=== PATIENT | female | born 1985 | race Caucasian/White ===

== ENCOUNTER 2018-01-22 21:20 | Emergency (ER) | payer MEDICAID, SELFPAY ==
[2018-01-22 21:22] VITALS: BP 156/99; PULSE 63; RESP 16; TEMP 35.9; O2SAT 100; BMI 44.7
--- NOTE | 2018-01-22 21:44 | EKG12_ITS ---
Test Reason : DIZZY Blood Pressure : / mmHG Vent. Rate : 060 BPM Atrial Rate : 060 BPM P-R Int : 124 ms QRS Dur : 090 ms QT Int : 440 ms P-R-T Axes : 047 053 040 degrees QTc Int : 440 ms Normal sinus rhythm with sinus arrhythmia Normal ECG Confirmed by KALE STOVER, KAYLA ([id number]), video tape editor RICH SADLER ([id number] on 01/24/2018 3:31:22 PM Referred By: DAYO Confirmed By:KAYLA HENLEY MD
[2018-01-22 22:05] VITALS: BP 125/73; BP 128/63; BP 129/68; PULSE 58; PULSE 59; PULSE 67
[2018-01-22] MEDS: 0.9% Normal Saline 1,000 ML 1000 ML IV (22:05)
[2018-01-22 22:29] LABS: Absolute Lymphocyte Count 2.49 X10^3/ul (0.83-4.51); Absolute Neutrophil Count 5.9 X10^3/uL (2.0-7.7); Basophil# 0.02 X10^3/uL; Basophil% 0.2 % (0-1); Eosinophil# 0.24 X10^3/uL; Eosinophils% 2.6 % (0-5); Hematocrit 36.2 % (37-47); Hemoglobin 12.2 g/dl (12.0-15.0); Lymphocyte # 2.49 X10^3/ul (4.0); Lymphocyte % 26.9 % (19-41); Mean Corp Hgb Conc 33.7 g/gl (32-36); Mean Corpuscular Hgb 27.1 pg (27.0-32.0); Mean Corpuscular Volume 80.4 fL (81-99); Mean Platelet Vol. 11.5 fl (6.2-12.0); Monocyte# 0.55 X10^3/uL; Monocyte% 5.9 % (0-10); Neutrophil # 5.93 X10^3/uL (2.7-7.7); Neutrophil % 64.2 % (47-70); Platelet Count 327 K/mm3 (150-450); RBC Distribution Width SD 43.3 fl (35.1-43.9); White Blood Count 9.3 K/mm3 (4.4-11.0)
[2018-01-22 22:30] LABS: POSITIVE COUNT NO; POSITIVE DIFFERENTIAL NO; POSITIVE MORPHOLOGY NO
[2018-01-22 22:43] LABS: Anion Gap 9 (5-15); BUN 10 mg/dL (7-18); BUN/Creat Ratio 13.8 RATIO (10-20); Calcium,Total 8.6 mg/dL (8.5-10.1); Chloride 105 mmol/L (98-107); Creatinine, Serum 0.72 mg/dL (0.55-1.02); EST Glomerular Filtration Rate 99 mL/min (>60); Est Glom Filt Rate - Afr Amer 120 mL/min (>60); Estimated Creatinine Clearance 113.16 ml/min; Glucose 88 mg/dL (74-106); Potassium 3.6 mmol/L (3.5-5.1); Sodium Level 139 mmol/L (136-145)
[2018-01-22 22:48] LABS: Pregnancy, Serum, hCG Quali. NEGATIVE Negative (0-9 Nonpreg)
--- NOTE | 2018-01-22 23:03 | ED.VISSUMM ---
- ER Visit Summary Date of Service: 01/22/18 Chief Complaint: Lightheaded History of Present Illness: The patient is a [address] Mueller. She reports that she has been lightheaded over the past 3 days. This is worsened with standing. She has not passed out. She does report that time she feels off balance. She denies any vertigo or double vision. She questions whether this may be due to the Zoloft and Julebar that she began January 02. Patient reports that she has been nauseated vomited twice a day. There is been no blood or emesis. She states that this is not unusual following her gastric bypass in July 2017. Review of systems: General: No fever, chills, cold sweats. Cardiovascular: No chest pain, palpitations. Respiratory: No cough, shortness of breath, dyspnea on exertion. Gastrointestinal: No abdominal pain, diarrhea, melena, or hematochezia. Genitourinary: No dysuria, frequency, hematuria. Skin: No rash. Neuro: No headache, numbness, weakness. Physical Examination: Vitals: Stable. Afebrile. General: Well-nourished and well-developed. Head: Normocephalic atraumatic. Neck: Supple, no lymphadenopathy. No JVD. Nontender. Cardiovascular: Regular rate and rhythm. No murmurs. Respiratory: No respiratory distress. Clear to auscultation bilaterally. Abdominal: Soft, nontender, nondistended, normal bowel sounds. No guarding, rebound, or peritoneal signs. Back: Nontender. Extremities: Nontender, no edema. Skin: Normal color, no rash. Neurologic: Alert and oriented ?3. Cranial nerves II through XII are intact. Normal strength and sensation. Psych: Normal affect. Test Results: EKG is sinus tach at 101 with no acute changes. CBC is normal. Chem-7 is normal. test is negative. Emergency Department Course and Treatment: Patient had negative orthostatic vital signs. She is given a liter of normal saline is resting comfortably. Treatment Plan: Patient be discharged instructions to push fluids. Follow-up with Dr. Mueller in 1-2 days if not improving. Return to the emergency department for any worsening symptoms. Disposition: To home in improved and stable condition. Impression: 1. Lightheadedness, uncertain cause. This note was generated with Dragon dictation software. It may contain incorrect words, spelling, and punctuation that were not noted in review of the chart prior to signing ED Disposition - Plan for ED Patient: Disposition: Home or Assisted Living Chief Complaint: Dizziness Instructions: ED Near Syncope Unkn Referrals: Viraj Mueller MD [Primary Care Provider] - 1-2 Days if not improving
[2018-01-22 23:17] VITALS: BP 128/64; PULSE 59; RESP 22; O2SAT 100
== END 2018-01-22 23:18 | disposition home or self-care (01) ==
LOC: ED 21:54
PROVIDERS: Emergency Provider Emergency Medicine; Family Provider Family Medicine; PCP Family Medicine
DX: R42 Dizziness and giddiness (principal); G43.909 Migraine, unspecified, not intractable, without status migrainosus
CPT/HCPCS: 80048; 84703; 85025; 93005; 96360; 99285; J7030

== ENCOUNTER 2018-03-06 13:49 | Emergency (ER) | payer MEDICAID, SELFPAY ==
--- NOTE | 2018-03-06 13:49 | DT_ITS ---
This patient was seen during an EMR downtime March 06, 2018 - March 13, 2018. This patient may have a combination of paper and electronic documentation or all paper documentation. All documentation is viewable within the e-chart portion of [facility] for each patient visit.
== END 2018-03-06 17:47 | disposition home or self-care (01) ==
LOC: ED 03-08 13:55
PROVIDERS: Emergency Provider Emergency Medicine; Family Provider Family Medicine; PCP Family Medicine
DX: S29.012A Strain of muscle and tendon of back wall of thorax, initial encounter (principal); X50.1XXA Overexertion from prolonged static or awkward postures, initial encounter; Y93.9 Activity, unspecified; Y92.9 Unspecified place or not applicable; M62.838 Other muscle spasm; Z98.84 Bariatric surgery status
CPT/HCPCS: 99283

== ENCOUNTER 2018-05-02 18:08 | Emergency (ER) | payer MEDICAID, SELFPAY ==
[2018-05-02 18:09] VITALS: BP 159/109; PULSE 98; RESP 14; TEMP 36.1; O2SAT 98; BMI 43.2
--- NOTE | 2018-05-02 18:37 | ED.DCSUM_ITS ---
- ER Visit Summary Date of Service: 05/02/18 Chief Complaint: Joint pain History of Present Illness: The patient is a 32 F by a 2 week history of intermittent. Denies any nausea, vomiting, diarrhea or fever. No rashes. States does improve with Tylenol. She is also felt somewhat tired. She denies chest pain or shortness of breath. She denies melena. No dysuria. No prior history. She does have a history of anxiety and a prior gastric bypass. Physical Examination: Well-appearing young female. Vital signs are stable and afebrile. H EENT exam unremarkable. Neck nontender no lymphadenopathy. Lungs clear to auscultation bilaterally. Heart regular rhythm no murmur. Abdomen soft nontender normal bowel sounds no peritoneal signs. She is moving all 4 extremities. They are neurovascularly intact. Normal range of motion. 5 out of 5 carcass splitter strength. Dorsi plantar flexion intact. Skin normal no rashes. Back exam normal nontender. Neurologically she is awake and alert with no focal motor deficits. Test Results: CBC normal. Electrolytes normal. Emergency Department Course and Treatment: Complaining of of myalgias and arthralgias. Screening labs to be obtained. Treatment Plan: Repeat exam patient is doing well. Will be discharged to home with follow-up with primary care physician for further evaluation. Disposition: discharge Impression: Acute myalgias and arthralgias of uncertain etiology This note was generated with [employer] dictation software. It may contain incorrect words, spelling, and punctuation that were not noted in review of the chart prior to signing ED Disposition - Plan for ED Patient: Chief Complaint: General Illness Referrals: Viraj Mueller MD [Primary Care Provider] -
[2018-05-02 18:50] LABS: Absolute Lymphocyte Count 2.59 X10^3/ul (0.83-4.51); Absolute Neutrophil Count 4.5 X10^3/uL (2.0-7.7); Basophil# 0.04 X10^3/uL; Basophil% 0.5 % (0-1); Eosinophil# 0.64 X10^3/uL; Eosinophils% 7.7 % (0-5); Hematocrit 38.3 % (37-47); Hemoglobin 12.9 g/dl (12.0-15.0); Lymphocyte # 2.59 X10^3/ul (4.0); Lymphocyte % 31.3 % (19-41); Mean Corp Hgb Conc 33.7 g/gl (32-36); Mean Corpuscular Hgb 27.5 pg (27.0-32.0); Mean Corpuscular Volume 81.7 fL (81-99); Mean Platelet Vol. 10.8 fl (6.2-12.0); Monocyte# 0.48 X10^3/uL; Monocyte% 5.8 % (0-10); Neutrophil # 4.51 X10^3/uL (2.7-7.7); Neutrophil % 54.5 % (47-70); POSITIVE COUNT NO; POSITIVE DIFFERENTIAL NO; POSITIVE MORPHOLOGY NO; Platelet Count 274 K/mm3 (150-450); RBC Distribution Width SD 44.7 fl (35.1-43.9); Red Blood Count 4.69 M/mm3 (4.2-5.4); White Blood Count 8.3 K/mm3 (4.4-11.0)
[2018-05-02 19:03] LABS: Anion Gap 6 (5-15); BUN 8 mg/dL (7-18); BUN/Creat Ratio 10.3 RATIO (10-20); Chloride 107 mmol/L (98-107); Creatinine, Serum 0.77 mg/dL (0.55-1.02); EST Glomerular Filtration Rate 91 mL/min (>60); Est Glom Filt Rate - Afr Amer 111 mL/min (>60); Estimated Creatinine Clearance 105.81 ml/min; Glucose 91 mg/dL (74-106); Potassium 3.8 mmol/L (3.5-5.1); Sodium Level 141 mmol/L (136-145)
[2018-05-02 21:56] VITALS: BP 142/98; PULSE 87; RESP 18; O2SAT 95
--- NOTE | 2018-05-02 23:41 | ED.DEP ---
ED Disposition - Plan for ED Patient: Disposition: Home or Assisted Living Chief Complaint: General Illness Instructions: ED Muscle Aching Referrals: Viraj Mueller MD [Primary Care Provider] - 1 Week if not improving Additional Instructions: Call follow-up your primary care physician. All labs were normal tonight.
[2018-05-02 23:49] VITALS: BP 138/76; PULSE 64; RESP 17; O2SAT 95
== END 2018-05-02 23:50 | disposition home or self-care (01) ==
PROVIDERS: Emergency Provider Emergency Medicine; Family Provider Family Medicine; PCP Family Medicine
DX: M25.50 Pain in unspecified joint (principal); M79.1 Myalgia; F41.9 Anxiety disorder, unspecified
CPT/HCPCS: 80048; 85025; 99283

== ENCOUNTER 2018-08-28 19:01 | Emergency (ER) | payer MEDICAID, SELFPAY ==
[2018-08-28 19:02] VITALS: BP 157/79; PULSE 83; RESP 16; TEMP 36.4; O2SAT 98; BMI 44.0
--- NOTE | 2018-08-28 19:54 | RAD_ITS ---
STUDY: X-RAY - RIGHT FOOT CLINICAL: Female, 33 years old. Trauma TECHNIQUE: 3 view(s) of the foot. COMPARISON: None. FINDINGS: Normal talus, calcaneus, and tarsal bones. Normal visualized subtalar, calcaneocuboid, tarsal and tarsometatarsal articulations. There is spurring of the talonavicular joint Normal metatarsi. Normal metatarsophalangeal joint of the great toe. Normal tibial and fibular sesamoid bones. Normal interphalangeal joint of the great toe. Normal phalanges of the great toe. Normal second through fifth metatarsophalangeal joints. Normal interphalangeal joints and phalanges of the lesser toes. The soft tissue structures are unremarkable. RAD/Foot min 3 Views IMPRESSION: Degenerative changes. No evidence for acute fracture Electronically Signed: Viraj Talbot MD at 21:07 EST , Service support ,
--- NOTE | 2018-08-28 20:17 | ED.VISSUMM ---
- ER Visit Summary Date of Service: 08/28/18 Chief Complaint: Right foot injury History of Present Illness: The patient is a 33 F who is otherwise healthy presents with right foot injury. Patient states that she was walking outside in the grass on Tuesday. States he was wet and she slipped. She thought that she sprained her foot. She states she was having some pain over the weekend. She has been using crutches. Today, she is letting her dog out and she fell again. She was concerned because she does have prior fracture in her foot. She has had some increasing pain. She did not strike her head. She denies loss of consciousness. She has taken some anti-inflammatories. Physical Examination: Examination is relatively unremarkable. Pulses are normal. Skin is intact. She does have some tenderness over the dorsum of the foot in the midfoot. There is no ecchymosis. She has no tenderness to the ankle. There is no tenderness at the head of the fifth metatarsal. She has no proximal fibular pain. Test Results: [] Emergency Department Course and Treatment: Plain films are obtained of the foot. There is no evidence of acute fracture or dislocation. Pulses are normal. Patient was counseled that she likely has a sprain. Marin wrap is applied. She will continue crutches and anti-inflammatories. She will be discharged home. Treatment Plan: [] Disposition: [] Impression: Right foot sprain This note was generated with [employer] dictation software. It may contain incorrect words, spelling, and punctuation that were not noted in review of the chart prior to signing ED Disposition - Plan for ED Patient: Chief Complaint: Lower Extremity Injury Instructions: ED Sprain Foot Prescriptions: Naproxen [Naprosyn] 500 mg PO BID PRN #20 tab Referrals: Viraj Mueller MD [Primary Care Provider] -
[2018-08-28] MEDS: HYDROcodone Bitartrate/Apap 5/325 Tablet PO (21:08)
[2018-08-28 21:12] VITALS: BP 144/78; PULSE 81; RESP 19; O2SAT 95
--- OUTSIDE RECORDS SUMMARY | 2018-10-10 17:05 | XMS RPT_ITS ---
:1985 Author Organization OHIP Care Team Providers Name Role Phone GINA BLANCO Referring Unavailable GINA BLANCO Attending Unavailable GINA BLANCO Referring Unavailable JULISA CELAYA Attending Unavailable JULISA CELAYA Attending Unavailable JULISA CELAYA Attending Unavailable JULISA CELAYA Referring Unavailable Allison Wall Attending Unavailable Hernán Celaya Referring Unavailable Hernán Celaya Primary Care Unavailable Hernán Celaya Primary Care Unavailable Joshua Zuletauel Attending Unavailable Yecenia Suazo Attending Unavailable Yecenia Suazo Referring Unavailable Hernán Celaya Primary Care Unavailable Allison Wall Attending Unavailable Hernán Celaya Referring Unavailable Hernán Celaya Primary Care Unavailable Hernán Celaya Primary Care Unavailable Hernán Faust Attending Unavailable Hernán Celaya Primary Care Unavailable Brodie Aguilera Attending Unavailable PROBLEMS PROBLEMS DATE TYPE CONDITION / CODE ATTENDING STATUS SOURCE 05/12/2018 Active Myalgia / NA Active [facility] M79.1(ICD-10) [facility] Main [place] Repository 03/30/2018 Active Unknown / JULISA CELAYA Active [facility] UNK(Unknown) R [facility] [place] Rep[facility] 03/31/2018 Unknown M54.6 - Pain in Yecenia Suazo Active [place] thoracic spine / [facility] M54.6(ICD-10) Hospital Repository 01/03/2018 Unknown N93.9 - Abnormal Marcanthony, Active [place] uterine [facility] / Repository N93.9(ICD-10) 07/29/2017 Active Morbid (severe) NA Active [facility] obesity due to [facility] Main excess calories / [place] E66.01(ICD-10) Repository 09/30/2017 Active Other specified NA Active [facility] postprocedural Clinic Main states / [place] Z98.890(ICD-10) Repository 09/30/2017 Active Dietary counseling NA Active [facility] and surveillance / [facility] Z71.3(ICD-10) [place] Repository PROCEDURES PROCEDURES No Procedure Records FoundRESULTS RESULTS EMERGENCY DEPARTMENT Observed: 08/28/2018 Status: F Source: [place] SUMMARY 11:12 PM [facility] [place] REPOSITORY [facility] Medical Records Department [address] [place] [address] Emergency Department Summary 08/28/182016 MR#: [id number] Acct: [id number] Name: KATHERINE ESTRADA Rep #: [id number] : 1985 33 From: Brodie Aguilera MD PCP: Hernán Celaya MD Status: DEP ER - ER Visit Summary Date of Service: 08/28/18 Chief Complaint: Right foot injury History of Present Illness: The patient is a 33 F who is otherwise healthy presents with right foot injury. Patient states that she was walking outside in the grass on Tuesday. States he was wet and she slipped. She thought that she sprained her foot. She states she was having some pain over the weekend. She has been using crutches. Today, she is letting her dog out and she fell again. She was concerned because she does have prior fracture in her foot. She has had some increasing pain. She did not strike her head. She denies loss of consciousness. She has taken some anti-inflammatories. Physical Examination: Examination is relatively unremarkable. Pulses are normal. Skin is intact. She does have some tenderness over the dorsum of the foot in the midfoot. There is no ecchymosis. She has no tenderness to the ankle. There is no tenderness at the head of the fifth metatarsal. She has no proximal fibular pain. Test Results: [] Emergency Department Course and Treatment: Plain films are obtained of the foot. There is no evidence of acute fracture or dislocation. Pulses are normal. Patient was counseled that she likely has a sprain. Marin wrap is applied. She will continue crutches and anti-inflammatories. She will be discharged home. Treatment Plan: [] Disposition: [] Impression: Right foot sprain This note was generated with Angle dictation software. It may contain incorrect words, spelling, and punctuation that were not noted in review of the chart prior to signing ED Disposition - Plan for ED Patient: Chief Complaint: Lower Extremity Injury Instructions: ED Sprain Foot Prescriptions: Naproxen [Naprosyn] 500 mg PO BID PRN #20 tab Referrals: Hernán Celaya MD [Primary Care Provider] - What to do if you have Problems For any increased pain, shortness of breath, bleeding, nausea or vomiting, chest pain, or any unexpected problems, contact your Primary Care Provider. Call [facility] ([phone]) or report to the closest Emergency Room. Call 911 if necessary. 08/28/18 7222 <Electronically signed by Brodie Aguilera MD> Date Brodie Aguilera MD Cosigner Signature (If Indicated): Date CC: Hernán Celaya MD FOOT MIN 3 VIEWS Observed: 08/28/2018 Status: F Source: [place] 7:42 PM [facility] REPOSITORY [facility] Imaging Services [address] [place] [address] Foot min 3 Views MR#: [id number] Acct: [id number] Name: KATHERINE ESTRADA Rep #: [id number] : 1985 F 33 From: Hernán Talbot MD PCP: Hernán Celaya MD Status: REG ER Study: Foot min 3 Views Date of Exam: 08/28/18 Exam# [id number] Ordering Dr: Brodie Aguilera MD STUDY: X-RAY - RIGHT FOOT CLINICAL: Female, 33 years old. Trauma TECHNIQUE: 3 view(s) of the foot. COMPARISON: None. FINDINGS: Normal talus, calcaneus, and tarsal bones. Normal visualized subtalar, calcaneocuboid, tarsal and tarsometatarsal articulations. There is spurring of the talonavicular joint Normal metatarsi. Normal metatarsophalangeal joint of the great toe. Normal tibial and fibular sesamoid bones. Normal interphalangeal joint of the great toe. Normal phalanges of the great toe. Normal second through fifth metatarsophalangeal joints. Normal interphalangeal joints and phalanges of the lesser toes. The soft tissue structures are unremarkable. RAD/Foot min 3 Views IMPRESSION: Degenerative changes. 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 Estrada, Please call the office for a message from the doctor. The office has tried to reach you a few times, no voicemail set up. Please do not hesitate to contact me with any questions. Sincerely, Marivel Padilla RN [place] Triage (Electronically signed to expedite processing) CK Collected: 05/12/2018 Status: F Source: [facility] 4:39 PM [facility] [place] REPOSITORY TYPE CODE TESTS RESULT OUT OF RANGE REFERENCE UNITS LAB CK 42-196 U/L CK 65 Result Comment: Please note the updated, gender-specific reference range for this test (effective 09/16/2016). Performed By: #### CK, WSR, LMERLY, ANAIFS #### [facility] [address] [address] SED RATE WESTERGREN Collected: 05/12/2018 Status: F Source: [place] 4:39 PM [facility] REPOSITORY TYPE CODE TESTS RESULT OUT OF REFERENCE UNITS RANGE LAB WSR 0-20 mm/hr Sed Rate High Westergren 24 Performed By: #### CK, WSR, LMERLY, ANAIFS #### [facility] [address] [place] [address] LYME EARLY <=30 Collected: 05/12/2018 Status: F Source: [facility] 4:39 PM [facility] REPOSITORY TYPE CODE TESTS RESULT OUT OF REFERENCE UNITS RANGE LAB LYMGMX Negative Lyme Negative IgG/IgM AB Result Comment: Absence of detectable Borrelia burgdorferi antibodies. A negative result does not exclude the possibility of Borrelia burgdorferi infection. If early Lyme disease is suspected, a second sample should be collected and tested two to four weeks later. Performed By: #### CK, WSR, LMERLY, ANAIFS #### [facility] [address] [place] [address] CLIFF BY IFA Collected: 05/12/2018 Status: F Source: [place] 4:39 PM [facility] REPOSITORY TYPE CODE TESTS RESULT OUT OF REFERENCE UNITS RANGE LAB ANASC Negative CLIFF Negative Result Comment: Normal range : negative at <1:80 serum dilution. Approximately 6% of patients with connective tissue diseases with low positive EIA values are negative by IFA. Recommend follow-up with specific antinuclear antibodies if clinically indicated. LAB MATILDA Negative Negative CLIFF Titer Result Comment: Normal range : negative at <1:80 serum dilution. LAB ANAP CLIFF Not applicable Pattern for negative result. Performed By: #### CK, HOLLI, JOSH, ANAIFS #### [facility] [address] [place], [place] [address] PROGRESS Observed: 05/10/2018 Status: COMPLETED Source: [place] 3:54 PM [facility] REPOSITORY HNO ID: [id number] Author: Julisa Celaya Service: (none) Author Type: Physician Type: Progress Notes Filed: 05/14/2018 8:15 AM Note Text: Pt went to ER , got up to void and got sweaty. 3 am. Banks weak. .lost track of time - an hour. Checked clock again and it was 4 am. Went to ER and bloodwork normal. ER Dr Speculated about LYme disease. Migraines , sore muscles. Joints ache. Depression. She admits to this being worse. PHYSICAL EXAMINATION BP 120/54 (BP Site: Left Arm, BP Position: Sitting) Pulse 79 Resp 12 Wt 128.7 kg (283 lb 12.8 oz) BMI 42.76 kg/m? General: Alert and oriented, no distress, pleasant and cooperative. Heart: Regular, normal S1 and S2, no murmurs, rubs, or gallops Lungs: Clear to auscultation bilaterally Abdomen: Benign Extremities: Feet/ankles without edema, posterior tibial pulses full and symmetrical No rash. No joint swelling. NO adenopathy Assessment/Plan: (M79.1) Myalgia (primary encounter diagnosis) Comment: Likely fibromyalgia. Plan: CK CREATINE KINASE, SED RATE WESTERGREN, CLIFF BY IFA SCREEN, LYME AB EARLY <=30 DAY SYMPTOMS Check but doubt Lyme Signed Prescriptions Disp Refills amitriptyline (ELAVIL) 10 mg tablet 30 tablet 1 Sig: Take 1 tablet by mouth daily at bedtime. RTO: few wks assess response Julisa Celaya MD CNOV Observed: 05/10/2018 Status: COMPLETED Source: [place] 3:40 PM [facility] REPOSITORY Office Visit (FPWADS) NATALIEKATHERINE Suresh ([id number]) 1985 F Date Time Provider Department 05/10/18 3:40 PM JULISA CELAYA During your visit today, we recorded the following information about you: Pulse Respiration Blood pressure Weight 79/minute 12/minute 120/54 128.7 kg Julisa Celaya MD 05/14/2018 8:15 AM Signed Pt went to ER , got up to void and got sweaty. 3 am. Banks weak. .lost track of time - an hour. Checked clock again and it was 4 am. Went to ER and bloodwork normal. ER Dr Speculated about LYme disease. Migraines , sore muscles. Joints ache. Depression. She admits to this being worse. PHYSICAL EXAMINATION BP 120/54 (BP Site: Left Arm, BP Position: Sitting) Pulse 79 Resp 12 Wt 128.7 kg (283 lb 12.8 oz) BMI 42.76 kg/m? General: Alert and oriented, no distress, pleasant and cooperative. Heart: Regular, normal S1 and S2, no murmurs, rubs, or gallops Lungs: Clear to auscultation bilaterally Abdomen: Benign Extremities: Feet/ankles without edema, posterior tibial pulses full and symmetrical No rash. No joint swelling. NO adenopathy Assessment/Plan: (M79.1) Myalgia (primary encounter diagnosis) Comment: Likely fibromyalgia. Plan: CK CREATINE KINASE, SED RATE WESTERGREN, CLIFF BY IFA SCREEN, LYME AB EARLY <=30 DAY SYMPTOMS Check but doubt Lyme Signed Prescriptions Disp Refills amitriptyline (ELAVIL) 10 mg tablet 30 tablet 1 Sig: Take 1 tablet by mouth daily at bedtime. RTO: few wks assess response Julisa Celaya MD Referring Provider: SELF [200] Allergies As of Date: 05/10/2018 Noted Allergy Reaction ALMOND 08/11/2016 10 - Anaphylaxis AUGMENTIN (AMOXICILLIN-POT CLAVUL*11/29/2014 8 - GI Upset Comments: Tolerates penicillin. Likely reaction to clavulanate MORPHINE 08/14/2015 12 - Shortness of Breath WALNUT 08/03/2016 10 - Anaphylaxis Date Reviewed: 03/30/2018 Reviewed by: Joselin Renae Ma - Fully Assessed Reason for Visit: Follow Up [171] Cmt: ED visit- questioning if she has fibromyalgia Reason For Visit History Recorded Primary Visit Diagnosis:Myalgia [M79.1] Order(s):CK CREATINE KINASE [SQCK] Order #: [id number] FUTURE SED RATE WESTERGREN [SQWSR] Order #: [id number] FUTURE CLIFF BY IFA SCREEN [SQANAIFS] Order #: [id number] FUTURE LYME AB EARLY <=30 DAY SYMPTOMS [SQLMERLY] Order #: [id number] FUTURE amitriptyline (ELAVIL) 10 mg tabletTake 1 tablet by mouth daily at bedtime.Disp: 30 tabletRfl: 1 Prescriptions as of 05/10/2018 Sig: AMITRIPTYLINE 10 MG TABLET Take 1 tablet by mouth daily * CETIRIZINE 10 MG TABLET Take 1 tablet by mouth once d* CYCLOBENZAPRINE 10 MG TABLET Take 1 tablet by mouth every * DESOGESTREL 0.15 MG-ETHINYL E* Take 1 tablet by mouth once d* PANTOPRAZOLE 40 MG TABLET,DEL* Take 1 tablet by mouth once d* EPINEPHRINE 0.3 MG/0.3 ML INJ* Inject 0.3 mL intramuscularly* FLUTICASONE 50 MCG/ACTUATION * Use 2 Sprays in each nostril * SERTRALINE 25 MG TABLET Take 1 tablet by mouth once d* MICONAZOLE NITRATE 2 % TOPICA* Apply 1 application to affect* CHLORHEXIDINE GLUCONATE 4 % T* Apply 1 application to affect* Patient not taking: Reported on 01/05/2018 CLINDAMYCIN 1 % TOPICAL GEL Apply 1 application to affect* Patient not taking: Reported on 01/05/2018 Problem List As Of Date 05/10/2018 Noted Resolved CELLULITIS NOS [L03.90, L02.91] INVALID FOR* Sprain of foot [S93.699A] INVALID FOR* Obesity, morbid, BMI 50 or higher (HCC) [E66.01]INVALID FOR* Morbid obesity (HCC) [E66.01] INVALID FOR* More... Pre-op testing [Z01.818] INVALID FOR*07/29/2017 More... Tree nut allergy [Z91.018] INVALID FOR* Seasonal allergic rhinitis due to pollen [J30.1]INVALID FOR* Prescriptions ordered this encounter Disp Refills Start End AMITRIPTYLINE 10 MG TABLET 30 t* 1 05/10/2018 Route: ORAL Sig: Take 1 tablet by mouth daily at bedtime. Encounter Status:Closed by HERNÁN CELAYA MD on 05/14/18 EMERGENCY DEPARTMENT Observed: 05/03/2018 Status: F Source: [place] SUMMARY 12:41 AM [facility] REPOSITORY [facility] Medical Records Department [address] [place] [address] Emergency Department Summary 05/02/18 1835 MR#: [id number] Acct: [id number] Name: KATHERINE ESTRADA Rep #: [id number] : 1985 32 From: Hernán Faust MD PCP: Hernán Celaya MD Status: DEP ER - ER Visit Summary Date of Service: 05/02/18 Chief Complaint: Joint pain History of Present Illness: The patient is a 32 F by a 2 week history of intermittent. Denies any nausea, vomiting, diarrhea or fever. No rashes. States does improve with Tylenol. She is also felt somewhat tired. She denies chest pain or shortness of breath. She denies melena. No dysuria. No prior history. She does have a history of anxiety and a prior gastric bypass. Physical Examination: Well-appearing young female. Vital signs are stable and afebrile. H EENT exam unremarkable. Neck nontender no lymphadenopathy. Lungs clear to auscultation bilaterally. Heart regular rhythm no murmur. Abdomen soft nontender normal bowel sounds no peritoneal signs. She is moving all 4 extremities. They are neurovascularly intact. Normal range of motion. 5 out of 5 field account director strength. Dorsi plantar flexion intact. Skin normal no rashes. Back exam normal nontender. Neurologically she is awake and alert with no focal motor deficits. Test Results: CBC normal. Electrolytes normal. Emergency Department Course and Treatment: Complaining of of myalgias and arthralgias. Screening labs to be obtained. Treatment Plan: Repeat exam patient is doing well. Will be discharged to home with follow-up with primary care physician for further evaluation. Disposition: discharge Impression: Acute myalgias and arthralgias of uncertain etiology This note was generated with Angle dictation software. It may contain incorrect words, spelling, and punctuation that were not noted in review of the chart prior to signing ED Disposition - Plan for ED Patient: Chief Complaint: General Illness Referrals: Hernán Celaya MD [Primary Care Provider] - What to do if you have Problems For any increased pain, shortness of breath, bleeding, nausea or vomiting, chest pain, or any unexpected problems, contact your Primary Care Provider. Call [facility] ([phone]) or report to the closest Emergency Room. Call 911 if necessary. 05/03/18 0041 <Electronically signed by Hernán Faust MD> Date Hernán Faust MD Cosigner Signature (If Indicated): Date CC: Hernán Celaya MD DISCHARGE INSTRUCTION Observed: 05/03/2018 Status: F Source: [place] 12:41 AM [facility] REPOSITORY [facility] Medical Records Department [address] [place] [address] Discharge Instruction 05/02/18 2341 MR#: [id number] Acct: [id number] Name: KATHERINE ESTRADA Rep #: [id number] : 1985 32 From: Hernán Faust MD PCP: Hernán Celaya MD Status: [facility] ER ED Disposition - Plan for ED Patient: Disposition: Home or Assisted Living Chief Complaint: General Illness Instructions: ED Muscle Aching Referrals: Hernán Celaya MD [Primary Care Provider] - 1 Week if not improving Additional Instructions: Call follow-up your primary care physician. All labs were normal tonight. What to do if you have Problems For any increased pain, shortness of breath, bleeding, nausea or vomiting, chest pain, or any unexpected problems, contact your Primary Care Provider. Call [facility] ([phone]) or report to the closest Emergency Room. Call 911 if necessary. 05/03/18 0041 <Electronically signed by Hernán Faust MD> Date Hernán Faust MD Cosigner Signature (If Indicated): Date CC: Hernán Celaya MD CBC W/DIFF, AUTOMATED Collected: 05/02/2018 Status: F Source: [place] 6:44 PM [facility] REPOSITORY TYPE CODE TESTS RESULT OUT OF RANGE REFERENCE UNITS LAB L100.1000 4.4-11.0 K/mm3 Normal WBC 8.3 LAB L100.1200 4.2-5.4 M/mm3 Normal RBC 4.69 LAB L100.1300 12.0-15.0 g/dl Normal HGB 12.9 LAB L100.1400 37-47 % Normal HCT 38.3 LAB L100.1500 81-99 fL Normal MCV 81.7 LAB L100.1600 27.0-32.0 pg Normal MCH 27.5 LAB L100.1700 32-36 g/gl Normal MCHC 33.7 LAB L100.1810 11.6-14.6 % High RDW CV 15.0 LAB L100.1820 35.1-43.9 fl High RDW SD 44.7 LAB L100.1900 150-450 K/mm3 Normal PLT 274 LAB L100.2000 6.2-12.0 fl Normal MPV 10.8 LAB L100.2100 47-70 % Normal NEUT% 54.5 LAB L100.2200 19-41 % Normal LY% 31.3 LAB L100.2300 0-10 % Normal MONO% 5.8 LAB L100.2400 0-5 % High EO% 7.7 LAB L100.2500 0-1 % Normal BASO% 0.5 LAB L100.2550 0.0-0.9 % Normal IM GRAN % 0.200 Result Comment: IG% - Immature Granulocytes (promyelocytes, myelocytes and metamyelocytes) > 1% indicates that a LEFT SHIFT is Present. LAB L100.2620 2.0-7.7 X10 3/uL Normal Absolute Neut 4.5 LAB L100.2720 0.83-4.51 X10 3/ul Normal Absolute Lymph 2.59 Performed By: #### L100.0100 #### [facility] [address] [place], [place], [id number] BASIC METABOLIC Collected: 05/02/2018 Status: F Source: [place] PROFILE (BMP) 6:44 PM [facility] REPOSITORY TYPE CODE TESTS RESULT OUT OF RANGE REFERENCE UNITS LAB L501.0100 74-106 mg/dL Normal GLU 91 Result Comment: Please note revised GLUCOSE reference range effective 2017. LAB L501.1000 7-18 mg/dL Normal BUN 8 LAB L501.1100 0.55-1.02 mg/dL Normal CREAT,SERUM 0.77 Result Comment: The validity of the calculated GFR AND GFRAA in patients over 70 years has not been determined. Clinical correlation is essential. LAB L501.1110 >60 mL/min Normal EST GFR 91 Result Comment: Non- GFR Calc LAB L501.1115 >60 mL/min Normal EST GFR - AA 111 Result Comment: GFR Calc LAB L501.1255 ml/min Normal Estimated CRCL 105.81 LAB L501.1300 10-20 RATIO BUN/CRE Normal 10.3 LAB L501.2200 8.5-10 mg/dL .1 CA Normal 9.0 LAB L501.5300 136-14 mmol/L 5 NA Normal 141 LAB L501.5600 3.5-5. mmol/L 1 K Normal 3.8 LAB L501.5900 98-107 mmol/L CL Normal 107 LAB L501.6100 21.0-3 mmol/L 2.0 CO2 Normal 28.0 LAB L501.6200 5-15 GAP Normal 6 Performed By: #### L500.2500 #### [facility] [address] [facility] [place], [address] PROGRESS Observed: 03/30/2018 Status: COMPLETED Source: [place] 11:31 AM [facility] REPOSITORY HNO ID: [id number] Author: Julisa Celaya Service: (none) Author Type: Physician Type: Progress Notes Filed: 03/31/2018 11:39 AM Note Text: Chief Complaint Patient presents with: Follow Up: ED visit for back pain Allergies Dizziness HPI Katherine Estrada is a 32 year old female who presents here today for follow-up of ER visit about 2 1/2 wks ago. Back spasms . 6/4 L upper back. Persists. Given Rx for Percocet and Flexeril. Improved significantly, Still has spasm and swelling in the back at times with radiation down the L arm. She does recall overdoing it with some gardening ACTIVE PROBLEM LIST Cellulitis and Abscess of Unspecified Site Sprain of Foot Obesity, Morbid, Bmi 50 Or Higher (Hcc) Morbid Obesity (Hcc) Tree Nut Allergy Gastric bypass surgery, has los about 90 lb so far. Allergies Flonase and Claritin. Past medical history, appointments, medications, allergies reviewed. Previous Medical History PAST MEDICAL HISTORY Diagnosis Date - Allergic rhinitis, cause unspecified - Cholelithiasis Previous Surgical History PAST SURGICAL HISTORY Procedure Laterality Date - LAPAROSCOPIC CHOLEYCYSTECTOMY 12/26/11 - PAST SURGICAL HISTORY OF 1988 right eye - PAST SURGICAL HISTORY OF right hand Family History FAMILY HISTORY Problem Relation Age of Onset - Alcohol/Drug Maternal Uncle - Allergies Mother - Allergies Maternal Aunt - Allergies Sister bees - Alzheimer's Disease Paternal Grandfather - Arthritis Paternal Grandfather - Arthritis Daughter - Asthma Mother - Blood Disease - Blood Disease Father hiv - Cancer Father prostrate - Colon Cancer Father - Coronary Artery Disease Mother - Coronary Artery Disease Maternal Grandmother - Coronary Artery Disease Maternal Grandfather - Coronary Artery Disease Paternal Grandmother - Coronary Artery Disease Paternal Grandfather - Coronary Artery Disease Maternal Aunt - Coronary Artery Disease Maternal Uncle - Diabetes Mother - Diabetes Paternal Grandfather - Diabetes Maternal Aunt - Diabetes Maternal Uncle - Emphysema Paternal Aunt great aunt - Headache Mother - Headache Father - Headache Sister - Headache Brother - Hypertension Mother - Hypertension Father - Hypertension Maternal Grandfather - Hypertension Maternal Aunt - Hypertension Maternal Uncle - Lipids Mother - Prostate Cancer Father - Seizures Maternal Uncle - Seizures Maternal Grandmother - Seizures Maternal Aunt - Stroke Maternal Aunt - Thyroid Mother Patient Allergies ALLERGIES Allergen Reactions - Dulce Anaphylaxis - Augmentin [Amoxicil* GI Upset Tolerates penicillin. Likely reaction to clavulanate - Morphine Shortness of Breath - [place] Anaphylaxis Current Medications Current Outpatient Prescriptions on File Prior to Visit: Desogestrel-Ethinyl Estradiol (JULEBER) 0.15-0.03 mg per tablet Take 1 tablet by mouth once daily. pantoprazole DR (PROTONIX) 40 mg tablet Take 1 tablet by mouth once daily. EPINEPHrine (EPIPEN) 0.3 mg/0.3 mL auto-injector Inject 0.3 mL intramuscularly as needed. fluticasone (FLONASE) 50 mcg/actuation nasal spray Use 2 Sprays in each nostril once daily. sertraline (ZOLOFT) 25 mg tablet Take 1 tablet by mouth once daily. loratadine (CLARITIN) 5 mg/5 mL syrup Take 10 mL by mouth once daily. Miconazole Nitrate (LOTRIMIN AF) 2 % spray Apply 1 application to affected area as needed. chlorhexidine (HIBICLENS) 4 % external liquid Apply 1 application to affected area four times a week. (Patient not taking: Reported on 01/05/2018 ) clindamycin (CLEOCIN-T) 1 % gel Apply 1 application to affected area twice daily. (Patient not taking: Reported on 01/05/2018 ) No current facility-administered medications on file prior to visit. 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 Sister has one child. ROS: General: Feels well, no weight changes, fever, chills. HEENT: No sinus congestion, earache, sore throat. Cardiac: No chest pain, palpitations, shortness of breath Resp: No cough, wheeze. GI: No reflux symptoms, food intolerance, bowel changes. : No urinary frequency, dysuria. MS: No pain or joint complaints. PHYSICAL EXAMINATION BP 118/62 (BP Site: Left Arm, BP Position: Sitting) Pulse 82 Resp 12 Wt 131.1 kg (289 lb) BMI 43.55 kg/m? General: Alert and oriented, no distress, pleasant and cooperative. Heart: Regular, normal S1 and S2, no murmurs, rubs, or gallops Lungs: Clear to auscultation bilaterally Abdomen: Benign Extremities: Feet/ankles without edema, posterior tibial pulses full and symmetrical Health Maintenance List DTAP,TDAP,TD(1 - Tdap) due on 2004 HPV EVERY 5 YEARS due on 2015 PAP EVERY 5 YEARS due on 01/08/2020 INFLUENZA Completed Data reviewed Assessment/Plan: (M54.9) Upper back pain on left side (primary encounter diagnosis) Comment: muscular/ rhomboid spasm? Plan: cyclobenzaprine (FLEXERIL) 10 mg tablet, CONSULT TO PHYSICAL THERAPY Ok PRN muscle relaxer for now (J30.1) Seasonal allergic rhinitis due to pollen Comment: Plan: cetirizine (ZYRTEC) 10 mg tablet Continue (E66.01) Obesity, morbid, BMI 50 or higher ([facility]) Comment: she's had surgery with dramatic wt loss. Plan: routine bariatric f/u in August. Signed Prescriptions Disp Refills cetirizine (ZYRTEC) 10 mg tablet 30 tablet 2 Sig: Take 1 tablet by mouth once daily. cyclobenzaprine (FLEXERIL) 10 mg tablet 21 tablet 0 Sig: Take 1 tablet by mouth every 8 hours as needed. LUCI: No RTO: if not settling down/ if therapy ineffective. Julisa Celaya MD CNOV Observed: 03/30/2018 Status: COMPLETED Source: [place] 11:20 AM [facility] REPOSITORY Office Visit ([facility]) KATHERINE ESTRADA ([id number]) 1985 F Date Time Provider Department 03/30/18 11:20 AM JULISA CELAYA During your visit today, we recorded the following information about you: Pulse Respiration Blood pressure Weight 82/minute 12/minute 118/62 131.1 kg Julisa Celaya MD 03/31/2018 11:39 AM Signed Chief Complaint Patient presents with: Follow Up: ED visit for back pain Allergies Dizziness HPI Katherine Estrada is a 32 year old female who presents here today for follow-up of ER visit about 2 1/2 wks ago. Back spasms . 6/4 L upper back. Persists. Given Rx for Percocet and Flexeril. Improved significantly, Still has spasm and swelling in the back at times with radiation down the L arm. She does recall overdoing it with some gardening ACTIVE PROBLEM LIST Cellulitis and Abscess of Unspecified Site Sprain of Foot Obesity, Morbid, Bmi 50 Or Higher (Hcc) Morbid Obesity (Hcc) Tree Nut Allergy Gastric bypass surgery, has los about 90 lb so far. Allergies Flonase and Claritin. Past medical history, appointments, medications, allergies reviewed. Previous Medical History PAST MEDICAL HISTORY Diagnosis Date - Allergic rhinitis, cause unspecified - Cholelithiasis Previous Surgical History PAST SURGICAL HISTORY Procedure Laterality Date - LAPAROSCOPIC CHOLEYCYSTECTOMY 12/26/11 - PAST SURGICAL HISTORY OF 1987 right eye - PAST SURGICAL HISTORY OF right hand Family History FAMILY HISTORY Problem Relation Age of Onset - Alcohol/Drug Maternal Uncle - Allergies Mother - Allergies Maternal Aunt - Allergies Sister bees - Alzheimer's Disease Paternal Grandfather - Arthritis Paternal Grandfather - Arthritis Daughter - Asthma Mother - Blood Disease - Blood Disease Father hiv - Cancer Father prostrate - Colon Cancer Father - Coronary Artery Disease Mother - Coronary Artery Disease Maternal Grandmother - Coronary Artery Disease Maternal Grandfather - Coronary Artery Disease Paternal Grandmother - Coronary Artery Disease Paternal Grandfather - Coronary Artery Disease Maternal Aunt - Coronary Artery Disease Maternal Uncle - Diabetes Mother - Diabetes Paternal Grandfather - Diabetes Maternal Aunt - Diabetes Maternal Uncle - Emphysema Paternal Aunt great aunt - Headache Mother - Headache Father - Headache Sister - Headache Brother - Hypertension Mother - Hypertension Father - Hypertension Maternal Grandfather - Hypertension Maternal Aunt - Hypertension Maternal Uncle - Lipids Mother - Prostate Cancer Father - Seizures Maternal Uncle - Seizures Maternal Grandmother - Seizures Maternal Aunt - Stroke Maternal Aunt - Thyroid Mother Patient Allergies ALLERGIES Allergen Reactions - Dulce Anaphylaxis - Augmentin [Amoxicil* GI Upset Tolerates penicillin. Likely reaction to clavulanate - Morphine Shortness of Breath - [place] Anaphylaxis Current Medications Current Outpatient Prescriptions on File Prior to Visit: Desogestrel-Ethinyl Estradiol (JULEBER) 0.15-0.03 mg per tablet Take 1 tablet by mouth once daily. pantoprazole DR (PROTONIX) 40 mg tablet Take 1 tablet by mouth once daily. EPINEPHrine (EPIPEN) 0.3 mg/0.3 mL auto-injector Inject 0.3 mL intramuscularly as needed. fluticasone (FLONASE) 50 mcg/actuation nasal spray Use 2 Sprays in each nostril once daily. sertraline (ZOLOFT) 25 mg tablet Take 1 tablet by mouth once daily. loratadine (CLARITIN) 5 mg/5 mL syrup Take 10 mL by mouth once daily. Miconazole Nitrate (LOTRIMIN AF) 2 % spray Apply 1 application to affected area as needed. chlorhexidine (HIBICLENS) 4 % external liquid Apply 1 application to affected area four times a week. (Patient not taking: Reported on 01/05/2018 ) clindamycin (CLEOCIN-T) 1 % gel Apply 1 application to affected area twice daily. (Patient not taking: Reported on 01/05/2018 ) No current facility-administered medications on file prior to visit. 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 Sister has one child. ROS: General: Feels well, no weight changes, fever, chills. HEENT: No sinus congestion, earache, sore throat. Cardiac: No chest pain, palpitations, shortness of breath Resp: No cough, wheeze. GI: No reflux symptoms, food intolerance, bowel changes. : No urinary frequency, dysuria. MS: No pain or joint complaints. PHYSICAL EXAMINATION BP 118/62 (BP Site: Left Arm, BP Position: Sitting) Pulse 82 Resp 12 Wt 131.1 kg (289 lb) BMI 43.55 kg/m? General: Alert and oriented, no distress, pleasant and cooperative. Heart: Regular, normal S1 and S2, no murmurs, rubs, or gallops Lungs: Clear to auscultation bilaterally Abdomen: Benign Extremities: Feet/ankles without edema, posterior tibial pulses full and symmetrical Health Maintenance List DTAP,TDAP,TD(1 - Tdap) due on 2004 HPV EVERY 5 YEARS due on 2015 PAP EVERY 5 YEARS due on 01/08/2020 INFLUENZA Completed Data reviewed Assessment/Plan: (M54.9) Upper back pain on left side (primary encounter diagnosis) Comment: muscular/ rhomboid spasm? Plan: cyclobenzaprine (FLEXERIL) 10 mg tablet, CONSULT TO PHYSICAL THERAPY Ok PRN muscle relaxer for now (J30.1) Seasonal allergic rhinitis due to pollen Comment: Plan: cetirizine (ZYRTEC) 10 mg tablet Continue (E66.01) Obesity, morbid, BMI 50 or higher (HCC) Comment: she's had surgery with dramatic wt loss. Plan: routine bariatric f/u in August. Signed Prescriptions Disp Refills cetirizine (ZYRTEC) 10 mg tablet 30 tablet 2 Sig: Take 1 tablet by mouth once daily. cyclobenzaprine (FLEXERIL) 10 mg tablet 21 tablet 0 Sig: Take 1 tablet by mouth every 8 hours as needed. LUCI: No RTO: if not settling down/ if therapy ineffective. Julisa Celaya MD Referring Provider: SELF [[id number]] Allergies As of Date: 03/30/2018 Noted Allergy Reaction ALMOND 08/11/2016 10 - Anaphylaxis AUGMENTIN (AMOXICILLIN-POT CLAVUL*11/29/2014 8 - GI Upset Comments: Tolerates penicillin. Likely reaction to clavulanate MORPHINE 08/14/2015 12 - Shortness of Breath WALNUT 08/03/2016 10 - Anaphylaxis Date Reviewed: 03/30/2018 Reviewed by: Joselin Renae Ma - Fully Assessed Reason for Visit: Follow Up [171] Cmt: ED visit for back pain Allergies [4] Dizziness [36] Primary Visit Diagnosis:Upper back pain on left side [M54.9] Other Visit Diagnoses:Seasonal allergic rhinitis due to pollen [J30.1] Obesity, morbid, BMI 50 or higher (HCC) [E66.01] Order(s):cetirizine (ZYRTEC) 10 mg tabletTake 1 tablet by mouth once daily.Disp: 30 tabletRfl: 2 cyclobenzaprine (FLEXERIL) 10 mg tabletTake 1 tablet by mouth every 8 hours as needed.Disp: 21 tabletRfl: 0 CONSULT TO PHYSICAL THERAPY [9066] Order #: [id number]: 1 Prescriptions as of 03/30/2018 Sig: CYCLOBENZAPRINE 10 MG TABLET Take 1 tablet by mouth every * DESOGESTREL 0.15 MG-ETHINYL E* Take 1 tablet by mouth once d* PANTOPRAZOLE 40 MG TABLET,DEL* Take 1 tablet by mouth once d* EPINEPHRINE 0.3 MG/0.3 ML INJ* Inject 0.3 mL intramuscularly* FLUTICASONE 50 MCG/ACTUATION * Use 2 Sprays in each nostril * SERTRALINE 25 MG TABLET Take 1 tablet by mouth once d* CETIRIZINE 10 MG TABLET Take 1 tablet by mouth once d* MICONAZOLE NITRATE 2 % TOPICA* Apply 1 application to affect* CHLORHEXIDINE GLUCONATE 4 % T* Apply 1 application to affect* Patient not taking: Reported on 01/05/2018 CLINDAMYCIN 1 % TOPICAL GEL Apply 1 application to affect* Patient not taking: Reported on 01/05/2018 Problem List As Of Date 03/30/2018 Noted Resolved CELLULITIS NOS [L03.90, L02.91] INVALID FOR* Sprain of foot [S93.609A] INVALID FOR* Obesity, morbid, BMI 50 or higher (HCC) [E66.01]INVALID FOR* Morbid obesity (HCC) [E66.01] INVALID FOR* More... Pre-op testing [Z01.818] INVALID FOR*07/29/2017 More... Tree nut allergy [Z91.018] INVALID FOR* Seasonal allergic rhinitis due to pollen [J30.1]INVALID FOR* Prescriptions ordered this encounter Disp Refills Start End CETIRIZINE 10 MG TABLET 30 t* 2 03/30/2018 Route: ORAL Sig: Take 1 tablet by mouth once daily. CYCLOBENZAPRINE 10 MG TABLET 21 t* 0 03/30/2018 Route: ORAL Sig: Take 1 tablet by mouth every 8 hours as needed. Medications Discontinued During This Encounter loratadine (CLARITIN) 5 mg/5 mL syrup 120 * 0 07/25/2017 03/30/2018 Route: ORAL Sig: Take 10 mL by mouth once daily. Disc: Reason for discontinue is not on file. cyclobenzaprine (FLEXERIL) 10 mg tab* 03/30/2018 Class: Historical Med Route: ORAL Sig: Take 10 mg by mouth every 8 hours as needed. Disc: Reason for discontinue is not on file. Encounter Status:Closed by HERNÁN CELAYA MD on 03/31/18 DOWNTIME REPORT Observed: 03/22/2018 Status: F Source: [place] 1:17 PM [facility] REPOSITORY [facility] Medical Records Department [address] [place] [address] Downtime Report MR#: [id number] Acct: [id number] Name: KATHERINE ESTRADA Rep #: [id number] : 1985 32 From: Rafi Sadler MD PCP: Hernán Celaya MD Status: DEP ER This patient was seen during an EMR downtime March 06, 2018 - March 13, 2018. This patient may have a combination of paper and electronic documentation or all paper documentation. All documentation is viewable within the e-chart portion of [employer] for each patient visit. 12 LEAD ELECTROCARDIOGRAM Observed: 01/24/2018 Status: F Source: [place] 3:31 PM [facility] Cardiovascular Services [address] [place] [address] 12 Lead EKG 01/22/187 MR#: [id number] Acct: [id number] Name: KATHERINE ESTRADA Rep #: [id number] : 1985 32 From: Sanjiv Latif MD Attending Dr: Status: DEP ER Ordering Dr: Bruno Zuleta MD Date: 01/22/18 Location: ED Sex: F C Admitted: Test Reason : DIZZY Blood Pressure : / mmHG Vent. Rate : 060 BPM Atrial Rate : 060 BPM P-R Int : 124 ms QRS Dur : 090 ms QT Int : 440 ms P-R-T Axes : 047 053 040 degrees QTc Int : 440 ms Normal sinus rhythm with sinus arrhythmia Normal ECG Confirmed by SANJIV LATIF MD ([id number]), brands editor RICH SADLER ([id number]) on 01/24/2018 3:31:22 PM Referred By: SL Confirmed By:SANJIV LATIF MD 01/24/18 1531 Date Sanjiv Latif MD CC: Hernán Cleaya MD; Bruno Zuleta MD Signed EMERGENCY DEPARTMENT Observed: 01/23/2018 Status: F Source: [place] SUMMARY 12:16 AM [facility] REPOSITORY [facility] Medical Records Department [address] [place] [address] Emergency Department Summary 01/22/18 2303 MR#: [id number] Acct: [id number] Name: KATHERINE ESTRADA Rep #: [id number] : 1985 32 From: Bruno Zuleta MD PCP: Hernán Celaya MD Status: DEP ER - ER Visit Summary Date of Service: 01/22/18 Chief Complaint: Lightheaded History of Present Illness: The patient is a [address] Celaya. She reports that she has been lightheaded over the past 3 days. This is worsened with standing. She has not passed out. She does report that time she feels off balance. She denies any vertigo or double vision. She questions whether this may be due to the Zoloft and Julebar that she began January 02. Patient reports that she has been nauseated vomited twice a day. There is been no blood or emesis. She states that this is not unusual following her gastric bypass in July 2017. Review of systems: General: No fever, chills, cold sweats. Cardiovascular: No chest pain, palpitations. Respiratory: No cough, shortness of breath, dyspnea on exertion. Gastrointestinal: No abdominal pain, diarrhea, melena, or hematochezia. Genitourinary: No dysuria, frequency, hematuria. Skin: No rash. Neuro: No headache, numbness, weakness. Physical Examination: Vitals: Stable. Afebrile. General: Well-nourished and well-developed. Head: Normocephalic atraumatic. Neck: Supple, no lymphadenopathy. No JVD. Nontender. Cardiovascular: Regular rate and rhythm. No murmurs. Respiratory: No respiratory distress. Clear to auscultation bilaterally. Abdominal: Soft, nontender, nondistended, normal bowel sounds. No guarding, rebound, or peritoneal signs. Back: Nontender. Extremities: Nontender, no edema. Skin: Normal color, no rash. Neurologic: Alert and oriented 3. Cranial nerves II through XII are intact. Normal strength and sensation. Psych: Normal affect. Test Results: EKG is sinus tach at 101 with no acute changes. CBC is normal. Chem-7 is normal. test is negative. Emergency Department Course and Treatment: Patient had negative orthostatic vital signs. She is given a liter of normal saline is resting comfortably. Treatment Plan: Patient be discharged instructions to push fluids. Follow-up with Dr. Celaya in 1-2 days if not improving. Return to the emergency department for any worsening symptoms. Disposition: To home in improved and stable condition. Impression: 1. Lightheadedness, uncertain cause. This note was generated with [employer] software. It may contain incorrect words, spelling, and punctuation that were not noted in review of the chart prior to signing ED Disposition - Plan for ED Patient: Disposition: Home or Assisted Living Chief Complaint: Dizziness Instructions: ED Near Syncope Unkn Referrals: Hernán Celaya MD [Primary Care Provider] - 1-2 Days if not improving What to do if you have Problems For any increased pain, shortness of breath, bleeding, nausea or vomiting, chest pain, or any unexpected problems, contact your Primary Care Provider. Call [facility] ([phone]) or report to the closest Emergency Room. Call 911 if necessary. 01/23/18 0016 <Electronically signed by Bruno Zuleta MD> Date Bruno Zuleta MD Cosigner Signature (If Indicated): Date CC: Hernán Celaya MD CBC W/DIFF, AUTOMATED Collected: 01/22/2018 Status: F Source: [place] 10:00 PM [facility] REPOSITORY TYPE CODE TESTS RESULT OUT OF RANGE REFERENCE UNITS LAB L100.1000 4.4-11.0 K/mm3 Normal WBC 9.3 LAB L100.1200 4.2-5.4 M/mm3 Normal RBC 4.50 LAB L100.1300 12.0-15.0 g/dl Normal HGB 12.2 LAB L100.1400 37-47 % Low HCT 36.2 LAB L100.1500 81-99 fL Low MCV 80.4 LAB L100.1600 27.0-32.0 pg Normal MCH 27.1 LAB L100.1700 32-36 g/gl Normal MCHC 33.7 LAB L100.1810 11.6-14.6 % High RDW CV 15.0 LAB L100.1820 35.1-43.9 fl Normal RDW SD 43.3 LAB L100.1900 150-450 K/mm3 Normal PLT 327 LAB L100.2000 6.2-12.0 fl Normal MPV 11.5 LAB L100.2100 47-70 % Normal NEUT% 64.2 LAB L100.2200 19-41 % Normal LY% 26.9 LAB L100.2300 0-10 % Normal MONO% 5.9 LAB L100.2400 0-5 % Normal EO% 2.6 LAB L100.2500 0-1 % Normal BASO% 0.2 LAB L100.2550 0.0-0.9 % Normal IM GRAN % 0.200 Result Comment: IG% - Immature Granulocytes (promyelocytes, myelocytes and metamyelocytes) > 1% indicates that a LEFT SHIFT is Present. LAB L100.2620 2.0-7.7 X10 3/uL Normal Absolute Neut 5.9 LAB L100.2720 0.83-4.51 X10 3/ul Normal Absolute Lymph 2.49 Performed By: #### L100.0100 #### [facility] [address] [place], [place], [address] BASIC METABOLIC Collected: 01/22/2018 Status: F Source: [place] PROFILE ([facility]) 10:00 PM [facility] REPOSITORY TYPE CODE TESTS RESULT OUT OF RANGE REFERENCE UNITS LAB L501.0100 74-106 mg/dL Normal GLU 88 Result Comment: Please note revised GLUCOSE reference range effective 2017. LAB L501.1000 7-18 mg/dL Normal BUN 10 LAB L501.1100 0.55-1.02 mg/dL Normal CREAT,SERUM 0.72 Result Comment: The validity of the calculated GFR AND GFRAA in patients over 70 years has not been determined. Clinical correlation is essential. LAB L501.1110 >60 mL/min Normal EST GFR 99 Result Comment: Non- GFR Calc LAB L501.1115 >60 mL/min Normal EST GFR - AA 120 Result Comment: GFR Calc LAB L501.1255 ml/min Normal Estimated CRCL 113.16 LAB L501.1300 10-20 RATIO BUN/CRE Normal 13.8 LAB L501.2200 8.5-10 mg/dL .1 CA Normal 8.6 LAB L501.5300 136-14 mmol/L 5 NA Normal 139 LAB L501.5600 3.5-5. mmol/L 1 K Normal 3.6 LAB L501.5900 98-107 mmol/L CL Normal 105 LAB L501.6100 21.0-3 mmol/L 2.0 CO2 Normal 25.0 LAB L501.6200 5-15 GAP Normal 9 Performed By: #### L500.2500 #### [facility] [address] [place], [address] ,SERUM,HCG QUALI. Collected: Status: F Source: [place] 01/22/2018 10:00 PM [facility] REPOSITORY TYPE CODE TESTS RESULT OUT OF REFERENCE UNITS RANGE LAB L700.7000 0-9 Nonpreg Negative Normal HCGSQUAL NEGATIVE LAB L700.6700 =>Qualitative mIU/mL Normal HCG Qual < 1 triggr Performed By: #### L700.6800 #### [facility] [address] [place], [address] PROGRESS Observed: 01/05/2018 Status: COMPLETED Source: [place] 3:15 PM [facility] REPOSITORY HNO ID: [id number] Author: Julisa Celaya Service: (none) Author Type: Physician Type: Progress Notes Filed: 01/06/2018 12:33 PM Note Text: Chief Complaint Patient presents with: Follow Up: medication refill Sleep Problem HPI Katherine Estrada is a 32 year old female who presents here today for follow-up of morbid obesity. . She has continued to lose weight, seen by Dr Sam Seen by [employer] who proscribed Jelber desogestrel Really here because her mom is depressed and incapacitated after back surgery. Katherine's her caregiver. Past medical history, appointments, medications, allergies reviewed. Previous Medical History PAST MEDICAL HISTORY Diagnosis Date - Allergic rhinitis, cause unspecified - Cholelithiasis Previous Surgical History PAST SURGICAL HISTORY Procedure Laterality Date - LAPAROSCOPIC CHOLEYCYSTECTOMY 12/26/11 - PAST SURGICAL HISTORY OF 1988 right eye - PAST SURGICAL HISTORY OF right hand Family History FAMILY HISTORY Problem Relation Age of Onset - Alcohol/Drug Maternal Uncle - Allergies Mother - Allergies Maternal Aunt - Allergies Sister bees - Alzheimer's Disease Paternal Grandfather - Arthritis Paternal Grandfather - Arthritis Daughter - Asthma Mother - Blood Disease - Blood Disease Father hiv - Cancer Father prostrate - Colon Cancer Father - Coronary Artery Disease Mother - Coronary Artery Disease Maternal Grandmother - Coronary Artery Disease Maternal Grandfather - Coronary Artery Disease Paternal Grandmother - Coronary Artery Disease Paternal Grandfather - Coronary Artery Disease Maternal Aunt - Coronary Artery Disease Maternal Uncle - Diabetes Mother - Diabetes Paternal Grandfather - Diabetes Maternal Aunt - Diabetes Maternal Uncle - Emphysema Paternal Aunt great aunt - Headache Mother - Headache Father - Headache Sister - Headache Brother - Hypertension Mother - Hypertension Father - Hypertension Maternal Grandfather - Hypertension Maternal Aunt - Hypertension Maternal Uncle - Lipids Mother - Prostate Cancer Father - Seizures Maternal Uncle - Seizures Maternal Grandmother - Seizures Maternal Aunt - Stroke Maternal Aunt - Thyroid Mother Patient Allergies ALLERGIES Allergen Reactions - Dulce Anaphylaxis - Augmentin [Amoxicil* GI Upset Tolerates penicillin. Likely reaction to clavulanate - Morphine Shortness of Breath - [place] Anaphylaxis Current Medications Current Outpatient Prescriptions on File Prior to Visit: pantoprazole DR (PROTONIX) 40 mg tablet Take 40 mg by mouth once daily. loratadine (CLARITIN) 5 mg/5 mL syrup Take 10 mL by mouth once daily. fluticasone (FLONASE) 50 mcg/actuation nasal spray Use 2 Sprays in each nostril once daily. EPINEPHrine 0.3 mg/0.3 mL auto-injector Inject 0.3 Each intramuscularly as needed. pantoprazole DR (PROTONIX) 40 mg tablet Take 1 tablet by mouth once daily. HYDROcodone-Acetaminophen (HYCET) 7.5-325 mg/15 mL oral liquid Take 5-10 mL by mouth every 6 hours as needed for Pain. (Patient not taking: Reported on 01/05/2018 ) Miconazole Nitrate (LOTRIMIN AF) 2 % spra Apply 1 application to affected area as needed. chlorhexidine (HIBICLENS) 4 % external liquid Apply 1 application to affected area four times a week. (Patient not taking: Reported on 01/05/2018 ) clindamycin (CLEOCIN-T) 1 % gel Apply 1 application to affected area twice daily. (Patient not taking: Reported on 01/05/2018 ) No current facility-administered medications on file prior to visit. 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 Sister has one child. ROS: General: Feels well, no weight changes, fever, chills. HEENT: No sinus congestion, earache, sore throat. Cardiac: No chest pain, palpitations, shortness of breath Resp: No cough, wheeze. GI: No reflux symptoms, food intolerance, bowel changes. : No urinary frequency, dysuria. MS: No pain or joint complaints. PHYSICAL EXAMINATION There were no vitals taken for this visit. General: Alert and oriented, no distress, pleasant and cooperative. Heart: Regular, normal S1 and S2, no murmurs, rubs, or gallops Lungs: Clear to auscultation bilaterally Abdomen: Benign Extremities: Feet/ankles without edema, posterior tibial pulses full and symmetrical Health Maintenance List HPV EVERY 5 YEARS due on 2015 PAP EVERY 5 YEARS due on 01/08/2020 TETANUS due on 12/02/2024 INFLUENZA Completed Data reviewed Assessment/Plan: (E66.01) Obesity, morbid, BMI 50 or higher ([facility]) (primary encounter diagnosis) Comment: weight loss ongoing due to s/p bariatric surgery Plan: continue current plan (F43.23) Adjustment disorder with mixed anxiety and depressed mood Comment: due to duress with caring for her mother Plan: see order sertraline (ZOLOFT) 25 mg tablet (K21.9) Gastroesophageal reflux disease, esophagitis presence not specified Comment: on preventive Rx . Plan: pantoprazole DR (PROTONIX) 40 mg tablet (N92.6) Menstrual abnormality Comment: Plan: Desogestrel-Ethinyl Estradiol (JULEBER) 0.15-0.03 mg per tablet Recent Rx. 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 LUCI: No EPINEPHrine (EPIPEN) 0.3 mg/0.3 mL auto-injector 2 Each 1 Sig: Inject 0.3 mL intramuscularly as needed. LUCI: No fluticasone (FLONASE) 50 mcg/actuation nasal spray 1 Bottle 11 Sig: Use 2 Sprays in each nostril once daily. LUCI: No sertraline (ZOLOFT) 25 mg tablet 30 tablet 2 Sig: Take 1 tablet by mouth once daily. RTO: Julisa Celaya MD CNOV Observed: 01/05/2018 Status: COMPLETED Source: [place] 3:00 PM [facility] REPOSITORY Office Visit (FPWADS) KATHERINE ESTRADA ([id number]) 1985 F Date Time Provider Department 01/05/18 3:00 PM JULISA CELAYA FPSTANDS During your visit today, we recorded the following information about you: Pulse Respiration Blood pressure Weight 62/minute 16/minute 115/54 137.3 kg Julisa Celaya MD 01/06/2018 12:33 PM Signed Chief Complaint Patient presents with: Follow Up: medication refill Sleep Problem HPI Katherine Estrada is a 32 year old female who presents here today for follow-up of morbid obesity. . She has continued to lose weight, seen by Dr Sam Seen by [employer] who proscribed Jelber desogestrel Really here because her mom is depressed and incapacitated after back surgery. Katherine's her caregiver. Past medical history, appointments, medications, allergies reviewed. Previous Medical History PAST MEDICAL HISTORY Diagnosis Date - Allergic rhinitis, cause unspecified - Cholelithiasis Previous Surgical History PAST SURGICAL HISTORY Procedure Laterality Date - LAPAROSCOPIC CHOLEYCYSTECTOMY 12/26/11 - PAST SURGICAL HISTORY OF 1988 right eye - PAST SURGICAL HISTORY OF right hand Family History FAMILY HISTORY Problem Relation Age of Onset - Alcohol/Drug Maternal Uncle - Allergies Mother - Allergies Maternal Aunt - Allergies Sister bees - Alzheimer's Disease Paternal Grandfather - Arthritis Paternal Grandfather - Arthritis Daughter - Asthma Mother - Blood Disease - Blood Disease Father hiv - Cancer Father prostrate - Colon Cancer Father - Coronary Artery Disease Mother - Coronary Artery Disease Maternal Grandmother - Coronary Artery Disease Maternal Grandfather - Coronary Artery Disease Paternal Grandmother - Coronary Artery Disease Paternal Grandfather - Coronary Artery Disease Maternal Aunt - Coronary Artery Disease Maternal Uncle - Diabetes Mother - Diabetes Paternal Grandfather - Diabetes Maternal Aunt - Diabetes Maternal Uncle - Emphysema Paternal Aunt great aunt - Headache Mother - Headache Father - Headache Sister - Headache Brother - Hypertension Mother - Hypertension Father - Hypertension Maternal Grandfather - Hypertension Maternal Aunt - Hypertension Maternal Uncle - Lipids Mother - Prostate Cancer Father - Seizures Maternal Uncle - Seizures Maternal Grandmother - Seizures Maternal Aunt - Stroke Maternal Aunt - Thyroid Mother Patient Allergies ALLERGIES Allergen Reactions - Dulce Anaphylaxis - Augmentin [Amoxicil* GI Upset Tolerates penicillin. Likely reaction to clavulanate - Morphine Shortness of Breath - [place] Anaphylaxis Current Medications Current Outpatient Prescriptions on File Prior to Visit: pantoprazole DR (PROTONIX) 40 mg tablet Take 40 mg by mouth once daily. loratadine (CLARITIN) 5 mg/5 mL syrup Take 10 mL by mouth once daily. fluticasone (FLONASE) 50 mcg/actuation nasal spray Use 2 Sprays in each nostril once daily. EPINEPHrine 0.3 mg/0.3 mL auto-injector Inject 0.3 Each intramuscularly as needed. pantoprazole DR (PROTONIX) 40 mg tablet Take 1 tablet by mouth once daily. HYDROcodone-Acetaminophen (HYCET) 7.5-325 mg/15 mL oral liquid Take 5-10 mL by mouth every 6 hours as needed for Pain. (Patient not taking: Reported on 01/05/2018 ) Miconazole Nitrate (LOTRIMIN AF) 2 % spra Apply 1 application to affected area as needed. chlorhexidine (HIBICLENS) 4 % external liquid Apply 1 application to affected area four times a week. (Patient not taking: Reported on 01/05/2018 ) clindamycin (CLEOCIN-T) 1 % gel Apply 1 application to affected area twice daily. (Patient not taking: Reported on 01/05/2018 ) No current facility-administered medications on file prior to visit. 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 Sister has one child. ROS: General: Feels well, no weight changes, fever, chills. HEENT: No sinus congestion, earache, sore throat. Cardiac: No chest pain, palpitations, shortness of breath Resp: No cough, wheeze. GI: No reflux symptoms, food intolerance, bowel changes. : No urinary frequency, dysuria. MS: No pain or joint complaints. PHYSICAL EXAMINATION There were no vitals taken for this visit. General: Alert and oriented, no distress, pleasant and cooperative. Heart: Regular, normal S1 and S2, no murmurs, rubs, or gallops Lungs: Clear to auscultation bilaterally Abdomen: Benign Extremities: Feet/ankles without edema, posterior tibial pulses full and symmetrical Health Maintenance List HPV EVERY 5 YEARS due on 2015 PAP EVERY 5 YEARS due on 01/08/2020 TETANUS due on 12/02/2024 INFLUENZA Completed Data reviewed Assessment/Plan: (E66.01) Obesity, morbid, BMI 50 or higher ([facility]) (primary encounter diagnosis) Comment: weight loss ongoing due to s/p bariatric surgery Plan: continue current plan (F43.23) Adjustment disorder with mixed anxiety and depressed mood Comment: due to duress with caring for her mother Plan: see order sertraline (ZOLOFT) 25 mg tablet (K21.9) Gastroesophageal reflux disease, esophagitis presence not specified Comment: on preventive Rx . Plan: pantoprazole DR (PROTONIX) 40 mg tablet (N92.6) Menstrual abnormality Comment: Plan: Desogestrel-Ethinyl Estradiol (JULEBER) 0.15-0.03 mg per tablet Recent Rx. 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 LUCI: No EPINEPHrine (EPIPEN) 0.3 mg/0.3 mL auto-injector 2 Each 1 Sig: Inject 0.3 mL intramuscularly as needed. LUCI: No fluticasone (FLONASE) 50 mcg/actuation nasal spray 1 Bottle 11 Sig: Use 2 Sprays in each nostril once daily. LUCI: No sertraline (ZOLOFT) 25 mg tablet 30 tablet 2 Sig: Take 1 tablet by mouth once daily. RTO: Julisa Celaya MD Referring Provider: SELF [200] Allergies As of Date: 01/05/2018 Noted Allergy Reaction ALMOND 08/11/2016 10 - Anaphylaxis AUGMENTIN (AMOXICILLIN-POT CLAVUL*11/29/2014 8 - GI Upset Comments: Tolerates penicillin. Likely reaction to clavulanate MORPHINE 08/14/2015 12 - Shortness of Breath WALNUT 08/03/2016 10 - Anaphylaxis Date Reviewed: 01/05/2018 Reviewed by: Joselin Renae Ma - Fully Assessed Reason for Visit: Follow Up [171] Cmt: medication refill Sleep Problem [100] Primary Visit Diagnosis:Obesity, morbid, BMI 50 or higher ([facility]) [E66.01] Other Visit Diagnoses:Adjustment disorder with mixed anxiety and depressed mood [F43.23] Gastroesophageal reflux disease, esophagitis presence not specified [K21.9] Menstrual abnormality [N92.6] Seasonal allergic rhinitis due to pollen [J30.1] Tree nut allergy [Z91.018] Order(s):pantoprazole DR (PROTONIX) 40 mg tabletTake 1 tablet by mouth once daily.Disp: 30 tabletRfl: 5 EPINEPHrine (EPIPEN) 0.3 mg/0.3 mL auto-injectorInject 0.3 mL intramuscularly as needed.Disp: 2 EachRfl: 1 fluticasone (FLONASE) 50 mcg/actuation nasal sprayUse 2 Sprays in each nostril once daily.Disp: 1 BottleRfl: 11 sertraline (ZOLOFT) 25 mg tabletTake 1 tablet by mouth once daily.Disp: 30 tabletRfl: 2 Prescriptions as of 01/05/2018 Sig: DESOGESTREL 0.15 MG-ETHINYL E* Take 1 tablet by mouth once d* PANTOPRAZOLE 40 MG TABLET,DEL* Take 1 tablet by mouth once d* EPINEPHRINE 0.3 MG/0.3 ML INJ* Inject 0.3 mL intramuscularly* FLUTICASONE 50 MCG/ACTUATION * Use 2 Sprays in each nostril * LORATADINE 5 MG/5 ML ORAL KP* Take 10 mL by mouth once melva* SERTRALINE 25 MG TABLET Take 1 tablet by mouth once d* MICONAZOLE NITRATE 2 % TOPICA* Apply 1 application to affect* CHLORHEXIDINE GLUCONATE 4 % T* Apply 1 application to affect* Patient not taking: Reported on 01/05/2018 CLINDAMYCIN 1 % TOPICAL GEL Apply 1 application to affect* Patient not taking: Reported on 01/05/2018 Medication notes this encounter MICONAZOLE NITRATE 2 % TOPICAL SPRAY >> Joselin Renae Ma 01/05/2018 3:14 PM >> JOSELIN RENAE MA Dang Jan 05, 2018 3:14 PM Not taking Problem List As Of Date 01/05/2018 Noted Resolved CELLULITIS NOS [L03.90, L02.91] INVALID FOR* Sprain of foot [S93.609A] INVALID FOR* Obesity, morbid, BMI 50 or higher (HCC) [E66.01]INVALID FOR* Morbid obesity (HCC) [E66.01] INVALID FOR* More... Pre-op testing [Z01.818] INVALID FOR*07/29/2017 More... Prescriptions ordered this encounter Disp Refills Start End PANTOPRAZOLE 40 MG TABLET,DELAYED RE* 30 t* 5 01/05/2018 Route: ORAL Sig: Take 1 tablet by mouth once daily. EPINEPHRINE 0.3 MG/0.3 ML INJECTION,* 2 Ea* 1 01/05/2018 Route: INTRAMUSCULA Sig: Inject 0.3 mL intramuscularly as needed. FLUTICASONE 50 MCG/ACTUATION NASAL S* 1 Kamran* 11 01/05/2018 Route: EACH NOSTRIL Sig: Use 2 Sprays in each nostril once daily. SERTRALINE 25 MG TABLET 30 t* 2 01/05/2018 Route: ORAL Sig: Take 1 tablet by mouth once daily. Medications Discontinued During This Encounter HYDROcodone-Acetaminophen (HYCET) 7.* 300 * 0 07/30/2017 01/05/2018 Class: Print RX Route: ORAL Sig: Take 5-10 mL by mouth every 6 hours as needed for Pain. Patient not taking: Reported on 01/05/2018 Disc: Reason for discontinue is not on file. pantoprazole DR (PROTONIX) 40 mg tab* 30 t* 5 08/05/2017 01/05/2018 Route: ORAL Sig: Take 1 tablet by mouth once daily. Disc: Duplicate Entry pantoprazole DR (PROTONIX) 40 mg tab* 07/30/2017 01/05/2018 Class: Historical Med Route: ORAL Sig: Take 40 mg by mouth once daily. Disc: Reason for discontinue is not on file. EPINEPHrine 0.3 mg/0.3 mL auto-injec* 07/24/2016 01/05/2018 Class: Historical Med Route: INTRAMUSCULAR Sig: Inject 0.3 Each intramuscularly as needed. Disc: Reason for discontinue is not on file. fluticasone (FLONASE) 50 mcg/actuati* 1 Kamran* 11 01/11/2017 01/05/2018 Route: EACH NOSTRIL Sig: Use 2 Sprays in each nostril once daily. Disc: Reason for discontinue is not on file. Encounter Status:Closed by HERNÁN CELAYA MD on 01/06/[address] IN WAITER/WAITRESS OFFICE VISIT Observed: 01/02/2018 Status: F Source: M[place]NICA REPORT 9:33 PM [facility] 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 Is patient in pain?: No Allergies amoxicillin trihydrate [From Augmentin] Adverse Reaction (Verified 01/02/18 16:35) Vomiting potassium clavulanate [From Augmentin] Adverse Reaction (Verified 01/02/18 16:35) Vomiting NUTS Allergy (Uncoded 07/04/17 14:23) Other Medications Epinephrine [Epi Pen] 0.3 mg IM X1 PRN #1 syringe 07/24/16 [Rx Confirmed 01/02/18] biotin 5 mg capsule 5 mg PO QDAY 01/02/18 [History Confirmed 01/02/18] cholecalciferol (vitamin D3) 5,000 unit capsule 5,000 unit PO ONCE 01/02/18 [History Confirmed 01/02/18] desogestrel 0.15 mg-ethinyl estradiol 0.03 mg tablet 1 tab PO QDAY #28 tab 01/02/18 [Rx Confirmed 01/02/18] ferrous sulfate 325 mg (65 mg iron) tablet 325 mg PO TID tab 01/02/18 [History Confirmed 01/02/18] fluticasone 50 mcg/actuation nasal spray,suspension 2 spray INTRANASAL QDAY 01/02/18 [History Confirmed 01/02/18] mecobalamin (vitamin B12) 5,000 mcg disintegrating tablet mcg PO 01/02/18 [History Confirmed 01/02/18] multivitamin tablet 1 tab PO QAM 01/02/18 [History Confirmed 01/02/18] Is last menstrual period known: Yes Last Menstral Period: 12/30/17 Post menopausal: No Patient : No : No PFSH Medical History Abnormal thyroid blood test (Acute) Depression (Acute) Surgical History Gastric bypass status for obesity (Resolved) S/P cholecystectomy (Resolved) S/P eye surgery (Resolved) S/P tonsillectomy (Resolved) mole removed (Resolved) Family History Mother Diabetes Father Hypertension Grandmother Heart disease Grandfather Heart disease Social History Smoking Status: Never smoker alcohol intake: current alcohol intake frequency: holidays/special occasions only substance use type: does not use caffeine: No what type of physical activity do you participate in: walking frequency: 3-4 times per week seatbelt use: always do you feel safe at home: Yes additional social history: Single- Patient is currently unemployed HPI Heavy periods since gastric bypass: Details: KATHERINE ESTRADA is a 32 year old who presents for AUB since gastric bypass in july. She has had irregular very heavy, severe dysmenorrhea. She is having very heavy bleeding and significant dysmenorrhea, used to take naproxen but she isn't supposed to take it. she has been taking hydrocodone for pain control with some relief. Female Reproductive History Last Menstral Period: 12/30/17 Pregancy History 0 Elective abortions Hx Para Spontaneous abortions ROS Const Constitutional: Reports weight loss; denies poor appetite, headache(s), fever(s), increased appetite, weight gain or fatigue : Reports as per HPI; denies urinary urgency, vaginal discharge, urinary frequency, vaginal itching, vaginal odor, vaginal dryness, urinary incontinence, urinary hesitancy, difficulty urinating, painful urination or nipple discharge Skin Skin/Breast: Denies hair loss, change in hair, dry skin, breast pain, breast skin changes, breast lump or nipple discharge Exam Const General: cooperative, healthy appearing, comfortable, no acute distress, well developed Nutritional Appearance: average body habitus Orientation: alert [facility] Head: normal to inspection, normocephalic Ears: hearing grossly normal bilaterally, external ears normal Nose: external nose normal, nares normal Face and sinus: normal facial exam Neck Neck: normal visual inspection, trachea midline, no lymphadenopathy Thyroid: thyroid normal Assessment AND Plan Problems 1. Abnormal uterine bleeding N93.9 apri Plan discussed may be due to rapid weight loss, recommend ocp and check tsh Orders Orders: Medications New: Discontinued: naproxen Discontinued Reason: Order [id number] mg PO BID PRN Dahiana Blackburn pleted cyclobenzaprine Discontinued Reason: Or10 mg PO TID PRN Muscle Spasm Dahiana Blackburn norm Completed Coding Level of Care Code Off vis,est,level 4 Diagnoses Abnormal uterine bleeding N93.9 01/02/182132 <Electronically signed by Allison Wall MD> Date Allison Wall MD Cosigner Signature: Date (if applicable) CC: PROGRESS Observed: 09/30/2017 Status: COMPLETED Source: [place] 10:21 AM [facility] REPOSITORY HNO ID: [id number] Author: Niraj Marte MD Service: (none) Author Type: Resident Type: Progress Notes Filed: 09/30/2017 1:03 PM Note Text: Name: Katherine Estrada Index Surgery Date of Surgery: 07/28/2017 Surgeon: Gina Blanco MD Surgical Procedure: Lap RYGB Pre-surgical weight: 169.6 kg (374 lb) Override Index Surgery Information? No Other Bariatric Surgeries None Visit: 2 months Today's Visit: Wt 145.3 kg (320 lb 6.4 oz) BMI 48.28 kg/m2 BMI 48.28 kg/(m2) Last Visit: Wt: 163.9 kg (361 lb 6.4 oz) BMI: 54.95 kg/(m2) Total weight loss: 24.3 kg (53 lb 9.6 oz) Tyler weight: 75.3 kg (165 lb 15.1 oz) Excess weight: 94.4 kg (208 lb 0.9 oz) % of excess body weight lost: 24.3 kg (53 lb 9.6 oz) (25.76% of excess weight loss) COMPLICATIONS SINCE LAST VISIT?: NONE DIET INTAKE: tolerates Phase V diet DAILY SUPPLEMENTS: Calcium: trialing new calcium supplement today Multivitamin AND Minerals: 1 per day Iron Supplement: 27 - 28 mg Vitamin B12: No Vitamin D3: 2000 IU Other: Biotin 5000 mcg daily EXERCISE: walks 30 min/day 3 times/ week Are you attending any Support Groups? No attendance Current Outpatient Prescriptions: pantoprazole DR (PROTONIX) 40 mg tablet Take 40 mg by mouth once daily. pantoprazole DR (PROTONIX) 40 mg tablet Take 1 tablet by mouth once daily. HYDROcodone-Acetaminophen (HYCET) 7.5-325 mg/15 mL oral liquid Take 5-10 mL by mouth every 6 hours as needed for Pain. loratadine (CLARITIN) 5 mg/5 mL syrup Take 10 mL by mouth once daily. Miconazole Nitrate (LOTRIMIN AF) 2 % spra Apply 1 application to affected area as needed. chlorhexidine (HIBICLENS) 4 % external liquid Apply 1 application to affected area four times a week. clindamycin (CLEOCIN-T) 1 % gel Apply 1 application to affected area twice daily. fluticasone (FLONASE) 50 mcg/actuation nasal spray Use 2 Sprays in each nostril once daily. EPINEPHrine 0.3 mg/0.3 mL auto-injector Inject 0.3 Each intramuscularly as needed. No current facility-administered medications for this visit. REVIEW OF SYSTEMS: denies nausea, vomiting, dumping syndrome and abdominal pain, constipation, diarrhea, melena, hematochezia PHYSICAL EXAM: Deferred, no abdominal issues Assessment A/P: Normal post-OP course Patient Active Problem List Morbid obesity (HCC) Obesity, morbid, BMI 50 or higher (HCC) DISPOSITION: Return 1 year to Post-op follow up/ individual office visit EDUCATION: Pt encouraged to continue with positive lifestyle changes and daily/vitamin intake REFERRALS: N/A LABS: Today: none In 12 months: CBC W DIFF, CMP and Vitamin B12 Niraj Marte MD CNOV Observed: 09/30/2017 Status: COMPLETED Source: [place] 10:15 AM [facility] REPOSITORY Office Visit (BMI) KATHERINE ESTRADA ([id number]) 1985 F Date Time Provider Department 09/30/17 10:15 AM GINA BLANCO During your visit today, we recorded the following information about you: Temperature Pulse Blood pressure Weight 96.2 degrees 52/minute 132/86 145.3 kg Height Last Period 1.735 m 09/19/17 Niraj Marte MD, 09/30/2017 1:03 PM Signed Name: Katherine Estrada Index Surgery Date of Surgery: 07/28/2017 Surgeon: Gina lBanco MD Surgical Procedure: Lap RYGB Pre-surgical weight: 169.6 kg (374 lb) Override Index Surgery Information? No Other Bariatric Surgeries None Visit: 2 months Today's Visit: Wt 145.3 kg (320 lb 6.4 oz) BMI 48.28 kg/m2 BMI 48.28 kg/(m2) Last Visit: Wt: 163.9 kg (361 lb 6.4 oz) BMI: 54.95 kg/(m2) Total weight loss: 24.3 kg (53 lb 9.6 oz) Tyler weight: 75.3 kg (165 lb 15.1 oz) Excess weight: 94.4 kg (208 lb 0.9 oz) % of excess body weight lost: 24.3 kg (53 lb 9.6 oz) (25.76% of excess weight loss) COMPLICATIONS SINCE LAST VISIT?: NONE DIET INTAKE: tolerates Phase V diet DAILY SUPPLEMENTS: Calcium: trialing new calcium supplement today Multivitamin ANDamp; Minerals: 1 per day Iron Supplement: 27 - 28 mg Vitamin B12: No Vitamin D3: 2000 IU Other: Biotin 5000 mcg daily EXERCISE: walks 30 min/day 3 times/ week Are you attending any Support Groups? No attendance Current Outpatient Prescriptions: pantoprazole DR (PROTONIX) 40 mg tablet Take 40 mg by mouth once daily. pantoprazole DR (PROTONIX) 40 mg tablet Take 1 tablet by mouth once daily. HYDROcodone-Acetaminophen (HYCET) 7.5-325 mg/15 mL oral liquid Take 5-10 mL by mouth every 6 hours as needed for Pain. loratadine (CLARITIN) 5 mg/5 mL syrup Take 10 mL by mouth once daily. Miconazole Nitrate (LOTRIMIN AF) 2 % spra Apply 1 application to affected area as needed. chlorhexidine (HIBICLENS) 4 % external liquid Apply 1 application to affected area four times a week. clindamycin (CLEOCIN-T) 1 % gel Apply 1 application to affected area twice daily. fluticasone (FLONASE) 50 mcg/actuation nasal spray Use 2 Sprays in each nostril once daily. EPINEPHrine 0.3 mg/0.3 mL auto-injector Inject 0.3 Each intramuscularly as needed. No current facility-administered medications for this visit. REVIEW OF SYSTEMS: denies nausea, vomiting, dumping syndrome and abdominal pain, constipation, diarrhea, melena, hematochezia PHYSICAL EXAM: Deferred, no abdominal issues Assessment A/P: Normal post-OP course Patient Active Problem List Morbid obesity (HCC) Obesity, morbid, BMI 50 or higher (HCC) DISPOSITION: Return 1 year to Post-op follow up/ individual office visit EDUCATION: Pt encouraged to continue with positive lifestyle changes and daily/vitamin intake REFERRALS: N/A LABS: Today: none In 12 months: CBC W DIFF, CMP and Vitamin B12 MD Bassem Kaminski LPN 09/30/2017 10:36 AM Signed Body mass index is 48.28 kg/(m2). Referring Provider: GINA BLANCO [[id number]] Allergies As of Date: 09/30/2017 Noted Allergy Reaction ALMOND 08/11/2016 10 - Anaphylaxis AUGMENTIN (AMOXICILLIN-POT CLAVUL*11/29/2014 8 - GI Upset Comments: Tolerates penicillin. Likely reaction to clavulanate MORPHINE 08/14/2015 12 - Shortness of Breath WALNUT 08/03/2016 10 - Anaphylaxis Date Reviewed: 09/30/2017 Reviewed by: Bassem Elder LPN - Fully Assessed Reason for Visit: Established Patient [175] Visit Diagnosis:Gastric bypass status for obesity [Z98.84] Prescriptions as of 09/30/2017 Sig: PANTOPRAZOLE 40 MG TABLET,DEL* Take 40 mg by mouth once melva* PANTOPRAZOLE 40 MG TABLET,DEL* Take 1 tablet by mouth once d* HYDROCODONE 7.5 MG-ACETAMINOP* Take 5-10 mL by mouth every 6* LORATADINE 5 MG/5 ML ORAL KP* Take 10 mL by mouth once melva* MICONAZOLE NITRATE 2 % TOPICA* Apply 1 application to affect* CHLORHEXIDINE GLUCONATE 4 % T* Apply 1 application to affect* CLINDAMYCIN 1 % TOPICAL GEL Apply 1 application to affect* FLUTICASONE 50 MCG/ACTUATION * Use 2 Sprays in each nostril * EPINEPHRINE 0.3 MG/0.3 ML INJ* Inject 0.3 Each intramuscular* Problem List As Of Date 09/30/2017 Noted Resolved CELLULITIS NOS [L03.90, L02.91] INVALID FOR* Sprain of foot [S93.159W] INVALID FOR* Obesity, morbid, BMI 50 or higher (HCC) [E66.01]INVALID FOR* Morbid obesity (HCC) [E66.01] INVALID FOR* More... Pre-op testing [Z01.818] INVALID FOR*07/29/2017 More... Visit Notes: >> Bassem Elder CARLOS TueSep 30, 2017 10:36 AM Status: Signed Body mass index is 48.28 kg/(m2). 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 No 0 on a scale of 0 to 10 PROGRESS: Nutrition Intervention (date of last encounter 05/17/2017): 1. Practice these: * Eat in this order protein first, vegetable and fruit second and whole grain carbohydrates last. * Separate eating and drinking by 30 minutes * Chew your food 20-30x per bite * Meals should last 30 minutes. 2. Fluids: 64 oz per day minimum No carbonation, no caffeine, no calories, no alcohol. Water, sugar free drink mix, decaf coffee and tea 3. Exercise: 150-250 minutes cardio/aerobic activity/week and 10-20 minutes strength/resistance training 2x per week 4. Vitamin/minerals: (2) children's chewable Multivitamin complete (morning) OR (2) adult Centrum Chewable complete multivitamin, Iron supplement 18mg (morning), Vit B12 1000 mcg sublingual pill or liquid (morning), and calcium citrate w/Vit D 600 mg at lunch and 600 mg at dinner. Additional 2000 IU Vit D3 daily. 5. Protein: 72 to 98 g per day. Lean meats, fish, low fat dairy - cottage cheese, Belarusian yogurt, light yogurt, cheese, ricotta cheese, nuts, peanut butter, beans/legumes. Eat protein first at all meals. 6. Protein shakes: < 200 calories, < 30 g carbohydrates and > 15 g protein 7. Start the full liquid diet 2 weeks prior to surgery. No solid food. 64 oz per day fluid - 4-5 shakes per day 8. Advance your diet as tolerated after surgery. Clear liquid (in hospital only); Full liquids (protein shakes limited to 1/4c per meal, 1c fluids between meals), pureed (baby food texture); soft (easily cuts with fork); regular CHANGES IN TREATMENT: Patient met goal(s): Yes for post op diet progression Actions to implement interventions: see assessment CLINICAL IMPRESSIONS: good REVISIONS IN DIAGNOSIS: Diagnosis: has not changed. Allergies: Dulce; Augmentin [Amoxicillin-Pot Clavulanate]; Morphine; [place] Medications: Current Outpatient Prescriptions: pantoprazole DR (PROTONIX) 40 mg tablet Take 40 mg by mouth once daily. Disp: Rfl: pantoprazole DR (PROTONIX) 40 mg tablet Take 1 tablet by mouth once daily. Disp: 30 tablet Rfl: 5 HYDROcodone-Acetaminophen (HYCET) 7.5-325 mg/15 mL oral liquid Take 5-10 mL by mouth every 6 hours as needed for Pain. Disp: 300 mL Rfl: 0 loratadine (CLARITIN) 5 mg/5 mL syrup Take 10 mL by mouth once daily. Disp: 120 mL Rfl: 0 Miconazole Nitrate (LOTRIMIN AF) 2 % spra Apply 1 application to affected area as needed. Disp: Rfl: chlorhexidine (HIBICLENS) 4 % external liquid Apply 1 application to affected area four times a week. Disp: 500 mL Rfl: 2 clindamycin (CLEOCIN-T) 1 % gel Apply 1 application to affected area twice daily. Disp: 100 g Rfl: 1 fluticasone (FLONASE) 50 mcg/actuation nasal spray Use 2 Sprays in each nostril once daily. Disp: 1 Bottle Rfl: 11 EPINEPHrine 0.3 mg/0.3 mL auto-injector Inject 0.3 Each intramuscularly as needed. Disp: Rfl: No current facility-administered medications for this visit. (currently taking) Anthropometrics: Height: Last 1 Encounter Ht Readings: Date: Ht: 08/05/2017 172.7 cm (5' 8) Current weight: Last 1 Encounter Wt Readings: Date: Wt: 08/05/2017 163.9 kg (361 lb 6.4 oz) Body mass index is 47.99 kg/(m2). Resting Metabolic Rate: 2398 Malnutrition Screening: Significant unintentional weight loss? No Eating less than 75% of usual intake for more than 2 weeks? No Nutritional status: no malnutrition identified Educational materials provided: none this visit READINESS TO LEARN Cognitive ability: Alert and oriented Motivation to learn: Eager Interested Family support: Unable to assess - Family not present Instruction provided to: Patient Patient learns best by: Multiple Methods Factors affecting learning: None Physical limitations affecting learning: None Likelihood of Adherence: High Patient presents 2 months post op RYGB; Patient lost 61# since initial nutrition assessment (383 lb) and 61# since last nutrition visit (379 lb), accounting for a loss of 25% of excess body weight (239 lb)- on track for rate of weight loss this point post op. Dietary recall reveals 2 main meals plus 2 snacks. Protein intake is on low end of goal- she is progressing towards 70 grams- she is able to tolerate 2 ounces at a time- intolerant to beef and chicken, is able to do ham/pork, seafood, yogurt, milk. Fluid intake is adequate- includes diluted juice, milk (2%), water, iced tea. Exercise is low; she will go outside when it is warmer for 30 minutes. Patient adherent with vitamin/mineral supplements except for calcium citrate which causes GI upset- she is consuming at least 2 servings of dairy daily. Labs reveal n/a- no recent labs available to evaluate. Recommended Protein intake (1.2-1.5 g protein/kg IBW): 78- 98 grams Nutrition Diagnosis: Overweight Obesity, related to; decreased energy needs, as evidenced by BMI above normative standard for age and gender. Nutrition Intervention 09/30/2017: Modify type and amount of food eaten at meals and snacks 1. Chew food 20-30 times per bite, making meals last 30 minutes and stop drinking within 30 minutes before a meal, during meals and 30 minutes after meals 2. Vitamin/minerals: (2) children's chewable Multivitamin complete (morning) OR (2) Centrum Complete Chewables, Iron supplement 18 mg (morning), Vit B12 1000 mcg sublingual pill or liquid (morning), and calcium citrate w/Vit D 600 mg at lunch and 600 mg at dinner. Additional 2000 IU Vit D3 daily. 3. Eating protein first at every meal with a goal of 79-89 grams per day 4. 64oz of calorie-free, caffeine-free, no carbonation, no alcohol containing beverages 5. Physical activity-continue Cardio 150-250 minutes/week and strength/resistance training 2x per week for 10-20 minutes/session Nutrition Monitoring AND Evaluation: BMI<40 Criteria: weight check Need for Follow up: 6 months post op Referred/Supervised by: Francis/Sofy Consult Billing Type: Re-assess/15 minutes, 2 increment(s), 30 minutes Signed by: Sonya Manriquez, MS,RD,LD Primary Visit Diagnosis:H/O gastric bypass [Z98.890] Other Visit Diagnoses:Dietary counseling and surveillance [Z71.3] Morbid obesity (HCC) [E66.01] During your visit today, we recorded the following information about you: Weight Height 144.5 kg 1.735 m Allergies As of Date: 09/30/2017 Noted Allergy Reaction ALMOND 08/11/2016 10 - Anaphylaxis AUGMENTIN (AMOXICILLIN-POT CLAVUL*11/29/2014 8 - GI Upset Comments: Tolerates penicillin. Likely reaction to clavulanate MORPHINE 08/14/2015 12 - Shortness of Breath WALNUT 08/03/2016 10 - Anaphylaxis Date Reviewed: 09/30/2017 Reviewed by: Sonya Yadav (Letitia) Tahira - Fully Assessed Prescriptions as of 09/30/2017 Sig: PANTOPRAZOLE 40 MG TABLET,DEL* Take 40 mg by mouth once melva* PANTOPRAZOLE 40 MG TABLET,DEL* Take 1 tablet by mouth once d* HYDROCODONE 7.5 MG-ACETAMINOP* Take 5-10 mL by mouth every 6* LORATADINE 5 MG/5 ML ORAL KP* Take 10 mL by mouth once melva* MICONAZOLE NITRATE 2 % TOPICA* Apply 1 application to affect* CHLORHEXIDINE GLUCONATE 4 % T* Apply 1 application to affect* CLINDAMYCIN 1 % TOPICAL GEL Apply 1 application to affect* FLUTICASONE 50 MCG/ACTUATION * Use 2 Sprays in each nostril * EPINEPHRINE 0.3 MG/0.3 ML INJ* Inject 0.3 Each intramuscular* Encounter Status:Closed by SONYA MANRIQUEZ RD on 09/30/17 PROGRESS Observed: 09/30/2017 Status: COMPLETED Source: [place] 7:46 AM [facility] [place] REPOSITORY O ID: [id number] Author: Sonya Yadav (Letitia) Tahira Service: (none) Author Type: Registered Dietitian Type: Progress Notes Filed: 09/30/2017 9:12 AM Note Text: Nutritional Therapy: Re-Assessment PAIN: Is the patient having any pain that is interfering with oral / enteral intake? No 0 on a scale of 0 to 10 PROGRESS: Nutrition Intervention (date of last encounter 05/17/2017): 1. Practice these: * Eat in this order protein first, vegetable and fruit second and whole grain carbohydrates last. * Separate eating and drinking by 30 minutes * Chew your food 20-30x per bite * Meals should last 30 minutes. 2. Fluids: 64 oz per day minimum No carbonation, no caffeine, no calories, no alcohol. Water, sugar free drink mix, decaf coffee and tea 3. Exercise: 150-250 minutes cardio/aerobic activity/week and 10-20 minutes strength/resistance training 2x per week 4. Vitamin/minerals: (2) children's chewable Multivitamin complete (morning) OR (2) adult Centrum Chewable complete multivitamin, Iron supplement 18mg (morning), Vit B12 1000 mcg sublingual pill or liquid (morning), and calcium citrate w/Vit D 600 mg at lunch and 600 mg at dinner. Additional 2000 IU Vit D3 daily. 5. Protein: 72 to 98 g per day. Lean meats, fish, low fat dairy - cottage cheese, [place]ian yogurt, light yogurt, cheese, ricotta cheese, nuts, peanut butter, beans/legumes. Eat protein first at all meals. 6. Protein shakes: < 200 calories, < 30 g carbohydrates and > 15 g protein 7. Start the full liquid diet 2 weeks prior to surgery. No solid food. 64 oz per day fluid - 4-5 shakes per day 8. Advance your diet as tolerated after surgery. Clear liquid (in hospital only); Full liquids (protein shakes limited to 1/4c per meal, 1c fluids between meals), pureed (baby food texture); soft (easily cuts with fork); regular CHANGES IN TREATMENT: Patient met goal(s): Yes for post op diet progression Actions to implement interventions: see assessment CLINICAL IMPRESSIONS: good REVISIONS IN DIAGNOSIS: Diagnosis: has not changed. Allergies: Dulce; Augmentin [Amoxicillin-Pot Clavulanate]; Morphine; [place] Medications: Current Outpatient Prescriptions: pantoprazole DR (PROTONIX) 40 mg tablet Take 40 mg by mouth once daily. Disp: Rfl: pantoprazole DR (PROTONIX) 40 mg tablet Take 1 tablet by mouth once daily. Disp: 30 tablet Rfl: 5 HYDROcodone-Acetaminophen (HYCET) 7.5-325 mg/15 mL oral liquid Take 5-10 mL by mouth every 6 hours as needed for Pain. Disp: 300 mL Rfl: 0 loratadine (CLARITIN) 5 mg/5 mL syrup Take 10 mL by mouth once daily. Disp: 120 mL Rfl: 0 Miconazole Nitrate (LOTRIMIN AF) 2 % spra Apply 1 application to affected area as needed. Disp: Rfl: chlorhexidine (HIBICLENS) 4 % external liquid Apply 1 application to affected area four times a week. Disp: 500 mL Rfl: 2 clindamycin (CLEOCIN-T) 1 % gel Apply 1 application to affected area twice daily. Disp: 100 g Rfl: 1 fluticasone (FLONASE) 50 mcg/actuation nasal spray Use 2 Sprays in each nostril once daily. Disp: 1 Bottle Rfl: 11 EPINEPHrine 0.3 mg/0.3 mL auto-injector Inject 0.3 Each intramuscularly as needed. Disp: Rfl: No current facility-administered medications for this visit. (currently taking) Anthropometrics: Height: Last 1 Encounter Ht Readings: Date: Ht: 08/05/2017 172.7 cm (5' 8) Current weight: Last 1 Encounter Wt Readings: Date: Wt: 08/05/2017 163.9 kg (361 lb 6.4 oz) Body mass index is 47.99 kg/(m2). Resting Metabolic Rate: 2398 Malnutrition Screening: Significant unintentional weight loss? No Eating less than 75% of usual intake for more than 2 weeks? No Nutritional status: no malnutrition identified Educational materials provided: none this visit READINESS TO LEARN Cognitive ability: Alert and oriented Motivation to learn: Eager Interested Family support: Unable to assess - Family not present Instruction provided to: Patient Patient learns best by: Multiple Methods Factors affecting learning: None Physical limitations affecting learning: None Likelihood of Adherence: High Patient presents 2 months post op RYGB; Patient lost 61# since initial nutrition assessment (383 lb) and 61# since last nutrition visit (379 lb), accounting for a loss of 25% of excess body weight (239 lb)- on track for rate of weight loss this point post op. Dietary recall reveals 2 main meals plus 2 snacks. Protein intake is on low end of goal- she is progressing towards 70 grams- she is able to tolerate 2 ounces at a time- intolerant to beef and chicken, is able to do ham/pork, seafood, yogurt, milk. Fluid intake is adequate- includes diluted juice, milk (2%), water, iced tea. Exercise is low; she will go outside when it is warmer for 30 minutes. Patient adherent with vitamin/mineral supplements except for calcium citrate which causes GI upset- she is consuming at least 2 servings of dairy daily. Labs reveal n/a- no recent labs available to evaluate. Recommended Protein intake (1.2-1.5 g protein/kg IBW): 78- 98 grams Nutrition Diagnosis: Overweight Obesity, related to; decreased energy needs, as evidenced by BMI above normative standard for age and gender. Nutrition Intervention 09/30/2017: Modify type and amount of food eaten at meals and snacks 1. Chew food 20-30 times per bite, making meals last 30 minutes and stop drinking within 30 minutes before a meal, during meals and 30 minutes after meals 2. Vitamin/minerals: (2) children's chewable Multivitamin complete (morning) OR (2) Centrum Complete Chewables, Iron supplement 18 mg (morning), Vit B12 1000 mcg sublingual pill or liquid (morning), and calcium citrate w/Vit D 600 mg at lunch and 600 mg at dinner. Additional 2000 IU Vit D3 daily. 3. Eating protein first at every meal with a goal of 79-89 grams per day 4. 64oz of calorie-free, caffeine-free, no carbonation, no alcohol containing beverages 5. Physical activity-continue Cardio 150-250 minutes/week and strength/resistance training 2x per week for 10-20 minutes/session Nutrition Monitoring AND Evaluation: BMI<40 Criteria: weight check Need for Follow up: 6 months post op Referred/Supervised by: Francis/Sofy Consult Billing Type: Re-assess/15 minutes, 2 increment(s), 30 minutes Signed by: Sonya Manriquez, MS,RD,LD ALLERGIES ALLERGIES DATE TYPE / CODE NAME / CODE REACTION SEVERITY SOURCE Drug amoxicillin Vomiting Unknown [place] 8 Allergy/634452131( trihydrate/F0000 [facility]) 71335(RXNORM) Hospital Repository Drug potassium Vomiting Unknown [place] 8 Allergy/944511926( clavulanate/F000 [facility]) 168741(RXNORM) Hospital Repository Miscellaneous NUTS Other Unknown [place] Allergy/714909138( [facility] SNOMED CT) Hospital Repository DRUG ALMOND ANAPHYLAXIS [place] INGREDI/725709087( [facility] Main SNOMED [facility]) [place] Repository DRUG WALNUT ANAPHYLAXIS [place] [facility] INGREDI/481327833( [facility] Main SNOMED CT) [place] Rep[facility] DRUG MORPHINE SHORTNESS OF [place] 5 INGREDI/753117484( [facility] Main SNOMED CT) [place] Rep[facility] DRUG/903153580(SNO AMOXICILLIN-POT GI UPSET [place] [address]) CLAVULANATE [facility] Repository ENCOUNTERS ENCOUNTERS ADMIT/DISCHARGE ACCOUNT ADMITTING ENCOUNTER LOCATION SOURCE NUMBER CLASS 08/28/2018/08/28/20 [id number] Emergency [address] ing:ED Repository 05/12/2018/05/12/20 [id number] Ambulatory [address] Repository 05/10/2018/05/16/20 [id number] Ambulatory [address] Repository 05/02/2018/05/02/20 [id number] Emergency [address] ing:ED Repository 03/30/2018/04/03/20 [id number] Ambulatory [address] Repository 03/06/2018/06/04 [id number] Emergency [place] [facility] ing:ED Repository 03/06/2018/03/06/20 [id number] Ambulatory BMSBuilding:B [place] 18 [facility] Repository 01/22/2018/01/23/20 [id number] Emergency [place] [facility] ing:ED Repository 01/05/2018/01/07/20 [id number] Ambulatory [address] Repository 01/02/2018/01/03/20 [id number] Ambulatory BMSBuilding:B [place] 18 [facility] Repository 09/30/2017/09/30/20 [id number] Ambulatory [address] Repository 09/30/2017/09/30/20 [id number] Ambulatory [address] Repository PAYERS PAYERS ENCOUNTER GUARANTOR PAYER SUBSCRIBER SOURCE 08/28/2018 KATHERINE D Primary KATHERINE D [place] [id number] [facility] CenterPolicy [facility]: Repository [id number]: 330 [id number] [phone] () Date:[id number] [address]FI: 08/28/2018 Secondary NOT GIVENUNK [place] Insurance:SELF PAY [facility] Number: Effective Repository Date:2018-08-28 05/02/2018 KATHERINE D Primary KATHERINE D [place] [id number] Insurance:[facility] [id number] PLANPolicy Number: Repository [id number]: 330 [id number] [phone] (HP) Date:1794-90-08PW [address] [place] [address]UR: 05/02/2018 Secondary NOT GIVENUNK [place] Insurance:SELF PAY [facility] Number: Effective Repository Date:2018-05-02 03/06/2018 KATHERINE D Primary KATHERINE D [place] [id number] Insurance:[place] MCCLUREDOB: [facility] [id number] PLANPolicy Number: Repository [id number]: (330 [id number] [phone] (HP) Date:6983-11-19BS [address] [place] [address] 20268EY: 03/06/2018 Secondary NOT GIVENUNK [place] Insurance:SELF PAY [facility] Number: Effective Repository Date:2018-03-06 03/06/2018 KATHERINE D Primary KATHERINE D [place] [id number] Insurance:[place] MCCLUREDOB: [facility] [id number], [place] PLANPolicy Number: Repository [id number]: 330 [id number] [phone] (HP) Date:5501-09-29JH [address] [place] [address] 28149GX: 03/06/2018 Secondary NOT GIVENUNK [place] Insurance:SELF PAY [facility] Number: Effective Repository Date:2018-03-16 01/22/2018 KATHERINE D Primary KATHERINE D [place] [id number] Insurance:[place] MCCLUREDOB: [facility] [id number], [place] PLANPolicy Number: Repository [id number]: (330 [id number] [phone] (HP) Date:9438-32-20FW [address] [place] [address] 72776EM: 01/22/2018 Secondary NOT GIVENUNK [place] Insurance:SELF PAY [facility] Number: Effective Repository Date:2018-01-22 01/02/2018 KATHERINE D Primary KATHERINE D [place] [id number] Insurance:[place] MCCLUREDOB: [facility] [id number], [place] PLANPolicy Number: Repository [id number]: (330 [id number] [phone] () Date:0962-85-65FZ [address] [address]OS: 01/02/2018 Secondary NOT GIVENUNK [place] Insurance:SELF PAY [facility] Number: Effective Repository Date:2018-01-02
== END 2018-08-28 21:13 | disposition home or self-care (01) ==
PROVIDERS: Emergency Provider Emergency Medicine; Family Provider Family Medicine; PCP Family Medicine
DX: S93.601A Unspecified sprain of right foot, initial encounter (principal); W01.0XXA Fall on same level from slipping, tripping and stumbling without subsequent striking against object, initial encounter; Y93.01 Activity, walking, marching and hiking; Y92.007 Garden or yard of unspecified non-institutional (private) residence as the place of occurrence of the external cause; M79.7 Fibromyalgia; Z79.899 Other long term (current) drug therapy
CPT/HCPCS: 73630; 99282

== ENCOUNTER 2018-10-24 09:54 | Emergency (ER) | payer MEDICAID, SELFPAY ==
[2018-10-24 09:54] VITALS: BP 151/66; PULSE 77; RESP 16; TEMP 36.7; O2SAT 97; BMI 44.1
--- NOTE | 2018-10-24 10:41 | ED.DCSUM_ITS ---
- ER Visit Summary Date of Service: 10/24/18 Chief Complaint: Eye pain History of Present Illness: The patient is a 33 F with right eye pain that started this morning when she woke up. She has a foreign body sensation. Denies any trauma or foreign body exposure. She does not use contact lenses. She does use glasses. Denies any history of trauma. Denies fever or recent infection. Denies any history of rash. Denies immune compromise. Physical Examination: Afebrile and vital signs unremarkable. Extraocular structures are normal. Neck check and movement is normal. Nipples round and reactive, consensual. No foreign bodies visualized. Lids everted. Test Results: None Emergency Department Course and Treatment: Tetracaine and fluorescein were applied. I did visualize a foreign body around 6:00. Slit lamp was used. There are many linear abrasions to the area. No foreign bodies were visualized. Cornea otherwise unremarkable. Exam otherwise unremarkable. Treatment Plan: Patient treated with erythromycin ointment. Referred to ophthalmology for follow-up. Her tetanus is up-to-date. Disposition: Discharge Impression: 1. Right eye corneal abrasion This note was generated with [employer] dictation software. It may contain incorrect words, spelling, and punctuation that were not noted in review of the chart prior to signing ED Disposition - Plan for ED Patient: Chief Complaint: Eye Problem Referrals: Viraj Mueller MD [Primary Care Provider] -
--- NOTE | 2018-10-24 10:41 | ED.DEP ---
ED Disposition - Plan for ED Patient: Chief Complaint: Eye Problem Instructions: ED Eye Injury Corneal Abrasion Referrals: Rinku Angulo MD [STAFF PHYSICIAN] -
[2018-10-24] MEDS: Erythromycin Base 1 OPTH.TUBE 1 APPLIC RIGHT EYE (11:05)
[2018-10-24] MEDS: Tetracaine 0.5% Ophthalmic Bottle 1 DRP RIGHT EYE (11:07)
[2018-10-24] MEDS: Fluorescein 1 MG STRIP 1 STRIP RIGHT EYE (11:07)
--- OUTSIDE RECORDS SUMMARY | 2018-12-26 13:05 | XMS RPT_ITS ---
:1985 Author Organization OHIP Care Team Providers Name Role Phone JULISA CELAYA Attending Unavailable JULISA CELAYA Attending Unavailable JULISA CELAYA Attending Unavailable JULISA CELAYA Referring Unavailable Hernán Celaya Primary Care Unavailable Fareed Rivas Attending Unavailable Hernán Celaya Primary Care Unavailable Bruno Zuleta Attending Unavailable Allison Wall Attending Unavailable Hernán Celaya Referring Unavailable Hernán Celaya Primary Care Unavailable Hernán Celaya Primary Care Unavailable Brodie Aguilera Attending Unavailable Hernán Celaya Primary Care Unavailable Hernán Faust Attending Unavailable Yecenia Suazo Attending Unavailable Yecenia Suazo Referring Unavailable Hernán Celaya Primary Care Unavailable Allison Wall Attending Unavailable Hernán Celaya Referring Unavailable Hernán Celaya Primary Care Unavailable PROBLEMS PROBLEMS DATE TYPE CONDITION / CODE ATTENDING STATUS SOURCE 05/12/2018 Active Myalgia / NA Active [facility] M79.1(ICD-10) Main [place] Repository 03/30/2018 Active Unknown / JULISA CELAYA Active [facility] UNK(Unknown) R Main [place] Repository 03/31/2018 Unknown M54.6 - Pain in Yecenia Suazo Active [place] thoracic spine / Community M54.6(ICD-10) Hospital Repository 01/03/2018 Unknown N93.9 - Abnormal Marcanthony, Active [place] uterine and [facility] vaginal bleeding, Hospital unspecified / Repository N93.9(ICD-10) PROCEDURES PROCEDURES No Procedure Records FoundRESULTS RESULTS EMERGENCY DEPARTMENT Observed: 10/24/2018 Status: F Source: [place] SUMMARY 4:14 PM [facility] Medical Records Department [address] [place] [address] Emergency Department Summary 10/24/18 1039 MR#: [id number] Acct: [id number] Name: KATHERINE ESTRADA Rep #: [id number] : 1985 33 From: Fareed Rivas MD PCP: Hernán Celaya MD Status: DEP ER - ER Visit Summary Date of Service: 10/24/18 Chief Complaint: Eye pain History of Present Illness: The patient is a 33 F with right eye pain that started this morning when she woke up. She has a foreign body sensation. Denies any trauma or foreign body exposure. She does not use contact lenses. She does use glasses. Denies any history of trauma. Denies fever or recent infection. Denies any history of rash. Denies immune compromise. Physical Examination: Afebrile and vital signs unremarkable. Extraocular structures are normal. Neck check and movement is normal. Nipples round and reactive, consensual. No foreign bodies visualized. Lids everted. Test Results: None Emergency Department Course and Treatment: Tetracaine and fluorescein were applied. I did visualize a foreign body around 6:00. Slit lamp was used. There are many linear abrasions to the area. No foreign bodies were visualized. Cornea otherwise unremarkable. Exam otherwise unremarkable. Treatment Plan: Patient treated with erythromycin ointment. Referred to ophthalmology for follow-up. Her tetanus is up-to-date. Disposition: Discharge Impression: 1. Right eye corneal abrasion This note was generated with Sourcebits dictation software. It may contain incorrect words, spelling, and punctuation that were not noted in review of the chart prior to signing ED Disposition - Plan for ED Patient: Chief Complaint: Eye Problem Referrals: Hernán Celaya MD [Primary Care Provider] - What to do if you have Problems For any increased pain, shortness of breath, bleeding, nausea or vomiting, chest pain, or any unexpected problems, contact your Primary Care Provider. Call [facility] ([phone]) or report to the closest Emergency Room. Call 911 if necessary. 10/24/181613 <Electronically signed by Fareed Rivas MD> Date Fareed Rivas MD Cosigner Signature (If Indicated): Date CC: Hernán Celaya MD DISCHARGE INSTRUCTION Observed: 10/24/2018 Status: F Source: [place] 4:14 PM [facility] Medical Records Department [address] [place] [address] Discharge Instruction 10/24/18 1041 MR#: [id number] Acct: [id number] Name: KATHERINE ESTRADA Rep #: [id number] : 1985 33 From: Fareed Rivas MD PCP: Hernán Celaya MD Status: [facility] ER ED Disposition - Plan for ED Patient: Chief Complaint: Eye Problem Instructions: ED Eye Injury Corneal Abrasion Referrals: Rinku Angulo MD [STAFF PHYSICIAN] - What to do if you have Problems For any increased pain, shortness of breath, bleeding, nausea or vomiting, chest pain, or any unexpected problems, contact your Primary Care Provider. Call [facility] ([phone]) or report to the closest Emergency Room. Call 911 if necessary. 10/24/18 1614 <Electronically signed by Fareed Rivas MD> Date Fareed Rivas MD Cosigner Signature (If Indicated): Date CC: Hernán Celaya MD EMERGENCY DEPARTMENT Observed: 08/28/2018 Status: F Source: [place] SUMMARY 11:12 PM [facility] Medical Records Department [address] [place] [address] Emergency Department Summary 08/28/182016 MR#: [id number] Acct: [id number] Name: KATHERINE ESTRADA Rep #: [id number] : 1985 33 From: Brodie Aguilera MD [...] foot sprain This note was generated with Sourcebits dictation software. It may contain incorrect words, [...] problems, contact your Primary Care Provider. Call [facility] ([phone]) or report to the closest Emergency Room. Call 911 if necessary. 08/28/18 2312 <Electronically signed by Brodie Aguilera MD> Date Brodie Aguilera MD Cosigner Signature (If Indicated): Date CC: Hernán Celaya MD FOOT MIN 3 VIEWS Observed: 08/28/2018 Status: F Source: [place] 7:42 PM [facility] Imaging Services [address] [place] [address] Foot min 3 Views MR#: [id number] Acct: [id number] Name: ESTRADAKATHERINE Rep #: [id number] : 1985 F 33 From: Hernán Talbot MD PCP: Hernán Celaya MD Status: REG ER Study: Foot min 3 Views Date of Exam: 08/28/18 Exam# [id number] Ordering Dr: Brodie Aguilera MD STUDY: X-RAY [...] CC: Hernán Celaya MD; Brodie Aguilera MD In Home Aide: Signed CNCO Observed: 05/18/2018 Status: COMPLETED Source: [place] 12:00 AM [facility] REPOSITORY Letter Text Julisa Celaya MD [address], [address] [place] [address] Katherine Estrada May 18, 2018 Katherine Estrada [address] [facility] A [facility] [address] Dear Ms. Estrada, Please call the office for a message from the doctor. The office has tried to reach you a few times, no voicemail set up. Please do not hesitate to contact me with any questions. Sincerely, TIMMY Castaneda Triage (Electronically signed to expedite processing) CK Collected: 05/12/2018 Status: F Source: [facility] 4:39 PM MAIN CAMPUS REPOSITORY TYPE CODE TESTS RESULT OUT OF RANGE REFERENCE UNITS LAB CK 42-196 U/L CK 65 Result Comment: Please note the updated, gender-specific reference range for this test (effective 09/16/2016). Performed By: #### CK, WSR, LMERLY, ANAIFS #### [facility] [employer] [address] [id number] SED RATE WESTERGREN Collected: 05/12/2018 Status: F Source: [place] 4:39 PM [facility] REPOSITORY TYPE CODE TESTS RESULT OUT OF REFERENCE UNITS RANGE LAB WSR 0-20 mm/hr Sed Rate High Westergren 24 Performed By: #### CK, WSR, LMERLY, ANAIFS #### [facility] [employer] [address] [address] LYME EARLY <=30 Collected: 05/12/2018 Status: F Source: [facility] 4:39 PM [facility] REPOSITORY TYPE CODE TESTS RESULT OUT OF REFERENCE UNITS RANGE LAB LYMGMX Negative Lyme Negative IgG/IgM AB Result Comment: Absence of detectable Borrelia burgdorferi antibodies. A negative result does not exclude the possibility of Borrelia burgdorferi infection. If early Lyme disease is suspected, a second sample should be collected and tested two to four weeks later. Performed By: #### CK, WSR, LMERAZAEL, ANAIFS #### [facility] [employer] [address] [address] CLIFF BY IFA Collected: 05/12/2018 Status: F Source: [place] 4:39 PM [facility] REPOSITORY TYPE CODE TESTS RESULT OUT [...] for negative result. Performed By: #### CK, WSR, LMERLY, ANAIFS #### [facility] [employer] [address] [address] PROGRESS Observed: 05/10/2018 Status: COMPLETED Source: [place] 3:54 PM [facility] REPOSITORY HNO ID: [id number] Author: Julisa Celaya Service: (none) Author Type: Physician Type: Progress Notes Filed: 05/14/2018 8:15 AM Note Text: Pt went to ER , got up to void and got sweaty. 3 am. [place] weak. .lost track of time - an [...] MD CNOV Observed: 05/10/2018 Status: COMPLETED Source: [place] 3:40 PM [facility] REPOSITORY Office Visit (FPWADS) KATHERINE ESTRADA ([id number]) 1985 F Date Time Provider Department 05/10/18 3:40 PM JULISA CELAYA During your visit today, we recorded the following information about you: Pulse Respiration Blood pressure Weight 79/minute 12/minute 120/54 128.7 kg Julisa Celaya MD 05/14/2018 8:15 AM Signed Pt went to ER , got up to void and got sweaty. 3 am. [place] weak. .lost track of time - an [...] [M79.1] Order(s):CK CREATINE KINASE [SQCK] Order #: [id number] FUTURE SED RATE WESTERGREN [SQWSR] Order #: [id number] FUTURE CLIFF BY IFA SCREEN [SQANAIFS] Order #: [id number] FUTURE LYME AB EARLY <=30 DAY SYMPTOMS [SQLMERLY] Order #: [id number] FUTURE amitriptyline (ELAVIL) 10 mg tabletTake 1 [...] EMERGENCY DEPARTMENT Observed: 05/03/2018 Status: F Source: [place] SUMMARY 12:41 AM [facility] Medical Records Department [address] [place] [address] Emergency Department Summary 05/02/18 1835 MR#: [id number] Acct: [id number] Name: KATHERINE ESTRADA Rep #: [id number] : 1985 32 From: Hernán Faust MD [...] range of motion. 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 Dorsi plantar flexion intact. Skin normal [...] uncertain etiology This note was generated with Sourcebits dictation software. It may contain incorrect words, [...] your Primary Care Provider. Call [facility] ([phone]) or report to the closest Emergency Room. Call 911 if necessary. 05/03/1840 <Electronically signed by Hernán Faust MD> Date Hernán Faust MD Cosigner Signature (If Indicated): Date CC: Hernán Celaya MD DISCHARGE INSTRUCTION Observed: 05/03/2018 Status: F Source: [place] 12:41 AM [facility] Medical Records Department [address] [place] [address] Discharge Instruction 05/02/18 2341 MR#: [id number] Acct: [id number] Name: KATHERINE ESTRADA Suresh Rep #: [id number] : 1985 32 From: Hernán Faust MD PCP: Hernán Celaya MD Status: [facility] ER ED Disposition - Plan for ED [...] your Primary Care Provider. Call [facility] ([phone]) or report to the closest Emergency Room. Call 911 if necessary. 05/03/1840 <Electronically signed by Hernán Faust MD> Date Hernán Faust MD Cosigner Signature (If Indicated): Date CC: Hernán Celaya MD CBC W/DIFF, AUTOMATED Collected: 05/02/2018 Status: F Source: [place] 6:44 PM [facility] TYPE CODE TESTS RESULT OUT OF [...] Lymph 2.59 Performed By: #### L100.0100 #### [facility] [place], [place], [id number] BASIC METABOLIC Collected: 05/02/2018 Status: F Source: [place] PROFILE ([facility]) 6:44 PM [facility] TYPE CODE TESTS RESULT OUT OF [...] Normal 6 Performed By: #### L500.2500 #### [facility] [address] [place], [place] [address], [address] PROGRESS Observed: 03/30/2018 Status: COMPLETED Source: [place] 11:31 AM CLINIC MAIN CAMPUS REPOSITORY HNO ID: [id number] Author: Julisa Celaya Service: (none) Author Type: [...] Mother Patient Allergies ALLERGIES Allergen Reactions - Oliver Anaphylaxis - Augmentin [Amoxicil* GI Upset Tolerates penicillin. 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[employer] Social History Main [...] 21 tabletRfl: 0 CONSULT TO PHYSICAL THERAPY [5017] Order #: [id number]: 1 Prescriptions as of 03/30/2018 Sig: CYCLOBENZAPRINE [...] DOWNTIME REPORT Observed: 03/22/2018 Status: F Source: [place] 1:17 PM [facility] Medical Records Department [address] [place] [address] Downtime Report MR#: [id number] Acct: [id number] Name: KATHERINE ESTRADA Rep #: [id number] : 1985 32 From: Rafi Sadler MD PCP: Hernán Celaya MD Status: DEP ER This patient was seen during an EMR downtime March 06, 2018 - March 13, 2018. This patient may have a combination of paper and electronic documentation or all paper documentation. All documentation is viewable within the e-chart portion of [employer] for each patient visit. 12 LEAD ELECTROCARDIOGRAM Observed: 01/24/2018 Status: F Source: [place] 3:31 PM [facility] Cardiovascular Services [address] [place] [address] 12 Lead EKG 01/22/18 2147 MR#: [id number] Acct: [id number] Name: KATHERINE ESTRADA Rep #: [id number] : 1985 32 From: Sanjiv Latif MD [...] ECG Confirmed by SANJIV LATIF MD ([id number]), design editor RICH SADLER ([id number]) on 01/24/2018 3:31:22 PM Referred By: SL Confirmed By:SANJIV LATIF MD 01/24/18 1531 Date Sanjiv Latif MD CC: Hernán Celaya MD; Bruno Zuleta MD Signed EMERGENCY DEPARTMENT Observed: 01/23/2018 Status: F Source: [place] SUMMARY 12:16 AM [facility] Medical Records Department [address] [place] [address] Emergency Department Summary 01/22/18 2303 MR#: [id number] Acct: [id number] Name: KATHERINE ESTRADA Rep #: [id number] : 1985 32 From: Bruno Zuleta MD [...] uncertain cause. This note was generated with Sourcebits dictation software. It may contain incorrect words, [...] your Primary Care Provider. Call [facility] ([phone]) or report to the closest Emergency Room. Call 911 if necessary. 01/23/18 0016 <Electronically signed by Bruno Zuleta MD> Date Bruno Zuleta MD Cosigner Signature (If Indicated): Date CC: Hernán Celaya MD CBC W/DIFF, AUTOMATED Collected: 01/22/2018 Status: F Source: [place] 10:00 PM [facility] TYPE CODE TESTS RESULT OUT OF [...] Lymph 2.49 Performed By: #### L100.0100 #### [facility] [address] [place], [place], [id number] BASIC METABOLIC Collected: 01/22/2018 Status: F Source: [place] PROFILE (BMP) 10:00 PM [facility] TYPE CODE TESTS RESULT OUT OF [...] Normal 9 Performed By: #### L500.2500 #### [facility] [address] [place], [address] ,SERUM,HCG QUALI. Collected: Status: F Source: [place] 01/22/2018 10:00 PM [facility] TYPE CODE TESTS RESULT OUT OF REFERENCE UNITS RANGE LAB L700.7000 0-9 Nonpreg Negative Normal HCGSQUAL NEGATIVE LAB L700.6700 =>Qualitative mIU/mL Normal HCG Qual < 1 triggr Performed By: #### L700.6800 #### [facility] [address] [place], [address] PROGRESS Observed: 01/05/2018 Status: COMPLETED Source: [place] 3:15 PM [facility] [place] REPOSITORY HNO ID: [id number] Author: Julisa Celaya Service: (none) Author Type: Physician Type: Progress Notes Filed: 01/06/2018 12:33 PM Note Text: Chief Complaint Patient presents with: Follow Up: medication refill Sleep Problem HPI Katherine Estrada is a 32 year old female who presents here today for follow-up of morbid obesity. . She has continued to lose weight, seen by Dr Sam Seen by RAILROAD AUDITOR who proscribed Jelber desogestrel Really here because [...] Mother Patient Allergies ALLERGIES Allergen Reactions - Oliver Anaphylaxis - Augmentin [Amoxicil* GI Upset Tolerates penicillin. 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[employer] Social History Main [...] (E66.01) Obesity, morbid, BMI 50 or higher ([facility]) (primary encounter diagnosis) Comment: weight [...] MD CNOV Observed: 01/05/2018 Status: COMPLETED Source: [place] 3:00 PM [facility] REPOSITORY Office Visit (FPWADS) KATHERINE ESTRADA ([id number]) 1985 F Date Time Provider Department 01/05/18 3:00 PM JULISA CELAYA FPWADS During your visit today, we recorded the following information about you: Pulse Respiration Blood pressure Weight 62/minute 16/minute 115/54 137.3 kg Juilsa Celaya MD 01/06/2018 12:33 PM Signed Chief Complaint Patient presents with: Follow Up: medication refill Sleep Problem HPI Katherine Estrada is a 32 year old female who presents here today for follow-up of morbid obesity. . She has continued to lose weight, seen by Dr Sam Seen by RAILROAD AUDITOR who proscribed Jelber desogestrel Really here because [...] Mother Patient Allergies ALLERGIES Allergen Reactions - Oliver Anaphylaxis - Augmentin [Amoxicil* GI Upset Tolerates penicillin. 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 OFFICE VISIT Observed: 01/02/2018 Status: F Source: [place] REPORT 9:33 PM [facility] [address] [place] [address] OFFICE VISIT Date of Service: 01/02/18 MR#: [id number] Acct: [id number] Name: KATHERINE ESTRADA Rep #: [id number] : 1985 Provider: Allison Wall MD Age/Sex: 32/F Location: [facility] Status: Signed Intake Vital Signs01/02/18 Body Mass Index (BMI) 57.6 Intake Visit Reasons: Heavy periods since gastric bypass 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 Required: No Is patient in pain?: No [...] menopausal: No Patient : No : [facility] Abnormal thyroid blood test (Acute) [...] Nutritional Appearance: average body habitus Orientation: alert HENMT Head: normal to inspection, normocephalic Ears: hearing [...] Medications New: Discontinued: naproxen Discontinued Reason: Order Zxu501 mg PO BID PRN Dahiana Blackburn pleted cyclobenzaprine Discontinued Reason: Or10 mg PO TID PRN Muscle Spasm Dahiana Blackburn norm Completed Coding Level of Care Code Off vis,est,level 4 Diagnoses Abnormal uterine bleeding N93.9 01/02/183 <Electronically signed by Allison Wall MD> Date Allison Wall MD Cosigner Signature: Date (if applicable) CC: ALLERGIES ALLERGIES DATE TYPE / CODE NAME / CODE REACTION SEVERITY SOURCE Drug amoxicillin Vomiting Unknown [place] 8 Allergy/857063869( trihydrate/F0000 [facility] SNOMED CT) 26617(RXNORM) Hospital Repository Drug potassium Vomiting Unknown [place] 8 Allergy/220566246( clavulanate/F000 Community SNOMED CT) 069813(RXNORM) Hospital Repository Miscellaneous NUTS Other Unknown [place] 8 Allergy/737877030( [facility] SNOMED CT) Hospital Repository DRUG ALMOND ANAPHYLAXIS [place] 6 INGREDI/356888844( Clinic Main SNOMED CT) [place] Repository DRUG WALNUT ANAPHYLAXIS [place] 6 INGREDI/667842508( Clinic Main SNOMED CT) [place] Repository DRUG MORPHINE SHORTNESS OF [place] 5 INGREDI/169081262( Clinic Main SNOMED CT) [place] Repository DRUG/194039259(SNO AMOXICILLIN-POT GI UPSET [place] [address]) CLAVULANATE [facility] Repository ENCOUNTERS ENCOUNTERS ADMIT/DISCHARGE ACCOUNT ADMITTING ENCOUNTER LOCATION SOURCE NUMBER CLASS 10/24/2018/10/24/19 [id number] Emergency Mónica [place] [facility] ing:ED Repository 08/28/2018/08/28/20 [id number] Emergency [place] [facility] ing:ED Repository 05/12/2018/05/12/20 [id number] Ambulatory [address] Repository 05/10/2018/05/16/20 [id number] Ambulatory [address] Repository 05/02/2018/05/02/20 [id number] Emergency [place]ónica [place] [facility] ing:ED Repository 03/30/2018/04/03/20 [id number] Ambulatory [address] Repository 03/06/2018/03/06/20 [id number] Emergency Mónica [place] [facility] ing:ED Repository 03/06/2018/03/06/20 [id number] Ambulatory BMSBuilding:B [place] 18 [place] Repository 01/22/2018/01/23/20 [id number] Emergency Mónica [place] [facility] ing:ED Repository 01/05/2018/01/07/20 [id number] Ambulatory [address] Repository 01/02/2018/01/03/20 [id number] Ambulatory BMSBuilding:B [place] 18 [place] Repository PAYERS PAYERS ENCOUNTER GUARANTOR PAYER SUBSCRIBER SOURCE 10/24/2018 KATHERINE D Primary KATHERINE D [place] [id number] Insurance:BUCKEYE MCCLUREDOB: [facility] [id number] Number: Repository [id number]: 330 [id number] [phone] (HP) Date:[id number] [address] [place] [address] 22070ZL: 10/24/2018 Secondary NOT GIVENUNK [place] Insurance:SELF PAY [facility] Number: Effective Repository Date:2018-10-24 08/28/2018 KATHERINE D Primary KATHERINE D [place] [id number] N Insurance:BUCKEYE MCCLUREDOB: [facility] [id number] [facility] Hospital[facility] Number: Repository [id number]: 330 [id number] [phone] (HP) Date:[id number] [address] [place] [address] 36770CB: 08/28/2018 Secondary NOT GIVENUNK [place] Insurance:SELF PAY [facility] Number: Effective Repository Date:2018-08-28 05/02/2018 KATHERINE D Primary KATHERINE D [place] [id number] Insurance:BUCKEYE MCCLUREDOB: [facility] [id number] [facility] [place] Number: Repository [address]Ndq: 330 [id number] [phone] (HP) Date:2417-09-51NJ [address] [place] [address] [place] [id number]: 05/02/2018 Secondary NOT GIVENUNK [place] Insurance:SELF PAY [facility] Number: Effective Repository Date:2018-05-02 03/06/2018 KATHERINE D Primary KATHERINE D [place] [id number] Insurance:BUCKEYE MCCLUREDOB: [facility] [id number] PLANPolicy Number: Repository [id number]: 330 [id number] (HP) Date:[id number] [address] [place], [place] [address] [id number]: 03/06/2018 Secondary NOT GIVENUNK [place] Insurance:SELF PAY [facility] Number: Effective Repository Date:2018-03-06 03/06/2018 KATHERINE D Primary KATHERINE D [place] [id number] Insurance:BUCKEYE MCCLUREDOB: [facility] [id number] PLANPolicy Number: Repository [id number]: 330 [id number] [phone] (HP) Date:[id number] [address] [place] [id number]: 03/06/2018 Secondary NOT GIVENUNK [place] Insurance:SELF PAY [facility] Number: Effective Repository Date:2018-03-16 01/22/2018 KATHERINE D Primary KATHERINE D [place] [id number] [address] Insurance:BUCKEYE ADRIANLUREDOB: [id number] Number: Repository [id number]: 330 [id number] (HP) Date:[id number] [address] [place] [address]EX: 01/22/2018 Secondary NOT GIVENUNK [place] Insurance:SELF PAY [facility] Number: Effective Repository Date:2018-01-22 01/02/2018 KATHERINE D Primary KATHERINE D [place] [id number] [address] Insurance:BUCKEYE ADRIANLUREDOB: [facility] [id number], [place] PLANPolic Number: Repository [id number]: 330 [id number] [phone] (HP) Date:[id number] [address] [facility][note 3]0RONI BLUE [id number]: 01/02/2018 Secondary NOT GIVENUNK [place] Insurance:SELF PAY [facility]: Effective Repository Date:2018-01-02
== END 2018-10-24 12:00 | disposition home or self-care (01) ==
LOC: ED 10:23
PROVIDERS: Emergency Provider Emergency Medicine; Family Provider Family Medicine; PCP Family Medicine
DX: S05.01XA Injury of conjunctiva and corneal abrasion without foreign body, right eye, initial encounter (principal); X58.XXXA Exposure to other specified factors, initial encounter; Y93.9 Activity, unspecified; Y92.9 Unspecified place or not applicable
CPT/HCPCS: 99284

== ENCOUNTER → 2019-03-20 13:04 | Outpatient (CLI) | payer MEDICAID, SELFPAY ==
[2019-03-20 11:20] VITALS: BMI 44.1
[2019-03-28 10:42] LABS: HPV APTIMA, High Risk Negative
== END ==
PROVIDERS: Referring Provider Nurse Practitioner Women's Health; Visit Provider Nurse Practitioner Women's Health
DX: Z12.4 Encounter for screening for malignant neoplasm of cervix (principal)
CPT/HCPCS: 87624; 88175; G0145

== ENCOUNTER 2022-04-15 15:39 | Emergency (ER) | payer MEDICAID, SELFPAY ==
[2022-04-15 15:41] VITALS: BP 151/91; PULSE 84; RESP 15; TEMP 35.9; O2SAT 99; BMI 42.8
--- NOTE | 2022-04-15 15:56 | EX.ED.DYSGE1 ---
HPI <SISI Cabezas - Last Filed: 04/15/22 16:25> History of Present Illness Chief Complaint: Lower Extremity Injury Narrative Narrative: 36-year-old female with no significant past medical history presents with 4-day history of right aching calf pain. Today the pain felt worse and she felt like her foot was tingling and painful. No injury. No back pain or radicular pain, no weakness. No swelling or skin changes noted. No history of DVT/PE or risk factors for PFSH <SISI Cabezas - Last Filed: 04/15/22 16:25> [facility] Medical History (Updated 04/15/22 @ 16:22 by SISI Cabezas) Abnormal thyroid blood test Bilateral headaches Depression Environmental allergies Fibromyalgia Hidradenitis suppurativa Home Medications sertraline 25 mg tablet 25 mg PO DAILY 05/02/18 [History Last Taken Unknown] cetirizine 10 mg capsule (Zyrtec) 10 mg PO DAILY 12/05/18 [History Last Taken Unknown] fluticasone propionate 50 mcg/actuation nasal spray,suspension (Flonase Allergy Relief) 2 spray intranasal DAILY 12/05/18 [History Last Taken Unknown] apixaban 5 mg (74 tabs) tablets in a dose pack 5 mg PO BID #74 tabs 04/15/22 [Rx Last Taken Unknown] Allergy/AdvReac Type Severity Reaction Status Date / Time amoxicillin trihydrate AdvReac Vomiting Verified 04/15/22 15:41 [From Augmentin] potassium clavulanate AdvReac Vomiting Verified 04/15/22 15:41 [From Augmentin] NUTS Allergy Other Uncoded 04/15/22 15:41 Family History Mother Diabetes Father Hypertension Grandmother Heart disease Grandfather Heart disease Surgical History Gastric bypass status for obesity mole removed S/P cholecystectomy S/P eye surgery S/P tonsillectomy Social History (Updated 05/29/19 @ 13:[address] Gabby Mckeon, [place]) Smoking Status: Never smoker alcohol intake: current alcohol intake frequency: holidays/special occasions only substance use type: does not use caffeine: No what type of physical activity do you participate in: walking frequency: 3-4 times per week seatbelt use: always do you feel safe at home: Yes additional social history: Single- Patient is currently unemployed ROS <SISI Cbaezas - Last Filed: 04/15/22 16:25> ROS ED ROS Narrative Constitutional: Negative for fever, chills, malaise. Eyes: Negative for visual change. ENT: Negative for sore throat, ear pain, rhinorrhea. CVS: Negative for palpitations, chest pain, syncope. Respiratory: Negative for shortness of breath, cough, orthopnea. GI: Negative for abdominal pain, nausea, vomiting, diarrhea, constipation, melena, hematochezia. : Negative for dysuria, hematuria or frequency. Neuro: Negative for headache, motor/sensory dysfunction. Skin: Negative for rash, abscess, or wound. Musc: Negative for joint pain, swelling, trauma. Heme: Negative for easy bruising, bleeding, lymphadenopathy. EXAM <SISI Cabezas - Last Filed: 04/15/22 16:25> Physical Exam Const Vital Signs: 04/15/22 15:41 Temperature 96.7 F L Temperature Source Temporal Pulse Rate 84 Respiratory Rate 15 Blood Pressure 151/91 H Blood Pressure Mean 111 Pulse Ox 99 Oxygen Delivery Method Room Air <Dr. Surjit Faust MD - Last Filed: 04/15/22 16:07> Physical Exam Const Vital Signs: 04/15/22 15:41 Temperature 96.7 F L Temperature Source Temporal Pulse Rate 84 Respiratory Rate 15 Blood Pressure 151/91 H Blood Pressure Mean 111 Pulse Ox 99 Oxygen Delivery Method Room Air MDM <SISI Cabezas - Last Filed: 04/15/22 16:25> [facility] Narrative Medical decision making narrative: PA: Patient has atraumatic right calf pain. No chest pain or shortness of breath. She appears well nontoxic. Vital signs unremarkable. Heart regular. Lungs clear. There is no appreciable lower extremity edema although it is hard to tell with her body habitus. She does have right calf tenderness, no palpable cords, no overlying skin changes. Distal pulses intact. US is positive for DVT below the knee. Basic labs we checked with plan to start her on Eliquis with first dose given here. Patient will follow up with her primary care doctor and was discharged in stable condition. Diagnoses 1. Right leg pain 2. Right leg DVT I have personally performed a face to face assessment of the patient and have reviewed the GUSTABO Note. I performed a substantive portion of the visit including all aspects of the following. My arango findings include: History is [36-year-old female with several day history of atraumatic right calf pain. No chest pain or shortness of breath. She has never had a DVT or PE. There are several people in her family to get some. She has had no recent travel, surgery, hospitalization or immobilization. She denies any other complaints.] Exam is [36-year-old female no acute distress. Vital signs stable afebrile. Pulse ox 9 9% on room air. Patient is in no distress. H EENT exam is unremarkable. Neck nontender no JVD. Lungs are clear. Heart regular rhythm. Abdomen soft nontender. Moving all 4 extremities. Right calf has tenderness. And appreciate any cord or edema. Legs look to be of equal size. She has a normal DP pulse in her right foot. Normal dorsi and plantar flexion. There is no deformity of the calf. There is no abnormality of the Achilles tendon. She has full flexion-extension at the right hip, right knee, right ankle and foot. The lower extremity exam is normal other than mild tenderness to her right calf.] Medical Decision Making [patient with atraumatic right calf pain. Ultrasound being obtained to rule out possible DVT.] Other additions or changes: [None] <Dr. Surjit Faust MD - Last Filed: 04/15/22 16:07> [facility] Narrative Medical decision making narrative: I have personally performed a face to face assessment of the patient and have reviewed the GUSTABO Note. I performed a substantive portion of the visit including all aspects of the following. My arango findings include: History is [36-year-old female with several day history of atraumatic right calf pain. No chest pain or shortness of breath. She has never had a DVT or PE. There are several people in her family to get some. She has had no recent travel, surgery, hospitalization or immobilization. She denies any other complaints.] Exam is [36-year-old female no acute distress. Vital signs stable afebrile. Pulse ox 9 9% on room air. Patient is in no distress. H EENT exam is unremarkable. Neck nontender no JVD. Lungs are clear. Heart regular rhythm. Abdomen soft nontender. Moving all 4 extremities. Right calf has tenderness. And appreciate any cord or edema. Legs look to be of equal size. She has a normal DP pulse in her right foot. Normal dorsi and plantar flexion. There is no deformity of the calf. There is no abnormality of the Achilles tendon. She has full flexion-extension at the right hip, right knee, right ankle and foot. The lower extremity exam is normal other than mild tenderness to her right calf.] Medical Decision Making [patient with atraumatic right calf pain. Ultrasound being obtained to rule out possible DVT.] Other additions or changes: [None] Discharge Plan Triage Chief Complaint: Lower Extremity Injury ED Midlevel Provider: Joselin Valencia ED Provider: Surjit Faust Dx/Rx/DC Orders Clinical Impression: DVT (deep venous thrombosis) Instructions: DVT Dc Prescriptions: New apixaban 5 mg (74 tabs) tablets,dose pack 5 mg PO BID Qty: 74 0RF Rx Instructions: starter pack for DVT. 10 mg p.o. twice daily for 7 days, then 5 mg twice daily No Action Zyrtec 10 mg capsule 10 mg PO DAILY fluticasone propionate [Flonase Allergy Relief] 50 mcg/actuation spray,suspension 2 spray INTRANASAL DAILY sertraline 25 MG tablet 25 mg PO DAILY Primary Care Provider: Jordan Guevara Referrals: Jordan Guevara MD [Primary Care Provider] - Activity Restrictions/Additional Instructions: The ultrasound showed you have a blood clot in veins in your right calf. This is treated with a medication called a blood thinner. It is called Eliquis. You take it twice a day morning and evening. This puts you at higher risk of bleeding. If you notice any blood when coughing, vomiting, or black or bloody bowel movements you need to come to the emergency room. Please follow-up with your primary care doctor next week. Disposition Disposition: Home, Self Care
--- NOTE | 2022-04-15 15:57 | VDLE_ITS ---
Reason For Study: pain RIGHT GSV is normal. CFV is compressible, spontaneous, phasic, competent and demonstrates normal augmentation. FV is compressible, spontaneous, phasic, competent and demonstrates normal augmentation. POP V is compressible, spontaneous, phasic, competent and demonstrates normal augmentation. T/P Trunk is compressible. PTV, Peroneal V, and Soleus V are dilated and noncompressible. Procedure This is a venous duplex using B-mode, color flow and spectral Doppler. Exam performed portable in ED. The exam was abbreviated due to the COVID 19 protocol. The exam was diagnostic. A preliminary report was called and/or faxed to Joselin Valencia. VL/Venous Duplex US, Unilateral Interpretation Summary Acute deep venous thrombosis right posterior tibial, peroneal, and soleus veins . Patent and compressible right great saphenous vein Abbreviated COVID-19 protocol utilized Ordering Physician: Joselin Valencia Performed By: Gustabo Salas RVT
[2022-04-15 16:44] LABS: Absolute Lymphocyte Count 1.76 X10^3/uL (0.83-4.51); Absolute Neutrophil Count 5.3 X10^3/uL (2.0-7.7); Basophil# 0.02 X10^3/uL; Basophil% 0.3 % (0-1); Eosinophil# 0.17 X10^3/uL; Eosinophils% 2.2 % (0-5); Hematocrit 23.9 % (37-47); Hemoglobin 6.4 g/dL (12.0-15.0); Lymphocyte # 1.76 X10^3/ul (0.83-4.51); Lymphocyte % 22.6 % (19-41); Mean Corp Hgb Conc 26.8 g/dL (32-36); Mean Corpuscular Hgb 17.3 pg (27.0-32.0); Mean Corpuscular Volume 64.6 fL (81-99); Monocyte# 0.54 X10^3/uL; Monocyte% 6.9 % (0-10); NRBC Flagged by Analyzer 0 % (0-5); Neutrophil # 5.27 X10^3/uL (2.7-7.7); Neutrophil % 67.6 % (47-70); POSITIVE MORPHOLOGY YES; Platelet Count 445 K/mm3 (150-450); RBC Distribution Width CV 21.1 % (11.6-14.6); RBC Distribution Width SD 47.5 fl (35.1-43.9); White Blood Count 7.8 K/mm3 (4.4-11.0)
[2022-04-15 16:45] LABS: Differential Indicated SCAN CRITERIA MET
[2022-04-15 16:57] LABS: Anion Gap 5 (5-15); BUN 11 mg/dL (7-18); BUN/Creat Ratio 15.9 RATIO (10-20); Calcium,Total 8.7 mg/dL (8.5-10.1); Chloride 106 mmol/L (98-107); Creatinine, Serum 0.69 mg/dL (0.55-1.02); EST Glomerular Filtration Rate 102 mL/min (>60); Est Glom Filt Rate - Afr Amer 123 mL/min (>60); Glucose 111 mg/dL (74-106); Potassium 4.2 mmol/L (3.5-5.1); Sodium Level 137 mmol/L (136-145)
[2022-04-15 17:05] LABS: Anisocytosis 2+; Hypochromasia 2+; Microcytosis 2+; Platelet Estimate SLT INC (ADEQ); Red Cell Morphology N CHROM NORMAL (NORM C&C); Target Cells RARE
[2022-04-15] MEDS: APIXABAN 5 MG TABLET 10 MG PO (17:13)
== END 2022-04-15 17:16 | disposition home or self-care (01) ==
PROVIDERS: Physician Assistant; Emergency Provider Emergency Medicine; PCP Internal Medicine; Visit Provider Emergency Medicine
DX: I82.441 Acute embolism and thrombosis of right tibial vein (principal); I82.451 Acute embolism and thrombosis of right peroneal vein; I82.461 Acute embolism and thrombosis of right calf muscular vein; M79.7 Fibromyalgia; F32.A Depression, unspecified; Z79.899 Other long term (current) drug therapy; Z83.2 Family history of diseases of the blood and blood-forming organs and certain disorders involving the immune mechanism
CPT/HCPCS: 80048; 85025; 93971; 99284; A4216

== ENCOUNTER → 2022-04-20 | Outpatient (CLI) | payer MEDICAID, SELFPAY ==
[2022-04-20 15:49] LABS: Hemoglobin 6.9 g/dL (12.0-15.0); Mean Corp Hgb Conc 26.5 g/dL (32-36); Mean Corpuscular Hgb 17.5 pg (27.0-32.0); Mean Platelet Vol. 8.7 fl (6.2-12.0); POSITIVE MORPHOLOGY YES; Platelet Count 447 K/mm3 (150-450); RBC Distribution Width CV 21.5 % (11.6-14.6); RBC Distribution Width SD 49.8 fl (35.1-43.9); Red Blood Count 3.94 M/mm3 (4.2-5.4)
[2022-04-20 16:16] LABS: Scan Indicated on CBC? Y/N YES- FLAGS NOTED
[2022-04-20 16:19] LABS: White Blood Count 6.2 K/mm3 (4.4-11.0)
== END | disposition home or self-care (01) ==
LOC: LAB 15:29
PROVIDERS: PCP Internal Medicine; Referring Provider Nurse Practitioner; Visit Provider Nurse Practitioner
DX: D64.9 Anemia, unspecified (principal)
CPT/HCPCS: 36415; 85027

== ENCOUNTER → 2022-04-22 | Outpatient (CLI) | payer MEDICAID, SELFPAY ==
[2022-04-22 09:20] VITALS: BP 126/70; PULSE 67; RESP 16; TEMP 35.7; O2SAT 100
[2022-04-22] MEDS: 0.9% NaCl Peripheral Flush Adult/Peds IV (09:30)
[2022-04-22 09:47] VITALS: BP 114/42; PULSE 63; RESP 16; TEMP 35.9; O2SAT 100
[2022-04-22 10:47] VITALS: BP 116/56; PULSE 61; RESP 16; TEMP 36.2; O2SAT 100
[2022-04-22 11:33] VITALS: BP 104/45; PULSE 62; RESP 16; TEMP 36.2
[2022-04-22 11:48] VITALS: BP 117/41; PULSE 69; RESP 16; TEMP 36.2; O2SAT 100
[2022-04-22 13:35] VITALS: BP 116/50; PULSE 68; RESP 16; TEMP 36.2; O2SAT 100
== END | disposition home or self-care (01) ==
LOC: MEDOUTP 08:57
PROVIDERS: PCP Internal Medicine; Referring Provider Nurse Practitioner; Visit Provider Nurse Practitioner
DX: D64.9 Anemia, unspecified (principal)
CPT/HCPCS: 36415; 36430; 86850; 86900; 86901; 86920; 86922; J7040; P9016; A4216

== ENCOUNTER 2024-01-06 14:46 | Emergency (ER) | payer MEDICAID, SELFPAY ==
[2024-01-06 14:47] VITALS: BP 117/69; PULSE 62; RESP 14; TEMP 36.6; O2SAT 98; BMI 48.6
--- NOTE | 2024-01-06 15:03 | EDS_ITS ---
HPI HPI - Fall History of Present Illness Chief Complaint: Fall Informant: patient Occured/Mechanism Occurred: Today (JPTA) Mechanism/Context: Yes same level fall and Yes trip Narrative: walking on uneven sidewalk, tripped over lip on concrete unexpectedly, falling to right ankle and right wrist, injuring both Usually ambulates: Without assistance Pain/Injury Pain Location: upper extremity and lower extremity Quality of Pain: Aching Current Severity: Severe (ankle) Maximum Severity: Severe Worsened by: moving, WBing Relieved by: rest and remaining still Associated Symptoms Associated Symptoms: Positive for Parasthesias (R foot/toes); Negative for Weakness, Loss of function, Inability to ambulate (initially able to WB RLE, but not now due to pain) or Loss of consciousness Narrative Narrative: Patient states she tripped on an uneven sidewalk, and when she fell unexpectedly she had near syncope although she had no prodromal symptoms. She states that she was getting up she was in severe pain and vomited once. She has no headache. No changes in her vision. She injured her right wrist and her right ankle. No recent illness. She does not feel nauseated anymore. Pain is not severe now that she is resting and not moving her ankle which is where the majority of her pain is. Pain in right wrist is at the radial aspect. She does not think he fell with outstretched hand. She is [id number]. She has history of blood clots she was on apixaban but states she no longer takes that. [facility] Medical History (Updated 01/06/24 @ 15:[address] Daniel Nelson MD) Abnormal thyroid blood test Bilateral headaches Depression Environmental allergies Fibromyalgia Hidradenitis suppurativa Home Medications sertraline 25 mg tablet 25 mg PO DAILY 05/02/18 [History Last Taken Unknown] cetirizine 10 mg capsule (Zyrtec) 10 mg PO DAILY 12/05/18 [History Last Taken Unknown] fluticasone propionate 50 mcg/actuation nasal spray,suspension (Flonase Allergy Relief) 2 spray intranasal DAILY 12/05/18 [History Last Taken Unknown] apixaban 5 mg (74 tabs) tablets in a dose pack 5 mg PO BID #74 tabs 01/06/24 [Rx Last Taken Unknown] Allergy/AdvReac Type Severity Reaction Status Date / Time nut - unspecified Allergy NEEDS Verified 01/06/24 14:48 FOLLOW-UP amoxicillin trihydrate AdvReac Vomiting Verified 01/06/24 14:48 [From Augmentin] potassium clavulanate AdvReac Vomiting Verified 01/06/24 14:48 [From Augmentin] Family History Mother Diabetes Father Hypertension Grandmother Heart disease Grandfather Heart disease Surgical History Gastric bypass status for obesity mole removed S/P cholecystectomy S/P eye surgery S/P tonsillectomy Social History Smoking Status: Never smoker alcohol intake: current alcohol intake frequency: holidays/special occasions only substance use type: does not use caffeine: No what type of physical activity do you participate in: walking frequency: 3-4 times per week seatbelt use: always do you feel safe at home: Yes additional social history: Single- Patient is currently unemployed [facility] ED Constitutional Constitutional ED: Denies chills or fever(s) Eyes Eyes: Denies change in vision Musculoskeletal Musculoskeletal: Reports extremity pain; Denies neck pain Integumentary Reports Abrasions; Denies rash or wounds Neurologic Neurologic: Denies paresthesias or weakness EXAM Physical Exam Const Vital Signs: 01/06/24 14:47 01/06/24 15:24 Temperature 98 F Temperature Source Temporal Pulse Rate 62 Respiratory Rate 14 Respiratory Effort Normal Respiratory Depth Normal Respiratory Pattern Normal Blood Pressure 117/69 Blood Pressure Mean 85 Pulse Ox 98 Oxygen Delivery Method Room Air Room Air Positive well nourished, well developed and obese General Appearance ED: well developed and NAD Nutritional Appearance: obese HEENT Reports normocephalic HEENT Narrative: No CSF otorhinorrhea. No raccoon eyes. No Singh sign. atraumatic Eyes PERRL and EOMs intact bilaterally Eyes Narrative: Amblyopia, patient states this is baseline for her. Neck full ROM and supple General: Negative for tenderness Resp normal respiratory effort, no retractions and clear to auscultation bilaterally Cardio regular rate, regular rhythm and no murmurs Rate: Negative for bradycardia or tachycardic Back/Spine normal ROM and normal to inspection Cervical Spine: Negative for cervical spine tenderness Thoracic Spine / Upper Back: Negative for thoracic spinal tenderness Lumbar Spine / Lower Back: Negative for lumbar spinal tenderness Extremity Extremity Narrative: Limited range of motion in right wrist and right ankle. The right ankle is very tender to lateral malleolus, nontender at the medial malleolus no deformities. There are some swelling laterally. This is somewhat limited by her obesity. There is no foot tenderness but she has decreased sensation. Can move all the toes and those are nontender. No tenderness in the tibia or fibula proximal to the lateral malleolus, nontender knee and fibular head. There is an abrasion anterior right knee with no bony tenderness or limited range of motion. With regards of the right wrist, there is some mild tenderness at the distal radius but not at the snuffbox and there is no pain with axial loading of the thumb. Nontender at the distal ulna and the rest of the carpus. She can supinate and pronate without any discomfort. The rest of her extremity exam is benign with full range of motion and no other areas of tenderness. Neuro oriented x3, no focal motor deficits and no sensory deficits noted [place] Coma Scale: document GCS findings Spontaneous Obeys Commands Oriented 15 Sensorium / Orientation: alert Psych mental status grossly normal and thought process normal Skin Skin Narrative: Abrasion right knee otherwise no signs of trauma Rashes: no rashes MDM MDM MDM Narrative Medical decision making narrative: Three-view x-rays of the right wrist negative for fracture my interpretation, radiology in agreement. 4 views of the right ankle on my interpretation shows a distal fibular fracture. Radiology in agreement. No other fractures and no dislocations. It appears nondisplaced. Patient was placed in an orthotic boot, and given crutches. She was also given an Ultram and ibuprofen for her pain here. Given the fact that she is going in a boot, this will increase her chances for DVT in the right lower extremity. We discussed this, she has not been on apixaban for over a year. Basically she states that there were couple family members with blood clots and she was having tingling in her feet so she went and had an ultrasound done in the ER which showed DVTs that she was on a blood thinner but never followed up to get hypercoagulable workup or any other testing done. She is willing to go back on the medication which I recommend in this case and then she can follow-up later. I recommend following up with medicine and orthopedics, she states when she was on the blood thinner at 1 point she was also iron deficient and her blood counts were low and she needed a blood transfusion so she may need to get repeat periodic H&H measurements. Radiography Diagnostic Testing: Clinical Impression(s) from Imaging Studies Ankle X-Ray 01/06/24 15:05 IMPRESSION: Nondisplaced fracture of the lateral malleolus. Soft tissue swelling. Electronically Signed: Hair Laird MD at 15:26 EDT , Wrist X-Ray 01/06/24 15:05 IMPRESSION: Normal x-ray examination of the wrist. Electronically Signed: Hair Laird MD at 15:27 EDT , Discharge Plan Triage Chief Complaint: Fall ED Provider: Daniel Nelson Dx/Rx/DC Orders Clinical Impression: Fall from slip, trip, or stumble, Closed traumatic nondisplaced fracture of distal end of right fibula, Contusion of right wrist Instructions: Crutches Weight Bearing Dc, ED Ankle Fracture, Distal Fibula Prescriptions: Continued Zyrtec 10 mg capsule 10 mg PO DAILY fluticasone propionate [Flonase Allergy Relief] 50 mcg/actuation spray,suspension 2 spray INTRANASAL DAILY sertraline 25 MG tablet 25 mg PO DAILY apixaban 5 mg (74 tabs) tablets,dose pack 5 mg PO BID Qty: 74 0RF Rx Instructions: starter pack for DVT. 10 mg p.o. twice daily for 7 days, then 5 mg twice daily Primary Care Provider: Jordan Guevara Referrals: Thanh Holland MD [Med Staff - Active Staff] - 1-2 Weeks Jordan Guevara MD [Primary Care Provider] - 1-2 Weeks
--- NOTE | 2024-01-06 15:05 | RAD_ITS ---
STUDY: X-RAY - RIGHT WRIST REASON FOR EXAM: Female, 38 years old. Injury TECHNIQUE: 3 view(s) of the wrist were obtained. COMPARISON: None. FINDINGS: Normal visualized distal radius and ulna. Normal radiocarpal articulation. Normal distal radioulnar articulation. Normal carpal bones. Normal carpal articulations. Normal carpometacarpal articulation of the thumb. Normal second through fifth carpometacarpal articulations. Normal visualized metacarpal bones. The soft tissue structures are unremarkable. RAD/Wrist min 3 Views IMPRESSION: Normal x-ray examination of the wrist. Electronically Signed: Hair Laird MD at 15:27 EDT ,
--- NOTE | 2024-01-06 15:05 | RAD_ITS ---
STUDY: X-RAY - RIGHT ANKLE REASON FOR EXAM: Female, 38 years old. Injury TECHNIQUE: 3 view(s) of the ankle. COMPARISON: None. FINDINGS: Normal visualized distal tibia and fibula. Nondisplaced transverse fracture of the lateral malleolus. Normal tibiotalar articulation and ankle mortise. Normal visualized talus and calcaneus. The visualized subtalar, talonavicular, calcaneocuboid and tarsal articulations are normal. Soft tissue swelling. RAD/Ankle min 3 Views IMPRESSION: Nondisplaced fracture of the lateral malleolus. Soft tissue swelling. Electronically Signed: Hair Laird MD at 15:26 EDT ,
[2024-01-06] MEDS: Ibuprofen 600 MG Tablet PO (15:18)
[2024-01-06] MEDS: traMADol 50 MG Tablet PO (15:18)
[2024-01-06 16:19] VITALS: BP 138/79; PULSE 74; RESP 15; TEMP 36.4; O2SAT 97
== END 2024-01-06 16:20 | disposition home or self-care (01) ==
PROVIDERS: Emergency Provider Emergency Medicine; PCP Internal Medicine; Visit Provider Emergency Medicine
DX: S82.831A Other fracture of upper and lower end of right fibula, initial encounter for closed fracture (principal); S60.211A Contusion of right wrist, initial encounter; E66.9 Obesity, unspecified; W19.XXXA Unspecified fall, initial encounter
CPT/HCPCS: 73110; 73610; 99285

== ENCOUNTER 2024-07-28 11:46 | Emergency (ER) | payer MEDICAID, SELFPAY ==
[2024-07-28 11:47] VITALS: BP 135/78; PULSE 77; RESP 16; TEMP 37.2; O2SAT 98
--- NOTE | 2024-07-28 11:58 | EDS_ITS ---
HPI <KAMILAH Banerjee - Last Filed: 07/28/24 12:09> History of Present Illness Chief Complaint: Upper Extremity Injury Narrative Narrative: Patient is a 39-year-old female with no significant medical history presents to the [facility] after sustaining a cat bite to the left hand. Patient states she was trying to catch this injured cat for a month. Patient was wearing gloves, she grabbed the cat and the cat turned and bit the left hand. Patient states she noted some redness today and is here for evaluation. [facility] <KAMILAH Banerjee - Last Filed: 07/28/24 12:09> [facility] Medical History (Updated 07/28/24 @ 12:07 by KAMILAH Banerjee) Hidradenitis suppurativa Fibromyalgia Bilateral headaches Environmental allergies Abnormal thyroid blood test Depression Home Medications ?Medication ?Instructions ?Recorded ?Last Taken ?Type cetirizine 10 mg capsule (Zyrtec) 10 mg PO DAILY 12/05/18 Unknown History fluticasone propionate 50 2 spray intranasal DAILY 12/05/18 Unknown History mcg/actuation nasal spray,suspension (Flonase Allergy Relief) escitalopram oxalate 10 mg tablet 10 mg PO DAILY 01/10/24 Unknown History (Lexapro) pantoprazole 20 mg tablet,delayed 20 mg PO DAILY 01/10/24 Unknown History release warfarin 2 mg tablet 2 mg PO QDAY 01/10/24 Unknown History amoxicillin 875 mg-potassium 1 tab PO BID #20 tabs 07/28/24 Unknown Rx clavulanate 125 mg tablet ondansetron 4 mg disintegrating 4 mg PO Q8H PRN PRN Nausea #20 tabs 07/28/24 Unk nown Rx tablet Allergy/AdvReac Type Severity Reaction Status Date / Time lavender (Lavandula Allergy Other Verified 07/28/24 11:47 angustifolia) nut - unspecified Allergy NEEDS Verified 07/28/24 11:47 FOLLOW-UP amoxicillin trihydrate (From AdvReac Vomiting Verified 07/28/24 11:47 Augmentin) potassium clavulanate (From AdvReac Vomiting Verified 07/28/24 11:47 Augmentin) Family History Mother Diabetes Father Hypertension Grandmother Heart disease Grandfather Heart disease Surgical History mole removed S/P tonsillectomy S/P cholecystectomy S/P eye surgery Gastric bypass status for obesity Social History Smoking Status: Never smoker alcohol intake: current alcohol intake frequency: holidays/special occasions only substance use type: does not use caffeine: No what type of physical activity do you participate in: walking frequency: 3-4 times per week seatbelt use: always do you feel safe at home: Yes additional social history: Single- Patient is currently unemployed ROS <KAMILAH Banerjee - Last Filed: 07/28/24 12:09> ROS ED ROS Narrative Constitutional: Negative for fever, chills, weight loss, weakness Eyes: Negative for vision loss, vision change, double vision ENT: Negative for any sore throat, ear pain, congestion Cardiovascular: Negative for any chest pain, tightness, palpitations Respiratory: Negative for any cough, sputum production, hemoptysis, dyspnea, dyspnea on exertion, orthopnea Gastrointestinal: Negative for any abdominal pain, nausea, vomiting, diarrhea, constipation, blood in stool, blood in vomit : Negative for any urinary frequency, dysuria, retention, blood in urine Muscle skeletal: Negative for any neck pain, back pain. Positive left hand pain, left hand redness Neurological: Negative for any headache, syncope, dizziness Skin: Negative for any rashes, itching, abrasions, lacerations Psychiatric: Negative for any depression, anxiety, stress, suicidal ideation, homicidal ideation Hematologic: Negative for any excessive bruising, easy bleeding EXAM <KAMILAH Banerjee - Last Filed: 07/28/24 12:09> Physical Exam Narrative Exam Narrative: Vital signs reviewed. Extremities: No peripheral edema, no signs of gross trauma or deformity. Active full range of motion of all extremities. Patient has full range of motion of the left hand, able to flex and extend. The redness is on the dorsal aspect of the hand to the distal metacarpal, full range of motion. 2 puncture wounds noted. There is no drainage. There is no abscess formation. No neurological focal deficits. Neuro: Cranial nerves II through XII intact, no focal neurological deficits. Skin: Clean dry and intact with no rash, purpura, petechiae, vesicles or pustules. Backs/flank: No CVA tenderness, no midline spinal tenderness, no deformity. Psych: Normal mood and affect. No SI, HI or acute psychosis. Const Vital Signs: 07/28/24 11:47 Temperature 98.9 F Temperature Source Oral Pulse Rate 77 Respiratory Rate 16 Blood Pressure 135/78 H Blood Pressure Mean 97 Pulse Ox 98 Oxygen Delivery Method Room Air Positive well nourished and well developed General Appearance ED: well developed [facility] <KAMILAH Banerjee - Last Filed: 07/28/24 12:09> [facility] Treatment and Re-Evaluation Narrative: Differential diagnosis includes however is not limited to: Cat bite, cellulitis, foreign body, abscess formation Patient appears generally well, vital signs are stable, patient is nontoxic- appearing. Presenting to the emergency department with pain to the left hand after being bit by a cat. There is some cellulitis around the area however this is not substantial. There is no evidence of any fluctuation or abscess formation. No signs or symptoms of deep tissue infection. Patient looks generally well. Patient has full range of motion of the hands and fingers. No evidence of any tendon synovitis. Patient replaced on Augmentin as well as Zofran secondary to the reaction to Augmentin is vomiting. Patient will continue to ice, elevate, she was given strict return precaution to return for any worsening redness, fever chills nausea or vomiting. Happy with the plan of care, will follow-up outpatient. <Dr. Surjit Faust MD - Last Filed: 07/28/24 12:09> [facility] Narrative Medical decision making narrative: I have personally performed a face to face assessment of the patient and have reviewed the GUSTAB[facility] Note. I performed a substantive portion of the visit including all aspects of the following. My arango findings include: History is 39-year-old female was begets on her leftt hand by a feral cat that lives on her porch. This occurred yesterday. Today she has mild redness and tenderness. No fever. She is able to open close her hand. She is not diabetic. Exam is [well-appearing 39-year-old female. Vital signs stable afebrile. HEENT exam normal. Lungs clear. Heart regular rate and rhythm. Abdomen soft. Right hand there is mild swelling and redness early cellulitis to the dorsum of her leftt hand between her thumb and index finger on the webspace. There is no flexor or extensor tenosynovitis. She can fully open and close her hand and make a fist without any difficulty. She has normal radial pulse. There is no pain or swelling into her forearm. There is no lymphangitic streaking. There is no axillary lymphadenopathy.] Medical Decision Making [patient does not need labs or imaging. She has an early infection. She was told that this can get badly infected quickly. If she gets to the point where it is a lot more swollen and red. She develops a fever. Streaks or is unable to open close her hand which are signs of tenosynovitis she needs to return immediately. She understands that. She be placed on Augmentin 875 twice daily for 10 days and given a first dose here in the ER. Tylenol Motrin for pain. Ice and elevate.] Other additions or changes: [None] Discharge Plan Triage Chief Complaint: Upper Extremity Injury ED Midlevel Provider: Oscar Aguirre ED Provider: Surjit Faust Dx/Rx/DC Orders Clinical Impression: Cat bite, Cellulitis Instructions: ED Cat Bite, ED Cellulitis Prescriptions: New ondansetron 4 mg tablet,disintegrating 4 mg PO Q8H PRN PRN (Reason: Nausea) Qty: 20 0RF amoxicillin-pot clavulanate 875-125 mg tablet 1 tab PO BID Qty: 20 0RF No Action Zyrtec 10 mg capsule 10 mg PO DAILY fluticasone propionate [Flonase Allergy Relief] 50 mcg/actuation spray,suspension 2 spray INTRANASAL DAILY warfarin 2 mg tablet 2 mg PO QDAY escitalopram oxalate [Lexapro] 10 mg tablet 10 mg PO DAILY pantoprazole 20 mg tablet,delayed release (DR/EC) 20 mg PO DAILY Primary Care Provider: Jordan Guevara Referrals: Jordan Guevara MD [Primary Care Provider] - Activity Restrictions/Additional Instructions: Please return for any worsening redness, streaking, difficulty moving her hand. Print Language: Malaysian Disposition Disposition: Home, Self Care
--- OUTSIDE RECORDS SUMMARY | 2024-07-28 12:15 | XMS RPT_ITS | CCD ---
Author Organization [facility] Care Team Providers Care Program Production Specialist Name Role Phone VAISHALI DARLIN Ginger Unavailable Unavailable Ismael STOVER, Jordan Krueger Primary Care Provider Ismael STOVER, Jordan Krueger Primary Care Provider Deandre Terry MD Unavailable Ismael STOVER, Jordan Krueger Primary Care Provider [phone] Deandre Terry MD Unavailable Deandre Terry MD Unavailable Ismael STOVER, Jordan Krueger Primary Care Provider ELLEN GARZA Referring Unavailable GUEVARA, NADYA Primary Care Unavailable GREG, NAZ M Referring Unavailable GUEVARA, NADYA Primary Care Unavailable GREG, NAZ M Referring Unavailable GUEVARA, NADYA Primary Care Unavailable GREG, NAZ M Referring Unavailable GUEVARA, NADYA Primary Care Unavailable GUEVARA, NADYA Primary Care Unavailable GUEVARA, NADYA Primary Care Unavailable GUEVARA, NADYA Referring Unavailable GUEVARA, NADYA Primary Care Unavailable GUEVARA, NADYA Primary Care Unavailable GUEVARA, NADYA Referring Unavailable GUEVARA, NADYA Primary Care Unavailable ELLEN GARZA Attending Unavailable GUEVARA, NADYA Primary Care Unavailable GUEVARA, NADYA Primary Care Unavailable GUEVARA, NADYA Primary Care Unavailable GUEVARA, NADYA Referring Unavailable GREG, NAZ M Referring Unavailable GUEVARA, NADYA Primary Care Unavailable Allergies Allergy Classification Reported Allergen(s) Allergy Type Date of Onset Reaction(s) Facility (20 sources) almond allergenic extract; Translations: [ALMOND] Drug Allergy 6 Anaphylaxis [facility] Repository (20 sources) morphine; Translations: [MORPHINE] Drug Allergy 5 Shortness of Breath [facility] Repository (20 sources) AMOXICILLIN-POT CLAVULANATE; Translations: [AMOXICILLIN-PO T CLAVULANATE] Propensity to adverse reactions to drug (disorder) 5 GI Upset [facility] Repository (20 sources) WALNUT; Translations: [WALNUT] Propensity to adverse reactions to drug (disorder) 6 Anaphylaxis [facility] Repository Medications Current Medications Medication Drug Class(es) Dates Sig (Normalized) Sig (Original) cetirizine hydrochloride 10 mg oral tablet (20 sources) Histamine-1 Receptor Antagonist Start: 02-20-2020 End: 05-08-2024 take 1 tablet by mouth once daily cetirizine (ZYRTEC) 10 mg tablet Indications: Seasonal allergic rhinitis due to pollen Take 1 tablet by mouth once daily. 30 tablet 05/09/2024 Active Comment on above: Take 1 tablet by tracie once daily. cholecalciferol 1.25 mg oral capsule (20 sources) Vitamin D Start: 01-13-2024 cholecalciferol, Vitamin D3, (VITAMIN D3) 1,250 mcg (50,000 unit) cap capsule Take one capsule by mouth twice a week for four weeks, then once a week 8 capsule 11 01/13/2024 Active Start: 01-11-2024 End: 01-13-2024 take 2 capsules by mouth once daily Cholecalciferol, Vitamin D3, 50 mcg (2,000 unit) cap Indications: Vitamin D deficiency Take 2 capsules by mouth once daily. 0 01/11/2024 01/13/2024 Discontinued (Clinical Decision) Start: 05-22-2019 End: 01-11-2024 take 3 capsules by mouth once daily Cholecalciferol, Vitamin D3, 2,000 unit cap Indications: Vitamin D deficiency Take 3 capsules by mouth once daily. 05/22/2019 01/11/2024 Discontinued (Adjust Sig - Block E-Cancel) Comment on above: Take 3 capsules by m outh once daily. Take 2 capsules by m outh once daily. Take one capsule by mouth twice a week for four weeks, then once a week escitalopram 20 mg oral tablet (20 sources) Serotonin Reuptake Inhibitor Start: 2 End: 4 take 1 tablet by mouth once daily escitalopram oxalate (LEXAPRO) 20 mg tablet Indications: Adjustment disorder with mixed anxiety and depressed mood Take 1 tablet by mouth once daily. 30 tablet 05/09/2024 Active Start: 06-17-2020 End: 09-03-2020 take 1 tablet by mouth once daily escitalopram oxalate (LEXAPRO) 20 mg tablet Indications: Adjustment disorder with mixed anxiety and depressed mood Take 1 tablet by mouth once daily. 30 tablet 1 06/17/2020 09/03/2020 Discontinued Comment on above: Take 1 tablet by tracie th once daily. ferrous sulfate 325 mg oral tablet (20 sources) Start: 2 take 1 tablet by mouth once daily ferrous sulfate 325 mg (65 mg iron) tablet Take 1 tablet by mouth once daily. 09/07/2022 Active Comment on above: Take 1 tablet by tracie th once daily. fluticasone propionate 0.05 mg/actuat metered dose nasal spray (20 sources) Corticosteroid Start: 0 End: 4 take 2 spray(s) nasal route once daily fluticasone (FLONASE) 50 mcg/actuation nasal spray Indications: Seasonal allergic rhinitis due to pollen Use 2 Sprays in each nostril once daily. 1 Each 05/09/2024 Active Comment on above: Use 2 Sprays in each nostril once daily. multivit no.50/iron comp/folic ( 23-IRON PS-FOLIC ACID ORAL) (20 sources) take 1 tablet by mouth twice daily multivit no.50/iron comp/folic ( 23-IRON PS-FOLIC ACID ORAL) Take 1 tablet by mouth twice daily. Active take 1 tablet by mouth twice maynor ly multivit no.50/iron comp/folic ( 23- IRON PS-FOLIC ACID ORAL) Take 1 tablet by mouth twice daily. 0 Active multivit no.50/i vianney comp/folic ( 23-IRON PS-FOLIC ACID ORAL) Take by mouth once daily. 0 Active Comment on above: Take by mouth once d aily. Take 1 tablet by tracie th twice daily. pantoprazole 40 mg delayed release oral tablet (20 sources) Proton Pump Inhibitor Start: 0 End: 3 take 1 tablet by mouth once daily pantoprazole DR (PROTONIX) 40 mg tablet Indications: GERD without esophagitis Take 1 tablet by mouth once daily. 30 tablet 5 05/11/2023 Active Comment on above: Take 1 tablet by tracie once daily. predniSONE 10 mg oral tablet (1 source) Start: 2 End: 2 predniSONE (DELTASONE) 10 mg tablet Indications: Rash Take 4 tabs daily for 3 days, then 2 tabs daily for 3 days, then 1 tab daily for 3 days with food. 21 tablet 0 04/02/2022 04/11/2022 Active Comment on above: Take 4 tabs daily fo r 3 days, then 2 tabs daily for 3 days, then 1 tab daily for 3 days with food. vitamin b12 1 mg/ml injectable solution (20 sources) Vitamin B12 Start: 4 cyanocobalamin 1,000 mcg injection Start: 05-22-2019 take 2 tablets by [facility] once daily cyanocobalamin, vitamin B-12, 2,000 mcg tab Indications: B12 deficiency Take 2 tablets by mouth once daily. 05/22/2019 Active Comment on above: Take 2 tablets by mo [facility] once daily. Completed/Discontinued Medications Medication Drug Class(es) Dates Sig (Normalized) Sig (Original) amitriptyline hydrochloride 25 mg oral tablet (10 sources) Tricyclic Antidepressant Start: 03-11-2023 End: 01-11-2024 take 1 tablet by mouth once daily at bedtime amitriptyline (ELAVIL) 25 mg tablet Take 1 tablet by mouth daily at bedtime. 30 tablet 1 05/11/2023 01/11/2024 Discontinued (Discontinued by Patient) Start: 09-07-2022 take 1 tablet by tracie once daily at bedtime amitriptyline (ELAVIL) 10 mg tablet Take 1 tablet by mouth daily at bedtime. 30 tablet 1 09/07/2022 Active Comment on above: Take 1 tablet by tracie daily at bedtime. apixaban 5 mg oral tablet (14 sources) Factor Xa Inhibitor Start: 05-11-2022 End: 07-09-2022 take 1 tablet by mouth twice daily apixaban (ELIQUIS) 5 mg tab(s) Indications: Acute deep vein thrombosis (DVT) of proximal vein of right lower extremity (HCC) Take 1 tablet by mouth twice daily. 60 tablet 2 05/11/2022 07/09/2022 Discontinued Start: 04-15-2022 End: 05-11-2022 take 2 tablets by mouth twice daily, then take 1 tablet by mouth twice daily ELIQUIS DVT-PE TREAT 30D START 5 mg (74 tabs) TAKE 2 TABLETS BY MOUTH TWICE DAILY FOR 7 (SEVEN) DAYS, THEN DECREASE ONE TABLET BY MOUTH TWICE DAILY THEREAFTER 0 04/15/2022 05/11/2022 Discontinued Start: 04-15-2022 take 2 tablets by mo uth twice daily, then take 1 tablet by mouth twice daily ELIQUIS DVT-PE TREAT 30D START 5 mg (74 tabs) TAKE 2 TABLETS BY MOUTH TWICE DAILY FOR 7 (SEVEN) DAYS, THEN DECREASE ONE TABLET BY MOUTH TWICE DAILY THEREAFTER 0 04/15/2022 Active Comment on above: TAKE 2 TABLETS BY MO UTH TWICE DAILY FOR 7 (SEVEN) DAYS, THEN DECREASE ONE TABLET BY MOUTH TWICE DAILY THEREAFTER Take 1 tablet by tracie twice daily. chlorhexidine gluconate 40 mg/ml medicated liquid soap (1 source) Start: 04-19-2017 End: 10-31-2020 chlorhexidine (HIBICLENS) 4 % external liquid Apply 1 application to affected area four times a week. 500 mL 2 04/19/2017 10/31/2020 Discontinued [id number] 0.3 ml EPINEPHrine 1 mg/ml auto-injector (20 sources) alpha-Adrenergic Agonist, beta-Adrenergic Agonist, Catecholamine Start: 06-17-2020 End: 05-08-2024 EPINEPHrine (EPIPEN) 0.3 mg/0.3 mL auto-injector Indications: Tree nut allergy Inject 0.3 mL intramuscularly as needed. 2 Each 1 06/17/2020 01/20/2023 Discontinued Comment on above: Inject 0.3 mL intram uscularly as needed. 5 ml iron sucrose 20 mg/ml injection (4 sources) Parenteral Iron Replacement Start: 01-16-2024 End: 01-27-2024 iron sucrose 200 mg injection (VENOFER) iron sucrose iv piggyback 200 mg in NaCl 0.9% 100 mL (VENOFER) (5 sources) Start: 03-15-2024 End: 03-15-2024 iron sucrose iv piggyback 200 mg in NaCl 0.9% 100 mL (VENOFER) Start: 03-09-2024 End: 03-09-2024 iron sucrose iv piggyback 20 0 mg in NaCl 0.9% 100 mL (VENOFER) Start: 03-07-2024 End: 03-07-2024 iron sucrose iv piggyback 20 0 mg in NaCl 0.9% 100 mL (VENOFER) Start: 03-05-2024 End: 03-05-2024 iron sucrose iv piggyback 20 0 mg in NaCl 0.9% 100 mL (VENOFER) Start: 03-01-2024 End: 03-01-2024 iron sucrose iv piggyback 20 0 mg in NaCl 0.9% 100 mL (VENOFER) warfarin sodium 2 mg oral tablet (17 sources) Vitamin K Antagonist Start: 01-09-2024 End: 07-09-2024 take 1 tablet by mouth once daily warfarin (COUMADIN) 2 mg tablet Indications: History of DVT of lower extremity Take 1 tablet by mouth daily as directed. 30 tablet 2 01/09/2024 07/09/2024 Discontinued (Course of therapy completed) Comment on above: Take 1 tablet by mouth daily as directed . Problems Active Problems Problem Classification Problem Date Documented Date Episodic/Chronic Adjustment disorders (20 sources) Adjustment disorder with mixed anxiety and depressed mood; Translations: [Adjustment disorder with mixed anxiety and depressed mood] Onset: 11-22-2018 Chronic Deficiency and other anemia (12 sources) Iron deficiency anemia due to blood loss; Translations: [Iron deficiency anemia secondary to blood loss (chronic)] Chronic Deficiency and other anemia (1 source) Iron deficiency anemia secondary to blood loss (chronic); Translations: [Iron deficiency anemia due to chronic blood loss] Onset: 06-18-2020 Chronic Deficiency and other anemia (2 sources) Anemia; Translations: [Anemia, unspecified] Episodic Esophageal disorders (20 sources) Gastroesophageal reflux disease without esophagitis; Translations: [Gastro-esophageal reflux disease without esophagitis] Onset: 11-22-2018 Chronic Immunizations and screening for infectious disease (1 source) Patient encounter status; Translations: [Encounter for immunization] Episodic Menstrual disorders (20 sources) Dysmenorrhea; Translations: [Dysmenorrhea, unspecified] Onset: 11-22-2018 11-22-2018 Chronic Nutritional deficiencies (20 sources) Vitamin D deficiency; Translations: [Vitamin D deficiency, unspecified] Onset: 05-22-2019 05-22-2019 Chronic Other connective tissue disease (1 source) Chronic pain of right upper limb; Translations: [Pain in right hand] Episodic Other lower respiratory disease (1 source) Cough; Translations: [Cough] 08-27-2020 Episodic Other nutritional; endocrine; and metabolic disorders (1 source) Morbid (severe) obesity due to excess calories; Translations: [Morbid (severe) obesity due to excess calories] Onset: 04-20-2017 Chronic Other nutritional; endocrine; and metabolic disorders (20 sources) Body mass index 40+ - severely obese; Translations: [Morbid (severe) obesity due to excess calories] Onset: 11-23-2019 11-23-2019 Chronic Other skin disorders (1 source) Eruption; Translations: [Rash and other nonspecific skin eruption] Episodic Other upper respiratory disease (20 sources) Allergic rhinitis due to pollen; Translations: [Allergic rhinitis due to pollen] Onset: 03-30-2018 Chronic Residual codes; unclassified (2 sources) FH: Thrombosis; Translations: [Family history of ischemic heart disease and other diseases of the circulatory system] Episodic Past or Other Problems Problem Classification Problem Date Documented Da te Episodic/Chronic Allergic reactions (20 sources) 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; Translations: [Allergy to other foods] Onset: 08-03-2016 01-06-2018 Episodic Conditions associated with dizziness or vertigo (3 sources) Dizziness; Translations: [Dizziness and giddiness] Onset: 01-11-2024 Episodic Deficiency and other anemia (20 sources) Iron deficiency anemia; Translations: [Iron deficiency anemia, unspecified] Onset: 06-18-2020 06-18-2020 Episodic Fracture of lower limb (19 sources) Closed fracture of lateral malleolus; Translations: [Nondisplaced fracture of lateral malleolus of right fibula, subsequent encounter for closed fracture with routine healing] Onset: 01-09-2024 01-09-2024 Episodic Nutritional deficiencies (20 sources) Cobalamin deficiency; Translations: [Deficiency of other specified B group vitamins] Onset: 05-22-2019 Episodic Other gastrointestinal disorders (20 sources) History of bypass of stomach; Translations: [Bariatric surgery status] Onset: 11-22-2018 11-22-2018 Episodic Other nutritional; endocrine; and metabolic disorders (20 sources) Morbid obesity; Translations: [Morbid (severe) obesity due to excess calories] Onset: 04-22-2017 Resolved: 11-23-2019 11-22-2018 Chronic Other skin disorders (20 sources) Hidradenitis suppurativa; Translations: [Hidradenitis suppurativa] Onset: 11-22-2018 11-22-2018 Episodic Phlebitis; thrombophlebitis and thromboembolism (20 sources) Acute deep vein thrombosis of lower limb; Translations: [Acute embolism and thrombosis of unspecified deep veins of right proximal lower extremity] Onset: 05-05-2022 Resolved: 09-08-2022 Episodic Skin and subcutaneous tissue infections (15 sources) Abscess; Translations: [Cellulitis, unspecified] Onset: 07-12-2007 Resolved: 11-22-2018 11-22-2018 Episodic Sprains and strains (15 sources) Sprain of foot; Translations: [Unspecified sprain of unspecified foot, initial encounter] Onset: 04-16-2015 Resolved: 11-22-2018 11-22-2018 Episodic Results Test Name Value Interpretation Reference Range Facility [facility] 07-06-2024 [facility] Telephone (INTMWS) WENDY RG ([id number]) 1985 F Date Time Provider Department 07/06/24 JORDAN GUEVARA INTWS During your visit today, we recorded the following information about you: Gemma Wilson LPN 07/06/2024 9:17 AM Signed Last INR: 1.0 07/05/2024 Current dose of coumadin is: . Last date of dose change: can't tell. Previous INR (date and result): 01/26/24 was 1.0 also Additional Clinical Information or narrative: INR goal is 2-3. Called pt with no answer and unable to leave a voice mail. The mailbox is full Per dispense report pts last refill of warfarin 2mg was 03/21/24 30 tablets for 30 days. [place] GemmaCARLOS 07/09/2024 1:22 PM Signed Called pt again with same response. Ellen Garza APRN.JEANIE 07/09/2024 2:41 PM Signed Warfarin was only preventative during weight bearing restrictions due to ankle fracture. She is no longer taking, standing INR order discontinued Ellen Garza APRN.Mateo Bauer MA 07/09/2024 2:45 PM Signed TC to pt. Mailbox full - will try again later. Allergies As of Date: 07/06/2024 Noted Allergy Reaction ALMOND 08/11/2016 10 - Anaphylaxis AUGMENTIN (AMOXICILLIN-POT CLAVUL*11/29/2014 8 - GI Upset Comments: Tolerates penicillin. Likely reaction to clavulanate MORPHINE 08/14/2015 12 - Shortness of Breath WALNUT 08/03/2016 10 - Anaphylaxis Date Reviewed: 03/15/2024 Reviewed by: Annetta Arora RN - Fully Assessed Reason for Visit: Anticoagulation [8] Prescriptions as of 07/09/2024 - escitalopram oxalate (LEXAPRO) 20 mg tablet Take 1 tablet by mouth once daily. - cetirizine (ZYRTEC) 10 mg tablet Take 1 tablet by mouth once daily. - EPINEPHrine (EPIPEN) 0.3 mg/0.3 mL auto-injector Inject 0.3 mL intramuscularly as needed. - fluticasone (FLONASE) 50 mcg/actuation nasal spray Use 2 Sprays in each nostril once daily. - cholecalciferol, Vitamin D3, (VITAMIN D3) 1,250 mcg (50,000 unit) cap capsule Take one capsule by mouth twice a week for four weeks, then once a week - pantoprazole DR (PROTONIX) 40 mg tablet Take 1 tablet by mouth once daily. - ferrous sulfate 325 mg (65 mg iron) tablet Take 1 tablet by mouth once daily. - multivit no.50/iron comp/folic ( 23-IRON PS-FOLIC ACID ORAL) Take 1 tablet by mouth twice daily. - cyanocobalamin, vitamin B-12, 2,000 mcg tab Take 2 tablets by mouth once daily. 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] 08/03/2016 Seasonal allergic rhinitis due to pollen [J30.1]03/30/2018 Dysmenorrhea [N94.6] 11/22/2018 Gastroesophageal reflux disease without esophag*11/22/2018 Hidradenitis suppurativa [L73.2] 11/22/2018 S/P gastric bypass [Z98.84] 11/22/2018 Adjustment disorder with mixed anxiety and depr*11/22/2018 B12 deficiency [E53.8] 05/22/2019 Vitamin D deficiency [E55.9] 05/22/2019 Obesity, Class III, BMI >= 40 [E66.01] 11/23/2019 Iron deficiency anemia [D50.9] 06/18/2020 Acute deep vein thrombosis (DVT) of proximal ve*05/05/2022 09/08/2022 Closed nondisplaced fracture of lateral malleol*01/09/2024 History of DVT of lower extremity [Z86.718] 01/09/2024 Medications Discontinued During This Encounter Prescriptions - warfarin (COUMADIN) 2 mg tablet (Discontinued) Take 1 tablet by mouth daily as directed. Encounter Status:Closed by GEMMA WILSON on 07/09/24 Normal [facility] PT panel Coag (PPP)on 2023 INR Coag (PPP) [Relative time] 1.0 {INR} Normal 0.9-1.3 [facility] Comment on above: Order Comment: Speci men Type: BLOOD SPECIMENOrdering Facility: [facility] Address: [address] [place], [place] [address] [address] Result Comment: Maddie min K Antagonist (VKA) Therapeutic Range: INR 2 to 3 (Target INR of 2.5) Note: For patients treated with VKA drugs, such as warfarin, the [place] [employer] 2012 Guideline recommends a therapeutic INR range of 2 to 3 (target INR of 2.5). This recommendation includes high-risk patients with antiphospholipid syndrome with previous arterial or venous thromboembolism, current-generation mechanical or bioprosthetic aortic heart valve replacement. Note: Patients with mechanical aortic valve replacement and additional risk factors for thromboembolic events (atrial fibrillation, previous thromboembolism, LV dysfunction, hypercoagulable conditions) or an older generation mechanical AVR (i.e., ball in-Cage) or any mechanical MVR should have a INR therapeutic range of 2.5 to 3.5 (target INR of 3). Tarsha GH, et al. Chest 2012, 141:7S-47S Aileen RA, et al. [facility] 2017, 70: 252-289 Performed By: #### 3 4528-0 ####[facility] [id number] [place] [address] [place] PT Coag (PPP) [Time] 11.0 s Normal 9.7-13.0 [facility] Comment on above: Order Comment: Speci men Type: BLOOD SPECIMENOrdering Facility: [facility] Address: [address] [place] [address] Performed By: #### 3 4528-0 ####[facility] [id number] [place] [address] [place] CNPJunie 03-15-2024 CNPN Telephone (MARIEL) WENDY RG ([id number]) 1985 F Date Time Provider Department 03/15/24 ELLEN GARZA During your visit today, we recorded the following information about you: LakishaBaljeet nascimentoie 03/15/2024 1:19 PM Signed Patient presented to [facility] for final iron infusion and is requesting when she should have labs done after today. Please advise patient Renetta Banuelos Odalis Anaya MD 03/16/2024 8:27 PM Signed 6 to 8 weeks after last infusion Ellen had ordered labs, so I just changed the expected date to 6 weeks from now. Cely Obando LPN 03/17/2024 10:19 AM Signed Phoned patient and mother answered phone, daughter is sleeping. Went over notes below from Dr Anaya with understanding. She will pass along when daughter wakes up. Allergies As of Date: 03/15/2024 Noted Allergy Reaction ALMOND 08/11/2016 10 - Anaphylaxis AUGMENTIN (AMOXICILLIN-POT CLAVUL*11/29/2014 8 - GI Upset Comments: Tolerates penicillin. Likely reaction to clavulanate MORPHINE 08/14/2015 12 - Shortness of Breath WALNUT 08/03/2016 10 - Anaphylaxis Date Reviewed: 03/15/2024 Reviewed by: Annetta Arora, RN - Fully Assessed Reason for Visit: Follow up/Labs [Other] Prescriptions as of 03/17/2024 - cholecalciferol, Vitamin D3, (VITAMIN D3) 1,250 mcg (50,000 unit) cap capsule Take one capsule by mouth twice a week for four weeks, then once a week - warfarin (COUMADIN) 2 mg tablet Take 1 tablet by mouth daily as directed. - escitalopram oxalate (LEXAPRO) 20 mg tablet Take 1 tablet by mouth once daily. - cetirizine (ZYRTEC) 10 mg tablet Take 1 tablet by mouth once daily. - EPINEPHrine (EPIPEN) 0.3 mg/0.3 mL auto-injector Inject 0.3 mL intramuscularly as needed. - fluticasone (FLONASE) 50 mcg/actuation nasal spray Use 2 Sprays in each nostril once daily. - pantoprazole DR (PROTONIX) 40 mg tablet Take 1 tablet by mouth once daily. - ferrous sulfate 325 mg (65 mg iron) tablet Take 1 tablet by mouth once daily. - multivit no.50/iron comp/folic ( 23-IRON PS-FOLIC ACID ORAL) Take 1 tablet by mouth twice daily. - cyanocobalamin, vitamin B-12, 2,000 mcg tab Take 2 tablets by mouth once daily. 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] 08/03/2016 Seasonal allergic rhinitis due to pollen [J30.1]03/30/2018 Dysmenorrhea [N94.6] 11/22/2018 Gastroesophageal reflux disease without esophag*11/22/2018 Hidradenitis suppurativa [L73.2] 11/22/2018 S/P gastric bypass [Z98.84] 11/22/2018 Adjustment disorder with mixed anxiety and depr*11/22/2018 B12 deficiency [E53.8] 05/22/2019 Vitamin D deficiency [E55.9] 05/22/2019 Obesity, Class III, BMI >= 40 [E66.01] 11/23/2019 Iron deficiency anemia [D50.9] 06/18/2020 Acute deep vein thrombosis (DVT) of proximal ve*05/05/2022 09/08/2022 Closed nondisplaced fracture of lateral malleol*01/09/2024 History of DVT of lower extremity [Z86.718] 01/09/2024 Encounter Status:Closed by CELY OBANDO [facility]17/[facility] WENDY RG ([id number]) 1985 F Date Time Provider Department 02/09/24 1:30 PM [place] NURSE KENISHA During your visit today, we recorded the following information about you: Geni Watson LPN 02/09/2024 1:43 PM Signed Patient presented for B12 injection administered in right arm, tolerated well. Geni Watson LPN February 09, 2024 1:39 PM Allergies As of Date: 02/09/2024 Noted Allergy Reaction ALMOND 08/11/2016 10 - Anaphylaxis AUGMENTIN (AMOXICILLIN-POT CLAVUL*11/29/2014 8 - GI Upset Comments: Tolerates penicillin. Likely reaction to clavulanate MORPHINE 08/14/2015 12 - Shortness of Breath WALNUT 08/03/2016 10 - Anaphylaxis Date Reviewed: 01/11/2024 Reviewed by: Violet De La Rosa - Fully Assessed Reason for Visit: B12 Injection [982] Primary Visit Diagnosis:B12 deficiency [E53.8] Prescriptions as of 02/09/2024 - cholecalciferol, Vitamin D3, (VITAMIN D3) 1,250 mcg (50,000 unit) cap capsule Take one capsule by mouth twice a week for four weeks, then once a week - warfarin (COUMADIN) 2 mg tablet Take 1 tablet by mouth daily as directed. - escitalopram oxalate (LEXAPRO) 20 mg tablet Take 1 tablet by mouth once daily. - cetirizine (ZYRTEC) 10 mg tablet Take 1 tablet by mouth once daily. - EPINEPHrine (EPIPEN) 0.3 mg/0.3 mL auto-injector Inject 0.3 mL intramuscularly as needed. - fluticasone (FLONASE) 50 mcg/actuation nasal spray Use 2 Sprays in each nostril once daily. - pantoprazole DR (PROTONIX) 40 mg tablet Take 1 tablet by mouth once daily. - ferrous sulfate 325 mg (65 mg iron) tablet Take 1 tablet by mouth once daily. - multivit no.50/iron comp/folic ( 23-IRON PS-FOLIC ACID ORAL) Take 1 tablet by mouth twice daily. - cyanocobalamin, vitamin B-12, 2,000 mcg tab Take 2 tablets by mouth once daily. 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] 08/03/2016 Seasonal allergic rhinitis due to pollen [J30.1]03/30/2018 Dysmenorrhea [N94.6] 11/22/2018 Gastroesophageal reflux disease without esophag*11/22/2018 Hidradenitis suppurativa [L73.2] 11/22/2018 S/P gastric bypass [Z98.84] 11/22/2018 Adjustment disorder with mixed anxiety and depr*11/22/2018 B12 deficiency [E53.8] 05/22/2019 Vitamin D deficiency [E55.9] 05/22/2019 Obesity, Class III, BMI >= 40 [E66.01] 11/23/2019 Iron deficiency anemia [D50.9] 06/18/2020 Acute deep vein thrombosis (DVT) of proximal ve*05/05/2022 09/08/2022 Closed nondisplaced fracture of lateral malleol*01/09/2024 History of DVT of lower extremity [Z86.718] 01/09/2024 Encounter Status:[facility]LL [facility] Nurse Visit (FAMPWS) WENDY RG ([id number]) 1985 F Date Time Provider Department 02/02/24 1:30 PM [place] NURSE KENISHA During your visit today, we recorded the following information about you: Ladan Newell LPN 02/02/2024 2:21 PM Signed Patient presents for B-12 injection. Denies any problems at this time. Patient instructed on any SE of medication, verbalized understanding and agreed to proceed with treatment. Tolerated injection well. Ladan Newell LPN Allergies As of Date: 02/02/2024 Noted Allergy Reaction ALMOND 08/11/2016 10 - Anaphylaxis AUGMENTIN (AMOXICILLIN-POT CLAVUL*11/29/2014 8 - GI Upset Comments: Tolerates penicillin. Likely reaction to clavulanate MORPHINE 08/14/2015 12 - Shortness of Breath WALNUT 08/03/2016 10 - Anaphylaxis Date Reviewed: 01/11/2024 Reviewed by: iVolet De La Rosa - Fully Assessed Reason for Visit: B-12 Injection [247] Primary Visit Diagnosis:B12 deficiency [E53.8] Prescriptions as of 02/02/2024 - cholecalciferol, Vitamin D3, (VITAMIN D3) 1,250 mcg (50,000 unit) cap capsule Take one capsule by mouth twice a week for four weeks, then once a week - warfarin (COUMADIN) 2 mg tablet Take 1 tablet by mouth daily as directed. - escitalopram oxalate (LEXAPRO) 20 mg tablet Take 1 tablet by mouth once daily. - cetirizine (ZYRTEC) 10 mg tablet Take 1 tablet by mouth once daily. - EPINEPHrine (EPIPEN) 0.3 mg/0.3 mL auto-injector Inject 0.3 mL intramuscularly as needed. - fluticasone (FLONASE) 50 mcg/actuation nasal spray Use 2 Sprays in each nostril once daily. - pantoprazole DR (PROTONIX) 40 mg tablet Take 1 tablet by mouth once daily. - ferrous sulfate 325 mg (65 mg iron) tablet Take 1 tablet by mouth once daily. - multivit no.50/iron comp/folic ( 23-IRON PS-FOLIC ACID ORAL) Take 1 tablet by mouth twice daily. - cyanocobalamin, vitamin B-12, 2,000 mcg tab Take 2 tablets by mouth once daily. 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] 08/03/2016 Seasonal allergic rhinitis due to pollen [J30.1]03/30/2018 Dysmenorrhea [N94.6] 11/22/2018 Gastroesophageal reflux disease without esophag*11/22/2018 Hidradenitis suppurativa [L73.2] 11/22/2018 S/P gastric bypass [Z98.84] 11/22/2018 Adjustment disorder with mixed anxiety and depr*11/22/2018 B12 deficiency [E53.8] 05/22/2019 Vitamin D deficiency [E55.9] 05/22/2019 Obesity, Class III, BMI >= 40 [E66.01] 11/23/2019 Iron deficiency anemia [D50.9] 06/18/2020 Acute deep vein thrombosis (DVT) of proximal ve*05/05/2022 09/08/2022 Closed nondisplaced fracture of lateral malleol*01/09/2024 History of DVT of lower extremity [Z86.718] 01/09/2024 Encounter Status:[facility] NATALIEWENDY Suresh ([id number]) 1985 F Date Time Provider Department 01/27/24 ELLEN GARZA INTMWS During your visit today, we recorded the following information about you: Amee Echavarria LPN 01/27/2024 7:59 AM Signed Last INR: INR 1.0 01/26/2024 Current dose of coumadin is: 4 mg daily. Last date of dose change: 01/17/2024. Previous INR (date and result): 01/17/2024 1.0 Additional Clinical Information or narrative: INR goal = 2 to 3. Ellen Garza APRN.CNP 01/27/2024 12:28 PM Signed Increase Coumadin to 5 mg daily starting today. Recheck INR in one week. It looks like she has 2 mg tablets, does she have enough to take 2.5 tablets daily? Ellen Garza APRN.Mateo Bauer MA 01/27/2024 2:18 PM Signed Left message to call office. 01/27/2024 2:18 PM Mateo Delatorre MA 01/30/2024 1:02 PM Signed Left message with pts mother to have patient return call. Please see TE 01/23 also. Mateo Delatorre MA 02/01/2024 11:28 AM Signed Several messages left with patient's mother to return call for results. Do you have any new instructions since week will be up this Tuesday? Will try again to reach patient. Ellen Garza APRN.JEANIE 02/01/2024 1:15 PM Signed No new instructions Ellen Garza APRN.Mateo Bauer MA 02/01/2024 1:25 PM Signed TC to pt. Straight to voicemail which is not set up. Pt scheduled to come in tomorrow for b12 injections. Checking with [place] nurse to relay instructions at that time. Ladan Newell LPN 02/02/2024 1:27 PM Signed Patient notified of results, verbalizes understanding of instructions. Ladan Newell LPN Allergies As of Date: 01/27/2024 Noted Allergy Reaction ALMOND 08/11/2016 10 - Anaphylaxis AUGMENTIN (AMOXICILLIN-POT CLAVUL*11/29/2014 8 - GI Upset Comments: Tolerates penicillin. Likely reaction to clavulanate MORPHINE 08/14/2015 12 - Shortness of Breath WALNUT 08/03/2016 10 - Anaphylaxis Date Reviewed: 01/11/2024 Reviewed by: Violet De La Rosa - Fully Assessed Reason for Visit: Anticoagulation [8] Prescriptions as of 02/02/2024 - cholecalciferol, Vitamin D3, (VITAMIN D3) 1,250 mcg (50,000 unit) cap capsule Take one capsule by mouth twice a week for four weeks, then once a week - warfarin (COUMADIN) 2 mg tablet Take 1 tablet by mouth daily as directed. - escitalopram oxalate (LEXAPRO) 20 mg tablet Take 1 tablet by mouth once daily. - cetirizine (ZYRTEC) 10 mg tablet Take 1 tablet by mouth once daily. - EPINEPHrine (EPIPEN) 0.3 mg/0.3 mL auto-injector Inject 0.3 mL intramuscularly as needed. - fluticasone (FLONASE) 50 mcg/actuation nasal spray Use 2 Sprays in each nostril once daily. - pantoprazole DR (PROTONIX) 40 mg tablet Take 1 tablet by mouth once daily. - ferrous sulfate 325 mg (65 mg iron) tablet Take 1 tablet by mouth once daily. - multivit no.50/iron comp/folic ( 23-IRON PS-FOLIC ACID ORAL) Take 1 tablet by mouth twice daily. - cyanocobalamin, vitamin B-12, 2,000 mcg tab Take 2 tablets by mouth once daily. 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] 08/03/2016 Seasonal allergic rhinitis due to pollen [J30.1]03/30/2018 Dysmenorrhea [N94.6] 11/22/2018 Gastroesophageal reflux disease without esophag*11/22/2018 Hidradenitis suppurativa [L73.2] 11/22/2018 S/P gastric bypass [Z98.84] 11/22/2018 Adjustment disorder with mixed anxiety and depr*11/22/2018 B12 deficiency [E53.8] 05/22/2019 Vitamin D deficiency [E55.9] 05/22/2019 Obesity, Class III, BMI >= 40 [E66.01] 11/23/2019 Iron deficiency anemia [D50.9] 06/18/2020 Acute deep vein thrombosis (DVT) of proximal ve*05/05/2022 09/08/2022 Closed nondisplaced fracture of lateral malleol*01/09/2024 History of DVT of lower extremity [Z86.718] 01/09/2024 Encounter Status:Closed by LADAN NEWELL on 02/02/24 [facility] 01-26-2024 [facility] Nurse Visit (FAMPWS) WENDY RG ([id number]) 1985 F Date Time Provider Department 01/26/24 2:15 PM [place] NURSE FAMPWS During your visit today, we recorded the following information about you: Ladan Newell LPN 01/26/2024 2:20 PM Signed Patient presents for B-12 injection. Denies any problems at this time. Patient instructed on any SE of medication, verbalized understanding and agreed to proceed with treatment. Tolerated injection well. Ladan Newell LPN Allergies As of Date: 01/26/2024 Noted Allergy Reaction ALMOND 08/11/2016 10 - Anaphylaxis AUGMENTIN (AMOXICILLIN-POT CLAVUL*11/29/2014 8 - GI Upset Comments: Tolerates penicillin. Likely reaction to clavulanate MORPHINE 08/14/2015 12 - Shortness of Breath WALNUT 08/03/2016 10 - Anaphylaxis Date Reviewed: 01/11/2024 Reviewed by: Violet De La Rosa - Fully Assessed Reason for Visit: B-12 Injection [247] Primary Visit Diagnosis:B12 deficiency [E53.8] Prescriptions as of 01/26/2024 - cholecalciferol, Vitamin D3, (VITAMIN D3) 1,250 mcg (50,000 unit) cap capsule Take one capsule by mouth twice a week for four weeks, then once a week - warfarin (COUMADIN) 2 mg tablet Take 1 tablet by mouth daily as directed. - escitalopram oxalate (LEXAPRO) 20 mg tablet Take 1 tablet by mouth once daily. - cetirizine (ZYRTEC) 10 mg tablet Take 1 tablet by mouth once daily. - EPINEPHrine (EPIPEN) 0.3 mg/0.3 mL auto-injector Inject 0.3 mL intramuscularly as needed. - fluticasone (FLONASE) 50 mcg/actuation nasal spray Use 2 Sprays in each nostril once daily. - pantoprazole DR (PROTONIX) 40 mg tablet Take 1 tablet by mouth once daily. - ferrous sulfate 325 mg (65 mg iron) tablet Take 1 tablet by mouth once daily. - multivit no.50/iron comp/folic ( 23-IRON PS-FOLIC ACID ORAL) Take 1 tablet by mouth twice daily. - cyanocobalamin, vitamin B-12, 2,000 mcg tab Take 2 tablets by mouth once daily. 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] 08/03/2016 Seasonal allergic rhinitis due to pollen [J30.1]03/30/2018 Dysmenorrhea [N94.6] 11/22/2018 Gastroesophageal reflux disease without esophag*11/22/2018 Hidradenitis suppurativa [L73.2] 11/22/2018 S/P gastric bypass [Z98.84] 11/22/2018 Adjustment disorder with mixed anxiety and depr*11/22/2018 B12 deficiency [E53.8] 05/22/2019 Vitamin D deficiency [E55.9] 05/22/2019 Obesity, Class III, BMI >= 40 [E66.01] 11/23/2019 Iron deficiency anemia [D50.9] 06/18/2020 Acute deep vein thrombosis (DVT) of proximal ve*05/05/2022 09/08/2022 Closed nondisplaced fracture of lateral malleol*01/09/2024 History of DVT of lower extremity [Z86.718] 01/09/2024 Encounter Status:Closed by LADAN NEWELL on 01/26/24 Normal [facility] PT panel Coag (PPP)on 2023 INR Coag (PPP) [Relative time] 1.0 {INR} Normal 0.9-1.3 [facility] Comment on above: Order Comment: Speci men Type: BLOOD SPECIMENOrdering Facility: [facility] Address: [address] [place] [address] Result Comment: Maddie min K Antagonist (VKA) Therapeutic Range: INR 2 to 3 (Target INR of 2.5) Note: For patients treated with VKA drugs, such as warfarin, the [place] [employer] 2012 Guideline recommends a therapeutic INR range of 2 to 3 (target INR of 2.5). This recommendation includes high-risk patients with antiphospholipid syndrome with previous arterial or venous thromboembolism, current-generation mechanical or bioprosthetic aortic heart valve replacement. Note: Patients with mechanical aortic valve replacement and additional risk factors for thromboembolic events (atrial fibrillation, previous thromboembolism, LV dysfunction, hypercoagulable conditions) or an older generation mechanical AVR (i.e., ball in-Cage) or any mechanical MVR should have a INR therapeutic range of 2.5 to 3.5 (target INR of 3). Tarsha GH, et al. Chest 2012, 141:7S-47S Aileen RA, et al. [facility] 2017, 70: 252-289 Performed By: #### 3 4528-0 ####[facility] [id number] [place] [address] [place] PT Coag (PPP) [Time] 11.0 s Normal 9.7-13.0 [facility] Comment on above: Order Comment: Speci men Type: BLOOD SPECIMENOrdering Facility: [facility] Address: [address] [place] [address] Performed By: #### 3 4528-0 ####[facility] [id number] [address] [place] Efrem 01-24-2024 [facility] Telephone (INTWS) WENDY RG ([id number]) 1985 F Date Time Provider Department 01/24/24 ELLEN GARZA INTWS During your visit today, we recorded the following information about you: Ladan Newell LPN 01/24/2024 8:42 AM Signed Patient scheduled for nurse visit 01/26/24 to receive B-[address] order at this time. Ladan Newell LPN Allergies As of Date: 01/24/2024 Noted Allergy Reaction ALMOND 08/11/2016 10 - Anaphylaxis AUGMENTIN (AMOXICILLIN-POT CLAVUL*11/29/2014 8 - GI Upset Comments: Tolerates penicillin. Likely reaction to clavulanate MORPHINE 08/14/2015 12 - Shortness of Breath WALNUT 08/03/2016 10 - Anaphylaxis Date Reviewed: 01/11/2024 Reviewed by: Violet De La Rosa - Fully Assessed Reason for Visit: Orders [681] Primary Visit Diagnosis:B12 deficiency [E53.8] Order(s):[START ON 01/26/2024] cyanocobalamin 1,000 mcg injectionDisp: Rfl: Prescriptions as of 01/24/2024 - cholecalciferol, Vitamin D3, (VITAMIN D3) 1,250 mcg (50,000 unit) cap capsule Take one capsule by mouth twice a week for four weeks, then once a week - warfarin (COUMADIN) 2 mg tablet Take 1 tablet by mouth daily as directed. - escitalopram oxalate (LEXAPRO) 20 mg tablet Take 1 tablet by mouth once daily. - cetirizine (ZYRTEC) 10 mg tablet Take 1 tablet by mouth once daily. - EPINEPHrine (EPIPEN) 0.3 mg/0.3 mL auto-injector Inject 0.3 mL intramuscularly as needed. - fluticasone (FLONASE) 50 mcg/actuation nasal spray Use 2 Sprays in each nostril once daily. - pantoprazole DR (PROTONIX) 40 mg tablet Take 1 tablet by mouth once daily. - ferrous sulfate 325 mg (65 mg iron) tablet Take 1 tablet by mouth once daily. - multivit no.50/iron comp/folic ( 23-IRON PS-FOLIC ACID ORAL) Take 1 tablet by mouth twice daily. - cyanocobalamin, vitamin B-12, 2,000 mcg tab Take 2 tablets by mouth once daily. 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] 08/03/2016 Seasonal allergic rhinitis due to pollen [J30.1]03/30/2018 Dysmenorrhea [N94.6] 11/22/2018 Gastroesophageal reflux disease without esophag*11/22/2018 Hidradenitis suppurativa [L73.2] 11/22/2018 S/P gastric bypass [Z98.84] 11/22/2018 Adjustment disorder with mixed anxiety and depr*11/22/2018 B12 deficiency [E53.8] 05/22/2019 Vitamin D deficiency [E55.9] 05/22/2019 Obesity, Class III, BMI >= 40 [E66.01] 11/23/2019 Iron deficiency anemia [D50.9] 06/18/2020 Acute deep vein thrombosis (DVT) of proximal ve*05/05/2022 09/08/2022 Closed nondisplaced fracture of lateral malleol*01/09/2024 History of DVT of lower extremity [Z86.718] 01/09/2024 Prescriptions ordered this encounter Disp Refills Start End CYANOCOBALAMIN (VIT B-12) 1,000 MCG/* 01/26/2024 Route: INTRAMUSCULA Encounter Status:Closed by LADAN NEWELL on 01/24/24 [facility] 01-17-2024 CNPN Telephone (INTMWS) WENDY RG ([id number]) 1985 F Date Time Provider Department 01/17/24 JORDAN GUEVARA INTMWS During your visit today, we recorded the following information about you: Mateo Delatorre MA 01/17/2024 1:01 PM Signed Last INR: INR 1.0 01/11/2024 Current dose of coumadin is: 2mg per med list. Coumadin started on 01/09/2024 TC to patient x2 - LM with mother to return call.. Jordan Guevara MD 01/17/2024 2:09 PM Signed Increase Coumadin dose 4 mg daily. INR in 1 week. Courtney Ozuna LPN 01/17/2024 3:47 PM Signed Left message for Patient to call AND speak to nurse. Courtney Johnston LPN, LPN 01/17/2024 4:52 PM Signed Patient notified, verbalized understanding. What is the INR dosing range? Jordan Fontaine LPN, MD 01/18/2024 10:39 PM Signed INR goal = 2 to 3. Marina Carrington, TIMMY 01/23/2024 7:59 PM Signed Spoke with patient. She increased Coumadin dose to 4 mg on 01/20/24. She says she can come in on Tuesday01/25/24 to have INR done. Marina Carrington RN Allergies As of Date: 01/17/2024 Noted Allergy Reaction ALMOND 08/11/2016 10 - Anaphylaxis AUGMENTIN (AMOXICILLIN-POT CLAVUL*11/29/2014 8 - GI Upset Comments: Tolerates penicillin. Likely reaction to clavulanate MORPHINE 08/14/2015 12 - Shortness of Breath WALNUT 08/03/2016 10 - Anaphylaxis Date Reviewed: 01/11/2024 Reviewed by: Violet De La Rosa - Fully Assessed Reason for Visit: Anticoagulation [8] Prescriptions as of 01/23/2024 - cholecalciferol, Vitamin D3, (VITAMIN D3) 1,250 mcg (50,000 unit) cap capsule Take one capsule by mouth twice a week for four weeks, then once a week - warfarin (COUMADIN) 2 mg tablet Take 1 tablet by mouth daily as directed. - escitalopram oxalate (LEXAPRO) 20 mg tablet Take 1 tablet by mouth once daily. - cetirizine (ZYRTEC) 10 mg tablet Take 1 tablet by mouth once daily. - EPINEPHrine (EPIPEN) 0.3 mg/0.3 mL auto-injector Inject 0.3 mL intramuscularly as needed. - fluticasone (FLONASE) 50 mcg/actuation nasal spray Use 2 Sprays in each nostril once daily. - pantoprazole DR (PROTONIX) 40 mg tablet Take 1 tablet by mouth once daily. - ferrous sulfate 325 mg (65 mg iron) tablet Take 1 tablet by mouth once daily. - multivit no.50/iron comp/folic ( 23-IRON PS-FOLIC ACID ORAL) Take 1 tablet by mouth twice daily. - cyanocobalamin, vitamin B-12, 2,000 mcg tab Take 2 tablets by mouth once daily. 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] 08/03/2016 Seasonal allergic rhinitis due to pollen [J30.1]03/30/2018 Dysmenorrhea [N94.6] 11/22/2018 Gastroesophageal reflux disease without esophag*11/22/2018 Hidradenitis suppurativa [L73.2] 11/22/2018 S/P gastric bypass [Z98.84] 11/22/2018 Adjustment disorder with mixed anxiety and depr*11/22/2018 B12 deficiency [E53.8] 05/22/2019 Vitamin D deficiency [E55.9] 05/22/2019 Obesity, Class III, BMI >= 40 [E66.01] 11/23/2019 Iron deficiency anemia [D50.9] 06/18/2020 Acute deep vein thrombosis (DVT) of proximal ve*05/05/2022 09/08/2022 Closed nondisplaced fracture of lateral malleol*01/09/2024 History of DVT of lower extremity [Z86.718] 01/09/2024 Encounter Status:Closed by COURTNEY OZUNA on 01/19/24 [facility] WENDY RG ([id number]) 1985 F Date Time Provider Department 01/13/24 ELLEN GARZA INTMWS During your visit today, we recorded the following information about you: Ellen Garza, JOSE R.GROUT MACHINE OPERATOR 01/13/2024 7:26 AM Signed Please let the patient know her lab results indicated worsening anemia due to iron and B12 deficiencies. She will need to resume iron infusions, see orders. She will also need set up for B12 injections IM once a week for four weeks, then every other week for four weeks, then once a month. Recheck levels in one month. Her Vitamin D was very low, stop the OTC Vitamin D and start high dose twice a week for three months, then once a week for maintenance. She is on Coumadin and INR was 1.0, please initiate anticoagulation encounter Ellen Garza APRN.Mateo Bauer MA 01/13/2024 9:36 AM Signed TC to patient - mother answered and stated that pt was still sleeping and will have her call back once she wakes up. Mateo Delatorre MA 01/17/2024 1:02 PM Signed TC to pt. Spoke with mother again and she advised that she would let Wendy know to call the office for lab results. INR encounter created and routed to PCP. Courtney Ozuna LPN 01/19/2024 1:59 PM Signed Left message to call AND speak to nurse. Courtney Johnston LPN, LPN 01/23/2024 8:28 PM Addendum Patient notified of below results/recommendation , verbalized understanding. B12 injections scheduled for the next 4 weeks. Advised Patient that the office will be calling her tomorrow to schedule iron infusion, if she does not hear from the office by 1 PM Wendy is call in. Patient is currently taking 2mg Coumadin once daily, no missed doses, no new medications. Patient will come in 01/25/2024 to have levels drawn. Courtney Johnston LPN, LPN 01/24/2024 8:32 AM Signed Please contact and schedule Patient for iron infusion. Renetta Draper LPN 01/25/2024 9:24 AM Signed Please adjust orders for [place] for scheduling/authorizati on purposes. Renetta Robles 01/25/2024 10:06 AM Signed Attempted to contact patient but no answer and no voicemail. Should patioent call back, please schedule 5 doses iron sucrose. Renetta Robles 01/30/2024 10:08 AM Signed Left message with patient's mother to have patient call back before 5 PM today. Makenzie Lobo 02/02/2024 3:00 PM Signed Patient was seen at the other building and another PSS called over and we scheduled patient for infusions. Makenzie Husain Allergies As of Date: 01/13/2024 Noted Allergy Reaction ALMOND 08/11/2016 10 - Anaphylaxis AUGMENTIN (AMOXICILLIN-POT CLAVUL*11/29/2014 8 - GI Upset Comments: Tolerates penicillin. Likely reaction to clavulanate MORPHINE 08/14/2015 12 - Shortness of Breath WALNUT 08/03/2016 10 - Anaphylaxis Date Reviewed: 01/11/2024 Reviewed by: Violet De La Rosa - Fully Assessed Primary Visit Diagnosis:Iron deficiency anemia due to chronic blood loss [D50.0] Other Visit Diagnosis:B12 deficiency [E53.8] Order(s):[] iron sucrose 200 mg injection (VENOFER)Disp: Rfl: VITAMIN B12 [SQB12] Order #: [id number] FUTURE IRON AND TIBC [SQIRON] Order #: [id number] FUTURE FERRITIN [SQFERR] Order #: [id number] FUTURE COMPLETE BLOOD COUNT [SQCBC] Order #: [id number] FUTURE cholecalciferol, Vitamin D3, (VITAMIN D3) 1,250 mcg (50,000 unit) cap capsuleTake one capsule by mouth twice a week for four weeks, then once a weekDisp: 8 capsuleRfl: 11 Prescriptions as of 02/02/2024 - cholecalciferol, Vitamin D3, (VITAMIN D3) 1,250 mcg (50,000 unit) cap capsule Take one capsule by mouth twice a week for four weeks, then once a week - warfarin (COUMADIN) 2 mg tablet Take 1 tablet by mouth daily as directed. - escitalopram oxalate (LEXAPRO) 20 mg tablet Take 1 tablet by mouth once daily. - cetirizine (ZYRTEC) 10 mg tablet Take 1 tablet by mouth once daily. - EPINEPHrine (EPIPEN) 0.3 mg/0.3 mL auto-injector Inject 0.3 mL intramuscularly as needed. - fluticasone (FLONASE) 50 mcg/actuation nasal spray Use 2 Sprays in each nostril once daily. - pantoprazole DR (PROTONIX) 40 mg tablet Take 1 tablet by mouth once daily. - ferrous sulfate 325 mg (65 mg iron) tablet Take 1 tablet by mouth once daily. - multivit no.50/iron comp/folic ( 23-IRON PS-FOLIC ACID ORAL) Take 1 tablet by mouth twice daily. - cyanocobalamin, vitamin B-12, 2,000 mcg tab Take 2 tablets by mouth once daily. Facility-Administered Medications as of 02/02/2024 - cyanocobalamin 1,000 mcg injection Problem List As Of Date 01/13/2024 Noted Resolved Cellulitis and abscess of unspecified site [L03*07/12/2007 11/22/2018 Sprain of foot [S93.609A] 04/16/2015 11/22/2018 Obesity, morbid, BMI 50 or higher (HCC) [E66.01]04/22/2017 11/22/2018 Morbid obesity (HCC) [E66.01 (more content not included)... Normal [facility] VITAMIN D 25 HYDROXYon 01-11 25-hydroxyvitamin D3 [Mass/Vol] 10.3 ng/mL Low 31.0 - 80.0 ng/mL [facility] 25(OH)D3 SerPl-mCncon 2023 25-hydroxyvitamin D3 [Mass/Vol] 10.3 ng/mL Low 31.0-80.0 [facility] Comment on above: Order Comment: Speci men Type: BLOOD SPECIMENOrdering Facility: [facility] Address: [address] [place] [address] Result Comment: Clas sification of 25 [place] Vitamin D status: Deficiency/Insufficiency: < or = 30 ng/ml. Sufficiency/Optimal Levels: 31-80 ng/mL Toxicity: > 100 ng/mL. Test performed by chemiluminescent immunoassay. Performed By: #### 1 989-3 ####[facility] LABCLIA [id number] [address] [facility] CBC panel Auto (Bld)on 01-10 Erythrocyte distribution width (RBC) [Ratio] 19.1 % High 11.5 - 15.0 % [facility] Hematocrit (Bld) [Volume fraction] 30.5 % Low 36.0 - 46.0 % [facility] Hemoglobin (Bld) [Mass/Vol] 8.8 g/dL Low 11.5 - 15.5 g/dL [facility] MCH (RBC) [Entitic mass] 20.1 pg Low 26.0 - 34.[address] [facility] MCHC (RBC) [Mass/Vol] 28.9 g/dL Low 30.5 - 36.0 g/dL [facility] MCV (RBC) [Entitic vol] 69.8 fL Low 80.0 - 100.[address] [facility] Nucleated RBC (Bld) [#/Vol] <0.01 k/uL [facility] Platelet mean volume (Bld) [Entitic vol] 9.9 fL 9.0 - 12.[address] [facility] Platelets (Bld) [#/Vol] 587 10*3/uL High 150 - 400 k/uL [facility] RBC (Bld) [#/Vol] 4.37 10*6/uL 3.90 - 5.2 0 m/uL [facility] WBC (Bld) [#/Vol] 6.08 10*3/uL 3.70 - 11. 00 k/uL [facility] Erythrocyte distribution width (RBC) [Ratio] 19.1 % High 11.5-15.0 [facility] Comment on above: Order Comment: Speci men Type: BLOOD SPECIMENOrdering Facility: [facility] Address: [address] [place] [address] Performed By: #### 5 8410-2 ####[facility] LABCLIA [id number] [place] [address] [place] Hematocrit (Bld) [Volume fraction] 30.5 % Low 36.0-46.0 [facility] Comment on above: Order Comment: Speci men Type: BLOOD SPECIMENOrdering Facility: [facility] Address: [address] [place] [address] Performed By: #### 5 8410-2 ####[facility] LABCLIA [id number] [place] [address] [place] Hemoglobin (Bld) [Mass/Vol] 8.8 g/dL Low 11.5-15.5 [facility] Comment on above: Order Comment: Speci men Type: BLOOD SPECIMENOrdering Facility: [facility] Address: [address] [place] [address] Performed By: #### 5 8410-2 ####[facility] LABCLIA [id number] [place] [address] [place] MCH (RBC) [Entitic mass] 20.1 pg Low 26.0-34.0 [facility] Comment on above: Order Comment: Speci men Type: BLOOD SPECIMENOrdering Facility: [facility] Address: [address] [place] [address] Performed By: #### 5 8410-2 ####[facility] LABIA [id number] [place] [address] [place] MCHC (RBC) [Mass/Vol] 28.9 g/dL Low 30.5-36.0 [facility] Comment on above: Order Comment: Speci men Type: BLOOD SPECIMENOrdering Facility: [facility] Address: [address] [place] [address] Performed By: #### 5 8410-2 ####[facility] LABCLIA [id number] [place] [address] [place] MCV (RBC) [Entitic vol] 69.8 fL Low 80.0-100.0 [facility] Comment on above: Order Comment: Speci men Type: BLOOD SPECIMENOrdering Facility: [facility] Address: [address] [place] [address] Performed By: #### 5 8410-2 ####[facility] LABIA [id number] [place] [address] [place] Nucleated RBC (Bld) [#/Vol] 10*3/uL Normal <0.01 [facility] Comment on above: Order Comment: Speci men Type: BLOOD SPECIMENOrdering Facility: [facility] Address: [address] [place] [address] Performed By: #### 5 8410-2 ####[facility] LABIA [id number] [place] [address] [place] Platelet mean volume (Bld) [Entitic vol] 9.9 fL Normal 9.0-12.7 [facility] Comment on above: Order Comment: Speci men Type: BLOOD SPECIMENOrdering Facility: [facility] Address: [address] [place] [address] Performed By: #### 5 8410-2 ####[facility] LABIA [id number] [place] [address] [place] Platelets (Bld) [#/Vol] 587 10*3/uL High 150-400 [facility] Comment on above: Order Comment: Speci men Type: BLOOD SPECIMENOrdering Facility: [facility] Address: [address] [place] [address] Performed By: #### 5 8410-2 ####[facility] LABIA [id number] [place] [address] [place] RBC (Bld) [#/Vol] 4.37 10*6/uL Normal 3.90-5.20 [facility] Comment on above: Order Comment: Speci men Type: BLOOD SPECIMENOrdering Facility: [facility] Address: [address] [place] [address] Performed By: #### 5 8410-2 ####[facility] LABCLIA [id number] [place] [address] [place] WBC (Bld) [#/Vol] 6.08 10*3/uL Normal 3.70-11.00 [facility] Comment on above: Order Comment: Speci men Type: BLOOD SPECIMENOrdering Facility: [facility] Address: [address] [place] [id number] Performed By: #### 5 8410-2 ####[facility] LABCLIA [id number] [place] [address] [facility] CNOVon 01-11-2024 CNOV Office Visit (INTMWS ) WENDY RG ([id number]) 1985 F Date Time Provider Department 01/11/24 12:00 PM ELLEN GARZA INTMWS During your visit today, we recorded the following information about you: Pulse Respiration Blood pressure 73/minute 18/minute 122/70 Ellen Garza, 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 01/12/2024 10:19 AM Signed CC: Patient presents with: ED Follow-up: Broken foot HPI Wendy Blackwelllure is a 38 year old female who presents today for ED follow up for her right lateral malleolus fracture and anticoagulant therapy. She tripped over the curb 01/06/24 and was seen at [facility]. She was diagnosed with the fracture and provided a walking boot and crutches. Because she has a history of DVT's, she was prescribed Eliquis to take as prophylaxis. Her insurance would not cover that so the prescription was changed to Warfarin on 01/09/24. The patient took her first dose 01/10/24. She also saw the orthopedic yesterday at [facility]. She reports being advised to continue using the boot and crutches for the next 2-3 weeks, then changing to kasie wraps for an additional 3 weeks, with full weight bearing capacity. Dizziness without syncope or LOC. This has been occurring with positional changes x 3 weeks. She denies SOB, CP, N/V, vision changes or palpations. She has experienced this in the past when it was related to her iron deficiency anemia. She denies black or bloody stool, hematuria or abnormal bruising or bleeding. She was last seen in hematology 07/2022. During that time she was getting iron infusions and b12 injections. Her LMP was 01/03/24 and she denies any chance of . Review of Systems Constitutional: Positive for activity change. Negative for appetite change, chills and diaphoresis. Respiratory: Negative for cough and shortness of breath. Cardiovascular: Negative for chest pain, palpitations and leg swelling. Gastrointestinal: Negative for abdominal pain, blood in stool and diarrhea. Endocrine: Negative for cold intolerance and heat intolerance. Genitourinary: Negative for difficulty urinating and hematuria. Neurological: Positive for dizziness. Negative for seizures, syncope, weakness, numbness and headaches. Hematological: Negative for adenopathy. Does not bruise/bleed easily. Psychiatric/Behavioral : Negative for agitation, confusion, sleep disturbance and suicidal ideas. PAST MEDICAL HISTORY Diagnosis Date Acute deep vein thrombosis (DVT) of proximal vein of right lower extremity (HCC) 05/05/2022 Adjustment disorder with mixed anxiety and depressed mood 11/22/2018 Allergic rhinitis, cause unspecified Cholelithiasis Closed nondisplaced fracture of lateral malleolus 01/06/2024 Dysmenorrhea 11/22/2018 Dr. Constanza Brizuela. 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 ALLERGIES [place], Augmentin [Amoxicillin-Pot Clavulanate], Morphine, and [place] MEDICATIONS Cholecalciferol, Vitamin D3, 50 mcg (2,000 unit) cap Take 2 capsules by mouth once daily. warfarin (COUMADIN) 2 mg tablet Take 1 tablet by mouth daily as directed. escitalopram oxalate (LEXAPRO) 20 mg tablet Take 1 tablet by mouth once daily. cetirizine (ZYRTEC) 10 mg tablet Take 1 tablet by mouth once daily. EPINEPHrine (EPIPEN) 0.3 mg/0.3 mL auto-injector Inject 0.3 mL intramuscularly as needed. fluticasone (FLONASE) 50 mcg/actuation nasal spray Use 2 Sprays in each nostril once daily. pantoprazole DR (PROTONIX) 40 mg tablet Take 1 tablet by mouth once daily. ferrous sulfate 325 mg (65 mg iron) tablet Take 1 tablet by mouth once daily. multivit no.50/iron comp/folic ( 23-IRON PS-FOLIC ACID ORAL) Take 1 tablet by mouth twice daily. cyanocobalamin, vitamin B-12, 2,000 mcg tab Take 2 tablets by mouth once daily. FAMILY HISTORY Problem Relation Age of Onset Blood Disease Father hiv Cancer Father prostrate Colon Cancer Father Headache Father Hypertension Father Prostate Cancer Father Allergies Mother Asthma Mother Coronary Artery Disease Mother Diabetes Mother Headache Mother Hypertension Mother Lipids Mother Thyroid Mother Alcohol/Drug Maternal Uncle Allergies Maternal Aunt Allergies Sister bees Alzheimer's Disease Paternal Grandfather Arthritis Paternal Grandfather Coronary Artery Disease Paternal Grandfather Diabetes Paternal Grandfather Arthritis Daughter Blood Dise (more content not included)... Normal [facility] Comprehensive metabolic 2000 panelon 01-11-2024 Albumin [Mass/Vol] 4.1 g/dL 3.9 - 4.9 g/dL [facility] ALP [Catalytic activity/Vol] 88 U/L 34 - 123 U/L [facility] ALT [Catalytic activity/Vol] 9 U/L 7 - 38 U/L [facility] Anion gap [Moles/Vol] 9 mmol/L 9 - 18 mmol/L [facility] AST [Catalytic activity/Vol] 15 U/L 13 - 35 U/L [facility] Bilirubin [Mass/Vol] 0.3 mg/dL 0.2 - 1 .3 mg/dL [facility] Calcium [Mass/Vol] 9.1 mg/dL 8.5 - 10. 2 mg/dL [facility] Chloride [Moles/Vol] 101 mmol/L 97 - 10 5 mmol/L [facility] CO2 [Moles/Vol] 27 mmol/L 22 - 30 mmol/L [facility] Creatinine [Mass/Vol] 0.78 mg/dL 0.58 - 0.96 mg/dL [facility] Estimated Glomerular Filtration Rate 100 mL/min/1.73m >=60 mL/min/1.73m [facility] Glucose [Mass/Vol] 88 mg/dL 74 - 99 mg/dL [facility] Potassium [Moles/Vol] 3.8 mmol/L 3.7 - 5.1 mmol/L [facility] Protein [Mass/Vol] 7.3 g/dL 6.3 - 8.0 g/dL [facility] Sodium [Moles/Vol] 137 mmol/L 136 - 144 mmol/L [facility] Urea nitrogen [Mass/Vol] 13 mg/dL 7 - 21 mg/dL [facility] Albumin [Mass/Vol] 4.1 g/dL Normal 3.9-4.9 [facility] Comment on above: Order Comment: Speci men Type: BLOOD SPECIMENOrdering Facility: [facility] Address: [address] [place] [address] Performed By: #### 2 4323-8, 2132-06, 2276-01, 78592-3 ####[facility] LABIA [id number] [place] [address] [place] ALP [Catalytic activity/Vol] 88 U/L Normal 34-123 [facility] Comment on above: Order Comment: Speci men Type: BLOOD SPECIMENOrdering Facility: [facility] Address: [address] [place], [place] [address] Performed By: #### 2 4323-8, 9, 2276-01, 22121-2 ####[facility] LABCLIA [id number] [place] [address] [place] ALT [Catalytic activity/Vol] 9 U/L Normal 7-38 [facility] Comment on above: Order Comment: Speci men Type: BLOOD SPECIMENOrdering Facility: [facility] Address: [address] [facility] [place] [place] [address] Performed By: #### 2 4323-8, 9, 2275-4, 13477-6 ####[facility] LABCLIA [id number] [address] [address] [place] Anion gap [Moles/Vol] 9 mmol/L Normal 9-18 [facility] Comment on above: Order Comment: Speci men Type: BLOOD SPECIMENOrdering Facility: [facility] Address: [address] [place] [address] Performed By: #### 2 4323-8, 9, 2276-01, 34120-2 ####[facility] LABCLIA [id number] [place] [address] [place] AST [Catalytic activity/Vol] 15 U/L Normal 13-35 [facility] Comment on above: Order Comment: Speci men Type: BLOOD SPECIMENOrdering Facility: [facility] Address: [address] [place] [address] Performed By: #### 2 4323-8, 9, 2276-01, 76999-6 ####[facility] LABCLIA [id number] [address] [address] [place] Bilirubin [Mass/Vol] 0.3 mg/dL Normal 0.2-1.3 [facility] Comment on above: Order Comment: Speci men Type: BLOOD SPECIMENOrdering Facility: [facility] Address: [address] [facility] [place] [address] Performed By: #### 2 4323-8, 2131-9, 2276-01, 47867-2 ####[facility] LABCLIA [id number] [address] [address] [place] Calcium [Mass/Vol] 9.1 mg/dL Normal 8.5-10.2 [facility] Comment on above: Order Comment: Speci men Type: BLOOD SPECIMENOrdering Facility: [facility] Address: [address] [place] [address] Performed By: #### 2 4323-8, 9, 2276-01, 31159-8 ####[facility] LABCLIA [id number] [address] [address] [place] Chloride [Moles/Vol] 101 mmol/L Normal 97-105 [facility] Comment on above: Order Comment: Speci men Type: BLOOD SPECIMENOrdering Facility: [facility] Address: [address] [place] [address] Performed By: #### 2 4323-8, 9, 2276-01, 65065-9 ####[facility] LABCLIA [id number] [place] [address] [place] CO2 [Moles/Vol] 27 mmol/L Normal 22-30 [facility] Comment on above: Order Comment: Speci men Type: BLOOD SPECIMENOrdering Facility: [facility] Address: [address] [place] [address] Performed By: #### 2 4323-8, 2132-06, 2276-01, 31280-1 ####[facility] LABCLIA [id number] [address] [address] [place] Creatinine [Mass/Vol] 0.78 mg/dL Normal 0.58-0.96 [facility] Comment on above: Order Comment: Speci men Type: BLOOD SPECIMENOrdering Facility: [facility] Address: [address] [place] [address] Performed By: #### 2 4323-8, 9, 2276-01, 17563-8 ####[facility] LABCLIA [id number] [address] [address] [place] Creatinine and Glomerular filtration rate.predicted panel (S/P/Bld) 100 mL/min/1.73m??? Normal >=60 [facility] Comment on above: Order Comment: Carlymarcelle landin Type: BLOOD SPECIMENOrdering Facility: [facility] Address: [address] [place] [address] Result Comment: Jaymie mated Glomerular Filtration Rate (eGFR) is calculated using the 2020 CKD-EPI creatinine equation. This equation utilizes serum creatinine, sex, and age as parameters. The creatinine assay has traceable calibration to isotope dilution-mass spectrometry. Refer to KDIGO guidelines for clinical interpretation. In patients with unstable renal function, e.g. those with acute kidney injury, the eGFR may not accurately reflect actual GFR. Performed By: #### 2 4323-8, 2131-9, 2275-4, 49523-6 ####[facility] LABIA [id number] [place] [address] [place] Glucose [Mass/Vol] 88 mg/dL Normal 74-99 [facility] Comment on above: Order Comment: Rhea landin Type: BLOOD SPECIMENOrdering Facility: [facility] Address: [address] [place] [address] Result Comment: The [place] Diabetes Association (ADA) provides guidance for cutoff values for fasting glucose and random glucose. The ADA defines fasting as no caloric intake for at least 8 hours. Fasting plasma glucose results between 100 to 125 mg/dL indicate increased risk for diabetes (prediabetes). Fasting plasma glucose results greater than or equal to 126 mg/dL meet the criteria for diagnosis of diabetes. In the absence of unequivocal hyperglycemia, results should be confirmed by repeat testing. In a patient with classic symptoms of hyperglycemia or hyperglycemic crisis, random plasma glucose results greater than or equal to 200 mg/dL meet the criteria for diagnosis of diabetes. Reference: Standards of Medical Care in Diabetes 2016, [place] [employer] Association. Diabetes Care. 2016.39(Suppl 1). Performed By: #### 2 4323-8, 2131-9, 2275-4, 67961-2 ####[facility] LABIA [id number] [address] [address] [place] Potassium [Moles/Vol] 3.8 mmol/L Normal 3.7-5.1 [facility] Comment on above: Order Comment: Speci men Type: BLOOD SPECIMENOrdering Facility: [facility] Address: [address] [place] [address] Performed By: #### 2 4323-8, 9, 2276-01, 01492-3 ####[facility] LABCLIA [id number] [facility] [address] [address] [place] Protein [Mass/Vol] 7.3 g/dL Normal 6.3-8.0 [facility] Comment on above: Order Comment: Speci men Type: BLOOD SPECIMENOrdering Facility: [facility] Address: [address] [place] [address] Performed By: #### 2 4323-8, 9, 2276-01, 04885-2 ####[facility] LABIA [id number] [place] [address] [place] Sodium [Moles/Vol] 137 mmol/L Normal 136-144 [facility] Comment on above: Order Comment: Speci men Type: BLOOD SPECIMENOrdering Facility: [facility] Address: [address] [place] [address] Performed By: #### 2 4323-8, 9, 2276-01, 69856-6 ####[facility] LABIA [id number] [place] [address] [place] Urea nitrogen [Mass/Vol] 13 mg/dL Normal 7-21 [facility] Comment on above: Order Comment: Speci men Type: BLOOD SPECIMENOrdering Facility: [facility] Address: [address] [place] [address] Performed By: #### 2 4323-8, 9, 2276-01, 52367-6 ####[facility] LABCLIA [id number] [address] [address] [place] FERRITINon 01-11-2024 Ferritin [Mass/Vol] 9.9 ng/mL Low 14.7 - 2 05.1 ng/mL [facility] Ferritin SerPl-mCncon 2023 Ferritin [Mass/Vol] 9.9 ng/mL Low 14.7-205.1 [facility] Comment on above: Order Comment: Speci men Type: BLOOD SPECIMENOrdering Facility: [facility] Address: [address] [place] [address] Performed By: #### 2 4323-8, 9, 4, 66057-9 ####[facility] LABCLIA [id number] [address] [address] [place] Iron and Iron binding capaci panelon 01-11-2024 Iron [Mass/Vol] 18 ug/dL Low 41 - 186 ug/dL [facility] Iron binding capacity [Mass/Vol] 375 ug/dL 232 - 386 ug/dL [facility] Iron/TIBC [Molar ratio] 4.8 % Low 15.0 - 57.0 % [facility] Iron [Mass/Vol] 18 ug/dL Low 41-186 [facility] Comment on above: Order Comment: Speci men Type: BLOOD SPECIMENOrdering Facility: [facility] Address: [address] [place] [address] Performed By: #### 2 4323-8, 9, 2276-01, 62386-7 ####[facility] LABCLIA [id number] [place] [address] [place] Iron binding capacity [Mass/Vol] 375 ug/dL Normal 232-386 [facility] Comment on above: Order Comment: Speci men Type: BLOOD SPECIMENOrdering Facility: [facility] Address: [address] [place] [address] Performed By: #### 2 4323-8, 9, 2276-01, 86866-9 ####[facility] LABCLIA [id number] [address] [address] [place] Iron/TIBC [Molar ratio] 4.8 % Low 15.0-57.0 [facility] Comment on above: Order Comment: Rhea landin Type: BLOOD SPECIMENOrdering Facility: [facility] Address: [address] [place] [address] Performed By: #### 2 4323-8, 2132-9, 2276-4, 12334-9 ####[facility] LABCLIA [id number] [place] [address] [place] PT panel Coag (PPP)on 2023 INR Coag (PPP) [Relative time] 1.0 {INR} Normal 0.9-1.3 [facility] Comment on above: Order Comment: Rhea landin Type: BLOOD SPECIMENOrdering Facility: [facility] Address: [address] [place] [address] Result Comment: Maddie min K Antagonist (VKA) Therapeutic Range: INR 2 to 3 (Target INR of 2.5) Note: For patients treated with VKA drugs, such as warfarin, the [place] [employer] 2012 Guideline recommends a therapeutic INR range of 2 to 3 (target INR of 2.5). This recommendation includes high-risk patients with antiphospholipid syndrome with previous arterial or venous thromboembolism, current-generation mechanical or bioprosthetic aortic heart valve replacement. Note: Patients with mechanical aortic valve replacement and additional risk factors for thromboembolic events (atrial fibrillation, previous thromboembolism, LV dysfunction, hypercoagulable conditions) or an older generation mechanical AVR (i.e., ball in-Cage) or any mechanical MVR should have a INR therapeutic range of 2.5 to 3.5 (target INR of 3). Tarsha GH, et al. Chest 2012, 141:7S-47S Aileen RA, et al. [facility] 2017, 70: 252-289 Performed By: #### 3 4528-0 ####[facility] LABIA [id number] [place] [address] [place] PT Coag (PPP) [Time] 10.8 s Normal 9.7-13.0 [facility] Comment on above: Order Comment: Rhea landin Type: BLOOD SPECIMENOrdering Facility: [facility] Address: [address] [place] [address], [place] [address] Performed By: #### 3 4528-0 ####[facility] LABCLIA [id number] [address] [place] [place] VIT[place] B12on 01-11-2024 Cobalamin (Vitamin B12) [Mass/Vol] 160 pg/mL Low 232 - 1,245 pg/mL [facility] Vit B12 SerPl-mCncon 024 Cobalamin (Vitamin B12) [Mass/Vol] 160 pg/mL Low 232-1245 [facility] Comment on above: Order Comment: Speci men Type: BLOOD SPECIMENOrdering Facility: [facility] Address: [facility] [place] [address] Performed By: #### 2 [id number], 2132-9, 2276-4, 46437-8 ####[facility] LABCLIA [id number] [place] [id number] [facility] CNPNon 01-09-2024 CNPN Telephone (INTMWS) WENDY RG ([id number]) 1985 F Date Time Provider Department 01/09/24 JORDAN GUEVARA INTMWS During your visit today, we recorded the following information about you: Mabel Hernandez 01/09/2024 12:53 PM Signed Patient said she went to the ER on Tuesday with a ankle fracture. Was prescribed Eliquis for blood clots, but it is not covered by insurance. Wants to know if something else can be prescribed. Please call her at [phone]. Jordan Guevara MD 01/09/2024 4:00 PM Signed I reviewed ER report. She was prescribed Eliquis because of her history of DVT. She does not have a DVT at this time so this is for prevention. For prevention, we can use warfarin starting at 2 mg daily. She will need to come for frequent monitoring to get this medication in range ( INR 2-3 ) by adjustments in dose. As with any potent blood thinner, there is risk for hemorrhage so watch for s/s of bleeding and avoid situations that increase risk of trauma. If she is okay, I will set up standing labs and send prescription. Gladys Brantley LPN 01/09/2024 5:34 PM Signed patient is ok with medication, warfarin and send to [facility]. Patient is seeing Ellen this Tuesday for ER follow up. please review and advise further for meds and lab orders Gladsy Brantley LPN Allergies As of Date: 01/09/2024 Noted Allergy Reaction ALMOND 08/11/2016 10 - Anaphylaxis AUGMENTIN (AMOXICILLIN-POT CLAVUL*11/29/2014 8 - GI Upset Comments: Tolerates penicillin. Likely reaction to clavulanate MORPHINE 08/14/2015 12 - Shortness of Breath WALNUT 08/03/2016 10 - Anaphylaxis Date Reviewed: 03/11/2023 Reviewed by: Ellen Garcia APRN.GROUT MACHINE OPERATOR - Fully Assessed Reason for Visit: Broken bone; blood clot med prescribed at ER not covered [Other] Primary Visit Diagnosis:Closed nondisplaced fracture of lateral malleolus of right fibula with routine healing, subsequent encounter [S82.64XD] Other Visit Diagnosis:History of DVT of lower extremity [Z86.718] Order(s):PROTHROMBIN TIME [SQPT] Order #: [id number] STANDING warfarin (COUMADIN) 2 mg tabletTake 1 tablet by mouth daily as directed.Disp: 30 tabletRfl: 2 Prescriptions as of 01/09/2024 - warfarin (COUMADIN) 2 mg tablet Take 1 tablet by mouth daily as directed. - escitalopram oxalate (LEXAPRO) 20 mg tablet Take 1 tablet by mouth once daily. - cetirizine (ZYRTEC) 10 mg tablet Take 1 tablet by mouth once daily. - EPINEPHrine (EPIPEN) 0.3 mg/0.3 mL auto-injector Inject 0.3 mL intramuscularly as needed. - amitriptyline (ELAVIL) 25 mg tablet Take 1 tablet by mouth daily at bedtime. - fluticasone (FLONASE) 50 mcg/actuation nasal spray Use 2 Sprays in each nostril once daily. - pantoprazole DR (PROTONIX) 40 mg tablet Take 1 tablet by mouth once daily. - ferrous sulfate 325 mg (65 mg iron) tablet Take 1 tablet by mouth once daily. - multivit no.50/iron comp/folic ( 23-IRON PS-FOLIC ACID ORAL) Take 1 tablet by mouth twice daily. - cyanocobalamin, vitamin B-12, 2,000 mcg tab Take 2 tablets by mouth once daily. - Cholecalciferol, Vitamin D3, 2,000 unit cap Take 3 capsules by mouth once daily. Problem List As Of Date 01/09/2024 Noted Resolved Cellulitis and abscess of unspecified site [L03*07/12/2007 11/22/2018 Sprain of foot [S93.609A] 04/16/2015 11/22/2018 Obesity, morbid, BMI 50 or higher (HCC) [E66.01]04/22/2017 11/22/2018 Morbid obesity (HCC) [E66.01] 07/14/2017 11/23/2019 Pre-op testing [Z01.818] 07/14/2017 07/29/2017 Tree nut allergy [Z91.018] 08/03/2016 Seasonal allergic rhinitis due to pollen [J30.1]03/30/2018 Dysmenorrhea [N94.6] 11/22/2018 Gastroesophageal reflux disease without esophag*11/22/2018 Hidradenitis suppurativa [L73.2] 11/22/2018 S/P gastric bypass [Z98.84] 11/22/2018 Adjustment disorder with mixed anxiety and depr*11/22/2018 B12 deficiency [E53.8] 05/22/2019 Vitamin D deficiency [E55.9] 05/22/2019 Obesity, Class III, BMI >= 40 [E66.01] 11/23/2019 Iron deficiency anemia [D50.9] 06/18/2020 Acute deep vein thrombosis (DVT) of proximal ve*05/05/2022 09/08/2022 Closed nondisplaced fracture of lateral malleol*01/09/2024 History of DVT of lower extremity [Z86.718] 01/09/2024 Prescriptions ordered this encounter Disp Refills Start End WARFARIN 2 MG TABLET 30 t* 2 01/09/2024 Route: ORAL Sig: Take 1 tablet by mouth daily as directed. Encounter Status:Closed by JORDAN GUEVARA on 01/09/24 Normal [facility] CBC W Auto Differential pane l (Bld)on 05-21-2022 Abs Immature Gran <0.10 k/uL [facility] Basophils (Bld) [#/Vol] 0.05 10*3/uL <0.11 k/uL [facility] Basophils/100 WBC (Bld) 0.7 % [facility] Differential cell count method Nom (Bld) Auto [facility] Eosinophils (Bld) [#/Vol] 0.21 10*3/uL <0.46 k/uL [facility] Eosinophils/100 WBC (Bld) 3.1 % [facility] Erythrocyte distribution width (RBC) [Ratio] 25.2 % High 11.5 - 15.0 % [facility] Hematocrit (Bld) [Volume fraction] 30.1 % Low 36.0 - 46.0 % [facility] Hemoglobin (Bld) [Mass/Vol] 8.8 g/dL Low 11.5 - 15.5 g/dL [facility] Immature Gran % 0.3 % [facility] Lymphocytes (Bld) [#/Vol] 2.69 10*3/uL 1.00 - 4.00 k/uL [facility] Lymphocytes/100 WBC (Bld) 39.7 % [facility] MCH (RBC) [Entitic mass] 20.1 pg Low 26.0 - 34.[address] [facility] MCHC (RBC) [Mass/Vol] 29.2 g/dL Low 30.5 - 36.0 g/dL [facility] MCV (RBC) [Entitic vol] 68.7 fL Low 80.0 - 100.[address] [facility] Monocytes (Bld) [#/Vol] 0.43 10*3/uL <0.87 k/uL [facility] Monocytes/100 WBC (Bld) 6.3 % [facility] Neutrophils (Bld) [#/Vol] 3.38 10*3/uL 1.45 - 7.50 k/uL [facility] Neutrophils/100 WBC (Bld) 49.9 % [facility] Nucleated RBC (Bld) [#/Vol] <0.01 k/uL [facility] Nucleated RBC/100 WBC (Bld) [Ratio] 0.0 /[address] [facility] Platelet mean volume (Bld) [Entitic vol] 9.7 fL 9.0 - 12.[address] [facility] Platelets (Bld) [#/Vol] 381 10*3/uL 150 - 400 k/uL [facility] RBC (Bld) [#/Vol] 4.38 10*6/uL 3.90 - 5.2 0 m/uL [facility] WBC (Bld) [#/Vol] 6.78 10*3/uL 3.70 - 11. 00 k/uL [facility] FOLATE SERUMon 05-12-2022 Folate [Mass/Vol] 6.6 ng/mL >4.7 ng/mL [facility] VITAMIN D 25 HYDROXYon 05-12 25-hydroxyvitamin D3 [Mass/Vol] 23.2 ng/mL Low 31.0 - 80.0 ng/mL [facility] Comprehensive metabolic 2000 panelon 05-11-2022 Albumin [Mass/Vol] 4.6 g/dL 3.9 - 4.9 g/dL [facility] ALP [Catalytic activity/Vol] 93 U/L 34 - 123 U/L [facility] ALT [Catalytic activity/Vol] 10 U/L 7 - 38 U/L [facility] Anion gap [Moles/Vol] 12 mmol/L 9 - 18 mmol/L [facility] AST [Catalytic activity/Vol] 15 U/L 13 - 35 U/L [facility] Bilirubin [Mass/Vol] 0.3 mg/dL 0.2 - 1 .3 mg/dL [facility] Calcium [Mass/Vol] 8.9 mg/dL 8.5 - 10. 2 mg/dL [facility] Chloride [Moles/Vol] 101 mmol/L 97 - 10 5 mmol/L [facility] CO2 [Moles/Vol] 22 mmol/L 22 - 30 mmol/L [facility] Creatinine [Mass/Vol] 0.75 mg/dL 0.58 - 0.96 mg/dL [facility] Estimated Glomerular Filtration Rate 106 mL/min/1.73m >=60 mL/min/1.73m [facility] Glucose [Mass/Vol] 109 mg/dL High 74 - 99 mg/dL [facility] Potassium [Moles/Vol] 4.2 mmol/L 3.7 - 5.1 mmol/L [facility] Protein [Mass/Vol] 7.6 g/dL 6.3 - 8.0 g/dL [facility] Sodium [Moles/Vol] 135 mmol/L Low 136 - 144 mmol/L [facility] Urea nitrogen [Mass/Vol] 13 mg/dL 7 - 21 mg/dL [facility] LD LACTATE DEHYDROon 022 LDH [Catalytic activity/Vol] 146 U/L 135 - 214 U/L [facility] RETIC COUNTon 05-11-2022 Reticulocytes (Bld) [#/Vol] 0.07858 10*3/uL 0.018 - 0.100 M/uL [facility] Reticulocytes (Bld) [#/Vol]o n 05-11-2022 Reticulocytes/100 RBC (Bld) 1.1 % 0.4 - 2.0 % [facility] XR Chest PA and Lateralon IMPRESSION: No acute radiographic abnormality. International Recruiter: ASHLI Transcribe Date/Time: Aug 27 2020 3:16P Dictated by : HUY OH MD This examination was interpreted and the report reviewed and electronically signed by: HUY OH MD on Aug 27 2020 3:18PM [facility] DIVISION OF RADIOLOGY * * *Final Report* * * DATE OF EXAM: Aug 27 2020 3:14PM WOX [id number] - XR CHEST 2V FRONTAL/LAT / PROCEDURE REASON: Cough * * * * Physician Interpretation * * * * EXAMINATION: CHEST RADIOGRAPH (2 VIEW FRONTAL & LATERAL) CLINICAL HISTORY: Cough MQ: XC2_6 EXAM DATE/TIME: 08/27/2020 3:14 PM COMPARISON: 04/21/2017 RESULT: Lines, tubes, and devices: None. Lungs and pleura: No consolidation. No lung mass. No pleural effusion. No pneumothorax. Cardiomediastinal silhouette: Normal cardiomediastinal silhouette. Bones and soft tissues: The visualized portions of the bony thorax appear intact. Minimal hypertrophic endplate spurring in the lower thoracic spine. DIVISION OF RADIOLOGY Provider, [facility] Nano Rodriguez - 08/27/2020 * * *Final Report* * * DATE OF EXAM: Aug 27 2020 3:14PM WOX [id number] - XR CHEST 2V FRONTAL/LAT / PROCEDURE REASON: Cough * * * * Physician Interpretation * * * * EXAMINATION: CHEST RADIOGRAPH (2 VIEW FRONTAL & LATERAL) CLINICAL HISTORY: Cough MQ: XC2_6 EXAM DATE/TIME: 08/27/2020 3:14 PM COMPARISON: 04/21/2017 RESULT: Lines, tubes, and devices: None. Lungs and pleura: No consolidation. No lung mass. No pleural effusion. No pneumothorax. Cardiomediastinal silhouette: Normal cardiomediastinal silhouette. Bones and soft tissues: The visualized portions of the bony thorax appear intact. Minimal hypertrophic endplate spurring in the lower thoracic spine. IMPRESSION IMPRESSION: No acute radiographic abnormality. International Recruiter: PSCB Transcribe Date/Time: Aug 27 2020 3:16P Dictated by : HUY OH MD This examination was interpreted and the report reviewed and electronically signed by: HUY OH MD on Aug 27 2020 3:18PM EST [facility] Radiology Study observation (narrative) [facility] XR Chest PA and LateralOrder ed By: Ccf Provider on 08-27-[address] [facility] Vital Signs Date Time Vital Sign Value Performing Clinician Sami paula 03-15-2024 13:00-0400 Body temperature 97.81 [degF] Treatment Wstr Work Phone: [facility] 03-15-2024 13:00-0400 Diastolic blood pressure 73 mm[Hg] Treatment Wstr Work Phone: [facility] 03-15-2024 13:00-0400 Heart rate 79 /min Treatment Wstr Work Phone: [facility] 03-15-2024 13:00-0400 Systolic blood pressure 132 mm[Hg] Treatment Wstr Work Phone: [facility] 03-09-2024 14:44-0400 Body temperature 97.81 [degF] Treatment Wstr Work Phone: [facility] 03-09-2024 14:44-0400 Diastolic blood pressure 68 mm[Hg] Treatment Wstr Work Phone: [facility] 03-09-2024 14:44-0400 Heart rate 81 /min Treatment Wstr Work Phone: [facility] 03-09-2024 14:44-0400 SaO2% (BldA) [Mass fraction] 98 % Treatment Wstr Work Phone: [facility] 03-09-2024 14:44-0400 Systolic blood pressure 100 mm[Hg] Treatment Wstr Work Phone: [facility] 03-07-2024 15:19-0400 Body temperature 97.81 [degF] Treatment Wstr Work Phone: [facility] 03-07-2024 15:19-0400 Diastolic blood pressure 61 mm[Hg] Treatment Wstr Work Phone: [facility] 03-07-2024 15:19-0400 Heart rate 75 /min Treatment Wstr Work Phone: [facility] 03-07-2024 15:19-0400 Respiratory rate 16 /min Treatment Wstr Work Phone: [facility] 03-07-2024 15:19-0400 SaO2% (BldA) [Mass fraction] 99 % Treatment Wstr Work Phone: [facility] 03-07-2024 15:19-0400 Systolic blood pressure 120 mm[Hg] Treatment Wstr Work Phone: [facility] 03-05-2024 15:28-0400 Body temperature 97.2 [degF] Treatment Wstr Work Phone: [facility] 03-05-2024 15:28-0400 Diastolic blood pressure 75 mm[Hg] Treatment Wstr Work Phone: [facility] 03-05-2024 15:28-0400 Heart rate 76 /min Treatment Wstr Work Phone: [facility] 03-05-2024 15:28-0400 SaO2% (BldA) [Mass fraction] 96 % Treatment Wstr Work Phone: [facility] 03-05-2024 15:28-0400 Systolic blood pressure 113 mm[Hg] Treatment Wstr Work Phone: [facility] 03-01-2024 14:00-0400 Body temperature 97.11 [degF] Treatment Wstr Work Phone: [facility] 03-01-2024 14:00-0400 Diastolic blood pressure 69 mm[Hg] Treatment Wstr Work Phone: [facility] 03-01-2024 14:00-0400 Heart rate 84 /min Treatment Wstr Work Phone: [facility] 03-01-2024 14:00-0400 Systolic blood pressure 127 mm[Hg] Treatment Wstr Work Phone: [facility] 01-11-2024 12:00-0400 Diastolic blood pressure 70 mm[Hg] Ellen Greg 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 Work Phone: [facility] 01-11-2024 12:00-0400 Heart rate 73 /min Ellen Greg 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 Work Phone: [facility] 01-11-2024 12:00-0400 Respiratory rate 18 /min Ellen Greg 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 Work Phone: [facility] 01-11-2024 12:00-0400 SaO2% (BldA) [Mass fraction] 99 % Ellen Greg 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 Work Phone: [facility] 01-11-2024 12:00-0400 Systolic blood pressure 122 mm[Hg] Ellen Greg 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 Work Phone: [facility] 09-07-2022 13:13-0500 Body weight 132 kg Ellen Older 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 Work Phone: [facility] 09-07-2022 13:13-0500 Diastolic blood pressure 63 mm[Hg] Ellen Older 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 Work Phone: [facility] 09-07-2022 13:13-0500 Heart rate 80 /min Ellen Older 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 Work Phone: [facility] 09-07-2022 13:13-0500 Respiratory rate 18 /min Ellen Older 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 Work Phone: [facility] 09-07-2022 13:13-0500 Systolic blood pressure 110 mm[Hg] Ellen Older 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 Work Phone: [facility] 07-09-2022 11:59-0400 Body temperature 97.11 [degF] Deandre Terry MD Work Phone: [facility] 07-09-2022 11:59-0400 Body weight 129.5 kg Deandre Terry MD Work Phone: [facility] 07-09-2022 11:59-0400 Diastolic blood pressure 69 mm[Hg] Deandre Terry MD Work Phone: [facility] 07-09-2022 11:59-0400 Heart rate 64 /min Deandre Terry MD Work Phone: [facility] 07-09-2022 11:59-0400 Systolic blood pressure 126 mm[Hg] Deandre Terry MD Work Phone: [facility] 05-26-2022 09:33-0400 Body temperature 96.69 [degF] Treatment Wstr Work Phone: [facility] 05-26-2022 09:33-0400 Diastolic blood pressure 72 mm[Hg] Treatment Wstr Work Phone: [facility] 05-26-2022 09:33-0400 Heart rate 74 /min Treatment Wstr Work Phone: [facility] 05-26-2022 09:33-0400 Systolic blood pressure 118 mm[Hg] Treatment Wstr Work Phone: [facility] 05-24-2022 10:06-0400 Body temperature 98.01 [degF] Treatment Wstr Work Phone: [facility] 05-24-2022 10:06-0400 Diastolic blood pressure 60 mm[Hg] Treatment Wstr Work Phone: [facility] 05-24-2022 10:06-0400 Heart rate 74 /min Treatment Wstr Work Phone: [facility] 05-24-2022 10:06-0400 Systolic blood pressure 122 mm[Hg] Treatment Wstr Work Phone: [facility] 05-21-2022 09:52-0400 Body temperature 98.6 [degF] Treatment Wstr Work Phone: [facility] 05-21-2022 09:52-0400 Diastolic blood pressure 62 mm[Hg] Treatment Wstr Work Phone: [facility] 05-21-2022 09:52-0400 Heart rate 72 /min Treatment Wstr Work Phone: [facility] 05-21-2022 09:52-0400 Respiratory rate 18 /min Treatment Wstr Work Phone: [facility] 05-21-2022 09:52-0400 SaO2% (BldA) [Mass fraction] 100 % Treatment Wstr Work Phone: [facility] 05-21-2022 09:52-0400 Systolic blood pressure 121 mm[Hg] Treatment Wstr Work Phone: [facility] 05-11-2022 15:08-0400 Body height 172 cm Deandre Terry MD Work Phone: [facility] 05-11-2022 15:08-0400 Body temperature 97.59 [degF] Deandre Terry MD Work Phone: [facility] 05-11-2022 15:08-0400 Body weight 127.23 kg Deandre Terry MD Work Phone: [facility] 05-11-2022 15:08-0400 Diastolic blood pressure 71 mm[Hg] Deandre Terry MD Work Phone: [facility] 05-11-2022 15:08-0400 Heart rate 85 /min Deandre Terry MD Work Phone: [facility] 05-11-2022 15:08-0400 SaO2% (BldA) [Mass fraction] 99 % Deandre Terry MD Work Phone: [facility] 05-11-2022 15:08-0400 Systolic blood pressure 117 mm[Hg] Deandre Terry MD Work Phone: [facility] 04-20-2022 14:31-0400 Body weight 125.65 kg Ellen Older 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 Work Phone: [facility] 04-20-2022 14:31-0400 Diastolic blood pressure 58 mm[Hg] Ellen Older 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 Work Phone: [facility] 04-20-2022 14:31-0400 Heart rate 90 /min Ellen Older 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 Work Phone: [facility] 04-20-2022 14:31-0400 Respiratory rate 18 /min Ellen Older 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 Work Phone: [facility] 04-20-2022 14:31-0400 Systolic blood pressure 120 mm[Hg] Ellen Older 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 Work Phone: [facility] 04-02-2022 08:19-0400 Body temperature 97.59 [degF] Carla Praisler-Wood 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 Work Phone: [facility] 04-02-2022 08:19-0400 Body weight 128 kg Carla Praisler-Wood 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 Work Phone: [facility] 04-02-2022 08:19-0400 Diastolic blood pressure 72 mm[Hg] Carla Praisler-Wood 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 Work Phone: [facility] 04-02-2022 08:19-0400 Heart rate 86 /min Carla Praisler-Wood 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 Work Phone: [facility] 04-02-2022 08:19-0400 Respiratory rate 16 /min Carla Praisler-Wood 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 Work Phone: [facility] 04-02-2022 08:19-0400 SaO2% (BldA) [Mass fraction] 98 % Carla Praisler-Wood 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 Work Phone: [facility] 04-02-2022 08:19-0400 Systolic blood pressure 122 mm[Hg] Carla Prince 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 Work Phone: [facility] 03-08-2022 19:48-0400 Diastolic blood pressure 72 mm[Hg] Jordan Guevara MD Work Phone: [facility] 03-08-2022 19:48-0400 Heart rate 69 /min Jordan Guevara MD Work Phone: [facility] 03-08-2022 19:48-0400 Systolic blood pressure 105 mm[Hg] Jordan Guevara MD Work Phone: [facility] 03-08-2022 19:39-0400 Body temperature 97 [degF] Jordan Guevara MD Work Phone: [facility] 03-08-2022 19:39-0400 Body weight 126.1 kg Jordan Guevara MD Work Phone: [facility] 03-08-2022 19:39-0400 Respiratory rate 16 /min Jordan Guevara MD Work Phone: [facility] Encounters Encounter Date Encounter Type Care Provider Facility Start: 07-06-2024 End: 07-09-2024 Telephone encounter Jordan Guevara MD Work Phone: [facility] [place] Comment on above: Anticoagulation Start: 07-05-2024 End: 07-05-2024 ambulatory JORDAN GUEVARA Facility:[facility] Start: 05-08-2024 Refill Jordan martinez MD Work Phone: [facility] [place] Comment on above: Refill Request Start: 03-15-2024 Telephone encounter Ellen melendez 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 Work Phone: Hematology/Oncology Comment on above: Follow up/Labs Start: 03-15-2024 End: 03-15-2024 ambulatory Treatment Rm 9 Ferny [facility] Work Phone: Hematology/Oncology Comment on above: Dysmenorrhea (Primar y Dx); Iron deficiency anemia due to chronic blood loss Start: 03-09-2024 End: 03-09-2024 ambulatory Treatment Rm 3 Ferny [facility] Work Phone: Hematology/Oncology Comment on above: Iron deficiency anem ia due to chronic blood loss (Primary Dx) Start: 03-07-2024 End: 03-07-2024 ambulatory Treatment Rm 13 Fern[facility] Work Phone: Hematology/Oncology Comment on above: Iron deficiency anem ia due to chronic blood loss (Primary Dx) Start: 03-05-2024 End: 03-05-2024 ambulatory Treatment Rm 13 [facility] Work Phone: Hematology/Oncology Comment on above: Iron deficiency anem ia due to chronic blood loss (Primary Dx) Start: 03-01-2024 End: 03-01-2024 ambulatory Treatment Rm 13 [facility] Work Phone: Hematology/Oncology Comment on above: Dysmenorrhea (Primar y Dx); Iron deficiency anemia due to chronic blood loss; B12 deficiency Start: 02-09-2024 End: 02-09-2024 ambulatory NADYA GUEVARA Facility:[facility] Start: 02-09-2024 End: 02-09-2024 Nursing evaluation of patient and report Mi Nurse Work Phone: [facility] [place] Comment on above: B12 deficiency (Prim fior Dx) Start: 02-02-2024 End: 02-02-2024 ambulatory NADYA GUEVARA Facility:[facility] Start: 02-02-2024 End: 02-02-2024 Nursing evaluation of patient and report Mi Nurse Work Phone: [facility] [place] Comment on above: B12 deficiency (Prim fior Dx) Start: 01-27-2024 Telephone encounter Ellen melendez APRN.GROUT MACHINE OPERATOR Work Phone: [facility] [place] Comment on above: Anticoagulation Start: 01-26-2024 End: 01-26-2024 ambulatory NADYA GUEVARA Facility:[facility] Start: 01-26-2024 End: 01-26-2024 Nursing evaluation of patient and report Mi Nurse Work Phone: [facility] [place] Comment on above: B12 deficiency (Prim fior Dx) Start: 01-24-2024 Telephone encounter Ellen Rod Deandre melendez 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 Work Phone: [facility] [place] Comment on above: Orders Start: 01-17-2024 Telephone encounter Jordan hawk MD Work Phone: [facility] [place] Comment on above: Anticoagulation Start: 01-13-2024 Telephone encounter Ellen M Deandre melendez 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 Work Phone: [facility] [place] Start: 01-11-2024 End: 01-11-2024 ambulatory JORDAN GUEVARA Facility:[facility] Start: 01-11-2024 End: 01-11-2024 Patient encounter procedure Ellen Velasco Greg 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 Work Phone: [facility] [place] Comment on above: Closed nondisplaced fracture of lateral malleolus of right fibula with routine healing, subsequent encounter (Primary Dx); Dizziness; History of DVT of lower extremity; Iron deficiency anemia due to chronic blood loss; Vitamin B12 deficiency; Vitamin D deficiency Start: 01-09-2024 Telephone encounter Jordan hawk MD Work Phone: [facility] [place] Comment on above: Broken bone; blood c lot med prescribed at ER not covered Start: 08-05-2023 End: 08-05-2023 ambulatory Immunization [facility] [place] Work Phone: [facility] [place] Start: 08-03-2023 Refill Ellen WhitesideGROUT MACHINE OPERATOR Work Phone: Family [facility] Comment on above: Refill Request Start: 05-10-2023 Refill Jordan martinez MD Work Phone: [facility] [place] Comment on above: Refill Request Start: 01-20-2023 Refill Jordan martinez MD Work Phone: [facility] [place] Comment on above: Refill Request Start: 12-01-2022 Telephone encounter Ellen Garcia APRN.GROUT MACHINE OPERATOR Work Phone: Hematology/Oncology Comment on above: Appointment Start: 10-06-2022 Telephone encounter Deandre Terry MD Work Phone: Hematology/Oncology Comment on above: Appointment Cancelle d Start: 09-07-2022 End: 09-07-2022 Patient encounter procedure Ellen Garcia APRN.GROUT MACHINE OPERATOR Work Phone: [facility] [place] Comment on above: Chronic hand pain, r ight (Primary Dx); Iron deficiency anemia due to chronic blood loss; Adjustment disorder with mixed anxiety and depressed mood; Obesity, Class III, BMI >= 40; Encounter for immunization Start: 07-09-2022 End: 07-09-2022 ambulatory Deandre Terry MD Work Phone: Hematology/Oncology Comment on above: S/P gastric bypass ( Primary Dx); Acute deep vein thrombosis (DVT) of proximal vein of right lower extremity (HCC); Iron deficiency anemia, unspecified iron deficiency anemia type Start: 07-09-2022 End: 07-09-2022 Patient encounter procedure Deandre Terry MD Work Phone: [facility] Start: 06-16-2022 End: 06-16-2022 ambulatory Injection [facility] Work Phone: Hematology/Oncology Comment on above: B12 deficiency (Prim fior Dx); S/P gastric bypass Start: 06-09-2022 End: 06-09-2022 ambulatory Injection [facility] Work Phone: Hematology/Oncology Comment on above: B12 deficiency (Prim fior Dx); S/P gastric bypass Start: 06-02-2022 End: 06-02-2022 ambulatory Injection [facility] Work Phone: Hematology/Oncology Comment on above: B12 deficiency (Prim fior Dx); S/P gastric bypass Start: 05-26-2022 End: 05-26-2022 ambulatory Treatment Rm 7 [facility] Work Phone: Hematology/Oncology Comment on above: Iron deficiency anem ia due to chronic blood loss (Primary Dx); B12 deficiency; S/P gastric bypass Start: 05-24-2022 End: 05-24-2022 ambulatory Treatment Rm 12 [facility] Work Phone: Hematology/Oncology Comment on above: Iron deficiency anem ia due to chronic blood loss (Primary Dx) Start: 05-21-2022 End: 05-21-2022 ambulatory Treatment Rm 10 [facility] Work Phone: Hematology/Oncology Comment on above: Iron deficiency anem ia due to chronic blood loss (Primary Dx); B12 deficiency Start: 05-11-2022 End: 05-11-2022 ambulatory Deandre Terry MD Work Phone: Hematology/Oncology Comment on above: B12 deficiency (Prim fior Dx); S/P gastric bypass; Iron deficiency anemia, unspecified iron deficiency anemia type; Vitamin D deficiency; Anemia, unspecified type; Acute deep vein thrombosis (DVT) of proximal vein of right lower extremity (HCC); Family history of DVT Start: 05-11-2022 End: 05-11-2022 Patient encounter procedure Deandre Terry MD Work Phone: [facility] Start: 05-05-2022 Telephone encounter Ellen Garcia APRN.GROUT MACHINE OPERATOR Work Phone: [facility] [place] Comment on above: Results Start: 04-28-2022 Telephone encounter Ellen Garcia APRN.GROUT MACHINE OPERATOR Work Phone: [facility] [place] Comment on above: Appointment Start: 04-20-2022 End: 04-20-2022 Patient encounter procedure Ellen Garcia APRN.CNP Work Phone: [facility] [place] Comment on above: Anemia, unspecified type (Primary Dx); Acute deep vein thrombosis (DVT) of proximal vein of right lower extremity (HCC); Family history of DVT; B12 deficiency Start: 04-20-2022 Telephone encounter Jordan hawk MD Work Phone: [facility] [place] Comment on above: Patient Question Results (labs from [facility]) Start: 04-02-2022 End: 04-02-2022 Patient encounter procedure Carla Prince APRN.GROUT MACHINE OPERATOR [facility] Comment on above: Rash (Primary Dx) Start: 03-08-2022 End: 03-08-2022 Patient encounter procedure Jordan Guevara MD Work Phone: [facility] [place] Comment on above: Dizziness (Primary D x); Adjustment disorder with mixed anxiety and depressed mood; GERD without esophagitis; Seasonal allergic rhinitis due to pollen; B12 deficiency; Iron deficiency anemia due to chronic blood loss Start: 08-27-2020 End: 08-27-2020 Subsequent hospital visit by physician Xr [facility] [place] Work Phone: Radiology Comment on above: Cough [R05] Start: 07-14-2017 End: 07-29-2017 Patient encounter status Ellencyurs AdanGreg PLASTER MODEL AND MOLD MAKER.[facility] Work Phone: [facility] Work Phone: Start: 04-20-2017 End: 04-27-2017 Ambulatory [facility] Procedures Date Procedure Procedure Detail Performing Clinician Start: 08-05-2023 INFLUENZA VACCINE, A GE 6 MO - 64 YR, QUADRIVALENT (AFLURIA, FLULAVAL, FLUZONE) Jordan Guevara MD Work Phone: Start: 09-07-2022 INFLUENZA VACCINE QUADRIVALENT 6 MO - 64 YRS IM Ellen Older 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 Work Phone: Start: 09-07-2022 [employer] COVI D-19 BIVALENT BOOSTER VACCINE, AGE 12+ YR Ellen Older 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 Work Phone: Start: 05-21-2022 Blood count complete auto&auto difrntl wbc Deandre Terry MD Work Phone: Start: 03-08-2022 Adult depression scr eening assessment Jordan Guevara MD Work Phone: Start: 08-27-2020 Radiologic exam ches t 2 views Sahara Najera PA-C Work Phone: Plan of Treatment Date Care Activity Detail Author Start: 12-17-2024 Urine microalbumin profile [facility] Start: 06-03-2024 Covid-19 Vaccine ( season) Covid-19 Vaccine () [facility] Start: 06-03-2024 Influenza vaccination Influenza Vacc ine (#1) [facility] Start: 03-20-2024 HPV TESTING HPV TESTING [facility] Start: 03-20-2024 PAP TESTING PAP TESTING [facility] Start: 03-20-2024 Screening for malign ant neoplasm of cervix [facility] Start: 03-15-2024 End: 03-15-2024 Infusion Center 03/15/2024 1:30 PM EDT [facility] [address] [place] [address] 200MG IRON SUCROSE/#5-5/ ORDERING: ELLEN GREG/ AUTH EXP 10/02/24 * Hematology/Oncology Comment on above: 200MG IRON SUCROSE/# 5-5/ ORDERING: ELLEN GREG/ AUTH EXP 10/02/24 * Start: 03-12-2024 End: 03-12-2024 Infusion Center 03/12/2024 3:30 PM EDT [facility] [address] [place] [address] 200MG IRON SUCROSE/#5-5/ ORDERING: ELLEN GREG/ AUTH EXP ? * Hematology/Oncology Comment on above: 200MG IRON SUCROSE/# 5-5/ ORDERING: ELLEN GREG/ AUTH EXP ? * Start: 03-09-2024 End: 03-09-2024 [facility] Hematology/Oncology Comment on above: 200MG IRON SUCROSE/# 4-5/ ORDERING: ELLEN GREG/ AUTH EXP ? * 200MG IRON SUCROSE/# 4-5/ ORDERING: ELLEN GREG/ AUTH EXP 10/02/24 * Start: 03-07-2024 End: 03-07-2024 [facility] Hematology/Oncology Comment on above: 200MG IRON SUCROSE/# 3-5/ ORDERING: ELLEN GREG/ AUTH EXP ? * 200MG IRON SUCROSE/# 3-5/ ORDERING: ELLEN GREG/ AUTH EXP 10/02/24 * Start: 03-05-2024 End: 03-05-2024 [facility] Hematology/Oncology Comment on above: 200MG IRON SUCROSE/# 2-5/ ORDERING: ELLEN GREG/ AUTH EXP ? * 200MG IRON SUCROSE/# 2-5/ ORDERING: ELLEN GREG/ AUTH EXP 10/02/24* Start: 03-01-2024 End: 03-01-2024 Infusion Center 03/01/2024 2:30 PM EDT [facility] [address] [place] [address] START 200MG IRON SUCROSE/#1-5/ ORDERING: ELLEN GREG/ AUTH EXP ? * Hematology/Oncology Comment on above: START 200MG IRON SUC LAKHWINDER/#1-5/ ORDERING: ELLEN GREG/ AUTH EXP ? * Start: 02-23-2024 End: 02-23-2024 Nursing evaluation of patient and report 02/23/2024 2:00 PM EDT Nurse Visit [facility] [place] [address] [place] [address] Nurse, [place] [address] [address] [place] [address] B12 injection [facility] [place] Comment on above: B12 injection Start: 02-16-2024 End: 02-16-2024 Nursing evaluation of patient and report 02/16/2024 1:30 PM EDT Nurse [facility] [place] [address] [place] [address] Nurse, [place] [address] [place] [address] B12 injection [facility] Comment on above: B12 injection Start: 02-13-2024 End: 05-14-2024 CBC panel - Blood by Automated count COMPLETE BLOOD COUNT Lab Routine Iron deficiency anemia due to chronic blood loss B12 deficiency Expected: 02/13/2024 (Approximate), Expires: 05/14/[address] [facility] Comment on above: Expected: 02/13/2024 (Approximate), Expires: 05/14/2024 Start: 02-13-2024 End: 05-14-2024 Cobalamin (Vitamin B12) [Mass/volume] in Serum or Plasma VITAMIN B12 Lab Routine B12 deficiency Expected: 02/13/2024 (Approximate), Expires: 05/14/[address] [facility] Work Phone: Comment on above: Expected: 02/13/2024 (Approximate), Expires: 05/14/2024 Start: 02-13-2024 End: 05-14-2024 Ferritin [Mass/volume] in Serum or Plasma FERRITIN Lab Routine Iron deficiency anemia due to chronic blood loss Expected: 02/13/2024 (Approximate), Expires: 05/14/[address] [facility] Comment on above: Expected: 02/13/2024 (Approximate), Expires: 05/14/2024 Start: 02-13-2024 End: 05-14-2024 Iron and Iron binding capacity panel - Serum or Plasma IRON AND TIBC Lab Routine Iron deficiency anemia due to chronic blood loss Expected: 02/13/2024 (Approximate), Expires: 05/14/[address] [facility] Comment on above: Expected: 02/13/2024 (Approximate), Expires: 05/14/2024 Start: 02-09-2024 End: 02-09-2024 Nursing evaluation of patient and report 02/09/2024 1:30 PM EDT Nurse [facility] [place] [address] [place] [place] [address] Nurse, [address] [place] [address] B12 injection [facility] [place] Comment on above: B12 injection Start: 02-02-2024 End: 02-02-2024 Nursing evaluation of patient and report 02/02/2024 1:30 PM EDT Nurse Visit [facility] [place] [address] [place] [address] Nurse, [place] [address] [place] [address] [place] [address] B12 injections [facility] [place] Comment on above: B12 injections Start: 01-26-2024 End: 01-26-2024 Nursing evaluation of patient and report 01/26/2024 2:15 PM EDT Nurse Visit [facility] [place] [address] [place] [address] Nurse, [address] [place] [address] B12 injections [facility] [place] Comment on above: B12 injections Start: 10-03-2023 Behavioral Health Screening Behavioral Health Screening [facility] Start: 09-07-2023 HEPATITIS B (2 of 3 - 3-dose series) HEPATITIS B (2 of 3 - 3-dose series) [facility] Comment on above: Postponed from 03/01 (Declined at this time) Start: 09-07-2023 Hepatitis B Vaccine (2 of 3 - 3-dose series) Hepatitis B Vaccine (2 of 3 - 3-dose series) [facility] Comment on above: Postponed from 03/01 (Declined at this time) Start: 06-03-2023 Covid-19 Vaccine () Covid-19 Vaccine () [facility] Start: 06-03-2023 Influenza vaccination C [facility] Start: 03-08-2023 Adult depression screening assessment DEPRESSION SCREENING [facility] Start: 10-03-2022 DEPRESSION ASSESSMENT DEPRESSION ASS ESSMENT [facility] Start: 07-05-2022 End: 05-11-2023 US LEG VEIN DVT [facility] US LEG VEIN DVT [facility] Vascular Lab Routine Acute deep vein thrombosis (DVT) of proximal vein of right lower extremity (HCC) Expected: 07/05/2022, Expires: 05/11/2023 [facility] Work Phone: Comment on above: Expected: 07/05/2022 , Expires: 05/11/2023 Start: 06-03-2022 Influenza vaccination C [facility] Start: 05-11-2022 End: 07-11-2022 INTRINSIC FACTOR BLOCKING AB [facility] Work Phone: Comment on above: Expected: 05/11/2022 , Expires: 07/11/2022 Start: 05-11-2022 End: 07-11-2022 Methylmalonate [Moles/volume] in Serum or Plasma [facility] Work Phone: Comment on above: Expected: 05/11/2022 , Expires: 07/11/2022 Start: 04-20-2022 End: 06-20-2022 CBC panel - Blood by Automated count CBC Lab STAT Anemia, unspecified type Expected: 04/20/2022, Expires: 06/20/2022 [facility] Work Phone: Comment on above: Expected: 04/20/2022 , Expires: 06/20/2022 Start: 03-20-2022 Screening for malign ant neoplasm of cervix Cervical Cancer Screening [facility] Start: 03-08-2022 End: 05-08-2022 Basic metabolic 2000 panel - Serum or Plasma BASIC METABOLIC PNL Lab Routine Dizziness Expected: 03/08/2022, Expires: 05/08/2022 [facility] Work Phone: Comment on above: Expected: 03/08/2022 , Expires: 05/08/2022 Start: 03-08-2022 End: 05-08-2022 CBC panel - Blood by Automated count CBC Lab Routine Iron deficiency anemia due to chronic blood loss Expected: 03/08/2022, Expires: 05/08/2022 [facility] Work Phone: Comment on above: Expected: 03/08/2022 , Expires: 05/08/2022 Start: 03-08-2022 End: 05-08-2022 Hemoglobin.gastrointestin al.lower [Presence] in Stool by Immunoassay FECAL OCCULT BLOOD TEST Lab Routine Iron deficiency anemia due to chronic blood loss Expected: 03/08/2022, Expires: 05/08/2022 [facility] Work Phone: Comment on above: Expected: 03/08/2022 , Expires: 05/08/2022 Start: 03-08-2022 End: 05-08-2022 IRON + TIBC IRON + TIBC Lab Routine Iron deficiency anemia due to chronic blood loss Expected: 03/08/2022, Expires: 05/08/2022 [facility] Work Phone: Comment on above: Expected: 03/08/2022 , Expires: 05/08/2022 Start: 03-08-2022 End: 05-08-2022 VITAMIN B12 BLOOD VITAMIN B12 BLOOD Lab Routine B12 deficiency Expected: 03/08/2022, Expires: 05/08/2022 [facility] Work Phone: Comment on above: Expected: 03/08/2022 , Expires: 05/08/2022 Start: 12-03-2021 COVID-19 VACCINE (4 - Booster for Moderna series) COVID-19 VACCINE (4 - Booster for Moderna series) [facility] Start: 10-03-2021 DEPRESSION ASSESSMENT DEPRESSION ASS ESSMENT [facility] Start: 2003 Anxiety Screening Anxiety Screening [facility] Start: 2003 Depression Screening Depression Scre ening [facility] Start: 03-01-2002 HEPATITIS B (2 of 3 - 3-dose series) HEPATITIS B (2 of 3 - 3-dose series) [facility] Start: 03-01-2002 Hepatitis B Vaccine (2 of 3 - 3-dose series) Hepatitis B Vaccine (2 of 3 - 3-dose series) [facility] Ferritin [Mass/volum e] in Serum or Plasma FERRITIN BLD Lab Routine Iron deficiency anemia due to chronic blood loss B12 deficiency 05/21/2022 10:02 AM EDT [facility] Work Phone: Hemoglobin.gastroint estin al.lower [Presence] in Stool by Immunoassay FECAL OCCULT BLOOD TEST Lab Routine Anemia, unspecified type Ordered: 04/20/2022 [facility] Work Phone: Comment on above: Ordered: 04/20/2022 Iron and Iron bindin g capacity panel - Serum or Plasma IRON + TIBC Lab Routine Iron deficiency anemia due to chronic blood loss B12 deficiency 05/21/2022 10:02 AM EDT [facility] Work Phone: OCCULT BLD EXAM-DIAG OCCULT BLD EXAM-DIAG Microbiology Routine S/P gastric bypass Iron deficiency anemia, unspecified iron deficiency anemia type Ordered: 05/11/2022 [facility] Work Phone: Comment on above: Ordered: 05/11/2022 End: 01-08-2025 PT panel - Platelet poor plasma by Coagulation assay PROTHROMBIN TIME Lab Routine History of DVT of lower extremity Once per week for 56 Occurrences starting 01/09/2024 until 01/08/2025 [facility] Work Phone: Comment on above: Once per week for 56 Occurrences starting 01/09/2024 until 01/08/2025 [facility] Immunizations Immunization Date Immunization Notes Care Provider Lucille perez 08-05-2023 influenza, injectabl e, quadrivalent, contains preservative Immunization [place] Work Phone: [facility] Work Phone: 08-05-2023 influenza virus vaccine, unspecified formulation Jordan Guevara MD Work Phone: [facility] 09-07-2022 COVID-19 booster vaccine, age 12+ yr, bivalent (PFIZER-BIONTECH) Ellen Older 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 Work Phone: [facility] 09-07-2022 influenza, injectabl e, quadrivalent, contains preservative Ellen Older 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 Work Phone: [facility] 09-07-2022 influenza virus vaccine, unspecified formulation Ellen Older 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 Work Phone: [facility] 03-05-2021 COVID-19 vaccine, fu ll dose (MODERNA) Jordan Guevara MD Work Phone: [facility] Work Phone: 02-05-2021 COVID-19 vaccine, fu ll dose (MODERNA) Jordan Guevara MD Work Phone: [facility] Work Phone: 06-17-2020 influenza, injectabl e, quadrivalent, contains preservative Jordan Guevara MD Work Phone: [facility] 11-22-2018 influenza, injectabl e, quadrivalent, preservative free Jordan Guevara MD Work Phone: [facility] 07-29-2017 influenza, injectabl e, quadrivalent, preservative free Jordan Guevara MD Work Phone: [facility] 09-07-2016 influenza, injectabl e, quadrivalent, contains preservative Jordan Guevara MD Work Phone: [facility] 12-17-2014 tetanus toxoid, reduced diphtheria toxoid, and acellular pertussis vaccine, adsorbed Jordan Guevara MD Work Phone: [facility] Work Phone: 02-01-2002 hepatitis B vaccine, pediatric or pediatric/adolescent dosage Jordan Guevara MD Work Phone: [facility] Work Phone: 02-01-2002 hepatitis B vaccine, unspecified formulation Deandre Terry MD Work Phone: [facility] Payers Date Payer Category Payer Medicaid [id number] 2017 Medicaid [employer] [employer] [id number] 2017-Present [phone] [address] [place] [address] Medicaid [id number] 2017 Medicaid [id number] Social History Date Type Detail Facility Start: 01-07-2015 End: 09-07-2022 Tobacco smoking status NHIS Never smoked tobacco [facility] Work Phone: Start: 08-27-2020 End: 10-15-2021 Alcohol intake Current drinker of alcohol (finding) [facility] Start: 06-17-2020 History SDOH Alcohol Frequency [address] [facility] Start: 06-17-2020 History SDOH Alcohol Std Drinks [address] [facility] Start: 01-07-2015 History SDOH Alcohol Comment occasional [facility] Start: 1985 Sex Assigned At Not on file [facility] Start: 07-28-2020 End: 04-28-2022 Exposure to SARS-CoV-2 (event) Not sure [facility] Work Phone: Start: 01-07-2015 End: 09-07-2022 Tobacco use and exposure Smokeless tobacco non-user [facility] Start: 11-22-2018 End: 06-17-2020 History of Social function [facility] Work Phone: Start: 11-22-2018 End: 06-17-2020 Alcohol Use Disorder Identification Test - Consumption [AUDIT-C] [facility] Work Phone: How often to you hav e a drink containing alcohol? 2-4 times a month [facility] Work Phone: How many standard dr inks containing alcohol do you have on a typical day? 1 or [address] [facility] Work Phone: How often do you hav e 6 or more drinks on 1 occasion? Never [facility] Work Phone: Adult Depression Scr eening Assessment [address] [facility] Work Phone: Clinical Notes 07-14-2017 to 07-09-2024 Telephone Encounter - Mateo Delatorre MA - 07/09/2024 2:45 PM EDTTelephone Encounter - Mateo Delatorre MA - 07/09/2024 2:45 PM EDTTelephone Encounter - Ellen Garza APRN.CNP - 07/09/2024 2:39 PM EDT Note Date & Type Note Facility 07-09-2024 Telephone encounter Note TC to pt. Mailbox full - will try again later. [facility] 07-09-2024 Miscellaneous Notes TC to pt. Mailbox full - will try again later. Warfarin was only preventative during weight bearing restrictions due to ankle fracture. She is no longer taking, standing INR order discontinued Ellen Garza APRN.GROUT MACHINE OPERATOR Called pt again with same response. Last INR: 1.0 07/05/2024 Current dose of coumadin is: . Last date of dose change: can't tell. Previous INR (date and result): 01/26/24 was 1.0 also Additional Clinical Information or narrative: INR goal is 2-3. Called pt with no answer and unable to leave a voice mail. The mailbox is full Per dispense report pts last refill of warfarin 2mg was 03/21/24 30 tablets for 30 days. documented in this encounter [facility] 07-09-2024 Telephone encounter Note Warfarin was only preventative during weight bearing restrictions due to ankle fracture. She is no longer taking, standing INR order discontinued Ellen Garza APRN.GROUT MACHINE OPERATOR [facility] 07-09-2024 Telephone encounter Note Called pt again with same response. [facility] 07-06-2024 Telephone encounter Note Last INR: 1.0 07/05/2024 Current dose of coumadin is: . Last date of dose change: can't tell. Previous INR (date and result): 01/26/24 was 1.0 also Additional Clinical Information or narrative: INR goal is 2-3. Called pt with no answer and unable to leave a voice mail. The mailbox is full Per dispense report pts last refill of warfarin 2mg was 03/21/24 30 tablets for 30 days. [facility] 05-09-2024 Telephone encounter Note Patient notified, verbalized understanding. Patient declines scheduled an office visit at this time. She states that she will call back to schedule. [facility] 05-09-2024 Miscellaneous Notes Patient notified, verbalized understanding. Patient declines scheduled an office visit at this time. She states that she will call back to schedule. Patient due for routine follow-up with lab work already ordered. Warfarin (Coumadin) was only preventative after ankle fracture with restricted mobility. If she is back to normal weight bearing/activities this should be discontinued Ellen Garza APRN.CNP Prescription Refill Information The patient has been identified by name and date of : Yes Caregiver verified no other encounters exist for this prescription request: Yes Caregiver confirmed with patient/requestor that no other refills are due, in the near future, with this provider at this time: Yes The last office visit in the department: 01-11-24 Does the patient have a future office visit with this provider/department: No Requested Prescriptions Pending Prescriptions Disp Refills escitalopram oxalate (LEXAPRO) 20 mg tablet 30 tablet 2 Sig: Take 1 tablet by mouth once daily. warfarin (COUMADIN) 2 mg tablet 30 tablet 2 Sig: Take 1 tablet by mouth daily as directed. cetirizine (ZYRTEC) 10 mg tablet 30 tablet 2 Sig: Take 1 tablet by mouth once daily. EPINEPHrine (EPIPEN) 0.3 mg/0.3 mL auto-injector 2 Each 1 Sig: Inject 0.3 mL intramuscularly as needed. fluticasone (FLONASE) 50 mcg/actuation nasal spray 1 Each 1 Sig: Use 2 Sprays in each nostril once daily. Yecenia Villa May 08, 2024 4:06 PM documented in this encounter [facility] 05-09-2024 Telephone encounter Note Patient due for routine follow-up with lab work already ordered. Warfarin (Coumadin) was only preventative after ankle fracture with restricted mobility. If she is back to normal weight bearing/activities this should be discontinued Ellen Garza APRN.GROUT MACHINE OPERATOR [facility] 05-08-2024 Telephone encounter Note Prescription Refill Information The patient has been identified by name and date of : Yes Caregiver verified no other encounters exist for this prescription request: Yes Caregiver confirmed with patient/requestor that no other refills are due, in the near future, with this provider at this time: Yes The last office visit in the department: 01-11-24 Does the patient have a future office visit with this provider/department: No Requested Prescriptions Pending Prescriptions Disp Refills escitalopram oxalate (LEXAPRO) 20 mg tablet 30 tablet 2 Sig: Take 1 tablet by mouth once daily. warfarin (COUMADIN) 2 mg tablet 30 tablet 2 Sig: Take 1 tablet by mouth daily as directed. cetirizine (ZYRTEC) 10 mg tablet 30 tablet 2 Sig: Take 1 tablet by mouth once daily. EPINEPHrine (EPIPEN) 0.3 mg/0.3 mL auto-injector 2 Each 1 Sig: Inject 0.3 mL intramuscularly as needed. fluticasone (FLONASE) 50 mcg/actuation nasal spray 1 Each 1 Sig: Use 2 Sprays in each nostril once daily. Yecenia Salvador [facility] May 08, 2024 4:06 PM [facility] 03-17-2024 Telephone encounter Note Phoned patient and mother answered phone, daughter is sleeping. Went over notes below from Dr Anaya with understanding. She will pass along when daughter wakes up. [facility] 03-17-2024 Miscellaneous Notes Phoned patient and mother answered phone, daughter is sleeping. Went over notes below from Dr Anaya with understanding. She will pass along when daughter wakes up. 6 to 8 weeks after last infusion Ellen had ordered labs, so I just changed the expected date to 6 weeks from now. Patient presented to [facility] for final iron infusion and is requesting when she should have labs done after today. Please advise patient Renetta Banuelos documented in this encounter [facility] 03-16-2024 Telephone encounter Note 6 to 8 weeks after last infusion Ellen had ordered labs, so I just changed the expected date to 6 weeks from now. [facility] Work Phone: 03-15-2024 Telephone encounter Note Patient presented to [facility] for final iron infusion and is requesting when she should have labs done after today. Please advise patient Renetta Banuelos [facility] 02-09-2024 Note HNO ID: [id number] Author: GENI WATSON LPN Service: ? Author Type: LICENSED NURSE Type: Progress Notes Filed: 02/09/2024 13:43 Note Text: Patient presented for B12 injection administered in right arm, tolerated well. Geni Watson LPN February 09, 2024 1:39 PM [facility] 02-09-2024 History of Presen t illness Narrative Patient presented for B12 injection administered in right arm, tolerated well. Geni Watson LPN February 09, 2024 1:39 PM documented in this encounter [facility] 02-02-2024 Telephone encounter Note Patient was seen at the other building and another PSS called over and we scheduled patient for infusions. Makenzie Husain [facility] 02-02-2024 Miscellaneous Notes Patient was seen at the other building and another PSS called over and we scheduled patient for infusions. Makenzie Husain Left message with patient's mother to have patient call back before 5 PM today. Renetta Banuelos Attempted to contact patient but no answer and no voicemail. Should patioent call back, please schedule 5 doses iron sucrose. Renetta Banuelos Please adjust orders for [place] for scheduling/authorization purposes. Renetta Banuelos Please contact and schedule Patient for iron infusion. Courtney Ozuna LPN Patient notified of below results/recommendation, verbalized understanding. B12 injections scheduled for the next 4 weeks. Advised Patient that the office will be calling her tomorrow to schedule iron infusion, if she does not hear from the office by 1 PM Wendy is call in. Patient is currently taking 2mg Coumadin once daily, no missed doses, no new medications. Patient will come in 01/25/2024 to have levels drawn. Courtney Ozuna LPN Left message to call & speak to nurse. Courtney Ozuna LPN TC to pt. Spoke with mother again and she advised that she would let Wendy know to call the office for lab results. INR encounter created and routed to PCP. TC to patient - mother answered and stated that pt was still sleeping and will have her call back once she wakes up. Please let the patient know her lab results indicated worsening anemia due to iron and B12 deficiencies. She will need to resume iron infusions, see orders. She will also need set up for B12 injections IM once a week for four weeks, then every other week for four weeks, then once a month. Recheck levels in one month. Her Vitamin D was very low, stop the OTC Vitamin D and start high dose twice a week for three months, then once a week for maintenance. She is on Coumadin and INR was 1.0, please initiate anticoagulation encounter Ellen Garza APRN.GROUT MACHINE OPERATOR documented in this encounter [facility] 02-02-2024 Note HNO ID: [id number] Author: LADAN NEWELL LPN Service: ? Author Type: LICENSED NURSE Type: Progress Notes Filed: 02/02/2024 14:21 Note Text: Patient presents for B-12 injection. Denies any problems at this time. Patient instructed on any SE of medication, verbalized understanding and agreed to proceed with treatment. Tolerated injection well. Ladan Newell LPN [facility] 02-02-2024 History of Presen t illness Narrative Patient presents for B-12 injection. Denies any problems at this time. Patient instructed on any SE of medication, verbalized understanding and agreed to proceed with treatment. Tolerated injection well. Ladan Newell LPN documented in this encounter [facility] 02-02-2024 Telephone encounter Note Patient notified of results, verbalizes understanding of instructions. Ladan Newell LPN [facility] 02-02-2024 Miscellaneous Notes Patient notified of results, verbalizes understanding of instructions. Ladan Newell LPN TC to pt. Straight to voicemail which is not set up. Pt scheduled to come in tomorrow for b12 injections. Checking with [place] nurse to relay instructions at that time. No new instructions Ellen Garza APRN.GROUT MACHINE OPERATOR Several messages left with patient's mother to return call for results. Do you have any new instructions since week will be up this Tuesday? Will try again to reach patient. Left message with pts mother to have patient return call. Please see TE 01/23 also. Left message to call office. 01/27/2024 2:18 PM Increase Coumadin to 5 mg daily starting today. Recheck INR in one week. It looks like she has 2 mg tablets, does she have enough to take 2.5 tablets daily? Ellen Garza APRN.CNP Last INR: INR 1.0 01/26/2024 Current dose of coumadin is: 4 mg daily. Last date of dose change: 01/17/2024. Previous INR (date and result): 01/17/2024 1.0 Additional Clinical Information or narrative: INR goal = 2 to 3. documented in this encounter [facility] 02-01-2024 Telephone encounter Note TC to pt. Straight to voicemail which is not set up. Pt scheduled to come in tomorrow for b12 injections. Checking with [place] nurse to relay instructions at that time. [facility] 02-01-2024 Telephone encounter Note No new instructions Ellen Garza APRN.JEANIE [facility] 02-01-2024 Telephone encounter Note Several messages left with patient's mother to return call for results. Do you have any new instructions since week will be up this Tuesday? Will try again to reach patient. [facility] 01-30-2024 Telephone encounter Note Left message with pts mother to have patient return call. Please see TE 01/[address] [facility] 01-30-2024 Telephone encounter Note Left message with patient's mother to have patient call back before 5 PM today. Renetta Banuelos [facility] 01-27-2024 Telephone encounter Note Left message to call office. 01/27/2024 2:18 PM [facility] 01-27-2024 Telephone encounter Note Increase Coumadin to 5 mg daily starting today. Recheck INR in one week. It looks like she has 2 mg tablets, does she have enough to take 2.5 tablets daily? Ellen Garza APRN.GROUT MACHINE OPERATOR [facility] 01-27-2024 Telephone encounter Note Last INR: INR 1.0 01/26/2024 Current dose of coumadin is: 4 mg daily. Last date of dose change: 01/17/2024. Previous INR (date and result): 01/17/2024 1.0 Additional Clinical Information or narrative: INR goal = 2 to 3. [facility] 01-26-2024 Note HNO ID: [id number] Author: LADAN NEWELL LPN Service: ? Author Type: LICENSED NURSE Type: Progress Notes Filed: 01/26/2024 14:20 Note Text: Patient presents for B-12 injection. Denies any problems at this time. Patient instructed on any SE of medication, verbalized understanding and agreed to proceed with treatment. Tolerated injection well. Ladan Newell LPN [facility] 01-26-2024 History of Presen t illness Narrative Patient presents for B-12 injection. Denies any problems at this time. Patient instructed on any SE of medication, verbalized understanding and agreed to proceed with treatment. Tolerated injection well. Ladan Newell LPN documented in this encounter [facility] 01-25-2024 Telephone encounter Note Attempted to contact patient but no answer and no voicemail. Should patioent call back, please schedule 5 doses iron sucrose. Renetta Banuelos [facility] 01-25-2024 Telephone encounter Note Please adjust orders for [place] for scheduling/authorization purposes. Renetta Banuelos [facility] 01-24-2024 Telephone encounter Note Patient scheduled for nurse visit 01/26/24 to receive B-12 [address]. [address] order at this time. Ladan Newell LPN [facility] 01-24-2024 Miscellaneous Notes Patient scheduled for nurse visit 01/26/24 to receive B-[address]. [address] order at this time. Ladan Newell LPN documented in this encounter [facility] 01-24-2024 Telephone encounter Note Please contact and schedule Patient for iron infusion. Courtney Ozuna LPN [facility] 01-23-2024 Telephone encounter Note Patient notified of below results/recommendation, verbalized understanding. B12 injections scheduled for the next 4 weeks. Advised Patient that the office will be calling her tomorrow to schedule iron infusion, if she does not hear from the office by 1 PM Wendy is call in. Patient is currently taking 2mg Coumadin once daily, no missed doses, no new medications. Patient will come in 01/25/2024 to have levels drawn. Courtney Ozuna LPN [facility] 01-19-2024 Telephone encounter Note Left message to call & speak to nurse. Courtney Ozuna LPN [facility] 01-18-2024 Miscellaneous Notes INR goal = 2 to 3. Patient notified, verbalized understanding. What is the INR dosing range? Courtney Ozuna LPN Left message for Patient to call & speak to nurse. Courtney Ozuna LPN Increase Coumadin dose 4 mg daily. INR in 1 week. Last INR: INR 1.0 01/11/2024 Current dose of coumadin is: 2mg per med list. Coumadin started on 01/09/2024 TC to patient x2 - LM with mother to return call.. documented in this encounter [facility] 01-17-2024 Telephone encounter Note TC to pt. Spoke with mother again and she advised that she would let Wendy know to call the office for lab results. INR encounter created and routed to PCP. [facility] 01-13-2024 Telephone encounter Note TC to patient - mother answered and stated that pt was still sleeping and will have her call back once she wakes up. [facility] 01-13-2024 Telephone encounter Note Please let the patient know her lab results indicated worsening anemia due to iron and B12 deficiencies. She will need to resume iron infusions, see orders. She will also need set up for B12 injections IM once a week for four weeks, then every other week for four weeks, then once a month. Recheck levels in one month. Her Vitamin D was very low, stop the OTC Vitamin D and start high dose twice a week for three months, then once a week for maintenance. She is on Coumadin and INR was 1.0, please initiate anticoagulation encounter Ellen Garza APRN.JEANIE [facility] 01-11-2024 Instructions Ellen Garza APRN.JEANIE - 01/11/2024 12:40 PM EDT You will need to remain on warfarin until you are no longer immobilized in the walking boot. Have INR checked today and we will call you with dosing instructions documented in this encounter [facility] 01-11-2024 Note HNO ID: [id number] Author: ELLEN AGRZA APRN.CNP Service: ? Author Type: Nurse Practitioner Type: Progress Notes Filed: 01/12/2024 10:19 Note Text: CC: Patient presents with: ED Follow-up: Broken foot HPI Wendy Rg is a 38 year old female who presents today for ED follow up for her right lateral malleolus fracture and anticoagulant therapy. She tripped over the curb 01/06/24 and was seen at [facility]. She was diagnosed with the fracture and provided a walking boot and crutches. Because she has a history of DVT's, she was prescribed Eliquis to take as prophylaxis. Her insurance would not cover that so the prescription was changed to Warfarin on 01/09/24. The patient took her first dose 01/10/24. She also saw the orthopedic yesterday at [facility]. She reports being advised to continue using the boot and crutches for the next 2-3 weeks, then changing to kasie wraps for an additional 3 weeks, with full weight bearing capacity. Dizziness without syncope or LOC. This has been occurring with positional changes x 3 weeks. She denies SOB, CP, N/V, vision changes or palpations. She has experienced this in the past when it was related to her iron deficiency anemia. She denies black or bloody stool, hematuria or abnormal bruising or bleeding. She was last seen in hematology 07/2022. During that time she was getting iron infusions and b12 injections. Her LMP was 01/03/24 and she denies any chance of . Review of Systems Constitutional: Positive for activity change. Negative for appetite change, chills and diaphoresis. Respiratory: Negative for cough and shortness of breath. Cardiovascular: Negative for chest pain, palpitations and leg swelling. Gastrointestinal: Negative for abdominal pain, blood in stool and diarrhea. Endocrine: Negative for cold intolerance and heat intolerance. Genitourinary: Negative for difficulty urinating and hematuria. Neurological: Positive for dizziness. Negative for seizures, syncope, weakness, numbness and headaches. Hematological: Negative for adenopathy. Does not bruise/bleed easily. Psychiatric/Behavioral: Negative for agitation, confusion, sleep disturbance and suicidal ideas. PAST MEDICAL HISTORY Diagnosis Date Acute deep vein thrombosis (DVT) of proximal vein of right lower extremity (HCC) 05/05/2022 Adjustment disorder with mixed anxiety and depressed mood 11/22/2018 Allergic rhinitis, cause unspecified Cholelithiasis Closed nondisplaced fracture of lateral malleolus 01/06/2024 Dysmenorrhea 11/22/2018 Dr. Constanza Brizuela. 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 ALLERGIES [place], Augmentin [Amoxicillin-Pot Clavulanate], Morphine, and [place] MEDICATIONS Cholecalciferol, Vitamin D3, 50 mcg (2,000 unit) cap Take 2 capsules by mouth once daily. warfarin (COUMADIN) 2 mg tablet Take 1 tablet by mouth daily as directed. escitalopram oxalate (LEXAPRO) 20 mg tablet Take 1 tablet by mouth once daily. cetirizine (ZYRTEC) 10 mg tablet Take 1 tablet by mouth once daily. EPINEPHrine (EPIPEN) 0.3 mg/0.3 mL auto-injector Inject 0.3 mL intramuscularly as needed. fluticasone (FLONASE) 50 mcg/actuation nasal spray Use 2 Sprays in each nostril once daily. pantoprazole DR (PROTONIX) 40 mg tablet Take 1 tablet by mouth once daily. ferrous sulfate 325 mg (65 mg iron) tablet Take 1 tablet by mouth once daily. multivit no.50/iron comp/folic ( 23-IRON PS-FOLIC ACID ORAL) Take 1 tablet by mouth twice daily. cyanocobalamin, vitamin B-12, 2,000 mcg tab Take 2 tablets by mouth once daily. FAMILY HISTORY Problem Relation Age of Onset Blood Disease Father hiv Cancer Father prostrate Colon Cancer Father Headache Father Hypertension Father Prostate Cancer Father Allergies Mother Asthma Mother Coronary Artery Disease Mother Diabetes Mother Headache Mother Hypertension Mother Lipids Mother Thyroid Mother Alcohol/Drug Maternal Uncle Allergies Maternal Aunt Allergies Sister bees Alzheimer's Disease Paternal Grandfather Arthritis Paternal Grandfather Coronary Artery Disease Paternal Grandfather Diabetes Paternal Grandfather Arthritis Daughter Blood Disease Other Coronary Artery Disease Maternal Grandmother Seizures Maternal Grandmother Coronary Artery Disease Maternal Grandfather Hypertension Maternal Grandfather Coronary Artery Disease Paternal Grandmother Coronary Artery Disease Maternal Aunt (more content not included)... [facility] 01-11-2024 History of Presen t illness Narrative Images from the original note were not included. CC: Patient presents with: ED Follow-up: Broken foot HPI Wendy Rg is a 38 year old female who presents today for ED follow up for her right lateral malleolus fracture and anticoagulant therapy. She tripped over the curb 01/06/24 and was seen at [facility]. She was diagnosed with the fracture and provided a walking boot and crutches. Because she has a history of DVT's, she was prescribed Eliquis to take as prophylaxis. Her insurance would not cover that so the prescription was changed to Warfarin on 01/09/24. The patient took her first dose 01/10/24. She also saw the orthopedic yesterday at [facility]. She reports being advised to continue using the boot and crutches for the next 2-3 weeks, then changing to kasie wraps for an additional 3 weeks, with full weight bearing capacity. Dizziness without syncope or LOC. This has been occurring with positional changes x 3 weeks. She denies SOB, CP, N/V, vision changes or palpations. She has experienced this in the past when it was related to her iron deficiency anemia. She denies black or bloody stool, hematuria or abnormal bruising or bleeding. She was last seen in hematology 07/2022. During that time she was getting iron infusions and b12 injections. Her LMP was 01/03/24 and she denies any chance of . Review of Systems Constitutional: Positive for activity change. Negative for appetite change, chills and diaphoresis. Respiratory: Negative for cough and shortness of breath. Cardiovascular: Negative for chest pain, palpitations and leg swelling. Gastrointestinal: Negative for abdominal pain, blood in stool and diarrhea. Endocrine: Negative for cold intolerance and heat intolerance. Genitourinary: Negative for difficulty urinating and hematuria. Neurological: Positive for dizziness. Negative for seizures, syncope, weakness, numbness and headaches. Hematological: Negative for adenopathy. Does not bruise/bleed easily. Psychiatric/Behavioral: Negative for agitation, confusion, sleep disturbance and suicidal ideas. PAST MEDICAL HISTORY Diagnosis Date Acute deep vein thrombosis (DVT) of proximal vein of right lower extremity (HCC) 05/05/2022 Adjustment disorder with mixed anxiety and depressed mood 11/22/2018 Allergic rhinitis, cause unspecified Cholelithiasis Closed nondisplaced fracture of lateral malleolus 01/06/2024 Dysmenorrhea 11/22/2018 Dr. Constanza Brizuela. 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 ALLERGIES [place], Augmentin [Amoxicillin-Pot Clavulanate], Morphine, and [place] MEDICATIONS Cholecalciferol, Vitamin D3, 50 mcg (2,000 unit) cap Take 2 capsules by mouth once daily. warfarin (COUMADIN) 2 mg tablet Take 1 tablet by mouth daily as directed. escitalopram oxalate (LEXAPRO) 20 mg tablet Take 1 tablet by mouth once daily. cetirizine (ZYRTEC) 10 mg tablet Take 1 tablet by mouth once daily. EPINEPHrine (EPIPEN) 0.3 mg/0.3 mL auto-injector Inject 0.3 mL intramuscularly as needed. fluticasone (FLONASE) 50 mcg/actuation nasal spray Use 2 Sprays in each nostril once daily. pantoprazole DR (PROTONIX) 40 mg tablet Take 1 tablet by mouth once daily. ferrous sulfate 325 mg (65 mg iron) tablet Take 1 tablet by mouth once daily. multivit no.50/iron comp/folic ( 23-IRON PS-FOLIC ACID ORAL) Take 1 tablet by mouth twice daily. cyanocobalamin, vitamin B-12, 2,000 mcg tab Take 2 tablets by mouth once daily. FAMILY HISTORY Problem Relation Age of Onset Blood Disease Father hiv Cancer Father prostrate Colon Cancer Father Headache Father Hypertension Father Prostate Cancer Father Allergies Mother Asthma Mother Coronary Artery Disease Mother Diabetes Mother Headache Mother Hypertension Mother Lipids Mother Thyroid Mother Alcohol/Drug Maternal Uncle Allergies Maternal Aunt Allergies Sister bees Alzheimer's Disease Paternal Grandfather Arthritis Paternal Grandfather Coronary Artery Disease Paternal Grandfather Diabetes Paternal Grandfather Arthritis Daughter Blood Disease Other Coronary Artery Disease Maternal Grandmother Seizures Maternal Grandmother Coronary Artery Disease Maternal Grandfather Hypertension Maternal Grandfather Coronary Artery Disease Paternal Grandmother Coronary Artery Disease Maternal Aunt Coronary Artery Disease Maternal Uncle Diabetes Maternal Aunt Diabetes Maternal Uncle Emphysema Paternal Aunt great aunt Headache Sister Headache Brother Hypertension Maternal Aunt Hypertension Maternal Uncle Seizures Maternal Uncle Seizures Maternal Aunt Stroke Maternal Aunt Social History Tobacco Use Smoking status: Never Smokeless tobacco: Never Vaping Use Vaping Use: Never used Substance Use Topics Alcohol use: Yes Comment: occasional Drug use: No BP 122/70 Pulse 73 Resp 18 LMP 02/06/2023 (Exact Date) SpO2 99% Physical Exam Constitutional: Appearance: She is obese. HENT: Mouth/Throat: Mouth: Mucous membranes are pale. Eyes: Comments: Conjunctivae pallor Cardiovascular: Rate and Rhythm: Normal rate and regular rhythm. Pulses: Normal pulses. Heart sounds: Normal heart sounds, S1 normal and S2 normal. No murmur heard. Pulmonary: Effort: Pulmonary effort is normal. Breath sounds: Normal breath sounds. No wheezing. Chest: Chest wall: No tenderness. Abdominal: General: Bowel sounds are normal. Palpations: Abdomen is soft. Tenderness: There is no abdominal tenderness. Musculoskeletal: General: Signs of injury present. Right lower leg: No edema. Left lower leg: No edema. Right ankle: Swelling present. Tenderness present over the lateral malleolus. Left ankle: Normal. Legs: Comments: Hematoma in various stages of healing. No open wounds, lacerations or abrasions. Skin: General: Skin is warm and dry. Capillary Refill: Capillary refill takes less than 2 seconds. Coloration: Skin is pale. Findings: No bruising. Neurological: General: No focal deficit present. Mental Status: She is alert and oriented to person, place, and time. GCS: GCS eye subscore is 4. GCS verbal subscore is 5. GCS motor subscore is 6. Sensory: Sensation is intact. Motor: Motor function is intact. Psychiatric: Mood and Affect: Mood normal. Behavior: Behavior is cooperative. DATA REVIEWED: Outside chart from [facility] ER. Most recent labs ASSESSMENT/PLAN: 1. Closed nondisplaced fracture of lateral malleolus of right fibula with routine healing, subsequent encounter - ICD9: V54.19, ICD10: S82.64XD (primary diagnosis) See HPI. Injury occurred 01/06/24. Was evaluated at [facility] and provided a walking boot and crutches. Has no complaints or requests for pain control. - Follow up with orthopedics as advised - Notify the office when the walking boot has been discontinued and normal activity resumed, Warfarin can be discontinued at that time 2. Dizziness - ICD9: 780.4, ICD10: R42 See HPI. Started 3 weeks ago. Concerned about her iron deficiency anemia and vitamin b12 and D deficiencies. She has not been to hematology since 2021. Denies cardiac or respiratory symptoms. No headaches, trauma or neurological deficits. - COMPLETE BLOOD COUNT - IRON AND TIBC - FERRITIN - COMPREHENSIVE METABOLIC PANEL 3. History of DVT of lower extremity - ICD9: V12.51, ICD10: Z86.718 Started warfarin 2mg daily on 01/10/24 for prophylactic treatment from injury.Standing order placed in lab for PT/INR and patient aware she will need routine monitoring. - Stay on consistent diet - Monitor for abnormal bruising/bleeding - Take warfarin at the same time daily - Get initial PT/INR done today. - Will call with dosage changes as need until reaching a therapeutic level - Warfarin will be discontinued once patient returns to normal activity. 4. Iron deficiency anemia due to chronic blood loss - ICD9: 280.0, ICD10: D50.0 See HPI. Last seen at Hematology for iron infusions and b12 injections 07/2022. Has had positional dizziness x 3 weeks which occurs when the patient has low blood counts. - COMPLETE BLOOD COUNT - IRON AND TIBC - FERRITIN - COMPREHENSIVE METABOLIC PANEL 5. Vitamin B12 deficiency - ICD9: 266.2, ICD10: E53.8 - COMPLETE BLOOD COUNT - VITAMIN B12 - COMPREHENSIVE METABOLIC PANEL 6. Vitamin D deficiency - ICD9: 268.9, ICD10: E55.9 - CHOLECALCIFEROL (VITAMIN D3) 50 MCG (2,000 UNIT) CAPSULE - VITAMIN D 25 HYDROXY Prescription instructions reviewed with patient as applicable. Potential red flag symptoms discussed with the patient. Reviewed appropriate action plan to take if red flag symptoms occur. Patient agreeable to treatment plan. documented in this encounter [facility] 01-09-2024 Miscellaneous Notes patient is ok with medication, warfarin and send to [facility]. Patient is seeing Ellen this Tuesday for ER follow up. please review and advise further for meds and lab orders Gladys Brantley LPN I reviewed ER report. She was prescribed Eliquis because of her history of DVT. She does not have a DVT at this time so this is for prevention. For prevention, we can use warfarin starting at 2 mg daily. She will need to come for frequent monitoring to get this medication in range ( INR 2-3 ) by adjustments in dose. As with any potent blood thinner, there is risk for hemorrhage so watch for s/s of bleeding and avoid situations that increase risk of trauma. If she is okay, I will set up standing labs and send prescription. Patient said she went to the ER on Tuesday with a ankle fracture. Was prescribed Eliquis for blood clots, but it is not covered by insurance. Wants to know if something else can be prescribed. Please call her at [phone]. documented in this encounter [facility] 08-03-2023 Miscellaneous Notes ALBERTO: 03/11/2023 NOV: none scheduled Patient has been identified by name and date of : Yes Requested Prescriptions Pending Prescriptions Disp Refills escitalopram oxalate (LEXAPRO) 20 mg tablet 30 tablet 2 Sig: Take 1 tablet by mouth once daily. cetirizine (ZYRTEC) 10 mg tablet 30 tablet 2 Sig: Take 1 tablet by mouth once daily. EPINEPHrine (EPIPEN) 0.3 mg/0.3 mL auto-injector 2 Each 1 Sig: Inject 0.3 mL intramuscularly as needed. RX INSTRUCTIONS: Patient aware RX will be sent to pharmacy. No need to notify patient. Elena Solis documented in this encounter [facility] 05-10-2023 Miscellaneous Notes Patient has been identified by name and date of : Yes, Patient phones for refill(s): Requested Prescriptions Pending Prescriptions Disp Refills escitalopram oxalate (LEXAPRO) 20 mg tablet 30 tablet 1 Sig: Take 1 tablet by mouth once daily. cetirizine (ZYRTEC) 10 mg tablet 30 tablet 1 Sig: Take 1 tablet by mouth once daily. amitriptyline (ELAVIL) 25 mg tablet 30 tablet 1 Sig: Take 1 tablet by mouth daily at bedtime. fluticasone (FLONASE) 50 mcg/actuation nasal spray 1 Each 1 Sig: Use 2 Sprays in each nostril once daily. pantoprazole DR (PROTONIX) 40 mg tablet 30 tablet 5 Sig: Take 1 tablet by mouth once daily. Date of last office visit in primary care: 03/11/2023 No future appt scheduled. Last 2 Encounter Wt Readings: Date: Wt: 03/11/2023 133.6 kg (294 lb 8 oz) 09/07/2022 132 kg (291 lb) Previous labs/tests for medication: Not applicable Please advise. Thank you. Courtney Ozuna LPN Patient has been identified by name and date of : Yes Last office visit in this department: 03/11/2023 RX INSTRUCTIONS: Patient aware RX will be sent to pharmacy. No need to notify patient. Patient phones requesting refills as follows: Requested Prescriptions Pending Prescriptions Disp Refills escitalopram oxalate (LEXAPRO) 20 mg tablet 30 tablet 1 Sig: Take 1 tablet by mouth once daily. cetirizine (ZYRTEC) 10 mg tablet 30 tablet 1 Sig: Take 1 tablet by mouth once daily. amitriptyline (ELAVIL) 25 mg tablet 30 tablet 1 Sig: Take 1 tablet by mouth daily at bedtime. fluticasone (FLONASE) 50 mcg/actuation nasal spray 1 Each 1 Sig: Use 2 Sprays in each nostril once daily. pantoprazole DR (PROTONIX) 40 mg tablet 30 tablet 5 Sig: Take 1 tablet by mouth once daily. Please review and advise. Madhuri Wang documented in this encounter [facility] 01-20-2023 Miscellaneous Notes Spoke to Patient, reports she is taking meds as prescribed, maybe missed a week . Last office visit: 09/07/2022 6 month follow-up: 03/09/2023 Courtney Ozuna LPN Patient has been identified by name and date of : Yes Last office visit in this department: 09/07/2022 RX INSTRUCTIONS: Patient aware RX will be sent to pharmacy. No need to notify patient. Patient phones requesting refills as follows: Requested Prescriptions Pending Prescriptions Disp Refills escitalopram oxalate (LEXAPRO) 20 mg tablet 30 tablet 5 Sig: Take 1 tablet by mouth once daily. cetirizine (ZYRTEC) 10 mg tablet 30 tablet 5 Sig: Take 1 tablet by mouth once daily. amitriptyline (ELAVIL) 10 mg tablet 30 tablet 1 Sig: Take 1 tablet by mouth daily at bedtime. fluticasone (FLONASE) 50 mcg/actuation nasal spray 1 Each 5 Sig: Use 2 Sprays in each nostril once daily. EPINEPHrine (EPIPEN) 0.3 mg/0.3 mL auto-injector 2 Each 1 Sig: Inject 0.3 mL intramuscularly as needed. Please review and advise. Mariangel Fenrandes Pss documented in this encounter [facility] 12-06-2022 Miscellaneous Notes Noted Ellen Garcia APRN.CNP FYI-Pt has failed to show to all her B12 injections since Jun. For now I am taking her off of our injection schedule. I tried to call her to follow up with her to see if she is getting inj elsewhere, is she taking oral? Went straight to and was full, unable to leave message. Arpita Caceres LPN documented in this encounter [facility] 10-07-2022 Miscellaneous Notes Cancelled. Renetta Banuelos Pt called to state she was not able to come to apt today 10/06/22. Did not need to r/s. documented in this encounter [facility] 09-07-2022 Instructions Ellen Garcia APRN.CNP - 09/07/2022 1:27 PM EST Call [facility] for appointment, they already have the referral we faxed Start amitriptyline for chronic pain in hands. Take at bedtime. Let me know in a few weeks if it is not effective and we can increase the dose. documented in this encounter [facility] 09-07-2022 History of Presen t illness Narrative CC: Patient presents with: F/U 6 months HPI Wendy Rg is a 37 year old female who presents today for above. She reports pain in right hand that is chronic. Usually manageable but some days pain is severe and can barely grasp objects in her hands. A couple knuckles look swollen at times but otherwise no redness or increased warmth. She has tried taking Tylenol when it flares up but doesn't help. She had acute DVT secondary to BCP. She was on Eliquis, recently diccontinued. Repeat ultrasound showed no evidence of acute or chronic DVT Iron deficiency anemia Taking ferrous sulfate daily along with iron infusions. She denies lightheadedness, feeling faint, syncope, pre-syncope, SOB, palpitations, chest pain. No black/bloody stools. She was referred to GI in May and stool occult blood ordered, patient never scheduled appointment or turned in stool sample. Adjustment disorder with mixed anxiety and depressed mood Doing really well on current dose of Lexapro. Denies feeling down, depressed, hopeless, anhedonia, anxiety, insomnia, or suicidal thoughts. REVIEW OF SYSTEMS GENERAL: Negative for malaise, significant weight loss and fever RESPIRATORY: Negative for cough, wheezing and shortness of breath CARDIOVASCULAR: SEE HPI All other systems negative. PAST MEDICAL HISTORY Diagnosis Date Adjustment disorder with mixed anxiety and depressed mood 11/22/2018 Allergic rhinitis, cause unspecified Cholelithiasis Dysmenorrhea 11/22/2018 Dr. Constanza Brizuela. 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 ALLERGIES [place], Augmentin [Amoxicillin-Pot Clavulanate], Morphine, and [place] MEDICATIONS multivit no.50/iron comp/folic ( 23-IRON PS-FOLIC ACID ORAL) Take 1 tablet by mouth twice daily. escitalopram oxalate (LEXAPRO) 20 mg tablet Take 1 tablet by mouth once daily. pantoprazole DR (PROTONIX) 40 mg tablet Take 1 tablet by mouth once daily. cetirizine (ZYRTEC) 10 mg tablet Take 1 tablet by mouth once daily. fluticasone (FLONASE) 50 mcg/actuation nasal spray Use 2 Sprays in each nostril once daily. EPINEPHrine (EPIPEN) 0.3 mg/0.3 mL auto-injector Inject 0.3 mL intramuscularly as needed. cyanocobalamin, vitamin B-12, 2,000 mcg tab Take 2 tablets by mouth once daily. Cholecalciferol, Vitamin D3, 2,000 unit cap Take 3 capsules by mouth once daily. (Patient taking differently: Take 2 capsules by mouth once daily.) FAMILY HISTORY Problem Relation Age of Onset Blood Disease Father hiv Cancer Father prostrate Colon Cancer Father Headache Father Hypertension Father Prostate Cancer Father Allergies Mother Asthma Mother Coronary Artery Disease Mother Diabetes Mother Headache Mother Hypertension Mother Lipids Mother Thyroid Mother Alcohol/Drug Maternal Uncle Allergies Maternal Aunt Allergies Sister bees Alzheimer's Disease Paternal Grandfather Arthritis Paternal Grandfather Coronary Artery Disease Paternal Grandfather Diabetes Paternal Grandfather Arthritis Daughter Blood Disease Other Coronary Artery Disease Maternal Grandmother Seizures Maternal Grandmother Coronary Artery Disease Maternal Grandfather Hypertension Maternal Grandfather Coronary Artery Disease Paternal Grandmother Coronary Artery Disease Maternal Aunt Coronary Artery Disease Maternal Uncle Diabetes Maternal Aunt Diabetes Maternal Uncle Emphysema Paternal Aunt great aunt Headache Sister Headache Brother Hypertension Maternal Aunt Hypertension Maternal Uncle Seizures Maternal Uncle Seizures Maternal Aunt Stroke Maternal Aunt Social History Tobacco Use Smoking status: Never Smokeless tobacco: Never Vaping Use Vaping Use: Never used Substance Use Topics Alcohol use: Yes Comment: occasional Drug use: No PHYSICAL EXAM BP 110/63 Pulse 80 Resp 18 Wt 132 kg (291 lb) LMP 09/19/2017 BMI 44.62 kg/m General Appearance: well appearing, in no acute distress, alert Pysch: mood and affect broad and appropriate Lungs: Lungs clear to auscultation. No wheezing, rhonchi, rales. Heart: RRR without murmur, gallop, or rubs. No ectopy Ext: good distal pulses, capillary refill < 2 seconds. Right hand-no joint swelling, redness, increased warmth or tenderness. Full and painless ROM. No crepitus Health maintenance reviewed with patient: HEPATITIS B(2 of 3 - 3-dose series) due on 03/01/2002 DEPRESSION ASSESSMENT Never done COVID-19 VACCINE(4 - Booster for Moderna series) due on 12/03/2021 INFLUENZA(1) due on 06/03/2022 PAP TESTING due on 03/20/2024 HPV TESTING due on 03/20/2024 DTAP,TDAP,TD(2 - Td or Tdap) due on 12/17/2024 HEPATITIS C SCREENING Completed HIV SCREENING Completed DATA REVIEWED: Most recent labs ASSESSMENT/PLAN: 1. Chronic hand pain, right - ICD9: 729.5, 338.29, ICD10: M79.641, G89.29 (primary diagnosis) Possible arthritis or overuse. Discussed options including changing Lexapro to Cymbalta or starting Elavil. Patient does not want to switch antidepressants since she is doing so well on Lexapro. Agreeable to starting Elavil, see orders. She will update me in a few weeks on effectiveness. 2. Iron deficiency anemia due to chronic blood loss - ICD9: 280.0, ICD10: D50.0 Iron infusions and monitoring per hematology 3. Adjustment disorder with mixed anxiety and depressed mood - ICD9: 309.28, ICD10: F43.23 Stable on Lexapro 4. Obesity, Class III, BMI >= 40 - ICD9: 278.01, ICD10: E66.01 Stable 5. Encounter for immunization - ICD9: V03.89, ICD10: Z23 - INFLUENZA VACCINE QUADRIVALENT 6 MO - 64 YRS IM - PFIZER-BIONTECH COVID-19 BIVALENT BOOSTER VACCINE, AGE 12+ YR Prescription instructions reviewed with patient as applicable. Potential red flag symptoms discussed with the patient. Reviewed appropriate action plan to take if red flag symptoms occur. Patient agreeable to treatment plan. Ellen Garcia APRN.CNP documented in this encounter [facility] 07-09-2022 History of Presen t illness Narrative PATIENT NAME: Wendy Rg. CLINIC NO: [id number]. ATTENDING PHYSICIAN: Deandre Terry MD. DATE OF SERVICE:05/11/2022. DIAGNOSIS: 1) Anemia; iron and vitamin B12 deficiency -History of gastric bypass 2) acute DVT of the right leg secondary to control pills HPI 36-year-old lady who has history of obesity and gastric bypass presented to the emergency room with symptomatic anemia after starting apixaban for acute DVT of the right leg. She has a history of iron deficiency anemia. She had abnormal menstrual bleeding but recently has stopped menstruating. She had a gastric bypass in 2017. She is on a vitamin with iron and vitamin B12 replacement therapy. She noted a family history of clotting disorder. She has moderate fatigue and frequent headaches but denies increased lethargy. She denies chest pain, shortness of breath or palpitation. She had lightheadedness when she presented to the emergency room. She also noticed leg cramps which has improved since she had blood transfusion. She has no unusual bleeding or bruising on Eliquis. No history of peptic ulcer disease, rectal bleeding or melena. Interim history: Brad is feeling better after iron infusion. Her anemia has improved. She still have and the menstrual bleeding during her period because of Eliquis. She has no calf swelling or tenderness. Repeat Doppler study her for lower extremity showed no evidence of DVT or superficial phlebitis. He is doing well on oral iron supplement. All medications & allergies updated and reviewed by me. REVIEW OF SYSTEMS: CONSTITUTIONAL: No fevers, chills, nightsweats, unintended weight loss or fatigue HEENT: Denies frequent or severe heaches, nasal congestion/sinus symptoms, problematic allergy problems. EYES: No diplopia or blurry vision. CARDIOVASCULAR: No chest pain, dyspnea, palpitations, orthopnea, PND, ankle edema. PULM: No dyspnea, unexplained cough. GI: No dysphagia/odynophagia, problematic reflux, constipation, diarrhea, changes in stool habits, hematochezia, melena. : No new urinary complaints, including dysuria, gross hematuria or pyuria. NEURO: No new balance problems, peripheral weakness/paresthesias or numbness of concern. MUSC-SKEL: No new joint pain, swelling, or erythema. PSY: No concerns regarding depression, anxiety or panic. INTEGUMENTARY: No new skin changes (rash, new or changing mole, new growth) PHYSICAL EXAMINATION: BP 126/69 Pulse 64 Temp (Src) 97.1 (Temporal) Wt 285 lb 8 oz (129.5kg) LMP 09/19/2017 HEENT: Head is normocephalic, atraumatic. Sclerae white, conjunctivae pink. PEERL. EOMs are intact. Oropharynx is benign. LYMPHATICS: There is no palpable adenopathy in the neck, supraclavicular region, axillae, or groin. LUNGS: Lungs are clear to percussion and auscultation. HEART: Heart is normal without murmurs, gallops, or rubs. ABDOMEN: Obese, soft and nontender without organomegaly. No masses can be palpated. EXTREMITIES: Are without edema. Peripheral pulses intact. NEUROLOGIC: Exam is physiologic LABORATORY DATA: Component Latest Ref Rng & Units 06/09/2022 WBC 3.70 - 11.00 k/uL 7.90 RBC 3.90 - 5.20 m/uL 4.69 Hemoglobin 11.5 - 15.5 g/dL 10.7 (L) Hematocrit 36.0 - 46.0 % 35.1 (L) MCV 80.0 - 100.0 fL 74.8 (L) MCH 26.0 - 34.0 pg 22.8 (L) MCHC 30.5 - 36.0 g/dL 30.5 RDW-CV 11.5 - 15.0 % 28.5 (H) Platelet Count 150 - 400 k/uL 364 MPV 9.0 - 12.7 fL 9.8 Neut% % 48.2 Abs Neut (ANC) 1.45 - 7.50 k/uL 3.81 Lymph% % 37.8 Abs Lymph 1.00 - 4.00 k/uL 2.99 [place]% % 7.0 Abs [place] <0.87 k/uL 0.55 Eosin% % 5.9 Abs Eosin <0.46 k/uL 0.47 (H) Baso% % 0.8 Abs Baso <0.11 k/uL 0.06 Immature Gran % % 0.3 IMMATURE GRANS (ABS) <0.10 k/uL <0.03 NRBC /100 WBC 0.0 Absolute nRBC <0.01 k/uL <0.01 DTYPE Auto Component Latest Ref Rng & Units 06/09/2022 Iron 41 - 186 ug/dL 47 TIBC 232 - 386 ug/dL 346 Transferrin Saturation 15.0 - 57.0 % 13.6 (L) Ferritin 14.7 - 205.1 ng/mL 75.5 IMPRESSION RIGHT SIDE - DEEP VEINS Negative for acute deep vein thrombosis. Duplicated femoral vein. RIGHT SIDE - SUPERFICIAL VEINS Negative for superficial thrombophlebitis in the great saphenous vein and small saphenous vein. LEFT SIDE - DEEP VEINS Negative for acute deep vein thrombosis. Duplicated femoral vein. LEFT SIDE - SUPERFICIAL VEINS Negative for superficial thrombophlebitis in the great saphenous vein and small saphenous vein. ASSESSMENT: 37-year-old female with severe iron deficiency anemia and vitamin B12 deficiency -Secondary to heavy menstrual bleeding 2) DVT of the right leg resolved on apixaban. PLAN: -Continue iron supplement with multivitamins for at least 3 - 4 more months. -Monitor CBC and iron study and follow-up with PCP -Stop apixaban and avoid control pills -See [employer] [employer] for IUD or implants for abnormal menstrual bleeding. Portions of this documentation were copied and pasted from previous office visit notes in order to provide a cohesive continuity of the history. The note has been reviewed and edited and updated as necessary. Deandre Terry MD. ELECTRONICALLY SIGNED Cc: Dr. Jordan Brizuela documented in this encounter [facility] 06-16-2022 History of Presen t illness Narrative Pt here for injection of B12. Given IM in left delt. Pt tolerated well. Arpita Caceres LPN documented in this encounter [facility] 06-09-2022 History of Presen t illness Narrative Pt here for injection of B12. Given IM in right delt. Pt tolerated well. Arpita Caceres LPN documented in this encounter [facility] 06-02-2022 Nurse Note Pt here for injection of B12. Given IM in left delt. Pt tolerated well. Arpita Caceres LPN documented in this encounter [facility] 05-11-2022 History and physical note Hematology and Medical Oncology PATIENT NAME: Wendy Rg. CLINIC NO: [id number]. ATTENDING PHYSICIAN: Deandre Terry MD. DATE OF SERVICE:05/11/2022. DIAGNOSIS: 1) Anemia; iron and vitamin B12 deficiency -History of gastric bypass 2) acute DVT of the right leg Consultation requested by Ellen Garcia CNP for an opinion regarding anemia and acute DVT of the lower extremity/ my final recommendations will be communicated back to the requesting physician by way of shared Medical record or letter to requesting physician via US mail. PERFORMANCE STATUS:80% HPI 36-year-old lady who has history of obesity and gastric bypass presented to the emergency room with symptomatic anemia after starting apixaban for acute DVT of the right leg. She has a history of iron deficiency anemia. She had abnormal menstrual bleeding but recently has stopped menstruating. She had a gastric bypass in 2017. She is on a vitamin with iron and vitamin B12 replacement therapy. She noted a family history of clotting disorder. She has moderate fatigue and frequent headaches but denies increased lethargy. She denies chest pain, shortness of breath or palpitation. She had lightheadedness when she presented to the emergency room. She also noticed leg cramps which has improved since she had blood transfusion. She has no unusual bleeding or bruising on Eliquis. No history of peptic ulcer disease, rectal bleeding or melena. MEDICATIONS: Current Outpatient Medications Medication Sig multivit no.50/iron comp/folic ( 23-IRON PS-FOLIC ACID ORAL) Take by mouth once daily. escitalopram oxalate (LEXAPRO) 20 mg tablet Take 1 tablet by mouth once daily. cetirizine (ZYRTEC) 10 mg tablet Take 1 tablet by mouth once daily. fluticasone (FLONASE) 50 mcg/actuation nasal spray Use 2 Sprays in each nostril once daily. EPINEPHrine (EPIPEN) 0.3 mg/0.3 mL auto-injector Inject 0.3 mL intramuscularly as needed. cyanocobalamin, vitamin B-12, 2,000 mcg tab Take 2 tablets by mouth once daily. Cholecalciferol, Vitamin D3, 2,000 unit cap Take 3 capsules by mouth once daily. apixaban (ELIQUIS) 5 mg tab(s) Take 1 tablet by mouth twice daily. pantoprazole DR (PROTONIX) 40 mg tablet Take 1 tablet by mouth once daily. No current facility-administered medications for this visit. . ALLERGIES: ALLERGIES Allergen Reactions [place] Anaphylaxis Augmentin [Amoxicil* GI Upset Tolerates penicillin. Likely reaction to clavulanate Morphine Shortness of Breath [place] Anaphylaxis . PAST MEDICAL HISTORY: PAST MEDICAL HISTORY Diagnosis Date Adjustment disorder with mixed anxiety and depressed mood 11/22/2018 Allergic rhinitis, cause unspecified Cholelithiasis Dysmenorrhea 11/22/2018 Dr. Constanza Brizuela. 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 PAST SURGICAL HISTORY: PAST SURGICAL HISTORY Procedure Laterality Date LAPAROSCOPY SURG CHOLECYSTECTOMY 12/26/2011 LAPS GSTR RSTCV PX W/BYP CAMELIA-EN-Y LIMB <150 CM 07/28/2017 PAST SURGICAL HISTORY OF 1988 right eye PAST SURGICAL HISTORY OF Right 2000 right hand, congenital nevus removed. . FAMILY HISTORY: FAMILY HISTORY Problem Relation Age of Onset Blood Disease Father hiv Cancer Father prostrate Colon Cancer Father Headache Father Hypertension Father Prostate Cancer Father Allergies Mother Asthma Mother Coronary Artery Disease Mother Diabetes Mother Headache Mother Hypertension Mother Lipids Mother Thyroid Mother Alcohol/Drug Maternal Uncle Allergies Maternal Aunt Allergies Sister bees Alzheimer's Disease Paternal Grandfather Arthritis Paternal Grandfather Coronary Artery Disease Paternal Grandfather Diabetes Paternal Grandfather Arthritis Daughter Blood Disease Other Coronary Artery Disease Maternal Grandmother Seizures Maternal Grandmother Coronary Artery Disease Maternal Grandfather Hypertension Maternal Grandfather Coronary Artery Disease Paternal Grandmother Coronary Artery Disease Maternal Aunt Coronary Artery Disease Maternal Uncle Diabetes Maternal Aunt Diabetes Maternal Uncle Emphysema Paternal Aunt great aunt Headache Sister Headache Brother Hypertension Maternal Aunt Hypertension Maternal Uncle Seizures Maternal Uncle Seizures Maternal Aunt Stroke Maternal Aunt . SOCIAL HISTORY: Social History Tobacco Use Smoking status: Never Smokeless tobacco: Never Vaping Use Vaping Use: Never used Substance Use Topics Alcohol use: Yes Comment: occasional Drug use: No . REVIEW OF SYSTEMS: CONSTITUTIONAL: No fevers, chills, nightsweats, unintended weight loss + fatigue HEENT: Denies frequent or severe heaches, nasal congestion/sinus symptoms, problematic allergy problems. EYES: No diplopia or blurry vision. CARDIOVASCULAR: No chest pain, dyspnea, palpitations, orthopnea, PND, ankle edema. PULM: No dyspnea, unexplained cough. GI: No dysphagia/odynophagia, problematic reflux, constipation, diarrhea, changes in stool habits, hematochezia, melena. : No new urinary complaints, including dysuria, gross hematuria or pyuria. NEURO: No new balance problems, peripheral weakness/paresthesias or numbness of concern. MUSC-SKEL: No new joint pain, swelling, or erythema. PSY: No concerns regarding depression, anxiety or panic. INTEGUMENTARY: No new skin changes (rash, new or changing mole, new growth) PHYSICAL EXAMINATION: BP 117/71 Pulse 85 Temp 97.6 Ht 5' 7.717 (1.72m) Wt 280 lb 8 oz (127.2kg) SpO2 99% LMP 09/19/2017 BMI 43.01 kg/(m^2). ' HEENT: Head is normocephalic, atraumatic. Sclerae white, conjunctivae pink. PEERL. EOMs are intact. Oropharynx is benign. +pallor LYMPHATICS: There is no palpable adenopathy in the neck, supraclavicular region, axillae, or groin. LUNGS: Lungs are clear to percussion and auscultation. HEART: Heart is normal without murmurs, gallops, or rubs. ABDOMEN: Obese, soft and nontender without organomegaly. No masses can be palpated. EXTREMITIES: Are without edema. Peripheral pulses intact. NEUROLOGIC: Exam is physiologic LABORATORY DATA: Component Latest Ref Rng & Units 05/11/2022 WBC 3.70 - 11.00 k/uL 7.56 RBC 3.90 - 5.20 m/uL 4.74 Hemoglobin 11.5 - 15.5 g/dL 9.5 (L) Hematocrit 36.0 - 46.0 % 32.6 (L) MCV 80.0 - 100.0 fL 68.8 (L) MCH 26.0 - 34.0 pg 20.0 (L) MCHC 30.5 - 36.0 g/dL 29.1 (L) RDW-CV 11.5 - 15.0 % 25.3 (H) Platelet Count 150 - 400 k/uL 537 (H) MPV 9.0 - 12.7 fL 8.9 (L) Neut% % 64.3 Abs Neut (ANC) 1.45 - 7.50 k/uL 4.87 Lymph% % 26.5 Abs Lymph 1.00 - 4.00 k/uL 2.00 [place]% % 6.5 Abs [place] <0.87 k/uL 0.49 Eosin% % 1.9 Abs Eosin <0.46 k/uL 0.14 Baso% % 0.5 Abs Baso <0.11 k/uL 0.04 Immature Gran % % 0.3 IMMATURE GRANS (ABS) <0.10 k/uL <0.03 NRBC /100 WBC 0.0 Absolute nRBC <0.01 k/uL <0.01 DTYPE Auto Retic % 0.4 - 2.0 % 1.1 Abs Retic 0.018 - 0.100 M/uL 0.051 Iron 41 - 186 ug/dL 11 (L) TIBC 232 - 386 ug/dL 395 (H) Transferrin Saturation 15.0 - 57.0 % 2.8 (L) Vitamin B12 232-1,245 pg/mL <150 (L) Hypochromic microcytic anemia, reactive thrombocytosis Component Latest Ref Rng & Units 05/11/2022 Protein, Total 6.3 - 8.0 g/dL 7.6 Albumin 3.9 - 4.9 g/dL 4.6 Calcium 8.5 - 10.2 mg/dL 8.9 Bilirubin, Total 0.2 - 1.3 mg/dL 0.3 Alkaline Phosphatase 34 - 123 U/L 93 AST 13 - 35 U/L 15 ALT 7 - 38 U/L 10 Glucose 74 - 99 mg/dL 109 (H) BUN 7 - 21 mg/dL 13 Creatinine 0.58 - 0.96 mg/dL 0.75 Sodium 136 - 144 mmol/L 135 (L) Potassium 3.7 - 5.1 mmol/L 4.2 Chloride 97 - 105 mmol/L 101 CO2 22 - 30 mmol/L 22 Anion Gap 9 - 18 mmol/L 12 eGFR >=60 mL/min/1.73m 106 LD 135 - 214 U/L 146 ASSESSMENT: 36-year-old female with severe iron deficiency anemia and vitamin B12 deficiency 2) Acute DVT of the right leg on apixaban. PLAN: -Additional lab requested including: Folic acid, vitamin D 25, methylmalonic acid and intrinsic factor blocking antibody. Reticulocyte count, CMP, LDH and stool for Hemoccult. -Proceed with iron sucrose 200mg IV x 5; vitamin B12 1000 mcg IM weekly x 4 (hold Eliquis for 24 hours before IM injection) -Monitor CBC and iron study monthly x 2 -Continue Eliquis for minimum of 3-months for DVT of the right leg -Repeat venous doppler study of both legs and office visit in 2-months I spent 60 minutes in the visit, with more than 50% of the total [id number] time of the visit in counseling / coordination of care. Deandre Terry MD. ELECTRONICALLY SIGNED Cc: Dr. Jordan Paige documented in this encounter [facility] 05-05-2022 Miscellaneous Notes Spoke with pt and information listed below given. Pt verbalizes understanding. Faxed information to Dr. Smith office.. Quin Harrison LPN Please let the patient know her hemoglobin is stable. She will still need to follow-up with protection manager, please fax order to Dr. Heart. Also need the stool sample for occult blood. Ellen Garcia APRN.CNP documented in this encounter [facility] 05-05-2022 History of Past i llness Narrative Problem Noted Date Resolved Date Acute deep vein thrombosis ( DVT) of proximal vein of right lower extremity 05/05/2022 09/08/2022 Morbid obesity 07/14/2017 11/23/2019 Overview: Added automatically from request for surgery [id number] Pre-op testing 07/14/2017 07/29/2017 Overview: Added automatically from request for surgery [id number] Obesity, morbid, BMI 50 or higher 04/22/2017 11/22/2018 Sprain of foot 04/16/2015 11/22/2018 Cellulitis and abscess of unspecified site 07/1211/22/2018 documented as of this encounter (statuses as of 09/08/2022) [place] [address]-03-2022 History of Past illness Narrative* Problem Noted Date Resolved Date Acute deep vein thrombosis ( DVT) of proximal vein of right lower extremity 05/05/2022 09/08/2022 Morbid obesity 07/14/2017 11/23/2019 Overview: Added automatically from request for surgery [id number] Pre-op testing 07/14/2017 07/29/2017 Overview: Added automatically from request for surgery [id number] Obesity, morbid, BMI 50 or higher 04/22/2017 11/22/2018 Sprain of foot 04/16/2015 11/22/2018 Cellulitis and abscess of unspecified site 07/1211/22/2018 documented as of this encounter (statuses as of 10/08/2022) [facility] History of Past illness Narrative* Problem Noted Date Resolved Date Acute deep vein thrombosis ( DVT) of proximal vein of right lower extremity 05/05/2022 09/08/2022 Morbid obesity 07/14/2017 11/23/2019 Overview: Added automatically from request for surgery [id number] Pre-op testing 07/14/2017 07/29/2017 Overview: Added automatically from request for surgery [id number] Obesity, morbid, BMI 50 or higher 04/22/2017 11/22/2018 Sprain of foot 04/16/2015 11/22/2018 Cellulitis and abscess of unspecified site 07/1211/22/2018 documented as of this encounter (statuses as of 12/06/2022) [facility] History of Past illness Narrative* Problem Noted Date Resolved Date Acute deep vein thrombosis ( DVT) of proximal vein of right lower extremity 05/05/2022 09/08/2022 Morbid obesity 07/14/2017 11/23/2019 Overview: Added automatically from request for surgery [id number] Pre-op testing 07/14/2017 07/29/2017 Overview: Added automatically from request for surgery [id number] Obesity, morbid, BMI 50 or higher 04/22/2017 11/22/2018 Sprain of foot 04/16/2015 11/22/2018 Cellulitis and abscess of unspecified site 07/1211/22/2018 documented as of this encounter (statuses as of 01/21/2023) [facility] History of Past illness Narrative* Problem Noted Date Diagnosed Date Resolved Date Acute deep vein thrombosis ( DVT) of proximal vein of right lower extremity 05/05/2022 09/08/2022 Morbid obesity 07/14/2017 11/23/2019 Overview: Added automatically from request for surgery [id number] Pre-op testing 07/14/2017 07/29/2017 Overview: Added automatically from request for surgery [id number] Obesity, morbid, BMI 50 or higher 04/22/2017 11/22/2018 Sprain of foot 04/16/2015 11/22/2018 Cellulitis and abscess of unspecified site 07/12/2007 11/22/2018 documented as of this encounter (statuses as of 05/11/2023) [facility] History of Past illness Narrative* Problem Noted Date Diagnosed Date Resolved Date Acute deep vein thrombosis ( DVT) of proximal vein of right lower extremity 05/05/2022 09/08/2022 Morbid obesity 07/14/2017 11/23/2019 Overview: Added automatically from request for surgery [id number] Pre-op testing 07/14/2017 07/29/2017 Overview: Added automatically from request for surgery [id number] Obesity, morbid, BMI 50 or higher 04/22/2017 11/22/2018 Sprain of foot 04/16/2015 11/22/2018 Cellulitis and abscess of unspecified site 07/12/2007 11/22/2018 documented as of this encounter (statuses as of 08/04/2023) [facility] History of Past illness Narrative* Problem Noted Date Diagnosed Date Resolved Date Acute deep vein thrombosis ( DVT) of proximal vein of right lower extremity 05/05/2022 09/08/2022 Morbid obesity 07/14/2017 11/23/2019 Overview: Added automatically from request for surgery [id number] Pre-op testing 07/14/2017 07/29/2017 Overview: Added automatically from request for surgery [id number] Obesity, morbid, BMI 50 or higher 04/22/2017 11/22/2018 Sprain of foot 04/16/2015 11/22/2018 Cellulitis and abscess of unspecified site 07/12/2007 11/22/2018 documented as of this encounter (statuses as of 08/06/2023) [facility] History of Past illness Narrative* Problem Noted Date Diagnosed Date Resolved Date Acute deep vein thrombosis ( DVT) of proximal vein of right lower extremity 05/05/2022 09/08/2022 Morbid obesity 07/14/2017 11/23/2019 Overview: Added automatically from request for surgery [id number] Pre-op testing 07/14/2017 07/29/2017 Overview: Added automatically from request for surgery [id number] Obesity, morbid, BMI 50 or higher 04/22/2017 11/22/2018 Sprain of foot 04/16/2015 11/22/2018 Cellulitis and abscess of unspecified site 07/12/2007 11/22/2018 documented as of this encounter (statuses as of 01/10/2024) [facility] History of Past illness Narrative* Problem Noted Date Diagnosed Date Resolved Date Acute deep vein thrombosis ( DVT) of proximal vein of right lower extremity 05/05/2022 09/08/2022 Morbid obesity 07/14/2017 11/23/2019 Overview: Added automatically from request for surgery [id number] Pre-op testing 07/14/2017 07/29/2017 Overview: Added automatically from request for surgery [id number] Obesity, morbid, BMI 50 or higher 04/22/2017 11/22/2018 Sprain of foot 04/16/2015 11/22/2018 Cellulitis and abscess of unspecified site 07/12/2007 11/22/2018 documented as of this encounter (statuses as of 01/12/2024) [facility] History of Past illness Narrative* Problem Noted Date Diagnosed Date Resolved Date Acute deep vein thrombosis ( DVT) of proximal vein of right lower extremity 05/05/2022 09/08/2022 Morbid obesity 07/14/2017 11/23/2019 Overview: Added automatically from request for surgery [id number] Pre-op testing 07/14/2017 07/29/2017 Overview: Added automatically from request for surgery [id number] Obesity, morbid, BMI 50 or higher 04/22/2017 11/22/2018 Sprain of foot 04/16/2015 11/22/2018 Cellulitis and abscess of unspecified site 07/12/2007 11/22/2018 documented as of this encounter (statuses as of 01/20/2024) [facility] Miscellaneous Notes* Telephone Encounter - Jackie Ruvalcaba - 04/29/2022 9:25 AM EDT Called PT spoke to mother, PT will be in today to do lab work and will schedule appointment for hematology. Thanks Jackie Ruvalcaba PSS * Telephone Encounter - Mateo Delatorre Ma - 04/28/2022 5:33 PM EDT Please schedule with Hematology. Thanks * Telephone Encounter - Ellen Garcia APRN.CNP - 04/28/2022 5:29 PM EDT Needs scheduled with hematology, not nephrology. It was ordered at last office visit and never scheduled Ellen Garcia APRN.CNP * Telephone Encounter - Marina Carrington RN - 04/28/2022 5:26 PM EDT Spoke with patient. Given message from provider's office. Patient verbalizes understanding. appoiintment scheduled with Ellen 05/05. Patient wants to discuss Nephrology appointment before scheduling. Marina Carrington RN * Telephone Encounter - Mateo Delatorre Ma - 04/28/2022 9:19 AM EDT Left message with patient's mother to return call. Patient currently sleeping. Patient needs follow up with PCP office next week for follow up on labs. Needs scheduled with Nephrology. Please ask if would like referral sent to Dr. Smith's office to [facility]? Please advise patient she needs to come to lab to have repeat CBC drawn this week. [facility] Miscellaneous Notes* Telephone Encounter - Mateo Delatorre Ma - 04/21/2022 8:02 AM EDT Patient's mother notified, verbalized understanding. * Telephone Encounter - Ellen Garcia APRN.CNP - 04/21/2022 7:49 AM EDT Hemoglobin slightly better but she should still have transfusion. They will call her to set it up Ellen Garcia APRN.CNP * Telephone Encounter - Mateo Delatorre Ma - 04/21/2022 7:47 AM EDT Images from the original note were not included. * Telephone Encounter - Ladonna Fischer RN - 04/20/2022 5:58 PM EDT patient is calling due to she was sent from office visit today (Tuesday) to [facility] to have stat lab work done and she has not heard anything back on what the results so she is not sure what the next step is to be be now. please review and advise patient needs called with information [facility] Miscellaneous Notes* Telephone Encounter - Yris Arteaga RN - 04/20/2022 3:50 PM EDT Neetu from [facility] calling to verify information regarding blood work for patient. Today's OV note reviewed with Neetu. No further questions. Yris Arteaga RN [facility] History of Present illness Narrative* Ellen Older, 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 - 04/20/2022 2:44 PM EDT CC: Patient presents with: ED Follow-up: [facility] HPI Wendy Rg is a 36 year old female who presents today for ER follow-up. Facility: [facility] Date of visit: 04/15/22 Reason for visit: 4 day history of right calf pain Hospital course: ultrasound showed acute DVT right posterior tibial, peroneal and soleus veins. Shewas given first dose of Eliquis in ER. Lab work showed Hgb 6.4, Hct 23.9 which was not addressed during ER visit Current symptoms: patient taking eliquis as prescribed. Pain has resolved. Denies lower extremity redness or swelling. She has no risk factors for DVT other than obesity. Family history AV malformation and DVT- sister, nephew and maternal grandfather. She was found to be anemic on routine labs done 04/13, worse on labs in ER. Differential indicating iron def and B12 def anemia, iron and B12 low despite patient taking oral B12 and iron supplements. She does have a history of gastric bypass and anemia. She reports orthostatic lightheadedness and pale skin. Denies syncope, feeling faint, SOB, palpitations, edema. She did have an episode a couple days ago of pelvic cramping and moderate vaginal bleeding x 6 hours. She has a history of ovarian cysts and this is not unusual for her. Denies black/bloody stools, rectal bleeding, hematuria. REVIEW OF SYSTEMS General: reports malaise, fatigue. no fevers, no chills, no night sweats and no significant changesin weight Respiratory: no cough, no wheezing, no hemoptysis Cardiovascular: no chest pain, no chest pressure and no decrease in exercise tolerance GI: Negative for abdominal discomfort, diarrhea, heart burn, nausea, vomiting PAST MEDICAL HISTORY Diagnosis Date Adjustment disorder with mixed anxiety and depressed mood 11/22/2018 Allergic rhinitis, cause unspecified Cholelithiasis Dysmenorrhea 11/22/2018 Dr. Constanza Brizuela. 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 ALLERGIES [place], Augmentin [Amoxicillin-Pot Clavulanate], Morphine, and [place] MEDICATIONS ELIQUIS DVT-PE TREAT 30D START 5 mg (74 tabs) TAKE 2 TABLETS BY MOUTH TWICE DAILY FOR 7 (SEVEN) DAYS, THEN DECREASE ONE TABLET BY MOUTH TWICE DAILY THEREAFTER escitalopram oxalate (LEXAPRO) 20 mg tablet Take 1 tablet by mouth once daily. pantoprazole DR (PROTONIX) 40 mg tablet Take 1 tablet by mouth once daily. cetirizine (ZYRTEC) 10 mg tablet Take 1 tablet by mouth once daily. fluticasone (FLONASE) 50 mcg/actuation nasal spray Use 2 Sprays in each nostril once daily. EPINEPHrine (EPIPEN) 0.3 mg/0.3 mL auto-injector Inject 0.3 mL intramuscularly as needed. cyanocobalamin, vitamin B-12, 2,000 mcg tab Take 2 tablets by mouth once daily. Cholecalciferol, Vitamin D3, 2,000 unit cap Take 3 capsules by mouth once daily. FAMILY HISTORY Problem Relation Age of Onset Blood Disease Father hiv Cancer Father prostrate Colon Cancer Father Headache Father Hypertension Father Prostate Cancer Father Allergies Mother Asthma Mother Coronary Artery Disease Mother Diabetes Mother Headache Mother Hypertension Mother Lipids Mother Thyroid Mother Alcohol/Drug Maternal Uncle Allergies Maternal Aunt Allergies Sister bees Alzheimer's Disease Paternal Grandfather Arthritis Paternal Grandfather Coronary Artery Disease Paternal Grandfather Diabetes Paternal Grandfather Arthritis Daughter Blood Disease Other Coronary Artery Disease Maternal Grandmother Seizures Maternal Grandmother Coronary Artery Disease Maternal Grandfather Hypertension Maternal Grandfather Coronary Artery Disease Paternal Grandmother Coronary Artery Disease Maternal Aunt Coronary Artery Disease Maternal Uncle Diabetes Maternal Aunt Diabetes Maternal Uncle Emphysema Paternal Aunt great aunt Headache Sister Headache Brother Hypertension Maternal Aunt Hypertension Maternal Uncle Seizures Maternal Uncle Seizures Maternal Aunt Stroke Maternal Aunt Social History Tobacco Use Smoking status: Never Smoker Smokeless tobacco: Never Used Vaping Use Vaping Use: Never used Substance Use Topics Alcohol use: Yes Comment: occasional Drug use: No PHYSICAL EXAM BP 120/58 Pulse 90 Resp 18 Wt 125.6 kg (277 lb) LMP 09/19/2017 BMI 41.74 kg/m BP w/Orthostatic Vitals Date and Time Orthostatic BP Orthostatic Pulse BP Pulse BP Position BP Site BP Cuff Size 04/20/22 1443 99/57 107 -- -- -- -- -- 04/20/22 1442 116/74 76 -- -- -- -- -- General Appearance: well appearing, in no acute distress, alert Skin: Skin color pale. texture, turgor normal for age; Eyes: sclera white, non-injected, conjunctiva pale Oropharynx: Oral mucosa pale Lungs: Lungs clear to auscultation. No wheezing, rhonchi, rales. Heart: RRR without murmur, gallop, or rubs. No ectopy Abdomen: Abdomen soft, non-tender. Bowel sounds normal. No masses, organomegaly but difficult exam due to body habitus Ext: no edema in LE bilaterally, good distal pulses, right calf tender, no cording, no erythema DATA REVIEWED: Most recent labs Outside chart from [facility] ER including labs and venous ultrasound results reviewed. ASSESSMENT/PLAN: 1. Anemia, unspecified type - ICD9: 285.9, ICD10: D64.9 (primary diagnosis) Suspect due to malabsorption secondary to gastric bypass. Hgb dropped from 7.1 to 6.4 in 2 days. Can't rule out GI bleed - CBC stat today, if < 6 recommend patient go to ER for further evaluation - FECAL OCCULT BLOOD TEST - Patient taking oral iron supplement, may need iron infusion. Will defer to hematology 2. Acute deep vein thrombosis (DVT) of proximal vein of right lower extremity (HCC) - ICD9: 453.41,ICD10: I82.4Y1 Unprovoked DVT along with family history. Needs referral to hematology Continue with [place] 3. Family history of DVT - ICD9: V17.49, ICD10: Z82.49 As above 4. B12 deficiency - ICD9: 266.2, ICD10: E53.8 Suspect due to malabsorption secondary to gastric bypass. Discussed B12 injections, patient agreeable. Will set up once she has had blood transfusion Prescription instructions reviewed with patient as applicable. Potential red flag symptoms discussed with the patient. Reviewed appropriate action plan to take if red flag symptoms occur. Patient agreeable to treatment plan. Ellen Garcia APRN.JEANIE [facility] Instructions* Patient Instructions* Marixa Delgado - 04/02/2022 8:32 AM EDT ASSESSMENT/PLAN: 1. Rash - ICD9: 782.1, ICD10: R21 - Continue Kenalog cream BID for 7 days. - PREDNISONE 10 MG TABLET SANDY Garcia student NONSPECIFIC RASH: Our exam shows you have a rash which has no clear cause. Rashes can result from infections, allergies, or irritation of the skin by chemicals or other environmental factors. Rashes can also result from scratching or rubbing the skin too much to relieve itching. Further medical examination may be needed to identify the specific cause and proper treatment of your skin rash. You should treat your rash as recommended by your doctor. If you have itching, you should avoid scratching as much as possible, as this further damages the skin. Ask your doctor or pharmacist if you have any questions about what topical medicines may help relieve your symptoms. Call your doctor right away if your rash is not better in 2-3 days, if it worsens, or if there are signs of infection (increased pain, redness, drainage or pus). documented in this encounter[facility] History of Present illness Narrative* Carla Prince APRN.GROUT MACHINE OPERATOR - 04/02/2022 8:29 AM EDT Images from the original note were not included. Subjective Wendy Rg is a 36 year old female who presents with a rash to bilateral upper back, chest, andright shoulder that began 2 days ago. She reports the rash began on her right shoulder and has spread to her back and chest. Reports associated itching and burning. Denies fever, chills, shortness ofbreath, or chest pain. Denies any new soaps, lotions, or detergents. Reports taking benadryl and tylenol and using kenalog cream with mild relief of symptoms. Review of Systems Constitutional: Negative for chills and fever. HENT: Negative for congestion and sore throat. Respiratory: Negative for cough, shortness of breath and wheezing. Cardiovascular: Negative for chest pain and palpitations. Gastrointestinal: Negative for abdominal pain, constipation, diarrhea, nausea and vomiting. Skin: Positive for itching and rash. BP 122/72 Pulse 86 Temp 36.4 C (97.6 F) (Tympanic) Resp 16 Wt 128 kg (282 lb 3.2 oz) LMP 09/19/2017 SpO2 98% BMI 42.52 kg/m PAST MEDICAL HISTORY Diagnosis Date Adjustment disorder with mixed anxiety and depressed mood 11/22/2018 Allergic rhinitis, cause unspecified Cholelithiasis Dysmenorrhea 11/22/2018 Dr. Constanza Brizuela. 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 ALLERGIES [place], Augmentin [Amoxicillin-Pot Clavulanate], Morphine, and [place] MEDICATIONS predniSONE (DELTASONE) 10 mg tablet Take 4 tabs daily for 3 days, then 2 tabs daily for 3 days, then 1 tab daily for 3 days with food. escitalopram oxalate (LEXAPRO) 20 mg tablet Take 1 tablet by mouth once daily. pantoprazole DR (PROTONIX) 40 mg tablet Take 1 tablet by mouth once daily. cetirizine (ZYRTEC) 10 mg tablet Take 1 tablet by mouth once daily. fluticasone (FLONASE) 50 mcg/actuation nasal spray Use 2 Sprays in each nostril once daily. EPINEPHrine (EPIPEN) 0.3 mg/0.3 mL auto-injector Inject 0.3 mL intramuscularly as needed. cyanocobalamin, vitamin B-12, 2,000 mcg tab Take 2 tablets by mouth once daily. Cholecalciferol, Vitamin D3, 2,000 unit cap Take 3 capsules by mouth once daily. FAMILY HISTORY Problem Relation Age of Onset Blood Disease Father hiv Cancer Father prostrate Colon Cancer Father Headache Father Hypertension Father Prostate Cancer Father Allergies Mother Asthma Mother Coronary Artery Disease Mother Diabetes Mother Headache Mother Hypertension Mother Lipids Mother Thyroid Mother Alcohol/Drug Maternal Uncle Allergies Maternal Aunt Allergies Sister bees Alzheimer's Disease Paternal Grandfather Arthritis Paternal Grandfather Coronary Artery Disease Paternal Grandfather Diabetes Paternal Grandfather Arthritis Daughter Blood Disease Other Coronary Artery Disease Maternal Grandmother Seizures Maternal Grandmother Coronary Artery Disease Maternal Grandfather Hypertension Maternal Grandfather Coronary Artery Disease Paternal Grandmother Coronary Artery Disease Maternal Aunt Coronary Artery Disease Maternal Uncle Diabetes Maternal Aunt Diabetes Maternal Uncle Emphysema Paternal Aunt great aunt Headache Sister Headache Brother Hypertension Maternal Aunt Hypertension Maternal Uncle Seizures Maternal Uncle Seizures Maternal Aunt Stroke Maternal Aunt Social History Tobacco Use Smoking status: Never Smoker Smokeless tobacco: Never Used Vaping Use Vaping Use: Never used Substance Use Topics Alcohol use: Yes Comment: occasional Drug use: No Objective Physical Exam Vitals and nursing note reviewed. Constitutional: Appearance: Normal appearance. Cardiovascular: Rate and Rhythm: Normal rate and regular rhythm. Pulmonary: Effort: Pulmonary effort is normal. Breath sounds: Normal breath sounds. Skin: General: Skin is warm. Findings: Rash present. Rash is macular and papular. Neurological: Mental Status: She is alert and oriented to person, place, and time. ASSESSMENT/PLAN: 1. Rash - ICD9: 782.1, ICD10: R21 - Continue Kenalog cream BID for 7 days. - PREDNISONE 10 MG TABLET SANDY Garcia student TEACHING PROVIDER (Physician/PA/PLASTER MODEL AND MOLD MAKER) NOTE OF PERSONAL INVOLVEMENT IN CARE: I have personally seen and examined the patient and performed the medical decision-making components. I have reviewed the Advanced Practice Registered Nurse (PLASTER MODEL AND MOLD MAKER) Student's documentation and verified the findings in the note as written. Any additions or changes are noted in bold/italics. Signature: Carla Prince Date: 04/02/2022 Time: 10:18 AM documented in [facility] History of Present illness Narrative* Jordan Guevara MD - 03/08/2022 7:52 PM EDT This note was created using [employer]. Subjective Wendy Rg is a 36 year old female. She mainly needed refill of escitalopram which was effective. She mentioned chronic, intermittent dizziness that was more orthostatic in nature. Dizziness was brief and with no other symptoms. She never followed up on anemia from 2019. She saw a FP BRICKLAYER TENDER for refills last year. Review of Systems Constitutional: Negative for appetite change and fatigue. Respiratory: Negative for chest tightness and shortness of breath. Cardiovascular: Negative for chest pain, palpitations and leg swelling. Gastrointestinal: Negative for abdominal pain and blood in stool. Genitourinary: Negative for vaginal bleeding. Musculoskeletal: Negative. ACTIVE PROBLEM LIST Tree Nut Allergy Seasonal Allergic Rhinitis Due to Pollen Dysmenorrhea Gastroesophageal Reflux Disease Without Esophagitis Hidradenitis Suppurativa S/P Gastric Bypass Adjustment Disorder With Mixed Anxiety and Depressed Mood B12 Deficiency Vitamin D Deficiency Obesity, Class III, BMI >= 40 Iron Deficiency Anemia Current Outpatient Medications Medication Sig escitalopram oxalate (LEXAPRO) 20 mg tablet Take 1 tablet by mouth once daily. pantoprazole DR (PROTONIX) 40 mg tablet Take 1 tablet by mouth once daily. cetirizine (ZYRTEC) 10 mg tablet Take 1 tablet by mouth once daily. fluticasone (FLONASE) 50 mcg/actuation nasal spray Use 2 Sprays in each nostril once daily. EPINEPHrine (EPIPEN) 0.3 mg/0.3 mL auto-injector Inject 0.3 mL intramuscularly as needed. cyanocobalamin, vitamin B-12, 2,000 mcg tab Take 2 tablets by mouth once daily. Cholecalciferol, Vitamin D3, 2,000 unit cap Take 3 capsules by mouth once daily. No current facility-administered medications for this visit. Objective BP 105/72 (BP Site: Left Arm, BP Position: Sitting, BP Cuff Size: Large Adult) Pulse 69 Temp 36.1 C (97 F) (Temporal Artery) Resp 16 Wt 126.1 kg (278 lb) LMP 09/19/2017 BMI 41.89 kg/m Physical Exam Constitutional: General: She is not in acute distress. Appearance: She is not ill-appearing or diaphoretic. Eyes: Conjunctiva/sclera: Conjunctivae normal. Cardiovascular: Rate and Rhythm: Normal rate and regular rhythm. Heart sounds: No murmur heard. Pulmonary: Effort: Pulmonary effort is normal. Breath sounds: Normal breath sounds. Abdominal: Palpations: Abdomen is soft. Tenderness: There is no abdominal tenderness. Musculoskeletal: Right lower leg: No edema. Left lower leg: No edema. Skin: General: Skin is warm and dry. Neurological: General: No focal deficit present. Mental Status: She is alert. Psychiatric: Mood and Affect: Mood normal. Behavior: Behavior normal. Orthostatic BP negative. Assessment and Plan 1. Dizziness - ICD9: 780.4, ICD10: R42 (primary diagnosis) I suspect anemia. - BASIC METABOLIC PNL 2. Adjustment disorder with mixed anxiety and depressed mood - ICD9: 309.28, ICD10: F43.23 Controlled. - ESCITALOPRAM 20 MG TABLET 3. GERD without esophagitis - ICD9: 530.81, ICD10: K21.9 Controlled. - PANTOPRAZOLE 40 MG TABLET,DELAYED RELEASE 4. Seasonal allergic rhinitis due to pollen - ICD9: 477.0, ICD10: J30.1 Stable. - CETIRIZINE 10 MG TABLET - FLUTICASONE PROPIONATE 50 MCG/ACTUATION NASAL SPRAY,SUSPENSION 5. B12 deficiency - ICD9: 266.2, ICD10: E53.8 Stressed adherence to supplementation. - VITAMIN B12 BLOOD 6. Iron deficiency anemia due to chronic blood loss - ICD9: 280.0, ICD10: D50.0 Recheck. - CBC - IRON + TIBC - FECAL OCCULT BLOOD TEST Jordan Guevara MD documented [facility] History of Present illness Narrative* Kriss Temple (Rt)Rip - 08/27/2020 3:10 PM EST Radiology Service Progress Note PATIENT NAME: Wendy Rg DATE OF SERVICE: August 27, 2020 TIME: 3:13 PM PATIENT IDENTITY VERIFICATION COMPLETED USING TWO (2) IDENTIFIERS: Name and Date of confirmedby patient verbally. FALL SCREENING: Has the patient had 2 falls in the last year or 1 fall with injury or currently using an Ambulatory Assistive Device (Walker, Cane, Wheelchair, Crutches, etc.)? No PATIENT GENDER DATA: Female. status: : No status: NO. PATIENT RELEVANT IMPLANT DATA REVIEWED: Not Applicable RADIOLOGY DEPARTMENT: General X-ray: Exam(s) Completed: Chest X-Ray PERIPHERAL IV DATA: Not applicable SIGNED BY: RT Ling August 27, 2020 3:13 PM documented in this encounter[facility] History of Past illness Narrative* Problem Noted Date Resolved Date Morbid obesity 07/14/2017 11/23/2019 Overview: Added automatically from request for surgery [id number] Pre-op testing 07/14/2017 07/29/2017 Overview: Added automatically from request for surgery [id number] Obesity, morbid, BMI 50 or higher 04/22/2017 11/22/2018 Sprain of foot 04/16/2015 11/22/2018 Cellulitis and abscess of unspecified site 07/1211/22/2018 documented as of this encounter (statuses as of 03/10/2022) [facility] History of Past illness Narrative* Problem Noted Date Resolved Date Morbid obesity 07/14/2017 11/23/2019 Overview: Added automatically from request for surgery [id number] Pre-op testing 07/14/2017 07/29/2017 Overview: Added automatically from request for surgery [id number] Obesity, morbid, BMI 50 or higher 04/22/2017 11/22/2018 Sprain of foot 04/16/2015 11/22/2018 Cellulitis and abscess of unspecified site 07/1211/22/2018 documented as of this encounter (statuses as of 04/02/2022) [facility] of Past illness Narrative* Problem Noted Date Resolved Date Morbid obesity 07/14/2017 11/23/2019 Overview: Added automatically from request for surgery [id number] Pre-op testing 07/14/2017 07/29/2017 Overview: Added automatically from request for surgery [id number] Obesity, morbid, BMI 50 or higher 04/22/2017 11/22/2018 Sprain of foot 04/16/2015 11/22/2018 Cellulitis and abscess of unspecified site 07/1211/22/2018 documented as of this encounter (statuses as of 04/20/2022) [facility] of Past illness Narrative* Problem Noted Date Resolved Date Morbid obesity 07/14/2017 11/23/2019 Overview: Added automatically from request for surgery [id number] Pre-op testing 07/14/2017 07/29/2017 Overview: Added automatically from request for surgery [id number] Obesity, morbid, BMI 50 or higher 04/22/2017 11/22/2018 Sprain of foot 04/16/2015 11/22/2018 Cellulitis and abscess of unspecified site 07/1211/22/2018 documented as of this encounter (statuses as of 04/20/2022) [facility] of [facility] illness Narrative* Problem Noted Date Resolved Date Morbid obesity 07/14/2017 11/23/2019 Overview: Added automatically from request for surgery [id number] Pre-op testing 07/14/2017 07/29/2017 Overview: Added automatically from request for surgery [id number] Obesity, morbid, BMI 50 or higher 04/22/2017 11/22/2018 Sprain of foot 04/16/2015 11/22/2018 Cellulitis and abscess of unspecified site 07/1211/22/2018 documented as of this encounter (statuses as of 04/23/2022) [facility] of [facility] illness Narrative* Problem Noted Date Resolved Date Morbid obesity 07/14/2017 11/23/2019 Overview: Added automatically from request for surgery [id number] Pre-op testing 07/14/2017 07/29/2017 Overview: Added automatically from request for surgery [id number] Obesity, morbid, BMI 50 or higher 04/22/2017 11/22/2018 Sprain of foot 04/16/2015 11/22/2018 Cellulitis and abscess of unspecified site 07/1211/22/2018 documented as of this encounter (statuses as of 04/29/2022) [facility] illness Narrative* Problem Noted Date Resolved Date Morbid obesity 07/14/2017 11/23/2019 Overview: Added automatically from request for surgery [id number] Pre-op testing 07/14/2017 07/29/2017 Overview: Added automatically from request for surgery [id number] Obesity, morbid, BMI 50 or higher 04/22/2017 11/22/2018 Sprain of foot 04/16/2015 11/22/2018 Cellulitis and abscess of unspecified site 07/1211/22/2018 documented as of this encounter (statuses as of 05/05/2022) [facility] Narrative* Problem Noted Date Resolved Date Morbid obesity 07/14/2017 11/23/2019 Overview: Added automatically from request for surgery [id number] Pre-op testing 07/14/2017 07/29/2017 Overview: Added automatically from request for surgery [id number] Obesity, morbid, BMI 50 or higher 04/22/2017 11/22/2018 Sprain of foot 04/16/2015 11/22/2018 Cellulitis and abscess of unspecified site 07/1211/22/2018 documented as of this encounter (statuses as of 05/12/2022) [facility] illness Narrative* Problem Noted Date Resolved Date Morbid obesity 07/14/2017 11/23/2019 Overview: Added automatically from request for surgery [id number] Pre-op testing 07/14/2017 07/29/2017 Overview: Added automatically from request for surgery [id number] Obesity, morbid, BMI 50 or higher 04/22/2017 11/22/2018 Sprain of foot 04/16/2015 11/22/2018 Cellulitis and abscess of unspecified site 07/1211/22/2018 documented as of this encounter (statuses as of 05/21/2022) [facility] Narrative* Problem Noted Date Resolved Date Morbid obesity 07/14/2017 11/23/2019 Overview: Added automatically from request for surgery [id number] Pre-op testing 07/14/2017 07/29/2017 Overview: Added automatically from request for surgery [id number] Obesity, morbid, BMI 50 or higher 04/22/2017 11/22/2018 Sprain of foot 04/16/2015 11/22/2018 Cellulitis and abscess of unspecified site 07/1211/22/2018 documented as of this encounter (statuses as of 05/24/2022) [facility] Narrative* Problem Noted Date Resolved Date Morbid obesity 07/14/2017 11/23/2019 Overview: Added automatically from request for surgery [id number] Pre-op testing 07/14/2017 07/29/2017 Overview: Added automatically from request for surgery [id number] Obesity, morbid, BMI 50 or higher 04/22/2017 11/22/2018 Sprain of foot 04/16/2015 11/22/2018 Cellulitis and abscess of unspecified site 07/1211/22/2018 documented as of this encounter (statuses as of 05/26/2022) [facility] Narrative* Problem Noted Date Resolved Date Morbid obesity 07/14/2017 11/23/2019 Overview: Added automatically from request for surgery [id number] Pre-op testing 07/14/2017 07/29/2017 Overview: Added automatically from request for surgery [id number] Obesity, morbid, BMI 50 or higher 04/22/2017 11/22/2018 Sprain of foot 04/16/2015 11/22/2018 Cellulitis and abscess of unspecified site 07/1211/22/2018 documented as of this encounter (statuses as of 06/02/2022) [facility] Narrative* Problem Noted Date Resolved Date Morbid obesity 07/14/2017 11/23/2019 Overview: Added automatically from request for surgery [id number] Pre-op testing 07/14/2017 07/29/2017 Overview: Added automatically from request for surgery [id number] Obesity, morbid, BMI 50 or higher 04/22/2017 11/22/2018 Sprain of foot 04/16/2015 11/22/2018 Cellulitis and abscess of unspecified site 07/1211/22/2018 documented as of this encounter (statuses as of 06/09/2022) [facility] Narrative* Problem Noted Date Resolved Date Morbid obesity 07/14/2017 11/23/2019 Overview: Added automatically from request for surgery [id number] Pre-op testing 07/14/2017 07/29/2017 Overview: Added automatically from request for surgery [id number] Obesity, morbid, BMI 50 or higher 04/22/2017 11/22/2018 Sprain of foot 04/16/2015 11/22/2018 Cellulitis and abscess of unspecified site 07/1211/22/2018 documented as of this encounter (statuses as of 06/16/2022) [facility] Narrative* Problem Noted Date Resolved Date Morbid obesity 07/14/2017 11/23/2019 Overview: Added automatically from request for surgery [id number] Pre-op testing 07/14/2017 07/29/2017 Overview: Added automatically from request for surgery [id number] Obesity, morbid, BMI 50 or higher 04/22/2017 11/22/2018 Sprain of foot 04/16/2015 11/22/2018 Cellulitis and abscess of unspecified site 07/1211/22/2018 documented as of this encounter (statuses as of 07/11/2022) [facility] Diagnosis Dizziness- Primary Dizziness and giddiness Adjustment disorder with mixed anxiety and depressed mood GERD without esophagitis Esophageal reflux Seasonal allergic rhinitis due to pollen B12 deficiency Other B-complex deficiencies Iron deficiency anemia due to chronic blood loss Iron deficiency anemia secondary to blood loss (chronic) [facility] Rash- Primary Rash and other nonspecific skin eruption [facility] Diagnosis Anemia, unspecified type- Primary Acute deep vein thrombosis (DVT) of proximal vein of right lower extremity (HCC) Family history of DVT Family history of other cardiovascular diseases B12 deficiency Other B-complex deficiencies [facility] B12 deficiency- Primary Other B-complex deficiencies S/P gastric bypass Bariatric surgery status Iron deficiency anemia, unspecified iron deficiency anemia type Vitamin D deficiency Unspecified vitamin D deficiency Anemia, unspecified type Acute deep vein thrombosis (DVT) of proximal vein of right lower extremity (HCC) Family history of DVT Family history of other cardiovascular diseases [facility] Diagnosis Iron deficiency anemia due to chronic blood loss- Primary Iron deficiency anemia secondary to blood loss (chronic) B12 deficiency Other B-complex deficiencies [facility] Diagnosis Iron deficiency anemia due to chronic blood loss- Primary Iron deficiency anemia secondary to blood loss (chronic) [facility] Diagnosis Iron deficiency anemia due to chronic blood loss- Primary Iron deficiency anemia secondary to blood loss (chronic) B12 deficiency Other B-complex deficiencies S/P gastric bypass Bariatric surgery [facility] Diagnosis B12 deficiency- Primary Other B-complex deficiencies S/P gastric bypass Bariatric surgery status [facility] Diagnosis B12 deficiency- Primary Other B-complex deficiencies S/P gastric bypass Bariatric surgery status [facility] Diagnosis B12 deficiency- Primary Other B-complex deficiencies S/P gastric bypass Bariatric surgery status [facility] Diagnosis S/P gastric bypass- Primary Bariatric surgery status Acute deep vein thrombosis (DVT) of proximal vein of right lower extremity (HCC) Iron deficiency anemia, unspecified iron deficiency anemia type documented [facility] Diagnosis Chronic hand pain, right- Primary Iron deficiency anemia due to chronic blood loss Iron deficiency anemia secondary to blood loss (chronic) Adjustment disorder with mixed anxiety and depressed mood Obesity, Class III, BMI >= 40 Morbid obesity Encounter for immunization Need for other specified prophylactic vaccination against single bacterial disease documented [facility] Diagnosis Adjustment disorder with mixed anxiety and depressed mood Seasonal allergic rhinitis due to pollen Tree nut allergy Allergy to other foods [facility] Diagnosis Adjustment disorder with mixed anxiety and depressed mood Seasonal allergic rhinitis due to pollen GERD without esophagitis Esophageal reflux [facility]* Diagnosis Adjustment disorder with mixed anxiety and depressed mood Seasonal allergic rhinitis due to pollen Tree nut allergy Allergy to other foods [facility]* Diagnosis Closed nondisplaced fracture of lateral malleolus of right fibula with routine healing, subsequent encounter- Primary History of DVT of lower extremity Personal history of venous thrombosis and embolism documented [facility] this [facility] Diagnosis Closed nondisplaced fracture of lateral malleolus of right fibula with routine healing, subsequent encounter- Primary Dizziness Dizziness and giddiness History of DVT of lower extremity Personal history of venous thrombosis and embolism Iron deficiency anemia due to chronic blood loss Iron deficiency anemia secondary to blood loss (chronic) Vitamin B12 deficiency Other B-complex deficiencies Vitamin D deficiency Unspecified vitamin D deficiency [facility]* Diagnosis B12 deficiency- Primary Other B-complex deficiencies [facility] Diagnosis B12 deficiency- Primary Other B-complex deficiencies [facility] Diagnosis B12 deficiency- Primary Other B-complex deficiencies [facility] Diagnosis Iron deficiency anemia due to chronic blood loss- Primary Iron deficiency anemia secondary to blood loss (chronic) B12 deficiency Other B-complex deficiencies [facility] Diagnosis Dysmenorrhea- Primary Iron deficiency anemia due to chronic blood loss Iron deficiency anemia secondary to blood loss (chronic) B12 deficiency Other B-complex deficiencies [facility] Diagnosis Iron deficiency anemia due to chronic blood loss- Primary Iron deficiency anemia secondary to blood loss (chronic) [facility] Diagnosis Iron deficiency anemia due to chronic blood loss- Primary Iron deficiency anemia secondary to blood loss (chronic) [facility] Diagnosis Iron deficiency anemia due to chronic blood loss- Primary Iron deficiency anemia secondary to blood loss (chronic) [facility] Dysmenorrhea- Primary Iron deficiency anemia due to chronic blood loss Iron deficiency anemia secondary to blood loss (chronic) [facility] Diagnosis Adjustment disorder with mixed anxiety and depressed mood History of DVT of lower extremity Personal history of venous thrombosis and embolism Seasonal allergic rhinitis due to pollen Tree nut allergy Allergy to other foods documented [facility] Diagnosis Cough Chronic hand pain, right- Primary Iron deficiency anemia due to chronic blood loss Iron deficiency anemia secondary to blood loss (chronic) Adjustment disorder with mixed anxiety and depressed mood Obesity, Class III, BMI >= 40 Morbid obesity Encounter for immunization Need for other specified prophylactic vaccination against single bacterial disease documented in this encounter [facility] for referral (narrative)* Outpatient Procedure (Routine) - Authorized Specialty Diagnoses / Procedures Referred By Giulia t Referred To [facility] Diagnoses Acute deep vein thrombosis (DVT) of proximal vein of right lower extremity (HCC) Procedures US LEG VEIN DVT SHAWN VAS LAB DUP-SCAN XTR VEINS COMPLETE BILATERAL STUDY Deandre Terry MD [address] [place] [address] [facility] [address] [place] [address] Referral ID Status Reason Start Date Expiration Date Visits Requested Visits Authorized [id number] Authorized Auto-Generat ed Referral 07/05/2022 05/11/2023 [address] 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 Advance Directive(s) 07/22/2017 3:59 PM Documents on File Type Date Recorded 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 Advance Directive(s) 07/22/2017 3:59 PM Reason for Referral Specialty Diagnoses / Procedures Referred By Giulia t Referred To Contact Hematology Diagnoses Anemia, unspecified type B12 deficiency Acute deep vein thrombosis (DVT) of proximal vein of right lower extremity (HCC) Family history of DVT Procedures CONSULT TO HEMATOLOGY OFFICE/OUTPATIENT NEW HIGH MDM 60-74 MINUTES Radha, 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, 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 [address] [place] [address] Referral ID Status Reason Start Date Expiration Date Visits Requested Visits Authorized [id number] Authorized PCP Requested Referral 04/20/2022 04/20/2023 1 1 Specialty Diagnoses / Procedures Referred By Giulia t Referred To Contact Diagnoses Tree nut allergy Ellen Garcia 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 [address] [place] [address] Referral ID Status Reason Start Date Expiration Date Visits Re quested Visits Authorized [id number] Closed 1 1 Referral ID Status Reason Start Date Expiration Date Visits Re quested Visits Authorized [id number] Closed 1 1 Specialty Diagnoses / Procedures Referred By Daveac t Referred To Contact Diagnoses Tree nut allergy Greg, Naz M, 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 New Bag/Syringe/Bottle 05/21/2022 10:18 AM EDT 200 mg 400 mL/hr Inactive Administered Medications - up to 3 most recent administrations Medication Order MAR Action Action Date Dose Rate Site iron sucrose 200 mg in NaCl 0.9% 100ml (VENOFER) 200 mg, INTRAVENOUS, at 400 mL/hr, Administer over 15 Minutes, ONCE, 1 dose, On Tue05/24/22 at 1030, Please conduct a 30 minute post dose observation. New Bag/Syringe/Bottle 05/24/2022 10:21 AM EDT 200 mg 400 mL/hr Inactive Administered Medications - up to 3 most recent administrations Medication Order MAR Action Date Dose Rate Site cyanocobalamin 1,000 mcg injection 1,000 mcg, INTRAMUSCULAR, ONCE, 1 dose, On Tue05/26/22 at 1000 Given 05/26/2022 10:00 AM EDT 1,000 mcg Deltoid, Right iron sucrose 200 mg in NaCl 0.9% 100ml (VENOFER) 200 mg, INTRAVENOUS, at 400 mL/hr, Administer over 15 Minutes, ONCE, 1 dose, On Tue05/26/22 at 1000, Please conduct a 30 minute post dose observation. New Bag/Syringe/Jatin le 05/26/2022 9:45 AM EDT 200 mg 400 mL/hr Inactive Administered Medications - up to 3 most recent administrations Medication Order MAR Action Action Date Dose Rate Site cyanocobalamin 1,000 mcg injection 1,000 mcg, INTRAMUSCULAR, ONCE, 1 dose, On Tue06/02/22 at 1030 Given 06/02/2022 10:12 AM EDT 1,000 mcg Deltoid, Left Inactive Administered Medications - up to 3 most recent administrations Medication Order MAR Action Action Date Dose Rate Site cyanocobalamin 1,000 mcg injection 1,000 mcg, INTRAMUSCULAR, ONCE, 1 dose, On Tue06/09/22 at 1430 Given 06/09/2022 2:33 PM EDT 1,000 mcg Deltoid, Right Inactive Administered Medications - up to 3 most recent administrations Medication Order MAR Action Action Date Dose Rate Site cyanocobalamin 1,000 mcg injection 1,000 mcg, INTRAMUSCULAR, ONCE, 1 dose, On 06/16/22 at 1430 Given 06/16/2022 2:36 PM EDT 1,000 mcg Deltoid, Left Additional Source Comments INFORMATION SOURCE (unrecogn ized section and content) DATE CREATED AUTHOR 03/29/2018 [facility] DATE CREATED AUTHOR AUTHOR'S ORGANIZ ATION 07/11/2024 [facility] Source Comments (unrecognize d section and content) In the event this informatio n is protected by the Federal Confidentiality of Alcohol and Drug Abuse Patient Records regulations: The Federal rules restrict any use of the information to criminally investigate or prosecute any alcohol or drug abuse patient.[facility] the event this information is protected by the Federal Confidentiality of Alcohol and Drug Abuse Patient Records regulations: The Federal rules restrict any use of the information to criminally investigate or prosecute any alcohol or drug abuse patient.[facility] Center[facility] the event this information is protected by the Federal Confidentiality of Alcohol and Drug Abuse Patient Records regulations: The Federal rules restrict any use of the information to criminally investigate or prosecute any alcohol or drug abuse patient.[facility] CenterIn the event this information is protected by the Federal Confidentiality of Alcohol and Drug Abuse Patient Records regulations: The Federal rules restrict any use of the information to criminally investigate or prosecute any alcohol or drug abuse patient.[facility] CenterIn the event this information is protected by the Federal Confidentiality of Alcohol and Drug Abuse Patient Records regulations: The Federal rules restrict any use of the information to criminally investigate or prosecute any alcohol or drug abuse patient.[facility] CenterIn the event this information is protected by the Federal Confidentiality of Alcohol and Drug Abuse Patient Records regulations: The Federal rules restrict any use of the information to criminally investigate or prosecute any alcohol or drug abuse patient.[facility] CenterIn the event this information is protected by the Federal Confidentiality of Alcohol and Drug Abuse Patient Records regulations: The Federal rules restrict any use of the information to criminally investigate or prosecute any alcohol or drug abuse patient.[facility] CenterIn the event this information is protected by the Federal Confidentiality of Alcohol and Drug Abuse Patient Records regulations: The Federal rules restrict any use of the information to criminally investigate or prosecute any alcohol or drug abuse patient.[facility] CenterIn the event this information is protected by the Federal Confidentiality of Alcohol and Drug Abuse Patient Records regulations: The Federal rules restrict any use of the information to criminally investigate or prosecute any alcohol or drug abuse patient.[facility] CenterIn the event this information is protected by the Federal Confidentiality of Alcohol and Drug Abuse Patient Records regulations: The Federal rules restrict any use of the information to criminally investigate or prosecute any alcohol or drug abuse patient.[facility] CenterIn the event this information is protected by the Federal Confidentiality of Alcohol and Drug Abuse Patient Records regulations: The Federal rules restrict any use of the information to criminally investigate or prosecute any alcohol or drug abuse patient.[facility] CenterIn the event this information is protected by the Federal Confidentiality of Alcohol and Drug Abuse Patient Records regulations: The Federal rules restrict any use of the information to criminally investigate or prosecute any alcohol or drug abuse patient.[facility] CenterIn the event this information is protected by the Federal Confidentiality of Alcohol and Drug Abuse Patient Records regulations: The Federal rules restrict any use of the information to criminally investigate or prosecute any alcohol or drug abuse patient.[facility] CenterIn the event this information is protected by the Federal Confidentiality of Alcohol and Drug Abuse Patient Records regulations: The Federal rules restrict any use of the information to criminally investigate or prosecute any alcohol or drug abuse patient.[facility] CenterIn the event this information is protected by the Federal Confidentiality of Alcohol and Drug Abuse Patient Records regulations: The Federal rules restrict any use of the information to criminally investigate or prosecute any alcohol or drug abuse patient.[facility] CenterIn the event this information is protected by the Federal Confidentiality of Alcohol and Drug Abuse Patient Records regulations: The Federal rules restrict any use of the information to criminally investigate or prosecute any alcohol or drug abuse patient.[facility] CenterIn the event this information is protected by the Federal Confidentiality of Alcohol and Drug Abuse Patient Records regulations: The Federal rules restrict any use of the information to criminally investigate or prosecute any alcohol or drug abuse patient.[facility] CenterIn the event this information is protected by the Federal Confidentiality of Alcohol and Drug Abuse Patient Records regulations: The Federal rules restrict any use of the information to criminally investigate or prosecute any alcohol or drug abuse patient.[facility] CenterIn the event this information is protected by the Federal Confidentiality of Alcohol and Drug Abuse Patient Records regulations: The Federal rules restrict any use of the information to criminally investigate or prosecute any alcohol or drug abuse patient.[facility] CenterIn the event this information is protected by the Federal Confidentiality of Alcohol and Drug Abuse Patient Records regulations: The Federal rules restrict any use of the information to criminally investigate or prosecute any alcohol or drug abuse patient.[facility] CenterIn the event this information is protected by the Federal Confidentiality of Alcohol and Drug Abuse Patient Records regulations: The Federal rules restrict any use of the information to criminally investigate or prosecute any alcohol or drug abuse patient.[facility] CenterIn the event this information is protected by the Federal Confidentiality of Alcohol and Drug Abuse Patient Records regulations: The Federal rules restrict any use of the information to criminally investigate or prosecute any alcohol or drug abuse patient.[facility] CenterIn the event this information is protected by the Federal Confidentiality of Alcohol and Drug Abuse Patient Records regulations: The Federal rules restrict any use of the information to criminally investigate or prosecute any alcohol or drug abuse patient.[facility] CenterIn the event this information is protected by the Federal Confidentiality of Alcohol and Drug Abuse Patient Records regulations: The Federal rules restrict any use of the information to criminally investigate or prosecute any alcohol or drug abuse patient.[facility] CenterIn the event this information is protected by the Federal Confidentiality of Alcohol and Drug Abuse Patient Records regulations: The Federal rules restrict any use of the information to criminally investigate or prosecute any alcohol or drug abuse patient.[facility] CenterIn the event this information is protected by the Federal Confidentiality of Alcohol and Drug Abuse Patient Records regulations: The Federal rules restrict any use of the information to criminally investigate or prosecute any alcohol or drug abuse patient.[facility] CenterIn the event this information is protected by the Federal Confidentiality of Alcohol and Drug Abuse Patient Records regulations: The Federal rules restrict any use of the information to criminally investigate or prosecute any alcohol or drug abuse patient.[facility] CenterIn the event this information is protected by the Federal Confidentiality of Alcohol and Drug Abuse Patient Records regulations: The Federal rules restrict any use of the information to criminally investigate or prosecute any alcohol or drug abuse patient.[facility] CenterIn the event this information is protected by the Federal Confidentiality of Alcohol and Drug Abuse Patient Records regulations: The Federal rules restrict any use of the information to criminally investigate or prosecute any alcohol or drug abuse patient.[facility] CenterIn the event this information is protected by the Federal Confidentiality of Alcohol and Drug Abuse Patient Records regulations: The Federal rules restrict any use of the information to criminally investigate or prosecute any alcohol or drug abuse patient.[facility] CenterIn the event this information is protected by the Federal Confidentiality of Alcohol and Drug Abuse Patient Records regulations: The Federal rules restrict any use of the information to criminally investigate or prosecute any alcohol or drug abuse patient.[facility] CenterIn the event this information is protected by the Federal Confidentiality of Alcohol and Drug Abuse Patient Records regulations: The Federal rules restrict any use of the information to criminally investigate or prosecute any alcohol or drug abuse patient.[facility] CenterIn the event this information is protected by the Federal Confidentiality of Alcohol and Drug Abuse Patient Records regulations: The Federal rules restrict any use of the information to criminally investigate or prosecute any alcohol or drug abuse patient.[facility] CenterIn the event this information is protected by the Federal Confidentiality of Alcohol and Drug Abuse Patient Records regulations: The Federal rules restrict any use of the information to criminally investigate or prosecute any alcohol or drug abuse patient.[facility] CenterIn the event this information is protected by the Federal Confidentiality of Alcohol and Drug Abuse Patient Records regulations: The Federal rules restrict any use of the information to criminally investigate or prosecute any alcohol or drug abuse patient.[facility] CenterIn the event this information is protected by the Federal Confidentiality of Alcohol and Drug Abuse Patient Records regulations: The Federal rules restrict any use of the information to criminally investigate or prosecute any alcohol or drug abuse patient.[facility] CenterIn the event this information is protected by the Federal Confidentiality of Alcohol and Drug Abuse Patient Records regulations: The Federal rules restrict any use of the information to criminally investigate or prosecute any alcohol or drug abuse patient.[facility] CenterIn the event this information is protected by the Federal Confidentiality of Alcohol and Drug Abuse Patient Records regulations: The Federal rules restrict any use of the information to criminally investigate or prosecute any alcohol or drug abuse patient.[facility] CenterIn the event this information is protected by the Federal Confidentiality of Alcohol and Drug Abuse Patient Records regulations: The Federal rules restrict any use of the information to criminally investigate or prosecute any alcohol or drug abuse patient.[facility] CenterIn the event this information is protected by the Federal Confidentiality of Alcohol and Drug Abuse Patient Records regulations: The Federal rules restrict any use of the information to criminally investigate or prosecute any alcohol or drug abuse patient.[facility] Reason for Visit (unrecogniz ed section and content) Reason Comments Non-Chemotherapy Treatment Specialty Diagnoses / Procedures Referred By Contac t Referred To Contact Diagnoses Iron deficiency anemia due to chronic blood loss Procedures IRON SUCROSE INJECTION PER 1 MG IRON TREATMENT Deandre Terry MD [address] [place] [address] [facility] [address] [place] [address] Referral ID Status Reason Start Date Expiration Date V isits Requested Visits Authorized [id number] Authorized 05/11/2022 10/02/2022 99 99 Reason Comments Medication Follow-up Reason Comments Rash rash on shoulder/deanna k and neck x 2 days Reason Comments ED Follow-up [facility] Reason Comments Patient Question Reason Comments Results labs from [facility] Reason Comments Appointment Reason Comments Results Reason Comments New Patient Specialty Diagnoses / Procedures Referred By Contac t Referred To Contact Hematology Diagnoses Anemia, unspecified type B12 deficiency Acute deep vein thrombosis (DVT) of proximal vein of right lower extremity (HCC) Family history of DVT Procedures CONSULT TO HEMATOLOGY OFFICE/OUTPATIENT NEW HIGH MDM 60-74 MINUTES 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, 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 [address] [place] [address] Referral ID Status Reason Start Date Expiration Date V isits Requested Visits Authorized [id number] Closed PCP Requested Referral 04/20/2022 04/20/2023 1 1 Reason Comments Anemia Reason Comments Imm/Inj Reason Comments Established Patient Reason Comments F/U 6 months Reason Comments Appointment Cancelled Reason Onset Date Comments Refill Request 01/20/2023 Reason Onset Date Comments Refill Request 05/10/2023 Reason Comments Refill Request Reason Comments Broken bone; blood clot med prescribed a t ER not covered Reason Comments ED Follow-up Broken foot Reason Comments Anticoagulation Reason Comments Orders Reason Comments B-12 Injection Reason Comments B12 Injection Specialty Diagnoses / Procedures [facility] To Contact Diagnoses Iron deficiency anemia due to chronic blood loss Procedures IRON SUCROSE INJECTION PER 1 MG Ellen Garza, 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 [address] [place] [address] [facility] [address] [place] [address] Referral ID Status Reason Start Date Expiration Date V isits Requested Visits Authorized [id number] Authorized 01/25/2024 10/02/2024 99 99 Reason Comments Follow up/Labs Reason Onset Date Comments Refill Request 05/08/2024 Reason Onset Date Comments Anticoagulation 07/06/2024 Care Teams (unrecognized sec tion and content) Program Production Specialist Relationship Specialty Start Date End Date Jordan Guevara MD [address] [place] [address] PCP - General Internal Medicine 12/18/18 Program Production Specialist Relationship Specialty Start Date End Date Jordan Guevara MD [address] [place] [address] PCP - General Internal Medicine 12/18/18 Program Production Specialist Relationship Specialty Start Date End Date Jordan Guevara MD [address] [place] [address] PCP - General Internal Medicine 12/18/18 Program Production Specialist Relationship Specialty Start Date End Date Jordan Guevara MD [address] [place] [address] PCP - General Internal Medicine 12/18/18 Program Production Specialist Relationship Specialty Start Date End Date Jordan Guevara MD [address] [place] [address] PCP - General Internal Medicine 12/18/18 Program Production Specialist Relationship Specialty Start Date End Date Jordan Guevara MD [address] [place] [address] PCP - General Internal Medicine 12/18/18 Program Production Specialist Relationship Specialty Start Date End Date Jordan Guevara MD [address] [place] [address] PCP - General Internal Medicine 12/18/18 Deandre Terry MD [address] [facility] [place] [address] Hematology/Oncology 05/11/22 Program Production Specialist Relationship Specialty Start Date End Date Jordan Guevara MD [address] [place] [address] PCP - General Internal Medicine 12/18/18 Deandre Terry MD [address] [facility] [address] Hematology/Oncology 05/11/22 Program Production Specialist Relationship Specialty Start Date End Date Jordan Guevara MD [address] [place] [address] PCP - General Internal Medicine 12/18/18 Deandre Terry MD [address] [place] [address] Hematology/Oncology 05/11/22 Program Production Specialist Relationship Specialty Start Date End Date Jordan Guevara MD [address] [place] [address] PCP - General Internal Medicine 12/18/18 Deandre Terry MD [address] [place] [address] Hematology/Oncology 05/11/22 Program Production Specialist Relationship Specialty Start Date End Date Jordan Guevara MD [address] [place] [address] PCP - General Internal Medicine 12/18/18 Deandre Terry MD [address] [place] [address] Hematology/Oncology 05/11/22 Program Production Specialist Relationship Specialty Start Date End Date Jordan Guevara MD [address] [place] [address] PCP - General Internal Medicine 12/18/18 Deandre Terry MD [address] [place] [address] Hematology/Oncology 05/11/22 Program Production Specialist Relationship Specialty Start Date End Date Jordan Guevara MD [address] [place] [address] PCP - General Internal Medicine 12/18/18 Deandre Terry MD [address] [place] [address] Hematology/Oncology 05/11/22 Program Production Specialist Relationship Specialty Start Date End Date Jordan Guevara MD [address] [place] [address] PCP - General Internal Medicine 12/18/18 Deandre Terry MD [address] [place] [address] Hematology/Oncology 05/11/22 Program Production Specialist Relationship Specialty Start Date End Date Jordan Guevara MD [address] [place] [address] PCP - General Internal Medicine 12/18/18 Deandre Terry MD [address] [place] [address] Hematology/Oncology 05/11/22 Program Production Specialist Relationship Specialty Start Date End Date Jordan Guevara MD [address] [place] [address] PCP - General Internal Medicine 12/18/18 Deandre Terry MD [address] [place] [address] Hematology/Oncology 05/11/22 Program Production Specialist Relationship Specialty Start Date End Date Jordan Guevara MD [address] [place] [address] PCP - General Internal Medicine 12/18/18 Deandre Terry MD [address] [place] [address] Hematology/Oncology 05/11/22 Program Production Specialist Relationship Specialty Start Date End Date Jordan Guevara MD [address] [place] [address] PCP - General Internal Medicine 12/18/18 Deandre Terry MD [address] [place] [address] Hematology/Oncology 05/11/22 Program Production Specialist Relationship Specialty Start Date End Date Jordan Guevara MD [address] [place] [address] PCP - General Internal Medicine 12/18/18 Deandre Terry MD [address] [place] [address] Hematology/Oncology 05/11/22 Program Production Specialist Relationship Specialty Start Date End Date Jordan Guevara MD [address] [place] [address] PCP - General Internal Medicine 12/18/18 Deandre Terry MD [address] [place] [address] Hematology/Oncology 05/11/22 Program Production Specialist Relationship Specialty Start Date End Date Jordan Guevara MD [address] [place] [address] PCP - General Internal Medicine 12/18/18 Deandre Terry MD [address] [place] [address] Hematology/Oncology 05/11/22 Program Production Specialist Relationship Specialty Start Date End Date Jordan Guevara MD [address] [place] [place] [id number] PCP - General Internal Medicine 12/18/18 Deandre Terry MD [address] [facility] [place] [id number] Hematology/Oncology 05/11/22 Program Production Specialist Relationship Specialty Start Date End Date Jordan Guevara MD [address] [place] [address] PCP - General Internal Medicine 12/18/18 Deandre Terry MD [address] [facility] [place] [address] Hematology/Oncology 05/11/22 Program Production Specialist Relationship Specialty Start Date End Date Jordan Guevara MD [address] [place] [address] PCP - General Internal Medicine 12/18/18 Deandre Terry MD [address] [facility] [place] [address] Hematology/Oncology 05/11/22 Program Production Specialist Relationship Specialty Start Date End Date Jordan Guevara MD [address] [place] [address] PCP - General Internal Medicine 12/18/18 Deandre Terry MD [address] [facility] [place] [address] Hematology/Oncology 05/11/22 Program Production Specialist Relationship Specialty Start Date End Date Jordan Guevara MD [address] [facility] [place], [place] [address] PCP - General Internal Medicine 12/18/18 Deandre Terry MD [address] [facility] [place], [place] [address] Hematology/Oncology 05/11/22 Program Production Specialist Relationship Specialty Start Date End Date Jordan Guevara MD [address] [place], [place] [address] PCP - General Internal Medicine 12/18/18 Deandre Terry MD [address] [facility] [place] [address] Hematology/Oncology 05/11/22 Program Production Specialist Relationship Specialty Start Date End Date Jordan Guevara MD [address] [facility] [place] [address] PCP - General Internal Medicine 12/18/18 Deandre Terry MD [address] [place] [address] Hematology/Oncology 05/11/22 Program Production Specialist Relationship Specialty Start Date End Date Jodran Guevara MD [address] [place] [address] PCP - General Internal Medicine 12/18/18 Deandre Terry MD [address] [place] [address] Hematology/Oncology 05/11/22 Program Production Specialist Relationship Specialty Start Date End Date Jordan Guevara MD [address] [place], [place] [id number] PCP - General Internal Medicine 12/18/18 Deandre Terry MD [address] [place] [address] Hematology/Oncology 05/11/22 Program Production Specialist Relationship Specialty Start Date End Date Jordan Guevara MD [address] [facility] [place], [place] [address] PCP - General Internal Medicine 12/18/18 Deandre Terry MD [address] [place] [address] Hematology/Oncology 05/11/22 Program Production Specialist Relationship Specialty Start Date End Date Jordan Guevara MD [address] [place], [place] [address] PCP - General Internal Medicine 12/18/18 Deandre Terry MD [address] [place] [address] Hematology/Oncology 05/11/22 Program Production Specialist Relationship Specialty Start Date End Date Jordan Guevara MD [address] [place], [place] [address] PCP - General Internal Medicine 12/18/18 Deandre Terry MD [address] [place] [address] Hematology/Oncology 05/11/22 Program Production Specialist Relationship Specialty Start Date End Date Jordan Guevara MD [address] [place], [place] [address] PCP - General Internal Medicine 12/18/18 FOR RECORDS PERTAINING TO PATIENTS WHO ARE OR HAVE BEEN ENROLLED IN A CHEMICAL DEPENDENCY/SUBSTANCEABUSE PROGRAM, SOME INFORMATION MAY BE OMITTED. This clinical summary was aggregated from multiple sources. Caution should be exercised in using it in the provision of clinical care. This summary normalizes information from multiple sources, and as a consequence, information in this document may materially change the coding, format and clinical context of patient data. In addition, data may be omitted in some cases. CLINICAL DECISIONS SHOULD BE BASED ON THE PRIMARY CLINICAL RECORDS. [facility] provides no warranty or guarantee of the accuracy or completeness of information in this document.
[2024-07-28] MEDS: Amox/Clavulanate 875 MG Tablet PO (12:20)
[2024-07-28] MEDS: Ondansetron ODT 4 MG Tablet 8 MG PO (12:20)
== END 2024-07-28 12:23 | disposition home or self-care (01) ==
LOC: ED 12:12
PROVIDERS: Emergency Provider Emergency Medicine; PCP Internal Medicine; Visit Provider Emergency Medicine
DX: S61.452A Open bite of left hand, initial encounter (principal); L03.114 Cellulitis of left upper limb; W55.01XA Bitten by cat, initial encounter
CPT/HCPCS: 99283